=== PATIENT | male | born 1960 | race Caucasian/White ===

== ENCOUNTER → 2018-08-27 07:20 | Outpatient (CLI) | payer MEDICARE, SELFPAY ==
--- NOTE | 2018-08-27 07:24 | CT_ITS ---
STUDY: CT RIGHT SHOULDER REASON FOR EXAM: Male, 58 years old. Osteoarthritis of the right shoulder joint. RADIATION DOSAGE (If Supplied By Facility): CTDIvol = ( 27.67 ) mGy, DLP = ( 582.45 ) mGycm TECHNIQUE: The patient was scanned in a multi detector CT scanner. High resolution transaxial imaging was performed without the administration of intravenous contrast material. Sagittal and coronal images were reconstructed. Individualized dose optimization techniques were used for this CT. COMPARISON: None. FINDINGS: There is mild osteoarthritis of the glenohumeral articulation, with mild articular joint space narrowing and mild osteoarthritic spurring. Normal glenoid rim, neck and visualized scapula. Normal humeral head, neck and tuberosities. Normal coracoid process. Normal visualized lateral clavicle. There is moderate osteoarthritis with articular joint space narrowing and with osteoarthritic spurring. There is a Type II morphology (curved), with a neutral orientation. Normal visualized muscles and soft tissue structures. CT/Extremity Upper without Contra IMPRESSION: Osteoarthritis of the acromioclavicular joint. Mild osteoarthritis of the glenohumeral joint. Electronically Signed: Chaka Medina MD at 8:47 EST Tel [phone], Service support ,
--- OUTSIDE RECORDS SUMMARY | 2018-10-13 00:43 | XMS RPT_ITS | Summary of Care ---
:1960 Author Organization [facility] Address [address] [place] [address] Phone Care Team Providers Name Role Phone Moise Jack MD Primary Care Provider Transplant, Coordinator Assistant [employer] Alee Hodgson RN Unavailable Unavailable Trice Moon RN Unavailable Unavailable Reason for Visit Radiology (Routine) Status Reason Specialty Diagnoses / Procedures Referred By Referred To Contact Contact Authorized - Diagnoses 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 High risk medication use Susan Evans Procedures ECHOCARDIOGRAM PHARMACOLOGICAL STRESS TEST MD Emmanuel [address] [place] [address] Encounter Details Date Type Department Care Team Description 08/11/2018 Hospital Encounter [facility] Susan Evans MD [facility] [address] [place] [phone] Allergies Active Allergy Reactions Severity Noted Date Comments Statins Myalgia Medium 04/04/2010 *Tape 08/15/2008 as of this encounter Medications Prescription Sig. Disp. Refills Start Date End Date Status aspirin 81 MG PO take 1 Tab by 90 Tab 3 06/07/2011 Active TABSIndications: mouth daily. Encounter for long-term (current) use of other medications, Hyperlipidemia, Aftercare following organ transplant, Hypertension Multiple take 1 Tab by 90 Tab 3 06/11/2013 Active Vitamins-Minerals mouth daily. (CENTRUM) PO TABS magnesium oxide 400 MG take 1 Tab by 90 Tab 3 06/11/2013 Active PO TABS mouth daily. calcium-vitamin D take 1 Tab by 60 Tab 11 08/24/2013 Active 500-200 MG-UNIT PO TABS mouth 2 times daily. docusate 100 MG Cap take 1 Cap by 60 Cap 11 10/14/2014 Active mouth 2 times daily. SitaGLIPtin-MetFORMIN Take 1 tablet 60 tablet 1 09/19/2015 Active HCl (JANUMET XR) by mouth daily 100-1000 MG Tab SR 24 every morning. HRIndications: Encounter for aftercare following heart transplant, Encounter for long-term (current) use of medications, Other hyperlipidemia, Essential hypertension rosuvastatin (CRESTOR) take 1 tablet 90 tablet 3 09/20/2016 Active 5 MG Tab by mouth daily.. Cholecalciferol 2000 take 1 capsule 90 capsule 3 09/20/2016 Active UNITS Cap by mouth daily.. Coenzyme Q10 (COQ10) Take by mouth Active 200 MG CapIndications: daily. Encounter for aftercare following heart transplant, Encounter for long-term (current) use of medications, Other hyperlipidemia, Essential hypertension mycophenolate mofetil Take 1 capsule 180 capsule 3 09/30/2017 Active (generic) 250 MG Cap by mouth 2 capsule times daily. mycophenolate mofetil Take 1 tablet 180 tablet 3 09/30/2017 Active (generic) 500 MG Tab by mouth 2 tablet times daily. tacrolimus (generic) 1 Take 2 capsules 360 capsule 3 09/30/2017 Active MG Cap capsule by mouth 2 times daily. lisinopril 10 MG Tab Take 1.5 270 tablet 3 09/30/2017 Active tabletIndications: tablets by Encounter for aftercare mouth 2 times following heart daily. transplant, Encounter for long-term (current) use of medications, Other hyperlipidemia, Essential hypertension omeprazole [address] Take 1 capsule 90 capsule 3 09/30/2017 Active capsuleIndications: by mouth daily. Encounter for aftercare following heart transplant, Encounter for long-term (current) use of medications, Other hyperlipidemia, Essential hypertension amLODIPine 10 MG Tab Take 1 tablet 90 tablet 3 10/13/2017 Active tablet by mouth daily. metformin 1000 MG Tab Take 1,000 mg Active tablet by mouth every evening at 6 PM. as of this encounter Active Problems Problem Noted Date Diabetes mellitus 04/19/2015 Overview: Diagnosed by PCP. A1C 12.5 Immunosuppression 08/30/2014 Peripheral neuropathy 09/29/2013 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 06/23/2013 Overview: 08/24/2009 for nonischemic cardiomyopathy Aftercare following organ transplant 11/27/2010 Hypertension 10/03/2009 Syncope Overview: 1. Jun 2008 2. Etiology unclear - likely hemodynamic related Hypertriglyceridemia Atrial fibrillation Overview: 1. Switched from Sotolol to Amiodarone last hospitalization due to possible hypotension with sotolol. Pulmonary embolism Ventricular tachycardia (paroxysmal) Overview: VT with syncope / admission to HF service 01/21 with adjustment in therapy. Resolved Problems Problem Noted Date Resolved Date Nonischemic cardiomyopathy 03/03/2012 Overview: 1. Idiopathic dilated cardiomyopathy/congestive heart failure. A. Echocardiogram performed 01/21, showed severely dilated left ventricle with segmental LV dysfunction, ejection fraction calculated at 15% to 20%, moderate MR, mild TR, left atrial enlargement. LVEDD is 6.9cm. No significant pul HTN B. Exercise VO2 study performed 07/23, showed a peak VO2 of 17 mL/kg per minute (50% predicted), VE/VCO2 47. C. ICD implanted in 2002 with an upgrade to a biventricular device (based on a dyssynchrony study). D. Currently status II on cardiac transplant waiting list (listed 10/24) Chronic systolic heart failure 03/03/2012 Diabetes mellitus, type 2 04/19/2015 Immunizations Name Dates Previously Given Next Due Influenza Vaccine, Trivalent 07/06/2014 as of this encounter Social History Tobacco Use Types Packs/Day Years Used Date Never Smoker Smokeless Tobacco: Former User Snuff Quit: 02/28/2000 Alcohol Use Drinks/Week oz/Week Comments No Sex Assigned at Date Recorded Not on file as of this encounter Last Filed Vital Signs Vital Sign Reading Time Taken Blood Pressure - - Pulse - - Temperature - - Respiratory Rate - - Oxygen Saturation - - Inhaled Oxygen Concentration - - Weight 90.7 kg (200 lb) 08/11/2018 1:57 PM EST Height 177.8 cm (5' 10) 08/11/2018 1:57 PM EST Body Mass Index 28.7 08/11/2018 1:57 PM EST in this encounter Plan of Treatment Upcoming Encounters Date Type Specialty Care Team Description 08/03/2019 Appointment Peripheral Vascular Giana Bradshaw MD [address] [place] [address] 08/03/2019 Office Visit Transplant Surgery Health Maintenance Due Date Last Done Comments TETANUS 1980 TDAP (ADULT) 1981 PROSTATE CANCER SCREENING 11/04/2013 11/04/2012, 09/01/2012, DISCUSSION 09/01/2012, Additional history exists COLON CANCER SCREENING DISCUSSION 03/23/2015 03/23/2014, 08/28/2009, 10/06/2008 INFLUENZA VACCINE (#1) 2018 07/06/2014 LIPID SCREENING 08/13/2022 08/13/2017, 09/17/2016, 09/19/2015, Additional history exists HEPATITIS C VIRUS SCREENING Completed 02/07/2010, 08/24/2009, 09/02/2008 HIV SCREENING DISCUSSION Completed 02/07/2010, 08/24/2009, 09/02/2008 as of this encounter Procedures Procedure Name Priority Date/Time Associated Comments Diagnosis ECHOCARDIOGRAM PHARM Routine 08/11/2018 2:01 Heart replaced by Results for this STRESS TEST W/ CONTRAST PM EST transplant procedure are in High risk the results medication use section. in this encounter Administered Medications Active Administered Medications - up to 3 most recent administrations Medication Order MAR Action Action Date Dose Rate Site DOBUTamine (DOBUTREX) 1 $$New Bag$$ 08/11/2018 14:17 10 mcg/kg/min 54.4 mL/hr MG/ML premix infusion EST 40 mcg/kg/min ? 90.7 kg Order-specific weight (217.68 mL/hr, rounded to 217.7 mL/hr), at 217.7 mL/hr, Intravenous, CONTINUOUS, Starting 08/11/18 at 1415, Until Discontinued, Initiate at 10 mcg/kg/min and titrate to increase by 10 mcg/kg/min every 3 minutes to a maximum dose of 40 mcg/kg/min as directed by physician. Rate/Dose Change 08/11/2018 14:22 EST 20 mcg/kg/min 108.8 mL/hr Inactive Administered Medications - up to 3 most recent administrations Medication Order MAR Action Action Date Dose Rate Site Perflutren Lipid Microsphere Given 08/11/2018 14:23 EST 3 mL (DEFINITY) SUSP 10 mL 10 mL, Intravenous, ONCE, 1 dose, 08/11/18 at 1430, Dilute 1.5 mL of Definity with 8.5 mL of 0.9% sodium chloride and draw up in a 10 mL syringe. Administration during procedure as directed by physician. Recorded MAR dose is cumulative amount given during procedure. in this encounter
--- OUTSIDE RECORDS SUMMARY | 2018-10-13 00:43 | XMS RPT_ITS | Summary of Care ---
:1960 Author Organization [facility] Address [address] [place] [address] Phone Care Team Providers Name Role Phone Moise Jack MD Primary Care Provider Transplant, Coordinator Photographic Laboratory Technician Alee Hodgson RN Unavailable Unavailable Trice Moon RN Unavailable Unavailable Reason for Visit Radiology (Routine) Status Reason Specialty Diagnoses / Referred By Referred To Procedures Contact Contact [facility] - Diagnoses Encounter for aftercare following heart transplant Encounter for long-term (current) use of medications Other hyperlipidemia Essential hypertension Susan Evans, Procedures ECHOCARDIOGRAM MD [address] [place] [address] Encounter Details Date Type Department Care Team Description 08/11/2018 Hospital Encounter [facility] Susan Evans MD [facility] [address] [place] [phone] Allergies Active Allergy Reactions [...] 3 10/13/2017 Active tablet by mouth daily. as of this encounter Active Problems Problem [...] Vital Sign Reading Time Taken Blood Pressure 122/78 08/11/2018 11:07 AM EST Pulse - - Temperature - - Respiratory Rate - - Oxygen Saturation - - Inhaled Oxygen Concentration - - Weight 93.9 kg (207 lb) 08/11/2018 11:07 AM EST Height 175.3 cm (5' 9) 08/11/2018 11:07 AM EST Body Mass Index 30.57 08/11/2018 11:07 AM EST in this encounter Plan of Treatment Upcoming Encounters Date Type Specialty Care Team Description 08/03/2019 Appointment Peripheral Vascular Giana Bradshaw MD [address] [place] [address] 08/03/2019 Office Visit Transplant Surgery Health Maintenance [...] encounter Procedures Procedure Name Priority Date/Time Associated Diagnosis Comments ECHOCARDIOGRAM W/O 3D Routine 08/11/2018 11:07 Encounter for Results for this W/CONTRAST AM EST aftercare following procedure are in heart transplant the results Encounter for section. long-term (current) use of medications Other hyperlipidemia Essential hypertension in this encounter Administered Medications Inactive Administered Medications - up to 3 most recent administrations Medication Order MAR Action Action Date Dose Rate Site Perflutren Lipid Microsphere Given 08/11/2018 10:48 EST 2 mL (DEFINITY) SUSP 10 mL 10 mL, Intravenous, ONCE, 1 dose, 08/11/18 at 1045, Dilute 1.5 mL of Definity with 8.5 mL of 0.9% sodium chloride and draw up in a 10 mL syringe. Administration during procedure as directed by physician. Recorded MAR dose is cumulative amount given during procedure. in this encounter
--- OUTSIDE RECORDS SUMMARY | 2018-10-13 00:43 | XMS RPT_ITS | Summary of Care ---
:1960 Author Organization [facility] Address [address] [place] [address] Phone Care Team Providers Name Role Phone Moise Jack MD Primary Care Provider Transplant, Coordinator Bacteriologist Food Alee Hodgson RN Unavailable Unavailable Trice Moon RN Unavailable Unavailable Reason for Visit Reason Comments Medication Refill Encounter Details Date Type Department Care Team Description 08/21/2018 Refill Comprehensive Transplant Trice Moon, RN Encounter for aftercare following heart transplant; Center Heart Transplant Encounter for long-term (current) use of medications; Office Other hyperlipidemia; [address] [place] [address] Allergies Active Allergy Reactions Severity Noted Date [...] Active Vitamins-Minerals mouth daily. (CENTRUM) PO TABS calcium-vitamin D take 1 Tab by 60 Tab 11 08/24/2013 Active 500-200 MG-UNIT PO mouth 2 times TABS daily. docusate 100 MG Cap take 1 Cap by 60 Cap 11 10/14/2014 Active mouth 2 times daily. SitaGLIPtin-MetFORMI Take 1 tablet 60 tablet 1 09/19/2015 Active N HCl (JANUMET XR) by mouth 100-1000 MG Tab SR daily every 24 HRIndications: morning. Encounter for aftercare following heart transplant, Encounter for long-term (current) use of medications, Other hyperlipidemia, Essential hypertension Cholecalciferol 2000 take 1 90 capsule 3 09/20/2016 Active UNITS Cap capsule by mouth daily.. Coenzyme Q10 (COQ10) Take by mouth Active 200 MG daily. CapIndications: Encounter for aftercare following heart transplant, Encounter for long-term (current) use of medications, Other hyperlipidemia, Essential hypertension metformin 1000 MG Take 1,000 mg Active Tab tablet by mouth every evening at 6 PM. magnesium oxide 400 Take 1 tablet 90 tablet 3 08/21/2018 Active MG Tab by mouth at bedtime. amLODIPine 10 MG Tab Take 1 tablet 90 tablet 3 08/21/2018 Active tablet by mouth daily. mycophenolate Take 1 180 capsule 3 08/21/2018 Active mofetil (generic) capsule by 250 MG Cap capsule mouth 2 times daily. mycophenolate Take 1 tablet 180 tablet 3 08/21/2018 Active mofetil (generic) by mouth 2 500 MG Tab tablet times daily. rosuvastatin Take 2.5mg on 24 tablet 3 08/21/2018 Active (CRESTOR) 5 MG Tab Mon/Fri/Fri/S per tablet un tacrolimus (generic) Take 2 360 capsule 3 08/21/2018 Active 1 MG Cap capsule capsules by mouth 2 times daily. lisinopril 10 MG Tab Take 1.5 270 tablet 3 08/21/2018 Active tabletIndications: tablets by Encounter for mouth 2 times aftercare following daily. heart transplant, Encounter for long-term (current) use of medications, Other hyperlipidemia, Essential hypertension omeprazole 20 MG Cap Take 1 90 capsule 3 08/21/[address] capsule by capsuleIndications: mouth daily. Encounter for aftercare following heart transplant, Encounter for long-term (current) use of medications, Other hyperlipidemia, Essential hypertension magnesium oxide 400 take 1 Tab by 90 Tab 3 06/11/2013 Discontinued MG PO TABS mouth daily. 8 mycophenolate Take 1 180 capsule 3 09/30/2017 Discontinued mofetil (generic) capsule by 8 250 MG Cap capsule mouth 2 times daily. mycophenolate Take 1 tablet 180 tablet 3 09/30/2017 Discontinued mofetil (generic) by mouth 2 8 500 MG Tab tablet times daily. tacrolimus (generic) Take 2 360 capsule 3 09/30/2017 Discontinued 1 MG Cap capsule capsules by 8 mouth 2 times daily. lisinopril 10 MG Tab Take 1.5 270 tablet 3 09/30/2017 Discontinued tabletIndications: tablets by 8 Encounter for mouth 2 times aftercare following daily. heart transplant, Encounter for long-term (current) use of medications, Other hyperlipidemia, Essential hypertension omeprazole 20 MG Cap Take 1 90 capsule 3 09/30/[address] capsule by 8 capsuleIndications: mouth daily. Encounter for aftercare following heart transplant, Encounter for long-term (current) use of medications, Other hyperlipidemia, Essential hypertension amLODIPine 10 MG Tab Take 1 tablet 90 tablet 3 10/13/2017 Discontinued tablet by mouth 8 daily. rosuvastatin Take 2.5mg on 24 tablet 3 08/14/2018 Discontinued (CRESTOR) 5 MG Tab Fri/Fri/Fri/S 8 per tablet un as of this encounter Active Problems Problem Noted Date Diabetes mellitus 04/19/2015 Overview: Diagnosed by PCP. 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 Jun 2008 2. [...] Not on file as of this encounter Plan of Treatment Upcoming Encounters Date Type Specialty Care Team Description 08/03/2019 Appointment Peripheral Vascular Giana Bradshaw MD [address] [place] [phone] 08/03/2019 Office Visit Transplant Surgery Health Maintenance Due Date Last Done Comments TETANUS 1980 TDAP (ADULT) 1981 PROSTATE CANCER SCREENING 11/04/2013 11/04/2012, 09/01/2012, DISCUSSION 09/01/2012, Additional history exists COLON CANCER SCREENING DISCUSSION 03/23/2015 03/23/2014, 08/28/2009, 10/06/2008 INFLUENZA VACCINE (#1) 2018 07/06/2014 LIPID SCREENING 08/11/2023 08/11/2018, 08/13/2017, 09/17/2016, Additional history exists HEPATITIS C VIRUS SCREENING Completed 02/07/2010, 08/24/2009, 09/02/2008 HIV SCREENING DISCUSSION Completed 02/07/2010, 08/24/2009, 09/02/2008 as of this encounter Visit Diagnoses Diagnosis Encounter for aftercare following heart transplant Aftercare following organ transplant Encounter for long-term (current) use of medications Encounter for long-term (current) use of other medications Other hyperlipidemia Essential hypertension Unspecified essential hypertension
--- OUTSIDE RECORDS SUMMARY | 2018-10-13 00:43 | XMS RPT_ITS | Summary of Care ---
:1960 Author Organization [facility] Address [address] [place] [address] Phone Care Team Providers Name Role Phone Moise Jack MD Primary Care Provider Transplant, Coordinator Night Nurse Alee Hodgson RN Unavailable Unavailable Trice Moon RN Unavailable Unavailable Reason for Referral Radiology (Routine) Status Reason Specialty Diagnoses / Referred By Referred To Procedures Contact Contact New Request Diagnoses Encounter for aftercare following heart transplant Giana Bradshaw Procedures ECHOCARDIOGRAM [address] [place] [address] Radiology (Routine) Status Reason Specialty Diagnoses / Referred By Referred To Procedures Contact Contact Pending Review Diagnoses Encounter for aftercare following heart transplant Giana Bradshaw Procedures ECHOCARDIOGRAM [address] [place] [address] Reason for Visit Reason Comments Heart Recipient Follow-up Encounter Details Date Type Department Care Team Description 08/11/2018 Office Visit Comprehensive Susan Evans Encounter for aftercare following heart transplant (Primary Dx); Transplant Center MD Emmanuel Other hyperlipidemia; Heart Transplant [address] Encounter for long-term (current) use of medications; Office [place], [place] Essential hypertension; [address] [address] Hypertriglyceridemia; [place], [place] [phone] 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; [phone] Immunosuppression; Diabetes mellitus due to underlying condition with hyperosmolarity without coma, without long-term current use of insulin; Myalgia; Encounter for long-term (current) use of high-risk medication Allergies Active Allergy Reactions Severity Noted Date [...] daily. (CENTRUM) PO TABS magnesium oxide 400 take 1 Tab by 90 Tab 3 06/11/2013 Active MG PO TABS mouth daily. calcium-vitamin D take [...] of medications, Other hyperlipidemia, Essential hypertension mycophenolate Take 1 180 capsule 3 09/30/2017 Active mofetil (generic) capsule by 250 MG Cap capsule mouth 2 times daily. mycophenolate Take 1 tablet 180 tablet 3 09/30/2017 Active mofetil (generic) by mouth 2 500 MG Tab tablet times daily. tacrolimus (generic) Take 2 360 capsule 3 09/30/2017 Active 1 MG Cap capsule capsules by mouth 2 times daily. lisinopril 10 MG Tab Take 1.5 270 tablet 3 09/30/2017 Active tabletIndications: tablets by Encounter for mouth 2 times aftercare following daily. heart transplant, Encounter for long-term (current) use of medications, Other hyperlipidemia, Essential hypertension omeprazole 20 MG Cap Take 1 90 capsule 3 09/30/[address] capsule by capsuleIndications: mouth daily. Encounter for aftercare following heart transplant, Encounter for long-term (current) use of medications, Other hyperlipidemia, Essential hypertension amLODIPine 10 MG Tab Take 1 tablet 90 tablet 3 10/13/2017 Active tablet by mouth daily. metformin 1000 MG Take 1,000 mg Active Tab tablet by mouth every evening at 6 PM. rosuvastatin take 1 tablet 90 tablet 3 09/20/2016 Discontinued (CRESTOR) 5 MG Tab by mouth 8 daily.. as of this encounter Active Problems Problem [...] Vital Sign Reading Time Taken Blood Pressure 126/85 08/11/2018 11:18 AM EST Pulse 99 08/11/2018 11:18 AM EST Temperature 36.8 ??C (98.3 ??F) 08/11/2018 11:18 AM EST Respiratory Rate 18 08/11/2018 11:18 AM EST Oxygen Saturation 97% 08/11/2018 11:18 AM EST Inhaled Oxygen Concentration - - Weight 90.7 kg (200 lb) 08/11/2018 11:18 AM EST Height 177.8 cm (5' 10) 08/11/2018 11:18 AM EST Body Mass Index 28.7 08/11/2018 11:18 AM EST in this encounter Progress Notes Giana Bradshaw MD - 08/11/2018 11:30 AM ESTFormatting of this note may be different from the original. [facility] Progress Not Subjective: Apolinar Hunter is a 58 y.o. male with a history of OHT who presents with the following: ?? 9 year post tx evaluation ?? Denies current complaints. ?? Continues to have achiness, related to statins. ?? Possible rotator cuff tear. Waiting to see ortho. ?? Denies abdominal complaints. ?? Denies cardiovascular complaints. ?? Continues with some feet neuropathy. Home Vital Signs Home BP: Not checking Home HR: Not checking Last dose of CNI: 10:45pm last night Pertinent cardiac & admission history. Refer to updated history tab for comprehensive data. 1. OHT 08/23 2. Recent Admissions: None Immunosuppression: Prograf 2mg BID Cellcept 750mg BID Outpatient Encounter Prescriptions as of 08/11/2018 Medication Sig Dispense Refill ??? amLODIPine 10 MG Tab tablet Take 1 tablet by mouth daily. 90 tablet 3 ??? aspirin 81 MG PO TABS take 1 Tab by mouth daily. (Patient taking differently: take 81 mg by mouth at bedtime.. ) 90 Tab 3 ??? calcium-vitamin D 500-200 MG-UNIT PO TABS take 1 Tab by mouth 2 times daily. 60 Tab 11 ??? Cholecalciferol 2000 UNITS Cap take 1 capsule by mouth daily.. 90 capsule 3 ??? Coenzyme Q10 (COQ10) 200 MG Cap Take by mouth daily. ??? lisinopril 10 MG Tab tablet Take 1.5 tablets by mouth 2 times daily. 270 tablet 3 ??? magnesium oxide 400 MG PO TABS take 1 Tab by mouth daily. (Patient taking differently: take 400 mg by mouth at bedtime.. ) 90 Tab 3 ??? metformin 1000 MG Tab tablet Take 1,000 mg by mouth every evening at 6 PM. ??? Multiple Vitamins-Minerals (CENTRUM) PO TABS take 1 Tab by mouth daily. 90 Tab 3 ??? mycophenolate mofetil (generic) 250 MG Cap capsule Take 1 capsule by mouth 2 times daily. 180 capsule 3 ??? mycophenolate mofetil (generic) 500 MG Tab tablet Take 1 tablet by mouth 2 times daily. 180 tablet 3 ??? omeprazole [address] capsule Take 1 capsule by mouth daily. 90 capsule 3 ??? rosuvastatin (CRESTOR) 5 MG Tab take 1 tablet by mouth daily.. 90 tablet 3 ??? SitaGLIPtin-MetFORMIN HCl (JANUMET XR) 100-1000 MG Tab SR 24 HR Take 1 tablet by mouth daily every morning. 60 tablet 1 ??? tacrolimus (generic) 1 MG Cap capsule Take 2 capsules by mouth 2 times daily. 360 capsule 3 ??? docusate 100 MG Cap take 1 Cap by mouth 2 times daily. (Patient not taking: Reported on 08/11/2018 ) 60 Cap 11 ??? [] Perflutren Lipid Microsphere (DEFIN[employer]) SUSP 10 mL No facility-administered encounter medications on file as of 08/11/2018. REVIEW OF SYSTEMS A complete review of systems was performed and positive for symptoms mentioned in the history of present illness. The remainder of system review was negative. Objective: Blood pressure 126/85, pulse 99, temperature 98.3 ??F (36.8 ??C), temperature source Oral, resp. rate 18, height 1.778 m (5' 10), weight 90.7 kg (200 lb), SpO2 97 %. Wt Readings from Last 3 Encounters: 08/11/18 90.7 kg (200 lb) 08/11/18 93.9 kg (207 lb) 08/13/17 93.9 kg (207 lb) Body mass index is 28.7 kg/m??. Chief Complaint Patient presents with ??? Heart Recipient Follow-up Physical exam -- General: Appears stated age in no acute distress. Able to ambulate without assist. Obese. Neck: Supple. Cardiac: Regular rate and rhythm. No MM, rubs or gallops. No JVD. Lungs: CTA aj Abdomen: Normal bowel sounds throughout. No organomegaly or pulsations. Negative HJR. Extremities: No LE edema. Muscle Musculoskeletal: strength 5/5 UE and LE. Skin: No evidence of rashes, ulcers or skin breakdown. Normal color. Neurological: Grossly CN 2-12 intact. No focal deficits. Psych: No evidence of significant anxiety, depression or psychosis. Mental Status: Alert and oriented to person, place and time. Transplant Course / Past medical & Surgical History: Extensive review of previous records and imaging studies in electronic medical record Rejection History: none 10/25: 1A (to possible 2) 02/22: 1A, negative C3d/C4d. 08/24: 0, 02/23: 0, 03/04/12: 0 ALLOMAP: 02/22: 23 (w/biopsy 1A). 07/25: 30 11/23: 33 06/04/11: 33 08/25: 35 08/26: 34 03/27: 28 08/27: 29 02/26: 36 Echo A. 09/25: Normal LVEF 60-65%, normal RV function but mildly dilated, no valvular disease, LVEDD 4.6 cm. B. 08/25: LVEF 45-50%, normal RV function/size, no valvular disease, LVEDD 4.4 cm (images reviewed and LVEF appears similar to previous 55-60%). C. 08/26: Normal LVEF 50-55%, normal RV size/function, mild PI, no pericardial effusion, LVEDD 4.2 cm. D. 08/27: LVEF 55-60%, RV is enlarged and mild dysfunction, RVSP 24 mmHg, no valvular disease, LVEDD4.3 cm. E. 08/28 :LVEF 50%, mild-mod RV dysfunction, no valvular disease F. 09/30: LVEF 50%, nomral RV function by TAPSE, no valvular disease, RVSP 21 mmHg. G. 08/31: LVEF 60-65%, mild RV dilation with normal function, no valvular disease, RVSP 19 mmHg. Ischemic evaluation A. 08/24: No evidence of transplant vasculopathy. B. 08/25: Normal coronaries, normal LVEDP, Right dominant C. 08/26: normal coronaries, LVEDP 8mmHg D. 08/27 DSE: LVEF increased from 55% to 65% with stress, no wall motion abnormalities, no CP or arrhythmia, normal stress echo. E. 08/28 LHC: normal, no CAV F. 10/01 LHC: normal LAD, LCx. RCA with prox 10-20% stenosis, LVEDP 7 mmHg Database: Lab Results Component Value Date SODIUM 138 08/11/2018 POTASSIUM 4.7 08/11/2018 CHLORIDE 99 08/11/2018 CO2 29 08/11/2018 BUN 17 08/11/2018 CREATSERUM 0.92 08/11/2018 Lab Results Component Value Date WBC 7.58 08/11/2018 HGB 14.0 08/11/2018 HCT 40.9 08/11/2018 PLATELET 310 08/11/2018 MCV 88.7 08/11/2018 Lab Results Component Value Date ALT 21 08/11/2018 AST 16 08/11/2018 ALKPHOS 75 08/11/2018 BILITOTAL 0.5 08/11/2018 BILIDIRECT 0.1 08/11/2018 Lab Results Component Value Date CHOLESTEROL 166 08/11/2018 TRIG 181 (H) 08/11/2018 HDL 54 08/11/2018 LDLCALC 76 08/11/2018 Lab Results Component Value Date/Time TACROLIMUS 6.4 08/11/2018 09:30 AM TACROLIMUS 4.4 (L) 08/13/2017 10:16 AM TACROLIMUS 6.0 09/17/2016 11:57 AM TACROLIMUS 5.5 09/19/2015 08:48 AM TACROLIMUS 4.8 (L) 08/30/2014 10:21 AM Assessment and Plan: 58 y.o. y.o. male S/P OHT 08/24/09 for non-ischemic cardiomyopathy for follow-up clinic visit 1. Immunosuppresion therapy (transplant 08/23, CMV D+/R-) / Post-transplant care: - tacro level goal 6-10; level today 6.4. No change in dose. - Failed pred taper twice due to polyarthralgia (01/22, 02/22 and 08/24). Off prednisone since Apr 2011 (slower taper). - Cr normal and Tacro at goal -Supplements: on asa, calcium, vitamin D, Mg oxide 400 mg at bedtime (normal Mg 1.6). Off all anti-infective prophylaxis. Today: + continue current medications (tacro 2 mg bid and cellcept 750 mg bid) + Echo normal +DSE 07/2018 - normal 2. Hypertension: Controlled Continue current medications 3. Diabetes Mellitus, pre and post-transplant: Managed by PCP 4. Hyperlipidemia: - Lipids - borderline TG, LDL ~ 70. - Several problems with myalgias. - intolerance to multiple statins in the past. - Picacho 3 fish oil - not tolerated due to GI discomfort. - no longer on tricor - continue regular monitoring - Crestor holiday for 2 weeks and restart at 2.5 MWFSu due to myalgias - Lipids on return 5. Neuropathy / Foot pain: - skin biopsy unremarkable - gabapentin was not helpful - Following with neurology. - lotion helps 6. Preventive Care - up to date on routine colonscopy. - will get pneumovax and tetanus from PCP Return to clinic in one year. Annual with [facility] in 07/2019 Thank you for allowing me to participate in the care of this pleasant patient. Please do not hesitate to contact me if there are any further questions. Total face to face time 40 minutes. Sincerely, Giana Bradshaw MD [facility] Trice Moon RN - 08/11/2018 11:30 AM ESTFormatting of this note may be different from the original. [facility] Progress Not Subjective: Apolinar Hunter is a 58 y.o. male with a history of OHT who presents with the following: ?? 9 year post tx evaluation ?? Denies current complaints. ?? Continues to have achiness, related to statins. ?? Possible rotator cuff tear. Waiting to see ortho. ?? Denies abdominal complaints. ?? Denies cardiovascular complaints. ?? Continues with some feet neuropathy. Home Vital Signs Home BP: Not checking Home HR: Not checking Last dose of CNI: 10:45pm last night Pertinent cardiac & admission history. Refer to updated history tab for comprehensive data. 1. OHT 08/23 2. Recent Admissions: None Immunosuppression: Prograf 2mg BID Cellcept 750mg BID Outpatient Encounter Prescriptions as of 08/11/2018 Medication Sig Dispense Refill ??? amLODIPine 10 MG Tab tablet Take 1 tablet by mouth daily. 90 tablet 3 ??? aspirin 81 MG PO TABS take 1 Tab by mouth daily. (Patient taking differently: take 81 mg by mouth at bedtime.. ) 90 Tab 3 ??? calcium-vitamin D 500-200 MG-UNIT PO TABS take 1 Tab by mouth 2 times daily. 60 Tab 11 ??? Cholecalciferol 2000 UNITS Cap take 1 capsule by mouth daily.. 90 capsule 3 ??? Coenzyme Q10 (COQ10) 200 MG Cap Take by mouth daily. ??? lisinopril 10 MG Tab tablet Take 1.5 tablets by mouth 2 times daily. 270 tablet 3 ??? magnesium oxide 400 MG PO TABS take 1 Tab by mouth daily. (Patient taking differently: take 400 mg by mouth at bedtime.. ) 90 Tab 3 ??? metformin 1000 MG Tab tablet Take 1,000 mg by mouth every evening at 6 PM. ??? Multiple Vitamins-Minerals (CENTRUM) PO TABS take 1 Tab by mouth daily. 90 Tab 3 ??? mycophenolate mofetil (generic) 250 MG Cap capsule Take 1 capsule by mouth 2 times daily. 180 capsule 3 ??? mycophenolate mofetil (generic) 500 MG Tab tablet Take 1 tablet by mouth 2 times daily. 180 tablet 3 ??? omeprazole [address] capsule Take 1 capsule by mouth daily. 90 capsule 3 ??? rosuvastatin (CRESTOR) 5 MG Tab take 1 tablet by mouth daily.. 90 tablet 3 ??? SitaGLIPtin-MetFORMIN HCl (JANUMET XR) 100-1000 MG Tab SR 24 HR Take 1 tablet by mouth daily every morning. 60 tablet 1 ??? tacrolimus (generic) 1 MG Cap capsule Take 2 capsules by mouth 2 times daily. 360 capsule 3 ??? docusate 100 MG Cap take 1 Cap by mouth 2 times daily. (Patient not taking: Reported on 08/11/2018 ) 60 Cap 11 ??? [] Perflutren Lipid Microsphere (DEFINITY) SUSP 10 mL No facility-administered encounter medications on file as of 08/11/2018. REVIEW OF SYSTEMS A complete review of systems was performed and positive for symptoms mentioned in the history of present illness. The remainder of system review was negative. Objective: Blood pressure 126/85, pulse 99, temperature 98.3 ??F (36.8 ??C), temperature source Oral, resp. rate 18, height 1.778 m (5' 10), weight 90.7 kg (200 lb), SpO2 97 %. Wt Readings from Last 3 Encounters: 08/11/18 90.7 kg (200 lb) 08/11/18 93.9 kg (207 lb) 08/13/17 93.9 kg (207 lb) in this encounter Plan of Treatment Upcoming Encounters Date Type Specialty Care Team Description 08/03/2019 Appointment Peripheral Vascular Giana Bradshaw MD [address] [place] [id number] 08/03/2019 Office Visit Transplant Surgery Scheduled Tests Name Priority Associated Diagnoses Order Schedule ECHOCARDIOGRAM Routine Encounter for aftercare following heart Ordered: 08/03/2018 transplant ECHOCARDIOGRAM Routine Encounter for aftercare following heart Ordered: 08/11/2018 transplant Health Maintenance Due Date Last Done Comments [...] 02/07/2010, 08/24/2009, 09/02/2008 as of this encounter Results ALLOSCREEN RECIPIENT (POST TX PRA) (08/11/2018 9:30 AM) cPRA 10 (H) 0 % [facility], [facility] CLASS I SPECIFICITIES None Detected [facility] CLASS II SPECIFICITIES DQ:06:03/A*01:03 [facility] ANTIBODY SPECIFICITY No DSA detected [facility] INTERPRETATION AB SPECIFICITY CLASS COMMENT Antibody Specificity testing performed by [employer]. [facility], [facility] Comment: Some of the reagents used for testing in the Clinical Histocompatibility Laboratory have yet to be approved by the FDA.?Our certification by CLIA to perform high complexity tests allows us to use these reagents in the context of a stringent QC program, and obviates the need for FDA approval.Testing performed by the [facility] Clinical Histocompatibility Laboratory.?[facility] number: [id number].?CLIA number:?[id number],?Director: Phil Knutson, PhD, D([facility]). Performing Organization Address [facility] Phone [facility], [facility], [address] [place] [address] TACROLIMUS LEVEL, TROUGH (PRE DRUG LEVEL) (08/11/2018 9:30 AM) TACROLIMUS 6.4 5 - 15 ng/mL [facility], [facility] Comment: ? Method performed is a chemiluminescent microparticle immunoassay on the [employer] i2000. Performing Organization Address [facility] Phone Number [facility], [facility], [address] [place] [address] LIPID PANEL W CALCULATED LDL (08/11/2018 9:30 AM) CHOLESTEROL 166 <200 mg/dL [facility], [facility] Comment: ?[<200 mg/dL:?Desirable] ?[200-239 mg/dL:?Borderline High] ?[>239 mg/dL:?High] TRIGLYCERIDES-TRIGE 181 (H) <150 mg/dL [facility], [facility] Comment: ? [<150 mg/dL: Desirable] [150-199 mg/dL: Borderline] [200-499 mg/dL: High] [>500 mg/dL: Very High] HDL CHOLESTEROL 54 >40.0 mg/dL [facility], [facility] Comment: ?[<40 mg/dL:?Low (High Risk)] ?[>59 mg/dL:?High (Low Risk)] LDL CHOLESTEROL, CALCULATED 76 0 - 99 mg/dL [facility], [facility] Comment: ?[<100 mg/dL:?Optimal] ?[100-129 mg/dL:?Near Optimal] ?[130-159 mg/dL:?Borderline High] ?[160-189 mg/dL:?High] ?[>189 mg/dL:?Very High] CHOLESTEROL, TOTAL/HDL 3.1Comment: [<4.5: Low <4.5 [facility], [facility] risk] NON-HDL CHOLESTEROL (CHOL-HDL) 112 <130 mg/dL [facility] Performing Organization Address [facility] Number LAB, [facility], [address] [place] [id number] HEPATIC FUNCTION PANEL (08/11/2018 9:30 AM) ALBUMIN 4.8 3.5 - 5.0 g/dL [facility] BILIRUBIN, DIRECT 0.1 <0.3 mg/dL [facility] BILIRUBIN, TOTAL 0.5 <1.5 mg/dL [facility] ALKALINE PHOSPHATASE 75 32 - 126 U/L [facility] ALT 21 10 - 52 U/L [facility] AST 16 14 - 40 U/L [facility] PROTEIN, TOTAL 7.6 6.4 - 8.3 g/dL [facility] Performing Organization Address [facility] Phone Number LAB, [facility], [address] [place] [phone] MAGNESIUM (08/11/2018 9:30 AM) MAGNESIUM 1.6 1.6 - 2.6 mg/dL [facility] Performing Organization Address [facility] Number LAB, [facility], [address] [place] [phone] CBC,PLATELETS (08/11/2018 9:30 AM) WBC (WHITE BLOOD COUNT) 7.58 3.73 - 10.10 K/uL [facility] RBC 4.61 4.38 - 5.83 M/uL [facility] HEMOGLOBIN (HGB) 14.0 13.4 - 16.8 g/dL [facility] HEMATOCRIT (HCT) 40.9 39.6 - 48.8 % [facility] MEAN CELL VOLUME 88.7 79.0 - 94.5 fL [facility] Mean Cell HGB 30.4 26.1 - 33.3 pg [facility] MEAN CELL HGB CONCENTRATION 34.2 31.9 - 36.5 g/dL [facility] RBC DISTRIBUTION 12.4 10.9 - 14.3 % [facility] PLATELET COUNT 310 146 - 337 K/uL [facility] MEAN PLATELET VOLUME 10.0 8.7 - 12.3 fL [facility] RBC, NUCLEATED 0.0 0.0 - 0.2 /100 WBC [facility] Performing Organization Address [facility] Phone Number LAB, [facility], [address] [place] [address] CHEM 6 (LYTES, BUN CREA) (08/11/2018 9:30 AM) BUN 17 7 - 22 mg/dL [facility] SODIUM 138 133 - 143 mmol/L [facility] POTASSIUM 4.7 3.5 - 5.0 mmol/L [facility] CHLORIDE 99 98 - 108 mmol/L [facility] CARBON DIOXIDE (CO2) 29 22 - 30 mmol/L [facility] CREATININE SERUM 0.92 0.70 - 1.30 mg/dL [facility] ANION GAP 15 7 - 17 mmol/L [facility] BUN/CREA RATIO 18 [facility] ESTIMATED GFR, NON AMER >60 >60 mL/min/1.73sqM [facility] ESTIMATED GFR, >60 >60 mL/min/1.73sqM [facility] Performing Organization Address City/[facility] Phone Number LAB, [facility], [address] [place] [address] in this encounter Visit Diagnoses Diagnosis Encounter for aftercare following heart transplant - Primary Aftercare following organ transplant Other hyperlipidemia Encounter for long-term (current) use of medications Encounter for long-term (current) use of other medications Essential hypertension Unspecified essential hypertension Hypertriglyceridemia Pure hyperglyceridemia 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 Immunosuppression Unspecified disorder of immune mechanism Diabetes mellitus due to underlying condition with hyperosmolarity without coma, without long-term current use of insulin Myalgia Mylagia and myositis, unspecified Encounter for long-term (current) use of high-risk medication Encounter for long-term (current) use of other medications
--- OUTSIDE RECORDS SUMMARY | 2018-10-13 00:43 | XMS RPT_ITS | Summary of Care ---
:[address] [facility] Address [address] [place] [address] Phone Care Team Providers Name Role Phone Moise Jack MD Primary Care Provider Transplant, Coordinator Misdraw Hand Alee Hodgson RN Unavailable Unavailable Trice Moon RN Unavailable Unavailable Reason for Visit Reason Comments Post-Visit Follow Up Encounter Details Date Type Department Care Team Description 08/14/2018 Telephone Comprehensive Transplant Trice Moon, WILNER Post-Visit Follow Up Center Heart Transplant Office [address] [place] [address] Allergies Active Allergy Reactions Severity Noted [...] mouth every evening at 6 PM. rosuvastatin Take 2.5mg on 24 tablet 3 08/14/2018 Active (CRESTOR) 5 MG Tab Mon/Fri/Fri/S per tablet un rosuvastatin take 1 tablet 90 tablet 3 [...] Team Description 08/03/2019 Appointment Peripheral Vascular Giana Brasdhaw MD [address] [place] [id number] 08/03/2019 Office Visit Transplant Surgery Health Maintenance [...]
--- OUTSIDE RECORDS SUMMARY | 2018-10-13 00:44 | XMS RPT_ITS ---
:1960 Author Organization OHIP Care Team Providers Name Role Phone FLOR KAUFMAN Attending Unavailable FLOR KAUFMANA Referring Unavailable ROXIE, MOISE G Primary Care Unavailable FLOR KAUFMANA Attending Unavailable ROXIE, MOISE G Referring Unavailable ROXIE, MOISE G Primary Care Unavailable FLOR KAUFMAN Attending Unavailable FLOR KAUFMANA Referring Unavailable ROXIE, MOISE G Primary Care Unavailable FLOR KAUFMAN Attending Unavailable SHAE, AKJuan C BEBO Referring Unavailable ROXIE, MOISE G Primary Care Unavailable Ricardo Garcia Attending Unavailable Ricardo Garcia Referring Unavailable Roxie, Moise Primary Care Unavailable John Jackmond Attending Unavailable Roxie, Moise Referring Unavailable Roxie, Moise Primary Care Unavailable Ricardo Garcia Attending Unavailable Ricardo Garcia Referring Unavailable Moise Jack Primary Care Unavailable PROBLEMS PROBLEMS DATE TYPE CONDITION / CODE ATTENDING STATUS SOURCE 09/01/2018 Unknown M75.41 - Impingement Ricardo Garcia Active [place] syndrome of right [facility] M75.41(ICD-10) Repository 08/11/2018 Admitting Encounter for FLOR KAUFMAN Active [facility] diagnosis aftercare following [facility] heart transplant / [facility] Z48.21(ICD-10) Center Repository 08/11/2018 Admitting Other hyperlipidemia FLOR KAUFMAN Active [facility] diagnosis / E78.49(ICD-10) [facility] Repository 08/11/2018 Admitting Other fci FLOR KAUFMAN Active [facility] diagnosis (current) drug [facility] therapy / [facility] Z79.899(ICD-10) Center Repository PROCEDURES PROCEDURES No Procedure Records FoundRESULTS RESULTS URINALYSIS, ROUTINE Collected: 10/06/2018 Status: F Source: [place] (DIPSTICK) 10:08 AM [facility] REPOSITORY Order Comment: How was Urine Obtained? CLEAN CATCH TYPE CODE TESTS RESULT OUT OF RANGE REFERENCE UNITS LAB L400.3000 Yellow COLOR Normal Yellow LAB L400.3050 Clear Normal CLARITY Clear LAB L400.3200 Normal mg/dl Normal GLUCOSE, UR Normal LAB L400.3300 Negative mg/dL Normal BILIRUBIN URINE Negative LAB L400.3400 Negative mg/dl Normal KETONE UR Negative LAB L400.3465 1.002-1.030 Normal SP.GR. DIPSTX 1.015 LAB L400.3550 5.0 - 8.0 pH UR Normal 6.5 LAB L400.3600 Negative mg/dl PROT Normal DIPSTX Negative LAB L400.3700 Normal mg/dl Normal UROBILI Normal LAB L400.3750 Negative Normal NITRITE UR Negative LAB L400.3780 Negative /ul Normal OCCULT BLOOD-UR Negative LAB L400.3800 Negative /ul LEUK Normal ESTERASE Negative Performed By: #### L400.2010 #### [facility] [address] [place], [address] CBC W/DIFF, AUTOMATED Collected: 10/06/2018 Status: F Source: [place] 10:08 AM [facility] REPOSITORY TYPE CODE TESTS RESULT OUT OF RANGE REFERENCE UNITS LAB L100.1000 4.4-11.0 K/mm3 Normal WBC 6.2 LAB L100.1200 4.6-6.2 M/mm3 Normal RBC 4.62 LAB L100.1300 13.0-16.5 g/dl Normal HGB 13.5 LAB L100.1400 40-54 % Normal HCT 41.9 LAB L100.1500 80-94 fL Normal MCV 90.7 LAB L100.1600 27.0-32.0 pg Normal MCH 29.2 LAB L100.1700 32-36 g/gl Normal MCHC 32.2 LAB L100.1810 11.6-14.6 % Normal RDW CV 12.9 LAB L100.1820 35.1-43.9 fl Normal RDW SD 42.3 LAB L100.1900 150-450 K/mm3 Normal PLT 293 LAB L100.2000 6.2-12.0 fl Normal MPV 9.8 LAB L100.2100 47-70 % Normal NEUT% 55.9 LAB L100.2200 19-41 % Normal LY% 30.1 LAB L100.2300 0-10 % High MONO% 10.5 LAB L100.2400 0-5 % Normal EO% 2.4 LAB L100.2500 0-1 % Normal BASO% 0.5 LAB L100.2550 0.0-0.9 % Normal IM GRAN % 0.600 Result Comment: IG% - Immature Granulocytes (promyelocytes, myelocytes and metamyelocytes) > 1% indicates that a LEFT SHIFT is Present. LAB L100.2620 2.0-7.7 X10 3/uL Normal Absolute Neut 3.4 LAB L100.2720 0.83-4.51 X10 3/ul Normal Absolute Lymph 1.86 Performed By: #### L100.0100 #### [facility] [address] [facility] [place], [place], [id number] HEMOGLOBIN A1C Collected: 10/06/2018 Status: F Source: [place] 10:08 AM [facility] REPOSITORY TYPE CODE TESTS RESULT OUT OF RANGE REFERENCE UNITS LAB L501.9985 4.2-6.3 % High HGB A1C 8.2 Performed By: #### L501.9985 #### [facility] [address] [place], [address] COMPREHENSIVE METABOLIC Collected: 10/06/2018 Status: F Source: [place] CAREY 10:08 AM [facility] REPOSITORY TYPE CODE TESTS RESULT OUT OF RANGE REFERENCE UNITS LAB L501.0100 74-106 mg/dL High GLU 164 Result Comment: Fasting Glucose result greater than or equal to 126 mg/dL suggests DIABETES MELLITUS per A.D.A. criteria. Please note revised GLUCOSE reference range effective 2017. LAB L501.1000 7-18 mg/dL High BUN 21 LAB L501.1100 0.70-1.30 mg/dL Normal CREAT,SERUM 0.94 Result Comment: The validity of the calculated GFR AND GFRAA in patients over 70 years has not been determined. Clinical correlation is essential. LAB L501.1110 >60 mL/min Normal EST GFR 88 Result Comment: Non- GFR Calc LAB L501.1115 >60 mL/min Normal EST GFR - AA 107 Result Comment: GFR Calc LAB L501.1300 10-20 RATIO High BUN/CRE 22.4 LAB L501.1500 6.4-8.2 g/dL T Normal PROT 8.0 LAB L501.1800 3.2-5.0 g/dL Normal ALB 4.3 LAB L501.1950 2.2-4.2 g/dL Normal GLOB 3.7 LAB L501.2000 0.9-2.4 RATIO Normal A/G 1.2 LAB L501.2200 8.5-10.1 mg/dL CA Normal 9.3 LAB L501.4100 15-37 U/L Normal AST 15 LAB L501.4305 45-117 U/L Normal ALK P 78 LAB L501.4405 16-61 U/L Normal ALT 33 LAB L501.4600 0.20-1.00 mg/dL T Normal BILI 0.40 LAB L501.5300 136-145 mmol/L NA Normal 137 LAB L501.5600 3.5-5.1 mmol/L K Normal 4.5 LAB L501.5900 98-107 mmol/L CL Normal 103 LAB L501.6100 21.0-32.0 mmol/L Normal CO2 27.0 LAB L501.6200 5-15 Normal GAP 7 Performed By: #### L500.4050, L500.4100, L501.9910 #### [facility] [address] [place], [address] LIPID PROFILE Collected: 10/06/2018 Status: F Source: [place] 10:08 AM [facility] REPOSITORY TYPE CODE TESTS RESULT OUT OF RANGE REFERENCE UNITS LAB L501.4900 200 mg/dL Normal CHOL 196 Result Comment: <200 mg/dL Desirable 200-240 mg/dL Borderline >240 mg/dL High Risk LAB L501.5000 mg/dL Normal TRIG 173 Result Comment: The drugs N-Acetylcysteine and Metamizole may falsely depress this assay. Serum Triglycerides Reference Interval Normal <150 mg/dL Borderline high 150 - 199 mg/dL High 200 - 499 mg/dL Very High > or = 500 mg/dL LAB L501.6400 mg/dL Normal HDL 48 Result Comment: The drugs N-Acetylcysteine and Metamizole may falsely depress this assay. Reference Range HDL <40 mg/dL Low HDL Cholesterol HDL >or= 60 mg/dL High HDL Cholesterol LAB L501.6500 0-130 mg/dL Normal LDL 113 LAB L501.6600 5-40 mg/dL Normal VLDL 35 Performed By: #### L500.4050, L500.4100, L501.9910 #### [facility] [address] [place], [address] PSA,TOTAL - ANNUAL Collected: 10/06/2018 Status: F Source: [place] SCREEN 10:08 AM [facility] REPOSITORY TYPE CODE TESTS RESULT OUT OF RANGE REFERENCE UNITS LAB L501.9910 0.00-4.00 ng/mL Normal PSA,TOT 0.93 SCREEN Result Comment: This test was performed using the TPSA assay method for the [employer] chemistry system. Values obtained with different assay methods cannot be used interchangably. When changing PSA assays in the course of monitoring a patient, additional sequential testing should be carried out to confirm baseline values. Performed By: #### L500.4050, L500.4100, L501.9910 #### [facility] [address] [place], [address] 12 LEAD ELECTROCARDIOGRAM Observed: 10/05/2018 Status: F Source: [place] 9:32 AM [facility] REPOSITORY [facility] Cardiovascular Services [address] [place] [address] 12 Lead EKG 10/02/18 1055 MR#: [id number] Acct: [id number] Name: LY GAGE Rep #: [id number] : 1960 58 From: Romulo Milner MD Attending Dr: Ricardo Snyder Status: REG CLI Ordering Dr: Ricardo Garcia PA-C Date: 10/02/18 Location: LAB Sex: M C Admitted: Test Reason : PRE OP Blood Pressure : / mmHG Vent. Rate : 092 BPM Atrial Rate : 092 BPM P-R Int : 138 ms QRS Dur : 086 ms QT Int : 342 ms P-R-T Axes : 051 092 075 degrees QTc Int : 422 ms Normal sinus rhythm Rightward axis RSR' or QR pattern in V1 suggests right ventricular conduction delay Nonspecific T wave abnormality Abnormal ECG Confirmed by ANNIA LEWIS, ROMULO ([id number]), greeting card editor KAYKAY AUGUSTIN ([id number]) on 10/05/2018 9:32:20 AM Referred By: Ricardo Garcia Confirmed By:ROMULO MILNER MD 10/05/18 0932 Date Romulo Milner MD CC: Moise Jack MD; Ricardo MCGUIRE Signed CBC-COMPLETE BLOOD CNT Collected: 10/02/2018 Status: F Source: [place] NO DIFF 10:40 AM [facility] REPOSITORY TYPE CODE TESTS RESULT OUT OF RANGE REFERENCE UNITS LAB L100.1000 4.4-11.0 K/mm3 Normal WBC 6.2 LAB L100.1200 4.6-6.2 M/mm3 Normal RBC 4.70 LAB L100.1300 13.0-16.5 g/dl Normal HGB 13.9 LAB L100.1400 40-54 % Normal HCT 42.4 LAB L100.1500 80-94 fL Normal MCV 90.2 LAB L100.1600 27.0-32.0 pg Normal MCH 29.6 LAB L100.1700 32-36 g/gl Normal MCHC 32.8 LAB L100.1810 11.6-14.6 % Normal RDW CV 12.9 LAB L100.1820 35.1-43.9 fl Normal RDW SD 41.8 LAB L100.1900 150-450 K/mm3 Normal PLT 291 LAB L100.2000 6.2-12.0 fl Normal MPV 10.0 Performed By: #### L100.0500 #### [facility] [address] [place], [place], [address] BASIC METABOLIC Collected: 10/02/2018 Status: F Source: [place] PROFILE (BMP) 10:40 AM [facility] REPOSITORY TYPE CODE TESTS RESULT OUT OF RANGE REFERENCE UNITS LAB L501.0100 74-106 mg/dL High GLU 172 Result Comment: Fasting Glucose result greater than or equal to 126 mg/dL suggests DIABETES MELLITUS per A.D.A. criteria. Please note revised GLUCOSE reference range effective 2017. LAB L501.1000 7-18 mg/dL High BUN 23 LAB L501.1100 0.70-1.30 mg/dL Normal CREAT,SERUM 0.97 Result Comment: The validity of the calculated GFR AND GFRAA in patients over 70 years has not been determined. Clinical correlation is essential. LAB L501.1110 >60 mL/min Normal EST GFR 85 Result Comment: Non- GFR Calc LAB L501.1115 >60 mL/min Normal EST GFR - AA 103 Result Comment: GFR Calc LAB L501.1300 10-20 RATIO High BUN/CRE 23.7 LAB L501.2200 8.5-10.1 mg/dL CA Normal 9.5 LAB L501.5300 136-145 mmol/L NA Normal 136 LAB L501.5600 3.5-5.1 mmol/L K Normal 4.3 LAB L501.5900 98-107 mmol/L CL Normal 102 LAB L501.6100 21.0-32.0 mmol/L Normal CO2 25.0 LAB L501.6200 5-15 Normal GAP 9 Performed By: #### L500.2500 #### [facility] [address] [place], [address] EXTREMITY UPPER Observed: 08/27/2018 Status: F Source: [place] WITHOUT CONTRA 7:24 AM [facility] REPOSITORY [facility] Imaging Services [address] [place] [address] Extremity Upper without Contra MR#: [id number] Acct: [id number] Name: LY GAGE Rep #: [id number] : 1960 M 58 From: Chaka Medina MD PCP: Moise Jack MD Status: REG CLI Study: Extremity Upper without Contra Date of Exam: 08/27/18 Exam# [id number] Ordering Dr: Ricardo Garcia PA-C STUDY: CT RIGHT SHOULDER REASON FOR EXAM: Male, 58 years old. Osteoarthritis of the right shoulder joint. RADIATION DOSAGE (If Supplied By Facility): CTDIvol = ( 27.67 ) mGy, DLP = ( 582.45 ) mGycm TECHNIQUE: The patient was scanned in a multi detector CT scanner. High resolution transaxial imaging was performed without the administration of intravenous contrast material. Sagittal and coronal images were reconstructed. Individualized dose optimization techniques were used for this CT. COMPARISON: None. FINDINGS: There is mild osteoarthritis of the glenohumeral articulation, with mild articular joint space narrowing and mild osteoarthritic spurring. Normal glenoid rim, neck and visualized scapula. Normal humeral head, neck and tuberosities. Normal coracoid process. Normal visualized lateral clavicle. There is moderate osteoarthritis with articular joint space narrowing and with osteoarthritic spurring. There is a Type II morphology (curved), with a neutral orientation. Normal visualized muscles and soft tissue structures. CT/Extremity Upper without Contra IMPRESSION: Osteoarthritis of the acromioclavicular joint. Mild osteoarthritis of the glenohumeral joint. Electronically Signed: Chaka Medina MD at 8:47 EST Tel [phone], Service support , CC: Moise Jack MD; Ricardo MCGUIRE Home Visits Nurse: Signed ECHOCARDIOGRAM Observed: 08/11/2018 Status: F Source: [facility] 4:35 PM [facility] REPOSITORY ? S/p OHT ? Normal LV size and systolic function. EF 55-60%. ? Mildly dilated RV with mild systolic dysfunction. ? No hemodynamically significant valvular disease. ECHOCARDIOGRAM Observed: 08/11/2018 Status: F Source: [facility] PHARMACOLOGICAL STRESS 3:[address] [facility] REPOSITORY DOBUTAMINE STRESS ECHO REPORT Overall: Normal dobutamine stress echo. No evidence of inducible ischemia. Stress ECG portion of the exam: 1. Resting ECG: sinus tachycardia 2. With peak infusion, He denied chest pain. There were no diagnostic ST changes to indicate ischemia. Imaging portion of the exam: 1. Resting echo images show normal segmental wall motion and global systolic function with an ejection fraction of 65-70%. 2. With peak infusion, there was appropriate augmentation in ejection fraction to >70%. 3. No regional wall motion abnormalities seen. HEMOGRAM (CBC AND Collected: 08/11/2018 Status: F Source: [facility] PLATELET) 9:30 AM [facility] REPOSITORY TYPE CODE TESTS RESULT OUT OF REFERENCE UNITS RANGE LAB WBC 3.73-10.10 K/uL WBC Count 7.58 LAB RBC 4.38-5.83 M/uL RBC Count 4.61 LAB HGB 13.4-16.8 g/dL Hemoglobin 14.0 LAB HCT 39.6-48.8 % Hematocrit 40.9 LAB MCV 79.0-94.5 fL Mean Cell Volume 88.7 LAB MCH 26.1-33.3 pg Mean Cell Hgb 30.4 LAB MCHC 31.9-36.5 g/dL Mean Cell Hgb Conc 34.2 LAB RDW 10.9-14.3 % RBC Distribution 12.4 LAB PLT 146-337 K/uL Platelet Count 310 LAB MPV 8.7-12.3 fL Mean Platelet Volume 10.0 LAB NRBC 0.0-0.2 /100 WBC NUCLEATED RBC 0.0 Performed By: #### HEMOGC, CHM6, HDLT, HFP, MGO, TACRO #### [facility] [address] [place] [address] [place] [address] CHEM 6 Collected: 08/11/2018 Status: F Source: [facility] 9:30 AM [facility] REPOSITORY TYPE CODE TESTS RESULT OUT OF REFERENCE UNITS RANGE LAB BUN 7-22 mg/dL BUN 17 LAB NA 133-143 mmol/L Sodium 138 LAB K 3.5-5.0 mmol/L Potassium 4.7 LAB CL 98-108 mmol/L Chloride 99 LAB CO2 22-30 mmol/L Carbon Dioxide 29 LAB CREA 0.70-1.30 mg/dL Creatinine 0.92 LAB GAP 7-17 mmol/L Anion Gap 15 LAB BC BUN/CREA Ratio 18 LAB GFR >60 mL/min/1.73 sqM Est GFR,non >60 [place] LAB GFRA >60 mL/min/1.73 sqM Est GFR, >60 Performed By: #### HEMOGC, CHM6, HDLT, HFP, MGO, TACRO #### [facility] [address] [place] [id number] [place] [address] [address] [place] [address] LIPID PROFILE Collected: 08/11/2018 Status: F Source: [facility] 9:30 AM [facility] REPOSITORY TYPE CODE TESTS RESULT OUT OF REFERENCE UNITS RANGE LAB JARROD <200 mg/dL Cholesterol 166 Result Comment: [<200 mg/dL: Desirable] [200-239 mg/dL: Borderline High] [>239 mg/dL: High] LAB TRIGE <150 mg/dL Triglycerides High 181 Result Comment: [<150 mg/dL: Desirable] [150-199 mg/dL: Borderline] [200-499 mg/dL: High] [>500 mg/dL: Very High] LAB HDLC >40.0 mg/dL HDL Cholesterol 54 Result Comment: [<40 mg/dL: Low (High Risk)] [>59 mg/dL: High (Low Risk)] LAB LDL 0-99 mg/dL Calculated LDL Cholesterol 76 Result Comment: [<100 mg/dL: Optimal] [100-129 mg/dL: Near Optimal] [130-159 mg/dL: Borderline High] [160-189 mg/dL: High] [>189 mg/dL: Very High] LAB CHR <4.5 Tot CHOL/HDL 3.1 Result Comment: [<4.5: Low risk] LAB NHCHOL <130 mg/dL Non HDL Cholesterol 112 Performed By: #### HEMOGC, CHM6, HDLT, HFP, MGO, TACRO #### [facility] [address] [place] [id number] [place] [address] [address] [place] [address] HEPATIC FUNCTION Collected: 08/11/2018 Status: F Source: [facility] 9:30 AM [facility] REPOSITORY TYPE CODE TESTS RESULT OUT OF REFERENCE UNITS RANGE LAB ALB 3.5-5.0 g/dL Albumin 4.8 LAB BILD <0.3 mg/dL Bilirubin Direct 0.1 LAB BILT <1.5 mg/dL Bilirubin Total 0.5 LAB ALP 32-126 U/L Alkaline Phosphatase 75 LAB ALT 10-52 U/L ALT 21 LAB AST 14-40 U/L AST 16 LAB TP 6.4-8.3 g/dL Total Protein 7.6 Performed By: #### HEMOGC, CHM6, HDLT, HFP, MGO, TACRO #### [facility] [address] [place] [address] [address] [place] [address] MAGNESIUM Collected: 08/11/2018 Status: F Source: [facility] 9:30 AM [facility] REPOSITORY TYPE CODE TESTS RESULT OUT OF REFERENCE UNITS RANGE LAB MG 1.6-2.6 mg/dL Magnesium 1.6 Performed By: #### HEMOGC, CHM6, HDLT, HFP, MGO, TACRO #### [facility] [address] [place] [address] [address] [place] [address] TACROLIMUS, TROUGH Collected: 08/11/2018 Status: F Source: [facility] 9:30 AM [facility] REPOSITORY TYPE CODE TESTS RESULT OUT OF REFERENCE UNITS RANGE LAB TACRO 5-15 ng/mL Tacrolimus, 6.4 Trough Result Comment: Method performed is a chemiluminescent microparticle immunoassay on the [employer] i2000. Performed By: #### HEMOGC, CHM6, HDLT, HFP, MGO, TACRO #### [place] [address] ALLERGIES ALLERGIES DATE TYPE / CODE NAME / CODE REACTION SEVERITY SOURCE 03/29/2016 Drug No Known Unknown [facility] Allergy/4160 Allergies/F00 [facility] [address](SNOMED 1077234(RXNOR Repository CT) M) ENCOUNTERS ENCOUNTERS ADMIT/DISCHARGE ACCOUNT NUMBER ADMITTING ENCOUNTER LOCATION SOURCE CLASS 10/06/2018 [id number] Ambulatory [facility] ding:LAB Repository 10/02/2018 [id number] Ambulatory [facility] ding:LAB Repository 08/27/2018 [id number] Ambulatory [facility] ding:CT Repository 08/11/2018 [id number] Ambulatory Building:[facility] Repository 08/11/2018 [id number] Ambulatory Building:[facility] Repository 08/11/2018 [id number] Ambulatory Building:[facility] Repository 08/11/2018 [id number] Ambulatory Building:[facility] Repository PAYERS PAYERS ENCOUNTER GUARANTOR PAYER SUBSCRIBER SOURCE 10/06/2018 LY Cee Primary GABBY [id number] Insurance:ANTHEMPolic WIGALDOB: Community [place] y [place]: [id number] [id number] Repository [address]Iva: 330) Date:3972-82-74[phone] [facility] [id number] [place] [address]WL: 10/06/2018 Secondary LY De Jesus Insurance:MEDICARE WIGALDOB: Community PART A [facility] [id number] Hospital Number: Repository [id number] Date:2018-10-06 10/06/2018 Tertiary NOT BRINA [place] Insurance:SELF PAY [facility] Number: Effective Repository Date:2018-10-06 10/02/2018 LY Cee Primary LY De Jesus [id number] Insurance:MEDICARE WIGALDOB: Community [place] PART A [facility] [id number] Number[place] Repository [id number]: [phone] [id number] [phone] (HP) Date:2018-10-02 10/02/2018 Secondary KATHLINE A [place] Insurance:ANTHEMPolic WIGALDOB: Community y Number: [id number] Hospital [id number] Repository Date:[id number] [address]DD: 10/02/2018 Tertiary NOT GIVENUNK [place] Insurance:SELF PAY [facility] Number: Effective Repository Date:2018-10-02 08/27/2018 TONIO Primary TONIO [place] [id number] Insurance:MEDICARE WIGALDOB: Community [place] PART A BPolicy [id number] Number: Repository [id number]: [phone] [id number] [phone] () Date:2018-08-20 08/27/2018 Secondary NOT GIVENUNK [place] Insurance:SELF PAY [facility] Number: Effective Repository Date:2018-08-20 08/11/2018 TONIO Primary LAMMICHELLE [facility] WIGALDOB: Insurance:ANTHEM O WIGALDOB: [place] [id number] [facility] Number: [id number] [facility] [id number] [address] [place] [address] Date:6210[place]87[place] Repository [address]Hld: ([phone]) Name:MANAGED CARE [id number]: () [phone] () 08/11/2018 Secondary TONIO [facility] Insurance:MEDICARE A WIGALDOB: University AND BPolicy Number: [id number] [facility] [id number] 1 [facility] Date:8172-29-23Qgzm [place], [place] Repository Name:CARE [id number]: () 08/11/2018 [facility]ONIO [facility]IG[facility]: [facility] W[facility]: [place] PPO POSPolicy Number: [id number] [facility] [place] [id number] 1 [place], [place] Date:9360-22-83Oqap [place], [place] Repository [address]Qix: ([phone]) Name:MANAGED CARE [id number]: (HP) [phone] (HP) 08/11/2018 Secondary LY Cee [facility] Insurance:MEDICARE A WIGALDOB: [place] AND BPolicy Number: [id number] [facility] [id number] 1 [place] Center Date:7741-24-65Kehi [place] Repository Name:CARE [id number]: () 08/11/2018 LY [facility]ee [facility] [place] PPO POSPolicy Number: [id number] [facility] [place] [id number] 1 [place], [place] Date:3325-69-18Pirv [place] Repository [address]Fhj: ([phone]) Name:MANAGED CARE [id number]: (HP) [phone] (HP) 08/11/2018 Secondary LY Cee [facility] Insurance:MEDICARE A WIGALDOB: [place] AND BPolicy Number: [id number] [facility] [id number] 1 [place] Center Date:5728-54-41Avfa [place] Repository Name:CARE [id number]: () 08/11/2018 LY Cee [facility] AKGALDOB: [place] PPO POSPolicy Number: [id number] [facility] [place] [id number] 1 [place], [place] Date:0515-81-21Zpjz [place] Repository [address]Qly: ([phone]) Name:MANAGED CARE [id number]: () [phone] () 08/11/2018 Secondary LY Cee [facility] Insurance:MEDICARE A WIGALDOB: [place] AND BPolicy Number: [id number] [facility] [id number] 1 [facility] Date:8952-43-89Olzu [place] Repository Name:CARE [id number]: ()
== END ==
PROVIDERS: Family Provider Family Medicine; PCP Family Medicine; Referring Provider Physician Assistant; Visit Provider Physician Assistant
DX: M75.41 Impingement syndrome of right shoulder (principal); M19.011 Primary osteoarthritis, right shoulder
CPT/HCPCS: 73200

== ENCOUNTER → 2018-10-02 10:32 | Outpatient (CLI) | payer MEDICARE, BC, SELFPAY ==
[2016-03-29 09:38] VITALS: BMI 27.7
--- NOTE | 2018-10-02 10:47 | EKG12_ITS ---
Test Reason : PRE OP Blood Pressure : / mmHG Vent. Rate : 092 BPM Atrial Rate : 092 BPM P-R Int : 138 ms QRS Dur : 086 ms QT Int : 342 ms P-R-T Axes : 051 092 075 degrees QTc Int : 422 ms Normal sinus rhythm Rightward axis RSR' or QR pattern in V1 suggests right ventricular conduction delay Nonspecific T wave abnormality Abnormal ECG Confirmed by ANNIA LEWIS, JANAK ([id number]), offline editor KAYKAY AUGUSTIN ([id number]) on 10/05/2018 9:32:20 AM Referred By: Ricardo Garcia Confirmed By:JANAK MILNER MD
[2018-10-02 11:15] LABS: Hematocrit 42.4 % (40-54); Hemoglobin 13.9 g/dl (13.0-16.5); Mean Corp Hgb Conc 32.8 g/gl (32-36); Mean Corpuscular Hgb 29.6 pg (27.0-32.0); Mean Corpuscular Volume 90.2 fL (80-94); Platelet Count 291 K/mm3 (150-450); RBC Distribution Width CV 12.9 % (11.6-14.6); RBC Distribution Width SD 41.8 fl (35.1-43.9); White Blood Count 6.2 K/mm3 (4.4-11.0)
[2018-10-02 11:16] LABS: Scan Indicated on CBC? Y/N NO
[2018-10-02 11:44] LABS: BUN 23 mg/dL (7-18); Creatinine, Serum 0.97 mg/dL (0.70-1.30); Glucose 172 mg/dL (74-106)
[2018-10-02 11:45] LABS: Anion Gap 9 (5-15); BUN/Creat Ratio 23.7 RATIO (10-20); Calcium,Total 9.5 mg/dL (8.5-10.1); Chloride 102 mmol/L (98-107); EST Glomerular Filtration Rate 85 mL/min (>60); Est Glom Filt Rate - Afr Amer 103 mL/min (>60); Potassium 4.3 mmol/L (3.5-5.1); Sodium Level 136 mmol/L (136-145)
--- OUTSIDE RECORDS SUMMARY | 2018-12-06 19:19 | XMS RPT_ITS ---
[...] 08/11/2018 Admitting Encounter for FLOR KAUFMAN Active [facility] diagnosis aftercare following [facility] heart transplant / [facility] Z48.21(ICD-10) Center Repository 08/11/2018 Admitting Other hyperlipidemia FLOR KAUFMAN Active [place] diagnosis / E78.49(ICD-10) [facility] Repository 08/11/2018 Admitting Other care home FLOR KAUFMAN Active [facility] diagnosis (current) drug [facility] therapy / [facility] Z79.899(ICD-10) Center Repository PROCEDURES PROCEDURES No Procedure Records FoundRESULTS RESULTS URINALYSIS, ROUTINE Collected: 10/06/2018 Status: F Source: [place] (DIPSTICK) 10:08 AM [facility] REPOSITORY Order Comment: How was Urine Obtained? [...] ESTERASE Negative Performed By: #### L400.2010 #### [facility] [address] [place], [address] CBC W/DIFF, AUTOMATED Collected: 10/06/2018 Status: F Source: [place] 10:08 AM [facility] REPOSITORY TYPE CODE TESTS RESULT OUT [...] Lymph 1.86 Performed By: #### L100.0100 #### [facility] [address] [facility] [place], [place], [id number] HEMOGLOBIN A1C Collected: 10/06/2018 Status: F Source: [place] 10:08 AM [facility] REPOSITORY TYPE CODE TESTS RESULT OUT OF RANGE REFERENCE UNITS LAB L501.9985 4.2-6.3 % High HGB A1C 8.2 Performed By: #### L501.9985 #### [facility] [address] [place], [address] COMPREHENSIVE METABOLIC Collected: 10/06/2018 Status: F Source: [place] CAREY 10:08 AM [facility] REPOSITORY TYPE CODE TESTS RESULT OUT [...] Performed By: #### L500.4050, L500.4100, L501.9910 #### [facility] [address] [place], [address] LIPID PROFILE Collected: 10/06/2018 Status: F Source: [place] 10:08 AM [facility] REPOSITORY TYPE CODE TESTS RESULT OUT [...] Performed By: #### L500.4050, L500.4100, L501.9910 #### [facility] [address] [place], [address] PSA,TOTAL - ANNUAL Collected: 10/06/2018 Status: F Source: [place] SCREEN 10:08 AM [facility] REPOSITORY TYPE CODE TESTS RESULT OUT OF RANGE REFERENCE UNITS LAB L501.9910 0.00-4.00 ng/mL Normal PSA,TOT 0.93 SCREEN Result Comment: This test was performed using the TPSA assay method for the [employer] chemistry system. Values obtained with different assay methods cannot be used interchangably. When changing PSA assays in the course of monitoring a patient, additional sequential testing should be carried out to confirm baseline values. Performed By: #### L500.4050, L500.4100, L501.9910 #### [facility] [address] [place], [address] 12 LEAD ELECTROCARDIOGRAM Observed: 10/05/2018 Status: F Source: [place] 9:32 AM [facility] REPOSITORY [facility] Cardiovascular Services [address] [place] [address] 12 Lead EKG 10/02/18 1055 MR#: [id number] Acct: [id number] Name: LY GAGE Rep #: [id number] : 1960 58 From: Romulo Milner MD [...] ECG Confirmed by ANNIA LEWIS, ROMULO ([id number]), subeditor KAYKAY AUGUSTIN ([id number]) on 10/05/2018 9:32:20 AM Referred By: Ricardo Garcia Confirmed By:ROMULO MILNER MD 10/05/18 0932 Date Romulo Milner MD CC: Moise Jack MD; Ricardo MCGUIRE Signed CBC-COMPLETE BLOOD CNT Collected: 10/02/2018 Status: F Source: [place] NO DIFF 10:40 AM [facility] REPOSITORY TYPE CODE TESTS RESULT OUT [...] MPV 10.0 Performed By: #### L100.0500 #### [facility] [address] [place], [place], [address] BASIC METABOLIC Collected: 10/02/2018 Status: F Source: [place] PROFILE (BMP) 10:40 AM [facility] REPOSITORY TYPE CODE TESTS RESULT OUT [...] GAP 9 Performed By: #### L500.2500 #### [facility] [address] [place], [address] EXTREMITY UPPER Observed: 08/27/2018 Status: F Source: [place] WITHOUT CONTRA 7:24 AM [facility] REPOSITORY [facility] Imaging Services [address] [place] [address] Extremity Upper without Contra MR#: [id number] Acct: [id number] Name: LY GAGE Rep #: [id number] : 1960 M 58 From: Chaka Medina MD PCP: Moise Jack MD Status: REG CLI Study: Extremity Upper without Contra Date of Exam: 08/27/18 Exam# [id number] Ordering Dr: Ricardo Garcia PA-C STUDY: CT [...] Chaka Medina MD at 8:47 EST Tel [phone], Service support , CC: Moise Jack MD; Ricardo MCGUIRE Client Relations Representative: Signed ECHOCARDIOGRAM Observed: 08/11/2018 Status: F Source: [facility] 4:35 PM [facility] REPOSITORY ? S/p OHT ? Normal LV size and systolic function. EF 55-60%. ? Mildly dilated RV with mild systolic dysfunction. ? No hemodynamically significant valvular disease. ECHOCARDIOGRAM Observed: 08/11/2018 Status: F Source: [facility] PHARMACOLOGICAL STRESS 3:39 PM [facility] REPOSITORY DOBUTAMINE STRESS ECHO REPORT Overall: [...] (CBC AND Collected: 08/11/2018 Status: F Source: [facility] PLATELET) 9:30 AM [facility] REPOSITORY TYPE CODE TESTS RESULT OUT OF [...] CHM6, HDLT, HFP, MGO, TACRO #### [facility] [address] [place] [address] [place] [address] CHEM 6 Collected: 08/11/2018 Status: F Source: [facility] 9:30 AM [facility] REPOSITORY TYPE CODE TESTS RESULT OUT OF [...] GFR >60 mL/min/1.73 sqM Est GFR,non >60 [place] LAB GFRA >60 mL/min/1.73 sqM Est GFR, >60 Performed By: #### HEMOGC, CHM6, HDLT, HFP, MGO, TACRO #### [facility] [address] [place] [id number] [place] [address] [place] [address] LIPID PROFILE Collected: 08/11/2018 Status: F Source: [facility] 9:30 AM [facility] REPOSITORY TYPE CODE TESTS RESULT OUT OF [...] CHM6, HDLT, HFP, MGO, TACRO #### [facility] [address] [place] [id number] [place] [address] [place] [address] HEPATIC FUNCTION Collected: 08/11/2018 Status: F Source: [facility] 9:30 AM [facility] REPOSITORY TYPE CODE TESTS RESULT OUT OF [...] CHM6, HDLT, HFP, MGO, TACRO #### [facility] [address] [place] [address] [place] [address] MAGNESIUM Collected: 08/11/2018 Status: F Source: [facility] 9:30 AM [facility] REPOSITORY TYPE CODE TESTS RESULT OUT OF REFERENCE UNITS RANGE LAB MG 1.6-2.6 mg/dL Magnesium 1.6 Performed By: #### HEMOGC, CHM6, HDLT, HFP, MGO, TACRO #### [facility] [address] [place] [address] [place] [address] TACROLIMUS, TROUGH Collected: 08/11/2018 Status: F Source: [facility] 9:30 AM [facility] REPOSITORY TYPE CODE TESTS RESULT OUT OF REFERENCE UNITS RANGE LAB TACRO 5-15 ng/mL Tacrolimus, 6.4 Trough Result Comment: Method performed is a chemiluminescent microparticle immunoassay on the [employer] i2000. Performed By: #### HEMOGC, CHM6, HDLT, HFP, MGO, TACRO #### [place] [address] ALLERGIES ALLERGIES DATE TYPE / CODE NAME / CODE REACTION SEVERITY SOURCE 03/29/2016 Drug No Known Unknown [facility] Allergy/4160 Allergies/F00 [facility] 44540(SNOMED 4509592(RXNOR Repository CT) M) ENCOUNTERS ENCOUNTERS ADMIT/DISCHARGE ACCOUNT NUMBER ADMITTING ENCOUNTER LOCATION SOURCE CLASS 10/06/2018 [id number] Ambulatory [facility] ding:LAB Repository 10/02/2018 [id number] Ambulatory [facility] ding:LAB Repository 08/27/2018 [id number] Ambulatory [facility] ding:CT Repository 08/11/2018 [id number] Ambulatory Building:[facility] Repository 08/11/2018 [id number] Ambulatory Building:[facility] Repository 08/11/2018 [id number] Ambulatory Building:[facility] Repository 08/11/2018 [id number] Ambulatory Building:[facility] Repository PAYERS PAYERS ENCOUNTER GUARANTOR PAYER SUBSCRIBER SOURCE 10/06/2018 LY Cee Primary GABBY [id number] Insurance:ANTHEMPolic WIGALDOB: Community [place] y [place]: [id number] [id number] Repository [address]Cut: 330) Date:1171-00-62[phone] [facility] [id number] [place] [address]YL: 10/06/2018 Secondary LY De Jesus Insurance:MEDICARE WIGALDOB: Community PART A [facility] [id number] Hospital Number: Repository [id number] Date:2018-10-06 10/06/2018 Tertiary NOT BRINA [place] Insurance:SELF PAY [facility] Number: Effective Repository Date:2018-10-06 10/02/2018 LY Cee Primary LY De Jesus [id number] Insurance:MEDICARE WIGALDOB: Community [place] PART A [facility] [id number] Number: Repository [id number]: [phone] [id number] [phone] (HP) Date:2018-10-02 10/02/2018 Secondary KATHLINE A [place] Insurance:ANTHEMPolic WIGALDOB: Community y Number: [id number] Hospital [id number] Repository Date:9404-22-78PG[address] [address]YC: 10/02/2018 Tertiary NOT GIVENUNK [place] Insurance:SELF PAY [facility] Number: Effective Repository Date:2018-10-02 08/27/2018 TONIO Primary TONIO [place] [id number] Insurance:MEDICARE WIGALDOB: Community [place] PART A BPolicy [id number] Number: Repository [id number]: [phone] [id number] [phone] () Date:2018-08-20 08/27/2018 Secondary NOT GIVENUNK [place] Insurance:SELF PAY [facility] Number: Effective Repository Date:2018-08-20 08/11/2018 TONIO Primary LAMMICHELLE [facility] WIGALDOB: Insurance:ANTHEM O WIGALDOB: [place] [id number] [facility] Number: [id number] [facility] [id number] [address] [place] [address] Date:5767[place]13[place] Repository [address]Jpj: ([phone]) Name:MANAGED CARE [id number]: () [phone] () 08/11/2018 Secondary TONIO [facility] Insurance:MEDICARE A WIGALDOB: University AND BPolicy Number: [id number] [facility] [id number] 1 [facility] Date:4276-61-17Hnsd [place] Repository Name:CARE [id number]: () 08/11/2018 [facility]: [facility] W[facility]: [place] PPO POSPolicy Number: [id number] [facility] [place] [id number] 1 [place], [place] Date:9501-87-14Zgnm [place], [place] Repository [address]Fhy: ([phone]) Name:MANAGED CARE [id number]: (HP) [phone] (HP) 08/11/2018 Secondary LY Cee [facility] Insurance:MEDICARE A WIGALDOB: [place] AND BPolicy Number: [id number] [facility] [id number] 1 [place] Center Date:2103-35-91Tkxd [place] Repository Name:CARE [id number]: () 08/11/2018 [facility]Y [facility]ee [facility] [place] PPO POSPolicy Number: [id number] [facility] [place] [id number] 1 [place], [place] Date:9216-39-56Wiuc [place] Repository [address]Hof: ([phone]) Name:MANAGED CARE [id number]: (HP) [phone] (HP) 08/11/2018 Secondary LY Cee [facility] Insurance:MEDICARE A WIGALDOB: [place] AND BPolicy Number: [id number] [facility] [id number] 1 [place] Center Date:3435-56-72Iyci [place] Repository Name:CARE [id number]: () 08/11/2018 LY Cee [facility] AZGALDOB: [place] PPO POSPolicy Number: [id number] [facility] [place] [id number] 1 [place], [place] Date:6950-93-21Oaci [place] Repository [address]Dql: (591) Name:MANAGED CARE [id number]: () [phone] () 08/11/2018 Secondary LY Cee [facility] Insurance:MEDICARE A WIGALDOB: [place] AND BPolicy Number: [id number] [facility] [id number] 1 [facility] Date:7208-18-21Mevj [place] Repository Name:CARE [id number]: ()
== END ==
PROVIDERS: Family Provider Family Medicine; PCP Family Medicine; Referring Provider Physician Assistant; Visit Provider Physician Assistant
DX: Z01.818 Encounter for other preprocedural examination (principal); Z01.810 Encounter for preprocedural cardiovascular examination
CPT/HCPCS: 36415; 80048; 85027; 93005

== ENCOUNTER → 2018-10-06 09:37 | Outpatient (CLI) | payer MEDICARE, BC, SELFPAY ==
[2016-03-29 09:38] VITALS: BMI 27.7
[2018-10-06 10:28] LABS: Color, Urine Yellow (Yellow); Glucose, Dipstick Normal (Normal); Ketone-Dipstick Negative (Negative); Leukocyte Esterase-Dipstick Negative /ul (Negative); Nitrite-Dipstick Negative (Negative); Occult Blood-Urine Negative /ul (Negative); Protein-Dipstick Negative (Negative); Specific Gravity, Urine 1.015 (1.002-1.030); Urine Bilirubin Dipstick Negative (Negative); Urine Clarity Clear (Clear); Urine Urobilinogen Normal (Normal); Urine pH 6.5 (5.0 - 8.0)
[2018-10-06 10:30] LABS: Absolute Lymphocyte Count 1.86 X10^3/ul (0.83-4.51); Absolute Neutrophil Count 3.4 X10^3/uL (2.0-7.7); Basophil# 0.03 X10^3/uL; Basophil% 0.5 % (0-1); Eosinophil# 0.15 X10^3/uL; Eosinophils% 2.4 % (0-5); Hematocrit 41.9 % (40-54); Hemoglobin 13.5 g/dl (13.0-16.5); Lymphocyte # 1.86 X10^3/ul (4.0); Lymphocyte % 30.1 % (19-41); Mean Corp Hgb Conc 32.2 g/gl (32-36); Mean Corpuscular Hgb 29.2 pg (27.0-32.0); Mean Corpuscular Volume 90.7 fL (80-94); Mean Platelet Vol. 9.8 fl (6.2-12.0); Monocyte# 0.65 X10^3/uL; Monocyte% 10.5 % (0-10); Neutrophil # 3.44 X10^3/uL (2.7-7.7); Neutrophil % 55.9 % (47-70); Platelet Count 293 K/mm3 (150-450); RBC Distribution Width CV 12.9 % (11.6-14.6); RBC Distribution Width SD 42.3 fl (35.1-43.9); Red Blood Count 4.62 M/mm3 (4.6-6.2); White Blood Count 6.2 K/mm3 (4.4-11.0)
[2018-10-06 10:31] LABS: POSITIVE COUNT NO; POSITIVE DIFFERENTIAL NO; POSITIVE MORPHOLOGY NO
[2018-10-06 10:40] LABS: Hemoglobin A1c 8.2 % (4.2-6.3)
[2018-10-06 10:56] LABS: ALB/GLOB Ratio 1.2 RATIO (0.9-2.4); AST(SGOT) 15 U/L (15-37); Alanine Aminotransfer ALT/SGPT 33 U/L (16-61); Albumin, Serum 4.3 g/dL (3.2-5.0); Alkaline Phosphatase 78 U/L (45-117); Anion Gap 7 (5-15); BUN 21 mg/dL (7-18); BUN/Creat Ratio 22.4 RATIO (10-20); Calcium,Total 9.3 mg/dL (8.5-10.1); Chloride 103 mmol/L (98-107); Cholesterol 196 mg/dL (200); Creatinine, Serum 0.94 mg/dL (0.70-1.30); EST Glomerular Filtration Rate 88 mL/min (>60); Est Glom Filt Rate - Afr Amer 107 mL/min (>60); Globulin 3.7 g/dL (2.2-4.2); Glucose 164 mg/dL (74-106); High Density Lipoprotein 48 mg/dL; PSA,Total - Annual Screen 0.93 ng/mL (0.00-4.00); Potassium 4.5 mmol/L (3.5-5.1); Sodium Level 137 mmol/L (136-145); Triglycerides 173 mg/dL; Very Low Density Lipoprotein 35 mg/dL (5-40)
--- OUTSIDE RECORDS SUMMARY | 2018-12-08 11:16 | XMS RPT_ITS ---
:1960 Author Organization OHIP Care Team Providers Name Role Phone FLOR KAUFMAN Attending Unavailable FLOR KAUFMAN BEBO Referring Unavailable ROXIE, MOISE G Primary Care Unavailable FLOR KAUFMANA Attending Unavailable SHAE AKJuan C BEBO Referring Unavailable ROXIE, MOISE G Primary Care Unavailable FLOR KAUFMAN Attending Unavailable SHAE AKJuan C FALLONBEBO Referring Unavailable ROXIE, MOISE G Primary Care Unavailable FLOR KAUFMAN Attending Unavailable ROXIE, MOISE G Referring Unavailable ROXIE, MOISE G Primary Care Unavailable Ricardo Garcia Attending Unavailable Ricardo Garcia Referring Unavailable Roxie, Moise Primary Care Unavailable Moise Jack Attending Unavailable Roxie, Moise Referring Unavailable Roxie, Moise Primary Care Unavailable Ricardo Garcia Attending Unavailable Ricardo Garcia Referring Unavailable Moise Jack Primary Care Unavailable PROBLEMS PROBLEMS DATE TYPE CONDITION / CODE ATTENDING STATUS SOURCE 09/01/2018 Unknown M75.41 - Impingement Ricardo Garcia Active [place] [facility] right [facility] M75.41(ICD-10) Repository 08/11/2018 Admitting Encounter for FLOR KAUFMAN Active [facility] diagnosis aftercare following [facility] heart transplant / [facility] Z48.21(ICD-10) Center Repository 08/11/2018 Admitting Other hyperlipidemia FLOR KAUFMAN Active [facility] E78.49([facility]-10[facility] Rep[facility] 08/11/2018 Admitting Other retirement FLOR KAUFMAN Active [facility] diagnosis (current) drug [facility] therapy / [facility] Z79.899(ICD-10) Center Repository PROCEDURES PROCEDURES No Procedure Records FoundRESULTS RESULTS URINALYSIS, ROUTINE Collected: 10/06/2018 Status: F Source: [place] (DIPSTICK) 10:08 AM [facility] REPOSITORY Order Comment: How was Urine [...] ESTERASE Negative Performed By: #### L400.2010 #### [facility] [address] [place], [address] CBC W/DIFF, AUTOMATED Collected: 10/06/2018 Status: F Source: [place] 10:08 AM [facility] REPOSITORY TYPE CODE TESTS RESULT OUT [...] Lymph 1.86 Performed By: #### L100.0100 #### [facility] [address] [facility] [place], [place], [id number] HEMOGLOBIN A1C Collected: 10/06/2018 Status: F Source: [place] 10:08 AM [facility] REPOSITORY TYPE CODE TESTS RESULT OUT OF RANGE REFERENCE UNITS LAB L501.9985 4.2-6.3 % High HGB A1C 8.2 Performed By: #### L501.9985 #### [facility] [address] [place], [address] COMPREHENSIVE METABOLIC Collected: 10/06/2018 Status: F Source: [place] CAREY 10:08 AM [facility] REPOSITORY TYPE CODE TESTS RESULT OUT [...] Performed By: #### L500.4050, L500.4100, L501.9910 #### [facility] [address] [place], [address] LIPID PROFILE Collected: 10/06/2018 Status: F Source: [place] 10:08 AM [facility] REPOSITORY TYPE CODE TESTS RESULT OUT [...] Performed By: #### L500.4050, L500.4100, L501.9910 #### [facility] [address] [place], [address] PSA,TOTAL - ANNUAL Collected: 10/06/2018 Status: F Source: [place] SCREEN 10:08 AM [facility] REPOSITORY TYPE CODE TESTS RESULT OUT OF RANGE REFERENCE UNITS LAB L501.9910 0.00-4.00 ng/mL Normal PSA,TOT 0.93 SCREEN Result Comment: This test was performed using the TPSA assay method for the Xoft chemistry system. Values obtained with different assay methods cannot be used interchangably. When changing PSA assays in the course of monitoring a patient, additional sequential testing should be carried out to confirm baseline values. Performed By: #### L500.4050, L500.4100, L501.9910 #### [facility] [address] [place], [address] 12 LEAD ELECTROCARDIOGRAM Observed: 10/05/2018 Status: F Source: [place] 9:32 AM [facility] REPOSITORY [facility] Cardiovascular Services [address] [place] [address] 12 Lead EKG 10/02/18 1055 MR#: [id number] Acct: [id number] Name: LY GAGE Rep #: [id number] : 1960 58 From: Romulo Taylor MD Attending Dr: Ricardo Snyder Status: REG [...] ECG Confirmed by ANNIA LEWIS, ROMULO ([id number]), newspaper editor KAYKAY AUGUSTIN ([id number]) on 10/05/2018 9:32:20 AM Referred By: Ricardo Garcia Confirmed By:ROMLUO TAYLOR MD 10/05/18 0932 Date Romulo Taylor MD CC: Moise Jack MD; Ricardo MCGUIRE Signed CBC-COMPLETE BLOOD CNT Collected: 10/02/2018 Status: F Source: [place] NO DIFF 10:40 AM [facility] REPOSITORY TYPE CODE TESTS RESULT OUT [...] MPV 10.0 Performed By: #### L100.0500 #### [facility] [address] [place], [place], [address] BASIC METABOLIC Collected: 10/02/2018 Status: F Source: [place] PROFILE (BMP) 10:40 AM [facility] REPOSITORY TYPE CODE TESTS RESULT OUT [...] GAP 9 Performed By: #### L500.2500 #### [facility] [address] [place], [address] EXTREMITY UPPER Observed: 08/27/2018 Status: F Source: [place] WITHOUT CONTRA 7:24 AM [facility] REPOSITORY [facility] Imaging Services [address] [place] [address] Extremity Upper without Contra MR#: [id number] Acct: [id number] Name: LY GAGE Rep #: [id number] : 1960 M 58 From: Chaka Medina MD PCP: Moise Jack MD Status: REG CLI Study: Extremity Upper without Contra Date of Exam: 08/27/18 Exam# [id number] Ordering Dr: Ricardo Garcia PA-C STUDY: CT [...] Chaka Medina MD at 8:47 EST Tel [phone], Service support , CC: Moise Jakc MD; Ricardo MCGUIRE Oil Well Engineer: Signed ECHOCARDIOGRAM Observed: 08/11/2018 Status: F Source: [facility] 4:35 PM [facility] REPOSITORY ? S/p OHT ? Normal LV size and systolic function. EF 55-60%. ? Mildly dilated RV with mild systolic dysfunction. ? No hemodynamically significant valvular disease. ECHOCARDIOGRAM Observed: 08/11/2018 Status: F Source: [facility] PHARMACOLOGICAL STRESS 3:39 PM [facility] REPOSITORY DOBUTAMINE STRESS ECHO REPORT [...] (CBC AND Collected: 08/11/2018 Status: F Source: [facility] PLATELET) 9:30 AM [facility] REPOSITORY TYPE CODE TESTS RESULT [...] CHM6, HDLT, HFP, MGO, TACRO #### [facility] [address] [place] [address] [address] [place] [address] CHEM 6 Collected: 08/11/2018 Status: F Source: [facility] 9:30 AM [facility] REPOSITORY TYPE CODE TESTS RESULT [...] GFR >60 mL/min/1.73 sqM Est GFR,non >60 [facility] GFRA >60 mL/min/1.73 sqM Est GFR, >60 Performed By: #### HEMOGC, CHM6, HDLT, HFP, MGO, TACRO #### [facility] [address] [place] [id number] [place] [address] [place] [address] LIPID PROFILE Collected: 08/11/2018 Status: F Source: [facility] 9:30 AM [facility] REPOSITORY TYPE CODE TESTS RESULT [...] CHM6, HDLT, HFP, MGO, TACRO #### [facility] [address] [place] [id number] [place] [address] [place] [address] HEPATIC FUNCTION Collected: 08/11/2018 Status: F Source: [facility] 9:30 AM [facility] REPOSITORY TYPE CODE TESTS RESULT [...] CHM6, HDLT, HFP, MGO, TACRO #### [facility] [address] [place] [address] [address] [place] [address] MAGNESIUM Collected: 08/11/2018 Status: F Source: [facility] 9:30 AM [facility] REPOSITORY TYPE CODE TESTS RESULT OUT OF REFERENCE UNITS RANGE LAB MG 1.6-2.6 mg/dL Magnesium 1.6 Performed By: #### HEMOGC, CHM6, HDLT, HFP, MGO, TACRO #### [facility] [address] [place] [address] [address] [place] [address] TACROLIMUS, TROUGH Collected: 08/11/2018 Status: F Source: [facility] 9:30 AM [facility] REPOSITORY TYPE CODE TESTS RESULT OUT OF REFERENCE UNITS RANGE LAB TACRO 5-15 ng/mL Tacrolimus, 6.4 Trough Result Comment: Method performed is a chemiluminescent microparticle immunoassay on the [employer] Drawer Fitter i2000. Performed By: #### HEMOGC, CHM6, HDLT, HFP, MGO, TACRO #### [place] [address] ALLERGIES ALLERGIES DATE TYPE / CODE NAME / CODE REACTION SEVERITY SOURCE 03/29/2016 Drug No Known Unknown [facility] Allergy/4160 Allergies/F00 [facility] 61632(SNOMED 7443956(RXNOR Repository CT) M) ENCOUNTERS ENCOUNTERS ADMIT/DISCHARGE ACCOUNT NUMBER ADMITTING ENCOUNTER LOCATION SOURCE CLASS 10/06/2018 [id number] Ambulatory [facility] ding:LAB Repository 10/02/2018 [id number] Ambulatory [facility] ding:LAB Repository 08/27/2018 [id number] Ambulatory [facility] ding:CT Repository 08/11/2018 [id number] Ambulatory Building:[facility] Repository 08/11/2018 [id number] Ambulatory Building:[facility] Repository 08/11/2018 [id number] Ambulatory Building:[facility] Repository 08/11/2018 [id number] Ambulatory Building:[facility] Repository PAYERS PAYERS ENCOUNTER GUARANTOR PAYER SUBSCRIBER SOURCE 10/06/2018 LY Cee Primary GABBY [id number] Insurance:ANTHEMPolic WIGALDOB: Community [place]: [id number] [id number] Repository [address]Jtb: [phone]) Date:3760-33-41[phone] [facility] [address] [place] [address]UE: 10/06/2018 Secondary LY Shaikh Insurance:MEDICARE WIGALDOB: Community PART A [facility] [id number] Hospital Number: Repository [id number] Date:2018-10-06 10/06/2018 Tertiary NOT [place] Insurance:SELF PAY [facility] Number: Effective Repository Date:2018-10-06 10/02/2018 LY Cee Primary LY Shaikh [id number] Insurance:MEDICARE WIGALDOB: Community [place] PART A [facility] [id number] Number: Repository [id number]: [phone] [id number] [phone] (HP) Date:2018-10-02 10/02/2018 Secondary KATHLINE A [place] Insurance:ANTHEMPolic WIGALDOB: Community y Number: [id number] Hospital [id number] Repository Date:0379-63-27[address] [address]PI: 10/02/2018 Tertiary NOT GIVENUNK [place] Insurance:SELF PAY [facility] Number: Effective Repository Date:2018-10-02 08/27/2018 TONIO Primary TONIO [place] [id number] Insurance:MEDICARE WIGALDOB: Community [place] PART A BPolicy [id number] Number: Repository [address]Vkr: [phone] [id number] [phone] () Date:2018-08-20 08/27/2018 Secondary NOT GIVENUNK [place] Insurance:SELF PAY [facility] Number: Effective Repository Date:2018-08-20 08/11/2018 TONIO Primary LAMMICHELLE [facility] WIGALDOB: Insurance:ANTHEM O WIGALDOB: [place] [id number] [facility] Number: [id number] [facility] [id number] [address] [place] [address] Date:0880-95-98[place]rg[place], [place] Repository [address]Enu: ([phone]) Name:MANAGED CARE [id number]: () [phone] () 08/11/[address]ON[address] [facility] Insurance:MEDICARE A WIGALDOB: University AND BPolicy Number: [id number] [facility] [id number] 1 [facility] Date:5389-68-83Plfv [place], [place] Repository Name:CARE [id number]: () 08/11/2018 [facility]ONIO [facility]: [facility] WIGAL[facility]: [place] PPO POSPolicy Number: [id number] [facility] [place] [id number] 1 [place], [place] Date:5439-62-44Cech [place], [place] Repository [address]Fpj: ([phone]) Name:MANAGED CARE [id number]: (HP) [phone] (HP) 08/11/2018 Secondary LY Cee [facility] Insurance:MEDICARE A WIGALDOB: [place] AND BPolicy Number: [id number] [facility] [id number] 1 [place] Center Date:8176-69-37Ibnz [place], [place] Repository Name:CARE [id number]: () 08/11/[address] [facility] [place] PPO POSPolicy Number: [id number] [facility] [place] [id number] 1 [place], [place] Date:4234-18-16Nhjv [place], [place] Repository [address]Avh: ([phone]) Name:MANAGED CARE [id number]: (HP) [phone] (HP) 08/11/2018 Secondary LY Cee [facility] Insurance:MEDICARE A WIGALDOB: [place] AND BPolicy Number: [id number] [facility] [id number] 1 [place] Center Date:5521-77-95Qvbe [place], [place] Repository Name:CARE [id number]: () 08/11/[address] [facility] MDGALDOB: [place] PPO POSPolicy Number: [id number] [facility] [place] [id number] 1 [place], [place] Date:0082-99-17Weni [place], [place] Repository [address]Rhc: ([phone]) Name:MANAGED CARE [id number]: () [phone] () 08/11/2018 Secondary LY Cee [facility] Insurance:MEDICARE A WIGALDOB: [place] AND BPolicy Number: [id number] [facility] [id number] 1 [facility] Date:1646-22-72Zsnp [place], [place] Repository Name:CARE [id number]: ()
== END ==
PROVIDERS: Family Provider Family Medicine; PCP Family Medicine; Referring Provider Family Medicine; Visit Provider Family Medicine
DX: Z00.00 Encounter for general adult medical examination without abnormal findings (principal); E78.00 Pure hypercholesterolemia, unspecified; I10 Essential (primary) hypertension; E11.65 Type 2 diabetes mellitus with hyperglycemia; Z12.5 Encounter for screening for malignant neoplasm of prostate
CPT/HCPCS: 36415; 80053; 80061; 81002; 83036; 84153; 85025; G0103

== ENCOUNTER 2018-10-14 09:53 | Day surgery (SDC) | payer MEDICARE, BC, SELFPAY ==
[2018-10-14] VITALS (10 sets, daily range): BP systolic 111–131; BP diastolic 68–80; PULSE 78–95; RESP 12–16; TEMP 36.4–36.9; O2SAT 93–99; BMI 29.2
[2018-10-14 11:45] LABS: Bedside Glucose 172 mg/dL (70-110)
[2018-10-14] MEDS: Cefazolin 2 GM in 0.9% Normal Saline 100 ML IV (12:24)
[2018-10-14] MEDS: Bupiv/Epi 0.5% Mpf 30 ML Vial (12:49)
--- NOTE | 2018-10-14 13:33 | PCM.IMDPSTOP ---
Immediate Post-Op Note Date of Procedure: 10/14/18 Primary Surgeon/Physician: Apolinar Gregorio DO mechanic welder: Ricardo Garcia Pre-Operative Diagnosis: SAIS, AC arthrosis and rotator cuff tear right shoulder Post-Operative Diagnosis: Same Surgery/Procedure Performed:: ASD, Tee procedure and rotator cuff repair right Description of Surgical Findings:: see op note Estimated Blood Loss: minimal Specimen's removed: none Type of Anesthesia:: General/Regional ASA Class: ASA3 Severe Disease - Admit VTE Documentation VTE Present on Admission: No VTE Mechan Device Prophylaxis: SCD's VTE Pharm Prophylaxis ordered?: No Reason prophylaxis not ordered:: Treatment Not Indicated
--- NOTE | 2018-10-14 13:36 | OP.PN_ITS ---
Immediate Post-Op Note Date of Procedure: 10/14/18 Primary Surgeon/Physician: Apolinar Gregorio DO project analyst: Ricardo Garcia Pre-Operative Diagnosis: SAIS, AC arthrosis and rotator cuff tear right shoulder Post-Operative Diagnosis: Same Surgery/Procedure Performed:: ASD, Tee procedure and rotator cuff repair right Description of Surgical Findings:: see op note Estimated Blood Loss: minimal Specimen's removed: none Type of Anesthesia:: General/Regional ASA Class: ASA3 Severe Disease - Admit VTE Documentation VTE Present on Admission: No VTE Mechan Device Prophylaxis: SCD's VTE Pharm Prophylaxis ordered?: No Reason prophylaxis not ordered:: Treatment Not Indicated
--- NOTE | 2018-10-14 13:36 | PCM.OP.BLANK ---
Operative Report Date of Procedure: 10/14/18 Primary Surgeon/Physician: Apolinar Gregorio jukebox route driver: Rashad Garcia PA-C jukebox route driver: Pre-Operative Diagnosis: Subacromial impingement syndrome, AC joint arthrosis and rotator cuff tear right Post-Operative Diagnosis: same Surgery/Procedure Performed: Arthroscopic subacromial decompression, Tee procedure and rotator cuff repair right shoulder Estimated Blood Loss: minimal Specimen's Removed: none Type of Anesthesia: general/regional ASA Class: 3 Implants: [Arthrex swivel lock anchor with fiber tape and fiber link] Surgical Indications: [ ] Procedure Description: Patient was greeted in the preoperative area. Their [right ] shoulder was marked with surgical marker. Preoperative antibiotics were administered. The patient was then taken to the operating suite in a stable condition. After adequate anesthesia was obtained and it was secured there placed in standard beachchair position. All bony prominences were well-padded her head was secured in a beachchair positioner. The arm was then prepped and draped in the usual sterile fashion. Surgical timeout was performed surgery was commenced. Standard posterior viewing portal was made and 30? arthroscope was introduced into the glenohumeral joint. Anterior portal was made under direct visualization. Extensive debridement of the anterior capsule was performed evaluation of the shoulder itself was performed with the following findings: [There was noted to be a greater than 60% thickness tear of the supraspinatus tendon. This was debrided and marked with an 0 Prolene stitch for identification from the subacromial space ]. The subacromial space was then entered and extensive debridement of the subacromial bursa was performed. The undersurface of the acromion was then debrided with a thermal wand. This did reveal a type II acromion. Subacromial decompression was then performed with a arthroscopic bur from anterolateral posteromedial create a type I acromion. When this was complete the wand was then utilized to debride the acromioclavicular joint. No significant osteoarthritic changes. A distal clavicle resection was then performed removing approximately 5 mm of distal clavicle not violating the superior acromioclavicular ligament. This was complete attention was then turned to the rotator cuff [ ]. The greater tuberosity was debrided and decorticated to create some bleeding for rotator cuff healing. [The cuff tear was identified from the bursal surface and debrided using a combination of a shaver, a thermal wand and a soft tissue elevator. The rotator cuff tear was then fixed using a horizontal mattress Arthrex fiber tape suture and a looped fiber tape. The ends of these sutures were then brought out laterally and fixed to the bone with an Arthrex swivel lock anchor ]. Excellent approximation of the rotator cuff to the decorticated bone was achieved. At this point all instruments were removed and the arthroscopic portals were closed with 3-0 nylon. Well-padded nonadherent dressing was applied and patient was taken to recovery room in stable condition. My licensed sales assistant, Mr. Garcia, provided a vital role in this procedure. He assisted in patient positioning. Aided in visualization by moving the arm during the diagnostic and operative arthroscopy. Subsequently, he closed the arthroscopy wounds and applied the sterile post-op dressing.
--- NOTE | 2018-10-14 13:47 | OP.PCM_ITS ---
Operative Report Date of Procedure: 10/14/18 Primary Surgeon/Physician: Apolinar Gregorio digital media coordinator: Rashad Garcia PA-C digital media coordinator: Pre-Operative Diagnosis: Subacromial impingement syndrome, AC joint arthrosis and rotator cuff tear right Post-Operative Diagnosis: same Surgery/Procedure Performed: Arthroscopic subacromial decompression, Tee procedure and rotator cuff repair right shoulder Estimated Blood Loss: minimal Specimen's Removed: none Type of Anesthesia: general/regional ASA Class: 3 Implants: [Arthrex swivel lock anchor with fiber tape and fiber link] Surgical Indications: [ ] Procedure Description: Patient was greeted in the preoperative area. Their [right ] shoulder was marked with surgical marker. Preoperative antibiotics were administered. The patient was then taken to the operating suite in a stable condition. After adequate anesthesia was obtained and it was secured there placed in standard beachchair position. All bony prominences were well- padded her head was secured in a beachchair positioner. The arm was then prepped and draped in the usual sterile fashion. Surgical timeout was performed surgery was commenced. Standard posterior viewing portal was made and 30? arthroscope was introduced into the glenohumeral joint. Anterior portal was made under direct visualization. Extensive debridement of the anterior capsule was performed evaluation of the shoulder itself was performed with the following findings: [There was noted to be a greater than 60% thickness tear of the supraspinatus tendon. This was debrided and marked with an 0 Prolene stitch for id entification from the subacromial space ]. The subacromial space was then entered and extensive debridement of the subacromial bursa was performed. The undersurface of the acromion was then debrided with a thermal wand. This did reveal a type II acromion. Subacromial decompression was then performed with a arthroscopic bur from anterolateral posteromedial create a type I acromion. When this was complete the wand was then utilized to debride the acromioclavicular joint. No significant osteoarthritic changes. A distal clavicle resection was then performed removing approximately 5 mm of distal clavicle not violating the superior acromioclavicular ligament. This was complete attention was then turned to the rotator cuff [ ]. The greater tuberosity was debrided and decorticated to create some bleeding for rotator cuff healing. [The cuff tear was identified from the bursal surface and debrided using a combination of a shaver, a thermal wand and a soft tissue elevator. The rotator cuff tear was then fixed using a horizontal mattress Arthrex fiber tape suture and a looped fiber tape. The ends of these sutures were then brought out laterally and fixed to the bone with an Arthrex swivel lock anchor ]. Excellent approximation of the rotator cuff to the decorticated bone was achieved. At this point all instruments were removed and the arthroscopic portals were closed with 3-0 nylon. Well-padded nonadherent dressing was applied and patient was taken to recovery room in stable condition. My melter assistant, Mr. Garcia, provided a vital role in this procedure. He assisted in patient positioning. Aided in visualization by moving the arm during the diagnostic and operative arthroscopy. Subsequently, he closed the arthroscopy wounds and applied the sterile post-op dressing.
[2018-10-14 14:21] LABS: Bedside Glucose 219 mg/dL (70-110)
[2018-10-14] MEDS: HYDROcodone Bitartrate/Apap 5/325 Tablet PO (14:47)
== END 2018-10-14 16:32 | disposition home or self-care (01) ==
LOC: SDC 09:55 → AC 09:56
PROVIDERS: Family Provider Family Medicine; PCP Family Medicine; Referring Provider Orthopaedic Surgery; Visit Provider Orthopaedic Surgery
PROC: (CPT 29827; principal; 2018-10-14 11:40)
DX: M75.41 Impingement syndrome of right shoulder (principal); M75.101 Unspecified rotator cuff tear or rupture of right shoulder, not specified as traumatic; M19.011 Primary osteoarthritis, right shoulder; Z94.1 Heart transplant status; Z79.899 Other long term (current) drug therapy; Z79.82 Long term (current) use of aspirin; I50.9 Heart failure, unspecified; Z87.891 Personal history of nicotine dependence
CPT/HCPCS: 29824; 29826; 29827; 64415; 82962; J7120; J2405

== ENCOUNTER → 2019-01-15 | Outpatient (CLI) | payer MEDICARE, BC, SELFPAY ==
[2018-10-14 10:24] VITALS: BMI 29.2
[2019-01-15 09:20] LABS: Hemoglobin A1c 8.2 % (4.2-6.3)
[2019-01-15 09:28] LABS: AST(SGOT) 21 U/L (15-37); Alanine Aminotransfer ALT/SGPT 39 U/L (16-61); Albumin, Serum 4.3 g/dL (3.2-5.0); Alkaline Phosphatase 86 U/L (45-117); Bilirubin, Direct 0.08 mg/dL (0.00-0.30); Cholesterol 196 mg/dL (200); Globulin 3.5 g/dL (2.2-4.2); High Density Lipoprotein 48 mg/dL; Protein, Total 7.8 g/dL (6.4-8.2); Triglycerides 282 mg/dL; Very Low Density Lipoprotein 56 mg/dL (5-40)
== END | disposition home or self-care (01) ==
LOC: LAB 07:20
PROVIDERS: Family Provider Family Medicine; PCP Family Medicine; Referring Provider Family Medicine; Visit Provider Family Medicine
DX: E78.00 Pure hypercholesterolemia, unspecified (principal); I10 Essential (primary) hypertension; E11.65 Type 2 diabetes mellitus with hyperglycemia
CPT/HCPCS: 36415; 80061; 80076; 83036

== ENCOUNTER → 2019-02-18 | Outpatient (CLI) | payer MEDICARE, BC, SELFPAY ==
[2018-10-14 10:24] VITALS: BMI 29.2
--- NOTE | 2019-02-18 09:56 | EKG12_ITS ---
Test Reason : PREOP Blood Pressure : / mmHG Vent. Rate : 081 BPM Atrial Rate : 081 BPM P-R Int : 132 ms QRS Dur : 090 ms QT Int : 358 ms P-R-T Axes : 039 078 061 degrees QTc Int : 415 ms Normal sinus rhythm Normal ECG Confirmed by SHEBA LEWIS, LUIS ANTONIO ([id number]), magazine editor VY JI ([id number]) on 02/19/2019 6:45:00 AM Referred By: DB Confirmed By:LUIS ANTONIO SCRUGGS MD
[2019-02-18 10:37] LABS: Hematocrit 41.5 % (40-54); Hemoglobin 13.8 g/dl (13.0-16.5); Mean Corp Hgb Conc 33.3 g/gl (32-36); Mean Corpuscular Hgb 29.2 pg (27.0-32.0); Mean Corpuscular Volume 87.7 fL (80-94); Mean Platelet Vol. 9.9 fl (6.2-12.0); Platelet Count 312 K/mm3 (150-450); RBC Distribution Width CV 13.1 % (11.6-14.6); RBC Distribution Width SD 41.2 fl (35.1-43.9); Red Blood Count 4.73 M/mm3 (4.6-6.2); Scan Indicated on CBC? Y/N NO; White Blood Count 6.6 K/mm3 (4.4-11.0)
[2019-02-18 10:55] LABS: Anion Gap 5 (5-15); BUN 21 mg/dL (7-18); BUN/Creat Ratio 21.8 RATIO (10-20); Calcium,Total 9.8 mg/dL (8.5-10.1); Chloride 103 mmol/L (98-107); Creatinine, Serum 0.96 mg/dL (0.70-1.30); EST Glomerular Filtration Rate 86 mL/min (>60); Est Glom Filt Rate - Afr Amer 104 mL/min (>60); Glucose 164 mg/dL (74-106); Potassium 4.6 mmol/L (3.5-5.1); Sodium Level 136 mmol/L (136-145)
== END | disposition home or self-care (01) ==
PROVIDERS: Family Provider Family Medicine; PCP Family Medicine; Visit Provider Orthopaedic Surgery
DX: Z01.818 Encounter for other preprocedural examination (principal); Z01.810 Encounter for preprocedural cardiovascular examination
CPT/HCPCS: 36415; 80048; 85027; 93005

== ENCOUNTER 2019-02-25 11:54 | Day surgery (SDC) | payer MEDICARE, BC, SELFPAY ==
[2018-10-14 10:24] VITALS: BMI 29.2
[2019-02-25] VITALS (7 sets, daily range): BP systolic 108–115; BP diastolic 72–84; PULSE 82–90; RESP 16; TEMP 36.8–36.9; O2SAT 91–99; BMI 28.8
[2019-02-25 12:25] LABS: Bedside Glucose 155 mg/dL (70-110)
[2019-02-25] MEDS: Betamethasone/Betamethasone 30 MG/5 ML Vial (13:50)
--- NOTE | 2019-02-25 13:51 | PCM.OPRPT ---
Report of Operation Date of Procedure: 02/25/19 Pre-Operative Diagnosis: Post-op adhesive capsulitis right shoulder Post-Operative Diagnosis: same Surgery/Procedure Performed:: Manipulation under anesthesia with intraarticular injection right shoulder Description of Surgical Findings:: Procedure: CARLINE with injection right shoulder Pre-op Dx: Post-operative adhesive capsulitis right shoulder Post-op Dx: same Surgeon: Dr. Gregorio Anesthesia: MAC Complications: none EBL:0 Drains: 0 Specimen: 0 PROCEDURE: With appropriate informed consent, the patient was taken to OR 4. Time out was taken. After appropriate anesthesia was achieved, the right shoulder was taken through a full range of motion. Palpable and audible release of adhesions was appreciated. I was able to take the arm through a full range of motion with no limitation. After manipulating the shoulder, the anterior aspect of the joint was cleansed with alcohol and 4 cc of 1% Lidocaine and 2 cc of Celestone Soluspan. A band-aid was placed over the puncture site. The patient was awoken from anesthesia and transferred to PACU in stable and satisfactory condition. Type of Anesthesia:: MAC Anesthesiologist: Austin Kaplan - Admit VTE Documentation VTE Present on Admission: No VTE Mechan Device Prophylaxis: None VTE Pharm Prophylaxis ordered?: No Reason prophylaxis not ordered:: Treatment Not Indicated
--- NOTE | 2019-02-25 14:00 | OP.PCM_ITS ---
Report of Operation Date of Procedure: 02/25/19 Pre-Operative Diagnosis: Post-op adhesive capsulitis right shoulder Post-Operative Diagnosis: same Surgery/Procedure Performed:: Manipulation under anesthesia with intraarticular injection right shoulder Description of Surgical Findings:: Procedure: CARLINE with injection right shoulder Pre-op Dx: Post-operative adhesive capsulitis right shoulder Post-op Dx: same Surgeon: Dr. Gregorio Anesthesia: MAC Complications: none EBL:0 Drains: 0 Specimen: 0 PROCEDURE: With appropriate informed consent, the patient was taken to OR 4. Time out was taken. After appropriate anesthesia was achieved, the right shoulder was taken through a full range of motion. Palpable and audible release of adhesions was appreciated. I was able to take the arm through a full range of motion with no limitation. After manipulating the shoulder, the anterior aspect of the joint was cleansed with alcohol and 4 cc of 1% Lidocaine and 2 cc of Celestone Soluspan. A band- aid was placed over the puncture site. The patient was awoken from anesthesia and transferred to PACU in stable and satisfactory condition. Type of Anesthesia:: MAC Anesthesiologist: Austin Kaplan - Admit VTE Documentation VTE Present on Admission: No VTE Mechan Device Prophylaxis: None VTE Pharm Prophylaxis ordered?: No Reason prophylaxis not ordered:: Treatment Not Indicated
[2019-02-25 14:11] LABS: Bedside Glucose 147 mg/dL (70-110)
== END 2019-02-25 15:14 | disposition home or self-care (01) ==
LOC: SDC 11:56 → AC 11:56
PROVIDERS: Family Provider Family Medicine; PCP Family Medicine; Referring Provider Orthopaedic Surgery; Visit Provider Orthopaedic Surgery
PROC: (CPT 23700; principal; 2019-02-25 13:25)
DX: M75.01 Adhesive capsulitis of right shoulder (principal); E11.9 Type 2 diabetes mellitus without complications; M19.011 Primary osteoarthritis, right shoulder; M75.41 Impingement syndrome of right shoulder; I11.0 Hypertensive heart disease with heart failure; I50.9 Heart failure, unspecified; K21.9 Gastro-esophageal reflux disease without esophagitis; Z86.711 Personal history of pulmonary embolism; E78.00 Pure hypercholesterolemia, unspecified; Z79.82 Long term (current) use of aspirin; Z79.899 Other long term (current) drug therapy; Z79.84 Long term (current) use of oral hypoglycemic drugs; Z94.1 Heart transplant status; Z87.891 Personal history of nicotine dependence
CPT/HCPCS: 01620; 23700; 82962; J7120; J0702

== ENCOUNTER → 2019-06-01 09:36 | Outpatient (CLI) | payer MEDICARE, BC, SELFPAY ==
[2019-02-25 12:18] VITALS: BMI 28.8
[2019-06-01 11:06] LABS: Anion Gap 4 (5-15); BUN 27 mg/dL (7-18); Calcium,Total 9.3 mg/dL (8.5-10.1); Chloride 105 mmol/L (98-107); Creatinine, Serum 0.96 mg/dL (0.70-1.30); EST Glomerular Filtration Rate 85 mL/min (>60); Est Glom Filt Rate - Afr Amer 103 mL/min (>60); Glucose 194 mg/dL (74-106); Potassium 4.7 mmol/L (3.5-5.1); Sodium Level 136 mmol/L (136-145)
== END ==
PROVIDERS: Family Provider Family Medicine; PCP Family Medicine; Referring Provider Family Medicine; Visit Provider Family Medicine
DX: E87.5 Hyperkalemia (principal)
CPT/HCPCS: 36415; 80048

== ENCOUNTER → 2019-08-20 07:27 | Outpatient (CLI) | payer MEDICARE, BC, SELFPAY ==
[2019-02-25 12:18] VITALS: BMI 28.8
[2019-08-20 08:54] LABS: Absolute Lymphocyte Count 2.02 X10^3/uL (0.83-4.51); Absolute Neutrophil Count 4.2 X10^3/uL (2.0-7.7); Basophil# 0.04 X10^3/uL; Basophil% 0.5 % (0-1); Eosinophil# 0.16 X10^3/uL; Eosinophils% 2.1 % (0-5); Hematocrit 43.4 % (40-54); Hemoglobin 13.8 g/dL (13.0-16.5); Lymphocyte # 2.02 X10^3/ul (4.0); Lymphocyte % 27.1 % (19-41); Mean Corp Hgb Conc 31.8 g/dL (32-36); Mean Corpuscular Hgb 28.8 pg (27.0-32.0); Mean Corpuscular Volume 90.4 fL (80-94); Mean Platelet Vol. 9.8 fl (6.2-12.0); Monocyte# 0.91 X10^3/uL; Monocyte% 12.2 % (0-10); NRBC Flagged by Analyzer 0 % (0-5); Neutrophil # 4.22 X10^3/uL (2.7-7.7); Neutrophil % 56.8 % (47-70); Platelet Count 342 K/mm3 (150-450); RBC Distribution Width CV 12.7 % (11.6-14.6); RBC Distribution Width SD 41.6 fl (35.1-43.9); White Blood Count 7.5 K/mm3 (4.4-11.0)
[2019-08-20 09:27] LABS: Anion Gap 7 (5-15); BUN 24 mg/dL (7-18); Chloride 107 mmol/L (98-107); Creatinine, Serum 1.01 mg/dL (0.70-1.30); EST Glomerular Filtration Rate 81 mL/min (>60); Est Glom Filt Rate - Afr Amer 98 mL/min (>60); Potassium 4.9 mmol/L (3.5-5.1); Sodium Level 142 mmol/L (136-145)
== END ==
PROVIDERS: Family Provider Family Medicine; PCP Family Medicine
DX: Z94.1 Heart transplant status (principal); Z79.899 Other long term (current) drug therapy
CPT/HCPCS: 36415; 80051; 82565; 84520; 85025

== ENCOUNTER → 2020-03-24 09:02 | Outpatient (CLI) | payer MEDICARE, BC, SELFPAY ==
[2019-02-25 12:18] VITALS: BMI 28.8
[2020-03-24 12:32] LABS: Hemoglobin A1c 9.4 % (3.8-5.6)
== END ==
PROVIDERS: PCP Family Medicine; Referring Provider Family Medicine; Visit Provider Family Medicine
DX: E11.65 Type 2 diabetes mellitus with hyperglycemia (principal)
CPT/HCPCS: 36415; 83036

== ENCOUNTER 2020-07-21 10:34 | Day surgery (SDC) | payer MEDICARE, BC, SELFPAY ==
[2019-02-25 12:18] VITALS: BMI 28.8
--- NOTE | 2020-07-14 09:59 | EKG12_ITS ---
Test Reason : PRE OP Blood Pressure : / mmHG Vent. Rate : 100 BPM Atrial Rate : 100 BPM P-R Int : 134 ms QRS Dur : 086 ms QT Int : 316 ms P-R-T Axes : 037 086 037 degrees QTc Int : 407 ms Normal sinus rhythm Nonspecific T wave abnormality Abnormal ECG Confirmed by SHEBA LEWIS, LUIS ANTONIO ([id number]), image editor CHARMAINE SOSA ([id number]) on 07/19/2020 10:53:00 AM Referred By: Apolinar Gregorio Confirmed By:LUIS ANTONIO SCRUGGS MD
[2020-07-14 10:31] LABS: Hematocrit 42.3 % (40-54); Hemoglobin 13.6 g/dL (13.0-16.5); Mean Corp Hgb Conc 32.2 g/dL (32-36); Mean Corpuscular Hgb 29.6 pg (27.0-32.0); Mean Corpuscular Volume 92.2 fL (80-94); Mean Platelet Vol. 9.6 fl (6.2-12.0); Platelet Count 351 K/mm3 (150-450); RBC Distribution Width CV 12.7 % (11.6-14.6); Red Blood Count 4.59 M/mm3 (4.6-6.2); White Blood Count 8.7 K/mm3 (4.4-11.0)
[2020-07-14 10:49] LABS: Anion Gap 7 (5-15); BUN 27 mg/dL (7-18); BUN/Creat Ratio 25.5 RATIO (10-20); Calcium,Total 9.6 mg/dL (8.5-10.1); Chloride 103 mmol/L (98-107); Creatinine, Serum 1.06 mg/dL (0.70-1.30); EST Glomerular Filtration Rate 76 mL/min (>60); Est Glom Filt Rate - Afr Amer 92 mL/min (>60); Glucose 133 mg/dL (74-106); Potassium 4.8 mmol/L (3.5-5.1); Sodium Level 137 mmol/L (136-145)
[2020-07-21 10:56] VITALS: BP 109/70; PULSE 102; RESP 16; TEMP 37; O2SAT 96; BMI 27.6
[2020-07-21] MEDS: Lactated Ringers 1,000 ML 100 ML IV ×2 (11:10→13:00)
[2020-07-21] MEDS: Cefazolin 2 GM in 0.9% Normal Saline 100 ML IV (12:29)
[2020-07-21] MEDS: Bupiv/Epi 0.5% Mpf 30 ML Vial (12:35)
[2020-07-21] MEDS: Epinephrine (1 mg/ml) 1 MG/ML VIAL (12:35)
[2020-07-21 12:46] LABS: Bedside Glucose 143 mg/dL (70-110)
--- NOTE | 2020-07-21 13:16 | OP.PCM_ITS ---
Report of Operation Date of Procedure: 07/21/20 Pre-Operative Diagnosis: SAIS, AC arthrosis, RCT, adhesive capsulitis left shoulder Post-Operative Diagnosis: same Surgery/Procedure Performed:: CARLINE, ASD, Tee procedure, RCR left shoulder application consultant: Ricardo Garcia Type of Anesthesia:: General/Regional Anesthesiologist: Moshe Tenorio - Admit VTE Documentation VTE Present on Admission: No VTE Mechan Device Prophylaxis: SCD's VTE Pharm Prophylaxis ordered?: No Reason prophylaxis not ordered:: Treatment Not Indicated
[2020-07-21 13:31] VITALS: BP 104/69; BP 109/70; PULSE 88; RESP 22; TEMP 35.8; O2SAT 92
[2020-07-21 14:00] VITALS: BP 109/70; BP 89/55; BP 97/65; PULSE 80; PULSE 89; RESP 16; RESP 18; O2SAT 94; O2SAT 96
[2020-07-21 14:15] VITALS: BP 109/70; BP 97/61; PULSE 77; RESP 16; O2SAT 93
[2020-07-21 14:24] VITALS: BP 109/70; BP 92/58; PULSE 84; RESP 16; TEMP 36.3; O2SAT 93
[2020-07-21 16:00] VITALS: BP 109/70; BP 112/65; PULSE 16; RESP 16; TEMP 36.7; O2SAT 97
[2020-07-21 16:20] LABS: Bedside Glucose 238 mg/dL (70-110)
== END 2020-07-21 16:20 | disposition home or self-care (01) ==
LOC: SDC 10:35 → AC 10:35
PROVIDERS: Anesthesiology; PCP Family Medicine; Referring Provider Orthopaedic Surgery; Visit Provider Orthopaedic Surgery
PROC: (CPT 29827; principal; 2020-07-21 12:30)
DX: M75.102 Unspecified rotator cuff tear or rupture of left shoulder, not specified as traumatic (principal); M75.02 Adhesive capsulitis of left shoulder; M75.42 Impingement syndrome of left shoulder; M19.012 Primary osteoarthritis, left shoulder; Z11.59 Encounter for screening for other viral diseases; I11.0 Hypertensive heart disease with heart failure; I50.9 Heart failure, unspecified; E11.9 Type 2 diabetes mellitus without complications; K21.9 Gastro-esophageal reflux disease without esophagitis; E78.00 Pure hypercholesterolemia, unspecified; Z94.1 Heart transplant status; Z86.711 Personal history of pulmonary embolism; Z79.82 Long term (current) use of aspirin; Z79.84 Long term (current) use of oral hypoglycemic drugs; Z79.899 Other long term (current) drug therapy
CPT/HCPCS: 01630; 29824; 29826; 29827; 36415; 80048; 82962; 83036; 85027; 87635; 93005; C9803; J7120; J2405; U0003

== ENCOUNTER 2022-06-04 14:13 | Emergency (ER) | payer MEDICARE, SELFPAY ==
[2022-06-04 14:14] VITALS: BP 126/77; PULSE 131; RESP 16; TEMP 35.7; O2SAT 96; BMI 26.4
[2022-06-04 14:25] VITALS: O2SAT 96
--- NOTE | 2022-06-04 14:36 | EDS_ITS ---
HPI History of Present Illness Chief Complaint: Shortness of Breath Informant: patient Onset/Context/Timing Onset: Days (3) Context: gradual Timing: Intermittent and Lasts (Few seconds) Worsened by: Nothing Relieved by: Nothing Associated Symptoms cough; Negative for rhinorrhea, post nasal drip, ear pain, fever, sore throat, chills, sweats, clear sputum, white sputum, yellow sputum or green sputum Chest Pain: Positive for None Narrative Narrative: Patient presents with shortness of breath that has been getting worse over the last 3 days. Patient states it came on gradually. Patient states it comes and goes and lasts only a few seconds. Patient states he coughs and it improves. Patient states nothing else makes it worse and nothing else makes it better. Patient denies any sputum production. Patient denies any fevers or chills. Patient denies any sore throat or rhinorrhea. Patient denies any chest pain or palpitations. Patient states his normal heart rate is approximately 110. Patient states he did a home COVID test last night which was negative. Patient states he went to urgent care today and he had another COVID-19 test which he does not know the results. Patient states he also had influenza A and influenza B swabs which were negative at the urgent care. [facility] Medical History (Updated 06/04/22 @ 17:[address] Moshe Nelson, ) Diabetes Hypertension Home Medications amlodipine 10 mg tablet 10 mg PO DAILY 03/29/16 [History Last Taken 07/21/20 08:30] aspirin 81 mg chewable tablet 81 mg PO DAILY 03/29/16 [History Last Taken 10/10/18] calcium carbonate 600 mg calcium (1,500 mg) tablet 500 mg PO BID 03/29/16 [History Last Taken Unknown] ergocalciferol (vitamin D2) 1,250 mcg (50,000 unit) capsule (Vitamin D2) 5,000 unit PO QHS 03/29/16 [History Last Taken Unknown] lisinopril 10 mg tablet 15 mg PO BID 03/29/16 [History Last Taken 07/21/20 08:30] magnesium 200 mg tablet 400 mg PO QHS 03/29/16 [History Last Taken Unknown] multivitamin (Daily Multiple tablet) 1 ea PO QHS 03/29/16 [History Last Taken Unknown] mycophenolate mofetil 500 mg tablet 750 mg PO BID 03/29/16 [History Last Taken 07/21/20 08:30] omeprazole 20 mg capsule,delayed release 20 mg PO DAILY 03/29/16 [History Last Taken 07/21/20 08:30] rosuvastatin 5 mg tablet (Crestor) 2.5 mg PO QODAY 03/29/16 [History Last Taken Unknown] tacrolimus 1 mg capsule, immediate-release 2 mg PO BID 03/29/16 [History Last Taken 07/21/20 08:30] coenzyme Q10 100 mg capsule (CoQ-10) 200 mg PO QHS 10/12/18 [History Last Taken Unknown] metformin 1,000 mg tablet 2,000 mg PO QHS 10/12/18 [History Last Taken Unknown] Cyanocobalamin (Vitamin B-12) [Vitamin B-12] 500 mcg PO DAILY 07/11/20 [History Last Taken Unknown] ascorbic acid (vitamin C) 500 mg tablet 500 mg PO DAILY@0800 07/11/20 [History Last Taken Unknown] glimepiride 4 mg tablet 4 mg PO DAILY 07/11/20 [History Last Taken Unknown] glucosamine HCl 500 mg tablet 1,000 mg PO DAILY 07/11/20 [History Last Taken Unknown] semaglutide 0.25 mg or 0.5 mg (2 mg/1.5 mL) subcutaneous pen injector 0.5 mg SQ FR 07/11/20 [History Last Taken Unknown] Allergy/AdvReac Type Severity Reaction Status Date / Time No Known Allergies Allergy Verified 06/04/22 14:14 Surgical History (Updated 06/04/22 @ 14:[address] Moshe Nelson DO) History of heart transplant Hx of rotator cuff surgery Social History Smoking Status: Never smoker ROS ROS ED Constitutional Constitutional ED: Denies chills or fever(s) Eyes Eyes: Denies blurry vision or change in vision ENT ENT ED: Denies rhinorrhea or sore throat Cardiovascular Cardiovascular: Denies chest pain or palpitations Respiratory/Chest Respiratory/Chest: Reports cough and dyspnea Gastrointestinal Gastrointestinal: Denies nausea or vomiting Genitourinary Genitourinary ED: Denies dysuria or hematuria Musculoskeletal Musculoskeletal: Reports neck pain; Denies back pain Integumentary Denies abscess or rash Neurologic Neurologic: Denies headache(s) or weakness Allergic/Immunologic Allergic/Immunologic ED: Denies mouth swelling or urticaria EXAM Physical Exam Const Vital Signs: 06/04/22 14:14 06/04/22 14:25 Temperature 96.3 F L Temperature Source Temporal Pulse Rate 131 H Respiratory Rate 16 Respiratory Effort Short of Breath Blood Pressure 126/77 H Blood Pressure Mean 93 Pulse Ox 96 Oxygen Delivery Method Nasal Cannula Room Air Positive well nourished and well developed General Appearance ED: well developed and NAD HEENT Reports moist mucous membranes Neck supple and no JVD Resp normal respiratory effort and clear to auscultation bilaterally Cardio regular rhythm and no murmurs Rate: tachycardic GI normal to inspection, nondistended, normoactive bowel sounds and non-tender Palpation: soft Extremity normal to inspection General Extremety ED: Negative for edema or tenderness General Extremity: Negative for edema Neuro oriented x3, CN's II-XII intact bilaterally and no sensory deficits noted Sensorium / Orientation: alert Motor Exam: strength 5/5 throughout Psych mental status grossly normal Skin no rashes or lesions noted MDM MDM MDM Narrative Medical decision making narrative: Patient was given IV fluids here. EKG was obtained. On my interpretation, it shows a sinus tachycardia with a rate of 120. There are no acute ST or T wave changes. There is borderline right axis deviation at 99. PA and lateral chest x-ray was obtained. There are 2 views. On my interpretation, lung proctor are clear. There is normal cardiac silhouette. Bony thorax is normal. There is no acute process noted. Radiologist also interpreted the x-ray and agrees. CBC shows a mild anemia with a hemoglobin of 12.9 and hematocrit 38.6. Basic metabolic profile shows a slightly elevated BUN of 27. Creatinine was normal. Glucose was elevated at 300. High-sensitivity troponin was normal. D-dimer was elevated at 1.74. Because of this, CTA of the chest was obtained. There is no evidence of pulmonary embolism or aortic dissection. There is no acute cardiopulmonary process. This was interpreted by the radiologist and reviewed by myself. Patient was ordered Humalog 10 units subcu. However, before this was given a repeat BGT was obtained and was 153. Therefore, this was held. Patient is feeling better on reevaluation. Patient was advised of his findings. Patient was instructed to follow-up with his primary care physician in 5 to 7 days. Patient requested a local primary care physician. Patient was referred to the primary care physician on-call. Patient understood and was agreeable with the plan. All questions were answered. Lab Data Attestation: I reviewed the patient's lab results. Labs: Laboratory Results - last 24 hr 06/04/22 06/04/22 06/04/22 14:51 14:51 14:51 WBC 4.4 RBC 4.43 L Hgb 12.9 L Hct 38.6 L MCV 87.1 MCH 29.1 MCHC 33.4 RDW Std Deviation 39.8 RDW Coeff of Roberto 12.5 Plt Count 227 MPV 9.3 Immature Gran % (Auto) 1.400 H Neut % (Auto) 58.6 Lymph % (Auto) 23.3 [place] % (Auto) 15.3 H Eos % (Auto) 0.7 Baso % (Auto) 0.7 Absolute Neuts (auto) 2.6 Absolute Lymphs (auto) 1.02 Nucleated RBC % 0 Differential Comment SCANNED D-Dimer Quant (PE/DVT) 1.74 H* Sodium 134 L Potassium 4.2 Chloride 103 Carbon Dioxide 22.0 Anion Gap 9 BUN 27 H Creatinine 1.29 Estim Creat Clear Calc 62.88 Est GFR (MDRD) Af Amer 73 Est GFR (MDRD) Non-Af 60 BUN/Creatinine Ratio 20.9 H Glucose 300 H Calcium 9.4 Troponin I High Sens 5 Radiography Chest X-Ray - ED: 2 View, Read by ED Physician, Read by Radiologist, Normal and No Acute Disease Diagnostic Testing: Clinical Impression(s) from Imaging Studies Chest X-Ray 06/04/22 14:40 IMPRESSION: No radiographic evidence of acute cardiopulmonary disease. Electronically Signed: Scott Patton MD at 15:27 EDT , Chest CTA 06/04/22 15:18 IMPRESSION: No evidence of pulmonary embolism or aortic dissection. No evidence of acute cardiopulmonary process or focal consolidation. Electronically Signed: Sanford Lemon DO at 16:09 EDT , EKG Initial EKG: Attestation: I personally reviewed and interpreted this EKG as follows: Interpretation: Sinus Tachycardia (120) and Non-Specific ST Changes Prior EKG tracings: available for review Prior: Unchanged (07/14/2020) Discharge Plan Triage Chief Complaint: Shortness of Breath ED Provider: Moshe Nelson Dx/Rx/DC Orders Clinical Impression: Dyspnea, Hyperglycemia Instructions: ED Dyspnea Prescriptions: No Action multivitamin [Daily Multiple] 1 EACH tablet 1 ea PO QHS mycophenolate mofetil 500 MG tablet 750 mg PO BID calcium carbonate 600 MG tablet 500 mg PO BID amlodipine 10 MG tablet 10 mg PO DAILY lisinopril 10 MG tablet 15 mg PO BID omeprazole 20 MG capsule 20 mg PO DAILY aspirin 81 MG Tab.Chew 81 mg PO DAILY ergocalciferol (vitamin D2) [Vitamin D2] 50,000 UNIT capsule 5,000 unit PO QHS tacrolimus 1 MG capsule 2 mg PO BID magnesium 200 MG tablet 400 mg PO QHS rosuvastatin [Crestor] 5 MG tablet 2.5 mg PO QODAY metformin 1,000 MG tablet 2,000 mg PO QHS coenzyme Q10 [CoQ-10] 100 MG capsule 200 mg PO QHS ascorbic acid (vitamin C) 500 MG tablet 500 mg PO DAILY@0800 glimepiride 4 MG tablet 4 mg PO DAILY glucosamine HCl 500 MG tablet 1,000 mg PO DAILY semaglutide 0.25 MG/0.2 ML pen injector 0.5 mg SQ FR Cyanocobalamin (Vitamin B-12) [Vitamin B-12] 500 MCG tablet 500 mcg PO DAILY Primary Care Provider: Moise Jack Referrals: Moise Jack MD [Primary Care Provider] - Andrey Ornelas MD [Med Staff - Cafeteria Or Lunchroom Checker] - 5-7 Days Disposition Disposition: Home, Self Care
--- NOTE | 2022-06-04 14:40 | RAD_ITS ---
INDICATION: Dyspnea EXAMINATION/TECHNIQUE: X-RAY - XR Chest 2 Views COMPARISON: 06/20/2014. FINDINGS: LINES/DEVICES: Remnant transvenous pacemaker leads visualized superimposed over the left subclavian vein demonstrates no significant change in comparison to the prior study. Sternal wires are seen in position. LUNGS: Peribronchial cuffing bilateral hilar prominence is seen that demonstrates no change. The peripheral bronchovascular markings unremarkable, no evidence of focal infiltrate or consolidation. No evidence of pneumothorax or pleural effusion. MEDIASTINUM AND CARDIOVASCULAR STRUCTURES: Cardiac silhouette not enlarged. BONES AND SOFT TISSUES: Degenerative bone changes seen. RAD/Chest PA and Lateral IMPRESSION: No radiographic evidence of acute cardiopulmonary disease. Electronically Signed: Scott Patton MD at 15:27 EDT ,
[2022-06-04 14:58] LABS: Absolute Lymphocyte Count 1.02 X10^3/uL (0.83-4.51); Absolute Neutrophil Count 2.6 X10^3/uL (2.0-7.7); Basophil# 0.03 X10^3/uL; Basophil% 0.7 % (0-1); Eosinophil# 0.03 X10^3/uL; Eosinophils% 0.7 % (0-5); Hematocrit 38.6 % (40-54); Hemoglobin 12.9 g/dL (13.0-16.5); Lymphocyte # 1.02 X10^3/ul (0.83-4.51); Lymphocyte % 23.3 % (19-41); Mean Corp Hgb Conc 33.4 g/dL (32-36); Mean Corpuscular Hgb 29.1 pg (27.0-32.0); Mean Corpuscular Volume 87.1 fL (80-94); Mean Platelet Vol. 9.3 fl (6.2-12.0); Monocyte# 0.67 X10^3/uL; Monocyte% 15.3 % (0-10); NRBC Flagged by Analyzer 0 % (0-5); Neutrophil # 2.56 X10^3/uL (2.7-7.7); Neutrophil % 58.6 % (47-70); POSITIVE MORPHOLOGY YES; Platelet Count 227 K/mm3 (150-450); RBC Distribution Width CV 12.5 % (11.6-14.6); RBC Distribution Width SD 39.8 fl (35.1-43.9); Red Blood Count 4.43 M/mm3 (4.6-6.2); White Blood Count 4.4 K/mm3 (4.4-11.0)
[2022-06-04 15:02] LABS: Differential Indicated SCAN CRITERIA MET
[2022-06-04 15:14] LABS: D-Dimer Quantitative (DVT/PE) 1.74 FEU/ug/m (0.27-0.49)
[2022-06-04 15:15] LABS: Anion Gap 9 (5-15); BUN 27 mg/dL (7-18); BUN/Creat Ratio 20.9 RATIO (10-20); Calcium,Total 9.4 mg/dL (8.5-10.1); Chloride 103 mmol/L (98-107); Creatinine, Serum 1.29 mg/dL (0.70-1.30); EST Glomerular Filtration Rate 60 mL/min (>60); Est Glom Filt Rate - Afr Amer 73 mL/min (>60); Estimated Creatinine Clearance 62.88 ml/min; Glucose 300 mg/dL (74-106); Potassium 4.2 mmol/L (3.5-5.1); Sodium Level 134 mmol/L (136-145); Troponin-I HS 5 pg/mL (3.0-78.0)
--- NOTE | 2022-06-04 15:18 | CT_ITS ---
STUDY: CTA CHEST REASON FOR EXAM: Male, 62 years old. Elevated D-dimer RADIATION DOSAGE (If Supplied By Facility): CTDIvol = ( 12.55 ) mGy, DLP = ( 463.42 ) mGycm TECHNIQUE: The examination was performed with the intravenous administration of IV 100mL Isovue-370. Post-processing of the angiographic images was performed, with multiplanar reformation and 3D reconstruction. Individualized dose optimization techniques were used for this CT. COMPARISON: None. FINDINGS: Normal enhancement of the main pulmonary artery and right and left pulmonary arteries. Normal enhancement of the bilateral peripheral pulmonary arteries. There is no demonstrated pulmonary embolism. Normal thoracic aorta and visualized great vessels. There is no demonstrated aortic dissection. Normal heart and pericardium. Normal mediastinum. Normal hilar regions. Normal visualized trachea and bronchi. The lungs are well expanded. Normal pulmonary parenchyma. Normal pleura. Normal chest wall structures. Normal osseous structures. Normal visualized upper abdomen. CT/CTA Chest W/WO Contrast IMPRESSION: No evidence of pulmonary embolism or aortic dissection. No evidence of acute cardiopulmonary process or focal consolidation. Electronically Signed: Sanford eLmon DO at 16:09 EDT ,
--- NOTE | 2022-06-04 15:18 | ED.RN ---
D-DIMER 1.74. DR ESCOBEDO
[2022-06-04 15:47] LABS: Differential Comment SCANNED
[2022-06-04 17:06] LABS: Bedside Glucose 153 mg/dL (74-106)
[2022-06-04 17:19] VITALS: BP 122/92; PULSE 103; RESP 16; O2SAT 99
== END 2022-06-04 17:24 | disposition home or self-care (01) ==
PROVIDERS: Emergency Provider Emergency Medicine; PCP Family Medicine; Visit Provider Emergency Medicine
DX: E11.65 Type 2 diabetes mellitus with hyperglycemia (principal); I10 Essential (primary) hypertension; Z79.82 Long term (current) use of aspirin; Z79.84 Long term (current) use of oral hypoglycemic drugs; Z79.899 Other long term (current) drug therapy; D64.9 Anemia, unspecified
CPT/HCPCS: 71046; 71275; 80048; 82962; 84484; 85025; 85379; 87811; 93005; 96372; 99284; Q9967; A4216

== ENCOUNTER → 2022-09-02 | Outpatient (CLI) | payer MEDICARE, SELFPAY ==
[2022-09-04 20:56] LABS: Tacrolimus (FK506) 5.2 ng/mL (2.0-20.0)
== END | disposition home or self-care (01) ==
LOC: BIMLAB 09:23
PROVIDERS: PCP Internal Medicine
DX: Z94.1 Heart transplant status (principal)
CPT/HCPCS: 36415; 80197

== ENCOUNTER → 2022-10-21 | Outpatient (CLI) | payer MEDICARE, SELFPAY ==
[2022-10-21 12:39] LABS: Anion Gap 9 (5-15); BUN 20 mg/dL (7-18); BUN/Creat Ratio 19.6 RATIO (10-20); Calcium,Total 9.6 mg/dL (8.5-10.1); Chloride 102 mmol/L (98-107); Creatinine, Serum 1.02 mg/dL (0.70-1.30); EST Glomerular Filtration Rate 79 mL/min (>60); Est Glom Filt Rate - Afr Amer 96 mL/min (>60); Glucose 140 mg/dL (74-106); Potassium 4.3 mmol/L (3.5-5.1); Sodium Level 137 mmol/L (136-145)
[2022-10-21 13:10] LABS: Microalbumin,Random Urine 16.4 mg/L (NO RANGE EST.); Microalbumin:Creatinine Ratio 15.8 mg/g CRE (<30 mg/g CRE)
== END | disposition home or self-care (01) ==
LOC: BIMLAB 08:16
PROVIDERS: PCP Internal Medicine; Referring Provider Internal Medicine; Visit Provider Internal Medicine
DX: E11.9 Type 2 diabetes mellitus without complications (principal)
CPT/HCPCS: 36415; 80048; 82043; 82570; 83036

== ENCOUNTER 2023-04-29 07:06 | Day surgery (SDC) | payer MEDICARE, SELFPAY ==
[2023-04-29] VITALS (7 sets, daily range): BP systolic 109–120; BP diastolic 80–89; PULSE 78–90; RESP 16–18; TEMP 36.3–37.1; O2SAT 95–98; BMI 25.9
[2023-04-29] MEDS: Lactated Ringers 1,000 ML 15 ML IV (07:32)
--- NOTE | 2023-04-29 07:58 | PCM.HP.BLA ---
History and Physical Date of Admission: 04/29/23 Intake Vital Signs 01/28/2308:07 03/24/2308:54 Height 5 ft 10 in 5 ft 10 in Weight: 181 lb 183 lb 8 oz BMI 25.9 26.3 BP 108/70 129/78 H Blood Pressure Location Lt brachial Rt brachial Position Sitting Sitting Respiration 14 18 Pulse 93 95 Pulse Source Monitor Monitor Temp 98.2 F 97.3 F L Temp Source Temporal Pulse Oximetry (%) 98 Oxygen Delivery Method room air Intake Visit Reasons: POSITIVE COLOGUARD Chief Complaint: positive cologuard Allergies Latex, Natural Rubber Adverse Reaction (Intermediate, Verified 01/27/23 08:04) RASH Medications aspirin 81 mg chewable tablet 81 mg PO DAILY 03/29/16 [History Confirmed 03/24/23] calcium carbonate 600 mg calcium (1,500 mg) tablet 500 mg PO BID 03/29/16 [History Confirmed 03/24/23] ergocalciferol (vitamin D2) 1,250 mcg (50,000 unit) capsule (Vitamin D2) 5,000 unit PO QHS 03/29/16 [History Confirmed 03/24/23] multivitamin (Daily Multiple tablet) 1 ea PO QHS 03/29/16 [History Confirmed 03/24/23] mycophenolate mofetil 500 mg tablet 750 mg PO BID 03/29/16 [History Confirmed 03/24/23] omeprazole 20 mg capsule,delayed release 20 mg PO DAILY 03/29/16 [History Confirmed 03/24/23] rosuvastatin 5 mg tablet (Crestor) 2.5 mg PO QODAY 03/29/16 [History Confirmed 03/24/23] tacrolimus 1 mg capsule, immediate-release 2 mg PO BID 03/29/16 [History Confirmed 03/24/23] coenzyme Q10 100 mg capsule (CoQ-10) 200 mg PO QHS 10/12/18 [History Confirmed 03/24/23] Cyanocobalamin (Vitamin B-12) [Vitamin B-12] 500 mcg PO DAILY 07/11/20 [History Confirmed 03/24/23] ascorbic acid (vitamin C) 500 mg tablet 500 mg PO DAILY@0800 07/11/20 [History Confirmed 03/24/23] glucosamine HCl 500 mg tablet 1,000 mg PO DAILY 07/11/20 [History Confirmed 03/24/23] amlodipine 5 mg tablet 5 mg PO DAILY 07/30/22 [History Confirmed 03/24/23] lisinopril 10 mg tablet 10 mg PO DAILY 07/30/22 [History Confirmed 03/24/23] magnesium 200 mg tablet 400 mg PO QHS 07/30/22 [History Confirmed 03/24/23] vitamin B complex (B Complex-Vitamin B12 tablet) 1 tab PO DAILY 07/30/22 [History Confirmed 01/27/23] metformin 1,000 mg tablet 2,000 mg (2 x 1,000 mg) PO QHS #180 tabs 01/27/23 [Rx Confirmed 03/24/23] sildenafil 25 mg tablet 25 mg PO DAILY PRN sexual activity #30 tabs 01/27/23 [Rx Confirmed 01/27/23] glimepiride 4 mg tablet 4 mg PO DAILY #90 tabs 02/20/23 [Rx Confirmed 03/24/23] PFSH Medical History (Updated 03/24/23 @ 09:12 by Alee Smith) Diabetes Heart transplant recipient History of atrial fibrillation History of heart disease History of pneumonia Hx of blood clots Hx of chronic arthritis Hx of essential hypertension Hx of heart failure Hx of heart valve insufficiency Hx of melanoma of skin Hypertension Positive colorectal cancer screening using Cologuard test Wears glasses Surgical History H/O arthroscopic knee surgery H/O repair of left rotator cuff Heart transplant status Hx of cardiac catheterization Hx of repair of right rotator cuff S/P skin and subcutaneous tissue surgery S/P tonsillectomy Family History Brother AsthmaMother Blood clot in vein Social History household members: spouse current occupational status: employed and retired current occupation: worked at a [employer], 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 His last colonoscopy was in 2012. Patient does not report any abdominal pain or gross blood in the stool. He has had a heart transplant in the past. ROS General General: Yes fatigue; No weight change, appetite, colon cancer, breast cancer or weakness HEENT HEENT: No difficulty swallowing, eye injury, eye surgery, swollen glands or hoarseness Endo Endocrine: Yes diabetes mellitus; No thyroid disease, thyroid cancer, Hair loss, heat intolerance or cold intolerance Skin Skin: No rash or changing moles Breast Breast: No left breast lump, right breast lump, nipple discharge, breast pain, abnormal mammogram, abnormal US or breast enlargement Musc Musculoskeletal: Yes arthritis; No back problems, rheumatoid arthritis, gout or joint pain Cardio Cardiovascular: No murmur, pacemaker, heart disease, atrial fibrillation, high blood pressure, heart attack, heart stent, palpitations, shortness of breat with exertion or chest pain Psych Psychiatric: No depression, anxiety or hearing voices Resp Respiratory: No shortness of breath, No sleep apnea, No cough, No COPD, No asthma, No emphysema and No wheezing Gastro Gastrointestinal: No abdominal pain, No nausea or vomiting, Yes diarrhea, No constipation, No blood in stool, No acid reflux, No hemorrhoids, No ulcers, No gallbladder problem and No black,tarry stools [place] Hematologic: No blood thinners, No blood disorders, No bleeding, No anemia and No blood clots Neuro Neurologic: No system reviewed and no additional complaints, except as documented, No as per HPI, No abnormal gait, No abnormal hearing, No abnormal movements, No abnormal speech, No behavioral changes, No burning sensations, No confusion, No convulsions, No disequilibrium, No dizziness, No localized weakness, No frequent falls, No headache(s), No lack of coordination, No loss of vision, No memory loss, No numbness, No other visual disturbances, No radicular pain, No restless legs, No sensory deficit, No syncope, No tingling, No tremor(s), No weakness and No other Exam Const General: cooperative Orientation: alert and oriented x3 HENMT Head: normal to inspection Neck Neck: normal visual inspection and full ROM Chest Chest palpation & inspection: normal inspection of the chest Resp Effort & Inspection: normal respiratory effort Auscultation: clear to auscultation bilaterally Cardio Rate: regular rate Rhythm: regular rhythm GI Inspection: non-distended Palpation: soft and nontender Skin General: no rashes or lesions noted Neuro General: patient alert and patient oriented x3 Extrem General: full ROM Psych Appearance: grossly normal Mental Status: mental status grossly normal Assessment and Plan Assessment and Plan (1) Positive colorectal cancer screening using Cologuard test: Status: Acute Plan: I explained endoscopy in detail to the patient. I explained the risks including but not limited to stroke or heart attack with anesthesia, perforation of the GI tract, bleeding, infection. I explained that any of these could necessitate further emergency surgery. The patient understands and all questions were answered sufficiently. The patient wishes to proceed with procedure. Zev Fortune MD Pager: [facility] [address] [place] [address], [address] [place] [address] Office: I have examined the patient and the H&P has been reviewed. There are no clinical changes since date of exam.
--- NOTE | 2023-04-29 08:29 | OP.COLON_ITS ---
Patient Name: Apolinar Hunter Procedure Date: 04/29/2023 8:06 AM Date of : 1960 Age: 62 Procedure: Colonoscopy Indications: Positive Cologuard test Providers: Zev Fortune MD Referring MD: Zev Fortune MD Medicines: Monitored Anesthesia Care Patient Profile: This is a 62 year old male. Refer to note in patient chart for documentation of history and physical. Last Colonoscopy: 10 years ago. Complications: No immediate complications. Procedure: Pre-Anesthesia Assessment: - Prior to the procedure, a History and Physical was performed, and patient medications and allergies were reviewed. The patient's tolerance of previous anesthesia was also reviewed. The risks and benefits of the procedure and the sedation options and risks were discussed with the patient. All questions were answered, and informed consent was obtained. Prior Anticoagulants: The patient has taken no anticoagulant or antiplatelet agents. After reviewing the risks and benefits, the patient was deemed in satisfactory condition to undergo the procedure. After I obtained informed consent, the scope was passed under direct vision. Throughout the procedure, the patient's blood pressure, pulse, and oxygen saturations were monitored continuously. The Colonoscope was introduced through the anus and advanced to the cecum, identified by appendiceal orifice and ileocecal valve. The colonoscopy was performed without difficulty. The patient tolerated the procedure well. The quality of the bowel preparation was good. The ileocecal valve, appendiceal orifice, and rectum were photographed. Scope In: 8:15:53 AM Scope Withdrawal Time 0 hours 6 minutes 6 seconds Scope Out: 8:24:23 AM Total Procedure Duration Time 0 hours 8 minutes 30 seconds Findings: The entire examined colon appeared normal on direct and retroflexion views. Impression: - The entire examined colon is normal on direct and retroflexion views. - No specimens collected. Recommendation: - Discharge patient to home. - Resume previous diet. - Continue present medications. - Repeat colonoscopy in 10 years for screening purposes. Procedure Code(s): --- Professional --- 65886, Colonoscopy, flexible; diagnostic, including collection of specimen(s) by brushing or washing, when performed (separate procedure) Diagnosis Code(s): --- Professional --- R19.5, Other fecal abnormalities CPT copyright 2021 [employer]. All rights reserved. The codes documented in this report are preliminary and upon solid fiber paster operator review may be revised to meet current compliance requirements. Zev Fortune MD 04/29/2023 8:28:54 AM This report has been signed electronically. Number of Addenda: 0 Note Initiated On: 04/29/2023 8:06 AM
--- NOTE | 2023-04-29 08:29 | OP.CCLET_ITS ---
04/29/2023 Nazia Dallas Md Re : Colonoscopy procedure for Apolinar Hunter Dear Burt This procedure was performed on Saturday, April 29, 2023. My impressions and recommendations are as follows: Impressions : - The entire examined colon is normal on direct and retroflexion views. - No specimens collected. Recommendations : - Discharge patient to home. - Resume previous diet. - Continue present medications. - Repeat colonoscopy in 10 years for screening purposes. My findings are described in the full procedure note, which is enclosed. If I can be of further assistance, please feel free to contact me at Doctor phone number(s): , Work: . Sincerely, Zev Fortune MD 04/29/2023 8:28:54 AM This report has been signed electronically.
[2023-04-29 08:32] LABS: Bedside Glucose 171 mg/dL (74-106)
== END 2023-04-29 09:12 | disposition home or self-care (01) ==
LOC: EN 07:08 → AC 07:09
PROVIDERS: PCP Internal Medicine; Referring Provider Internal Medicine; Visit Provider Surgery
PROC: 0DJD8ZZ Inspection of Lower Intestinal Tract, Via Natural or Artificial Opening Endoscopic (ICD-10-PCS; CPT 45378; principal; 2023-04-29 08:10)
DX: R19.5 Other fecal abnormalities (principal); E11.9 Type 2 diabetes mellitus without complications; Z79.84 Long term (current) use of oral hypoglycemic drugs
CPT/HCPCS: 45378; 82962; J7120; J2405

== ENCOUNTER → 2023-08-04 | Outpatient (CLI) | payer MEDICARE, SELFPAY ==
[2023-08-04 12:57] LABS: Hematocrit 40.9 % (40-54); Hemoglobin 13.2 g/dL (13.0-16.5); Mean Corp Hgb Conc 32.3 g/dL (32-36); Mean Corpuscular Hgb 28.9 pg (27.0-32.0); Mean Corpuscular Volume 89.7 fL (80-94); Mean Platelet Vol. 9.5 fl (6.2-12.0); POSITIVE COUNT YES; POSITIVE MORPHOLOGY YES; Platelet Count 378 K/mm3 (150-450); RBC Distribution Width CV 12.2 % (11.6-14.6); RBC Distribution Width SD 39.8 fl (35.1-43.9); Red Blood Count 4.56 M/mm3 (4.6-6.2); White Blood Count 9.4 K/mm3 (4.4-11.0)
[2023-08-04 12:58] LABS: Differential Indicated MANUAL DIFF
[2023-08-04 13:09] LABS: Vitamin D,25 Hydroxy 74.8 ng/mL
[2023-08-04 13:11] LABS: Microalbumin:Creatinine Ratio 60.6 mg/g CRE (<30 mg/g CRE)
[2023-08-04 13:14] LABS: ALB/GLOB Ratio 0.9 RATIO (0.9-2.4); AST(SGOT) 16 U/L (15-37); Alanine Aminotransfer ALT/SGPT 26 U/L (16-61); Albumin, Serum 3.7 g/dL (3.2-5.0); Alkaline Phosphatase 80 U/L (45-117); Anion Gap 6 (5-15); BUN 17 mg/dL (7-18); BUN/Creat Ratio 16.7 RATIO (10-20); Calcium,Total 9.8 mg/dL (8.5-10.1); Chloride 101 mmol/L (98-107); Cholesterol 152 mg/dL (200); Creatinine, Serum 1.02 mg/dL (0.70-1.30); EST Glomerular Filtration Rate 79 mL/min (>60); Est Glom Filt Rate - Afr Amer 95 mL/min (>60); Globulin 4.2 g/dL (2.2-4.2); Glucose 198 mg/dL (74-106); High Density Lipoprotein 44 mg/dL; Potassium 4.3 mmol/L (3.5-5.1); Protein, Total 7.9 g/dL (6.4-8.2); Sodium Level 137 mmol/L (136-145); Triglycerides 204 mg/dL; Very Low Density Lipoprotein 41 mg/dL (5-40)
[2023-08-04 13:24] LABS: Eosinophil 2 % (0-5); Lymphocyte 32 % (19-41); Metamyelocyte 2 % (0-1); Monocyte 10 % (0-10); Neutrophil-Band 5 % (0-5); Neutrophil-Segmented 49 % (47-70); Platelet Estimate ADEQUATE (ADEQ); Reactive Lymphocyte 1+; Total Cells Counted 100 (MANUAL DIFF)
[2023-08-04 13:25] LABS: Absolute Neutrophil Count 5.1 X10^3/uL (2.0-7.7); Red Cell Morphology NORM C+C NORMAL (NORM C&C)
[2023-08-06 14:58] LABS: Pathologist Review Reviewed
== END | disposition home or self-care (01) ==
LOC: BIMLAB 08:51
PROVIDERS: PCP Internal Medicine; Referring Provider Internal Medicine; Visit Provider Internal Medicine
DX: K21.9 Gastro-esophageal reflux disease without esophagitis (principal); E11.9 Type 2 diabetes mellitus without complications; E55.9 Vitamin D deficiency, unspecified
CPT/HCPCS: 36415; 80053; 80061; 82043; 82306; 82570; 85025

== ENCOUNTER → 2024-07-02 | Outpatient (CLI) | payer MEDICARE, SELFPAY ==
[2024-07-02 12:33] LABS: PSA,Total - Annual Screen 1.08 ng/mL (0.00-4.00)
[2024-07-02 13:09] LABS: Hemoglobin A1c 8.5 % (3.8-5.6)
== END | disposition home or self-care (01) ==
LOC: BIMLAB 08:06
PROVIDERS: PCP Internal Medicine; Referring Provider Physician Assistant; Visit Provider Physician Assistant
DX: Z12.5 Encounter for screening for malignant neoplasm of prostate (principal); E11.9 Type 2 diabetes mellitus without complications
CPT/HCPCS: 36415; 82043; 82570; 83036; 84153; G0103

== ENCOUNTER → 2024-08-19 | Outpatient (CLI) | payer MEDICARE, SELFPAY ==
--- NOTE | 2024-08-19 08:49 | RAD_ITS ---
STUDY: X-RAY - PELVIS AND LEFT HIP REASON FOR EXAM: Male, 64 years old. chronic hip pain TECHNIQUE: 3 views of the pelvis and hip. COMPARISON: None. FINDINGS: There is a non-specific bowel gas pattern. Normal visualized soft tissue structures. Mild SI joint arthrosis. Normal bilateral superior and inferior pubic rami. Normal pubic symphysis. Normal bilateral ischial tuberosities. Normal visualized femoral head. Normal acetabulum. There is mild articular joint space narrowing of the hip. Similar arthritic changes noted in the right hip. RAD/HIP, UNI W/ Pelvis 2-3 Views IMPRESSION: Age consistent hip and SI joint arthrosis without fracture or suspicious osseous lesion. Electronically Signed: Lexa Zambrano MD at 15:33 EST ,
== END | disposition home or self-care (01) ==
PROVIDERS: PCP Internal Medicine; Referring Provider Internal Medicine; Visit Provider Internal Medicine
DX: M25.552 Pain in left hip (principal); G89.29 Other chronic pain
CPT/HCPCS: 73502

== ENCOUNTER → 2025-03-24 | Outpatient (CLI) | payer MEDICARE, SELFPAY ==
[2025-03-24 12:05] LABS: Hematocrit 43.8 % (40-54); Hemoglobin 14.8 g/dL (13.0-16.5); Immature Granulocytes Count 0.060 X10^3/uL (0.0-0.0); Mean Corp Hgb Conc 33.8 g/dL (32-36); Mean Corpuscular Volume 89.0 fL (80-94); Mean Platelet Vol. 9.3 fl (6.2-12.0); NRBC Flagged by Analyzer 0 % (0-5); Platelet Count 319 K/mm3 (150-450); RBC Distribution Width CV 13.0 % (11.6-14.6); RBC Distribution Width SD 42.1 fl (35.1-43.9); Red Blood Count 4.92 M/mm3 (4.6-6.2); White Blood Count 7.4 K/mm3 (4.4-11.0)
[2025-03-24 12:14] LABS: Prothrombin Time (Protime)PT. 12.3 SECONDS (11.7-14.9)
[2025-03-24 12:15] LABS: Partial Thromboplast Time 25.4 Seconds (24.1-36.2)
[2025-03-24 13:05] LABS: AST(SGOT) 18 U/L (<=37); Alanine Aminotransfer ALT/SGPT 14 U/L (<=46); Albumin, Serum 4.7 g/dL (3.4-4.8); Alkaline Phosphatase 72 U/L (40-129); Anion Gap 14 (5-15); BUN 19 mg/dL (4-19); BUN/Creat Ratio 19.2 RATIO (10-20); Calcium,Total 10.1 mg/dL (7.6-11.0); Carbon Dioxide 24.5 mmol/L (21.0-32.0); Chloride 97 mmol/L (98-108); Cholesterol 202 mg/dL (<=200); Globulin 3.1 g/dL (2.2-4.2); Glucose 121 mg/dL (70-99); Low Density Lipoprotein Calc. 105 mg/dL; Potassium 4.6 mmol/L (3.3-5.1); Triglycerides 218 mg/dL; Very Low Density Lipoprotein 44 mg/dL (5-40); cholesterol:hdl ratio screen 3.81
[2025-03-24 13:10] LABS: Creatinine, Urine (random) 203.00 mg/dL (39.00-259.00)
[2025-03-24 13:13] LABS: Microalbumin,Random Urine 277.0 mg/L (NO RANGE EST.)
[2025-03-24 13:34] LABS: Vitamin B12 > 4000 pg/mL (180-914); Vitamin D,25 Hydroxy 72.1 ng/mL (30-100)
[2025-03-25 14:08] LABS: ANTINUCLEAR ANTIBODIES DIRECT Positive (Negative); Anti-Chromatin <0.2 AI (0.0-0.9); Anti-Jo <0.2 AI (0.0-0.9); Anti-dsDNA Ab <1 IU/mL (0-9); SJOGREN'S Anti-SS-A test < 0.2 AI (0.0-0.9); SJOGREN'S Anti-SS-B test < 0.2 AI (0.0-0.9)
[2025-03-25 18:08] LABS: Cytoplasmic Ab (C-ANCA) <1:20 titer (Neg:<1:20); Perinuclear Ab (P-ANCA) <1:20 titer (Neg:<1:20)
== END | disposition home or self-care (01) ==
LOC: BIMLAB 08:39
PROVIDERS: PCP Internal Medicine; Visit Provider Internal Medicine
DX: E11.65 Type 2 diabetes mellitus with hyperglycemia (principal); R23.3 Spontaneous ecchymoses; E55.9 Vitamin D deficiency, unspecified
CPT/HCPCS: 36415; 80053; 80061; 82043; 82306; 82570; 82607; 85025; 85610; 85730; 86037; 86038; 86160; 86225; 86235

== ENCOUNTER 2025-05-21 13:55 | Emergency (ER) | payer MEDICARE, SELFPAY ==
[2025-05-21 13:56] VITALS: BP 152/94; PULSE 81; RESP 16; TEMP 36.8; O2SAT 98
[2025-05-21 14:02] VITALS: BP 129/82; PULSE 106
--- NOTE | 2025-05-21 14:10 | RAD_ITS ---
PROCEDURE: HAND MIN 3 VIEWS 05/21/2025 REASON FOR EXAM: LAC TECHNIQUE: Procedure Code: KINGS Modality: DX Procedure: HAND MIN 3 VIEWS Laterality: Left COMPARISON: None FINDINGS: Osseous: There are acute comminuted slightly displaced fracture deformities involving the terminal bradley of the 2nd and 3rd finger. No other acute osseous injury or articular malalignment is seen. There is interphalangeal joint space loss. No bone lesion or periosteal reaction seen. No marginal erosive changes are seen. Mild radiocarpal osteoarthritic change. There is slight widening of the scapholunate interspace at 4 mm to be correlated clinically for instability. Soft tissues: There is soft tissue deformity involving the 3rd greater than 2nd tips of the distal fingers consistent with soft tissue injury. Soft tissue foreign bodies can not be ruled out on this study. Clinical correlation is advised. RAD/Hand Min 3 Views IMPRESSION: Deformity of the tips of the 2nd and 3rd fingers consistent with soft tissue an d bony injuries as discussed above in detail. Soft tissue foreign bodies can not be ruled out on this study. - Other findings discussed above. Reading Location: [id number]
--- NOTE | 2025-05-21 14:21 | EX.ED.GENINJ ---
HPI History of Present Illness Chief Complaint: Laceration Narrative Narrative: Patient is a 65-year-old male presenting emergency department for a left hand laceration. Patient is unsure when his last tetanus vaccine was. He does have a past medical history of heart failure with heart transplant 10 years ago. Patient states that he was using a table saw today and injured his left hand. Denies any other injuries. [facility] Medical History Trochanteric bursitis, left hip COVID-19 Shingles rash Blood disorder High cholesterol Non-smoker Positive colorectal cancer screening using Cologuard test Heart transplant recipient Hx of heart valve insufficiency Wears glasses History of pneumonia Hx of heart failure Hx of essential hypertension History of heart disease Hx of blood clots History of atrial fibrillation Hx of chronic arthritis Hypertension Home Medications ?Medication ?Instructions ?Recorded ?Last Taken ?Type aspirin 81 mg chewable tablet 81 mg PO DAILY 03/29/16 10/10/18 History calcium carbonate 500 mg PO BID 03/29/16 Unknown History ergocalciferol (vitamin D2) 1,250 5,000 unit PO QHS 03/29/16 Unknown History mcg (50,000 unit) capsule (Vitamin D2) multivitamin (Daily Multiple 1 ea PO QHS 03/29/16 Unknown History tablet) mycophenolate mofetil 500 mg tablet 750 mg PO BID 03/29/16 07/21/20 08:30 History omeprazole 20 mg capsule,delayed 20 mg PO DAILY 03/29/16 07/21/20 08:30 History release rosuvastatin 5 mg tablet (Crestor) 2.5 mg PO QODAY 03/29/16 Unknown History coenzyme Q10 100 mg capsule 200 mg PO QHS 10/12/18 Unknown History (CoQ-10) Cyanocobalamin (Vitamin B-12) 500 mcg PO DAILY 07/11/20 Unknown History [Vitamin B-12] ascorbic acid (vitamin C) 500 mg 500 mg PO DAILY@0800 07/11/20 Unknown History tablet glucosamine HCl 500 mg tablet 1,000 mg PO DAILY 07/11/20 Unknown History amlodipine 5 mg tablet 10 mg PO DAILY 07/30/22 Unknown History lisinopril 10 mg tablet 10 mg PO DAILY 07/30/22 Unknown History magnesium 200 mg tablet 400 mg PO QHS 07/30/22 Unknown History vitamin B complex (B 1 tab PO DAILY 07/30/22 Unknown History Complex-Vitamin B12 tablet) hydrocortisone 1 % lotion 1 applic topical BID PRN itching 08/04/23 Unknown Rx (Cortisone (hydrocortisone)) #120 mL tacrolimus 1 mg capsule, 2 mg PO BID 08/04/23 Unknown History immediate-release pregabalin 200 mg capsule 200 mg PO QHS 05/14/24 Unknown History ezetimibe 10 mg tablet 10 mg PO QDAY 08/19/24 Unknown History azithromycin 250 mg tablet See Rx Instructions PO .COMPLEX #6 11/12/24 Unknown Rx tabs tadalafil 5 mg tablet (Cialis) 5 mg PO QDAY PRN sexual activity 03/24/25 Unknown Rx #30 tabs glimepiride 4 mg tablet 4 mg PO BID #180 tabs 03/29/25 Unknown Rx metformin 1,000 mg tablet 2,000 mg (2 x 1,000 mg) PO QHS 03/29/25 Unknown Rx #180 tabs semaglutide 2 mg/dose (8 mg/3 mL) 2 mg (0.75 mL) subcut QWEEK 4 05/01/25 Unknown Rx subcutaneous pen injector weeks #3 mL Allergy/AdvReac Type Severity Reaction Status Date / Time No Known Allergies Allergy Verified 05/21/25 13:57 Family History Brother Asthma Mother Blood clot in vein Surgical History H/O right heart catheterization S/P tonsillectomy S/P skin and subcutaneous tissue surgery Heart transplant status Hx of repair of right rotator cuff H/O repair of left rotator cuff Hx of cardiac catheterization H/O arthroscopic knee surgery Social History household members: spouse current occupational status: employed and retired current occupation: worked at [employer], 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 No acute distress HEENT: Head is normocephalic and atraumatic, sinuses nontender, pupils equal round and reactive. Nares are patent. Oropharynx and throat exams normal. Neck: Supple without lymphadenopathy nontender Cardiovascular: Regular rate and rhythm, no murmurs. No rubs or gallops. Normal S1 and S2 Respiratory: Clear to auscultation bilaterally. No wheezes, rales, rhonchi Abdominal: Soft and nontender. Normal bowel sounds. No guarding or rebound. Nonsurgical abdomen Extremities: Avulsion laceration of the 2nd and 3rd digits on the left hand involving the nailbed. There is active nonpulsatile bleeding. Radial pulses intact. Sensation and motor intact in radial, median and ulnar distributions. Neurological: Cranial nerves II through XII are grossly intact. Normal strength and sensation. Normal cerebellar function The rest of the physical exam is unremarkable Const Vital Signs: 05/21/25 13:56 05/21/25 14:02 05/21/25 15:02 Temperature 98.3 F Temperature Source Oral Pulse Rate 81 106 H 105 H Respiratory Rate 16 Blood Pressure 152/94 H 129/82 H 126/85 H Blood Pressure Mean 113 97 98 Pulse Ox 98 Oxygen Delivery Method Room Air 05/21/25 16:00 Temperature Temperature Source Pulse Rate 106 H Respiratory Rate Blood Pressure 123/80 H Blood Pressure Mean 94 Pulse Ox Oxygen Delivery Method MDM MDM MDM Narrative Medical decision making narrative: Patient is a 65-year-old male presenting to the emergency department for a left hand injury. Patient was seen and examined. Vitals are stable. Patient resting bed comfortably no acute distress. Tetanus was updated. Ancef given due to concern for underlying fracture based off exam. Neurovascularly intact. Hand x-ray reviewed by myself and there is evidence of tuft fractures to the 2nd and 3rd digits. x-ray radiology read shows deformity of the tips of the 2nd and 3rd fingers consistent with soft tissue and bony injuries as discussed in detail on the report. Wounds were irrigated copiously after digital blocks of the 2nd and 3rd fingers. On exploration of the third digit wound there appears to be exposed distal phalanx. Given these new findings on physical exam during attempted wound repair, we will need hand surgery consultation which we do not have at this time. I spoke to transfer center at [facility] who spoke to their hand surgeon, Dr. Maggie Mancini, accepted the patient for transfer. Discussed findings and plan with the patient and offered transport to [facility] however they would like to go by private vehicle. Instructed to stay n.p.o. during transfer. Clinical impression Avulsion injury to 2nd and 3rd finger Open fracture History & Record Review Discussion w/independent historian: Patient and Significant other Radiography X-Ray: Read by ED Physician and Fracture Diagnostic Testing: Clinical Impression(s) from Imaging Studies Hand X-Ray 05/21/25 14:10 IMPRESSION: Deformity of the tips of the 2nd and 3rd fingers consistent with soft tissue and bony injuries as discussed above in detail. Soft tissue foreign bodies can not be ruled out on this study. - Other findings discussed above. Reading Location: [facility] Discharge Plan Triage Chief Complaint: Laceration ED Provider: Leni Sheehan Dx/Rx/DC Orders Clinical Impression: Avulsion of fingers, Open fracture Prescriptions: No Action amlodipine 5 mg tablet 10 mg PO DAILY lisinopril 10 mg tablet 10 mg PO DAILY vitamin B complex [B Complex-Vitamin B12] Tablet 1 tab PO DAILY hydrocortisone [Cortisone (hydrocortisone)] 1 % lotion 1 applic topical BID PRN (Reason: itching) Qty: 120 0RF ezetimibe 10 mg tablet 10 mg PO QDAY pregabalin 200 mg capsule 200 mg PO QHS azithromycin 250 mg tablet See Rx Instructions PO .COMPLEX Qty: 6 0RF Rx Instructions: For 250 mg dose pack: take 500 mg today (day 1), then 250 mg for 4 days (days 2-5) PO tadalafil [Cialis] 5 mg tablet 5 mg PO QDAY PRN (Reason: sexual activity) Qty: 30 1RF Rx Instructions: administer approximately 30min before sexual activity; do not use more than 1 dose per 24hrs multivitamin [Daily Multiple] 1 EACH tablet 1 ea PO QHS mycophenolate mofetil 500 MG tablet 750 mg PO BID calcium carbonate 600 MG tablet 500 mg PO BID omeprazole 20 MG capsule 20 mg PO DAILY aspirin 81 MG tablet,chewable 81 mg PO DAILY ergocalciferol (vitamin D2) [Vitamin D2] 50,000 UNIT capsule 5,000 unit PO QHS rosuvastatin [Crestor] 5 MG tablet 2.5 mg PO QODAY magnesium 200 mg tablet 400 mg PO QHS tacrolimus 1 mg capsule 2 mg PO BID Patient Comments: 2 in the am, 1 in pm coenzyme Q10 [CoQ-10] 100 MG capsule 200 mg PO QHS ascorbic acid (vitamin C) 500 MG tablet 500 mg PO DAILY@0800 glucosamine HCl 500 MG tablet 1,000 mg PO DAILY Cyanocobalamin (Vitamin B-12) [Vitamin B-12] 500 MCG tablet 500 mcg PO DAILY metformin 1,000 mg tablet 2,000 mg PO QHS Qty: 180 1RF glimepiride 4 mg tablet 4 mg PO BID Qty: 180 1RF semaglutide 2 mg/dose (8 mg/3 mL) pen injector 2 mg subcut QWEEK 28 Days Qty: 3 1RF Primary Care Provider: Nazia Dallas Referrals: Nazia Dallas MD [Primary Care Provider] - Print Language: Swedish
--- OUTSIDE RECORDS SUMMARY | 2025-05-21 14:23 | XMS RPT_ITS | CCD ---
Author Organization [facility] Care Team Providers Care [facility] Sprinkler Name Role Phone Leilani Faustin Unavailable Transplant, Coordinator Unavailable [phone] Alee Hodgson Unavailable Unavailable Red, Trice Unavailable Unavailable ROXIE LEWIS, DR DUKE Primary Care Physician Pcp, No Primary Care Provider Nena SILVA MD, LESLIE Attending Rekha FAUSTIN MD., DR. DUKE Primary Care Unavailab Wilfrido LEWIS, LESLIE Attending Rekha FAUSTIN MD., DR. DUKE Primary Care Unavailab Wilfrido LEWIS, LESLIE Attending Rekha FAUSTIN MD., DR. DUKE Primary Care Unavailab Wilfrido LEWIS, LESLIE Attending Rekha FAUSTIN MD., DR. DUKE Primary Care Unavailab le Transplant, Coordinator Unavailable [phone] Gokul RN, Alee Unavailable Unavailable Red RN, Trice Unavailable Unavailable Violet Dallas MD Primary Care Provider Dr. Leilani Faustin Primary Care Provider Dr. Leilani Faustin Referring Provider Dr. Violet Dallas Attending Provider [phone] Dr. Violet Dallas Primary Care Provider Dr. Violet Dallas Referring Provider [phone] Unavailable Primary Care Provider Dr. Leilani Jenkins Referring Provider [phone] Dr. Violet Dallas Primary Care Provider Dr. Violet Dallas Attending Provider [phone] Dr. Violet Dallas Referring Provider [phone] Dr. Zev Fortune Attending Provider Dr. Zev Fortune Other Provider Dr. Violet Dallas Primary Care Provider Dr. Violet Dallas Referring Provider [phone] Dr. Zev Fortune Attending Provider Dr. Zev Fortune Other Provider Dr. Violet Dallas Attending Provider [phone] Transplant, Coordinator Unavailable Gokul RN, Alee Unavailable Unavailable Red DARBY, Trice Unavailable Unavailable Burt LEWIS, Violet Primary Care Provider Shira LEWIS, Leslie Unavailable Burt LEWIS, Violet Stewart Primary Care Provider [phone] Transplant, Coordinator Unavailable MAZZAFERRI JR., CHRISTOPH Admitting Unavailab le MAZZAFERRI JR., CHRISTOPH Attending Unavailab le BURT, VIOLET Primary Care Unavailable BURT, VIOLET Referring Unavailable LEO HURLEY Attending Unavailable BURT, VIOLET Primary Care Unavailable BURT, VIOLET Referring Unavailable KAHWASH, RAMI Attending Unavailable KAHWASH, RAMI Referring Unavailable BURT, VIOLET Primary Care Unavailable BURT, VIOLET Referring Unavailable MAZZAFERRI JR., CHRISTOPH Admitting Unavailab le MAZZAFERRI JR., CHRISTOPH Attending Unavailab le BURT, VIOLET Primary Care Unavailable Dr. Violet Dallas MD Primary Care Provider [phone] Dr. Violet Dallas MD Referring Provider Jesus Murray Attending Provider [phone] Violet Dallas MD Primary Care Provider [phone] Dr. Violet Dallas MD Referring Provider Jessu Murray Attending Provider Dr. Violet Dallas MD Attending Provider Burt, Violet Referring Unavailable Staples, Violet Attending Unavailable Staples, Violet Primary Care Unavailable Staples, Violet Referring Unavailable Staples, Violet Attending Unavailable Staples, Violet Primary Care Unavailable Staples, Violet Referring Unavailable Aydin Alfaro Attending Unavailable Staples, Violet Primary Care Unavailable Staples, Violet Referring Unavailable Burt, Violet Primary Care Unavailable Jesus Barakat Attending Unavailable Burt, Violet Referring Unavailable Burt, Violet Attending Unavailable Staples, Violet Primary Care Unavailable Burt, Violet Referring Unavailable Burt, Violet Primary Care Unavailable Jesus Barakat Attending Unavailable Burt, Violet Referring Unavailable Staples, Violet Primary Care Unavailable Jesus Barakat Attending Unavailable Staples, Violet Primary Care Unavailable Jesus Barakat Referring Unavailable Jesus Barakat Attending Unavailable Burt, Violet Attending Unavailable Burt, Violet Primary Care Unavailable Allergies Allergy Classification Reported Allergen(s) Allergy Type Date of Onset Reaction(s) Facility (5 sources) Hmg-Coa Reductase Inhibitors (Statins) Propensity to adverse reactions to drug 04-04-2010 Myalgia [facility] Work Phone: (10 sources) *TAPE Propensity to adverse reactions 08-15-2008 [facility] Work Phone: (5 sources) TAPE - SARAN [Other] Propensity to adverse reactions 09-26-2009 [facility] (4 sources) natural latex rubber Propensity to adverse reactions 07-30-2022 RASH [facility] (5 sources) HMG-CoA reductase inhibitor Propensity to adverse reactions to drug 04-04-2010 Myalgia [facility] Medications Current Medications Medication Drug Class(es) Dates Sig (Normalized) Sig (Original) amLODIPine 5 mg oral tablet (20 sources) Dihydropyridine Calcium Channel Joseline Start: 04-27-2024 take 1 tablet by mouth once daily amLODIPine 5 MG tablet Take 1 tablet by mouth daily. 90 tablet 3 04/27/2024 Active Start: 04-25-2023 take 1 tablet by pretty th once daily amLODIPine 5 MG tablet Take 1 tablet by mouth daily. 90 tablet 3 04/25/2023 Active Start: 07-30-2022 take 2 tablets by mo uth once daily Amlodipine 5 mg tablet Active 10 mg PO DAILY July 30, 2022 1:00am Start: 07-30-2022 take 10 mg by mouth once daily Amlodipine Active 10 MG PO DAILY July 30, 2022 12:00am Start: 09-28-2020 take 5 mg by mouth once daily Amlodipine Active 5 MG PO DAILY July 30, 2022 12:00am Start: 09-26-2009 End: 07-30-2022 take 1 tablet by mouth once daily Amlodipine 10 MG tablet Discontinued 10 mg PO DAILY March 29, 2016 12:00am July 30, 2022 8:59am Comment on above: Take one(1) tablet d aily. ascorbic acid 500 mg chewable tablet (15 sources) Vitamin C Start: 08-14-2020 take 1 tablet by mouth once daily ascorbic acid 500 MG tablet Take 1 tablet by mouth daily. 30 tablet 08/14/2020 Active Start: 07-11-2020 take 1 tablet by pretty th once daily Ascorbic Acid (Vitamin C) 500 MG tablet Active 500 mg PO DAILY@0800 July 11, 2020 12:00am aspirin 81 mg delayed release oral tablet (20 sources) Platelet Aggregation Inhibitor, Nonsteroidal Anti-inflammatory Drug Start: 08-03-2024 End: 08-03-2024 324 mg, Oral, ONCE, 1 dose, On Tu08/03/24 at 1215, Patient to receive at least 30 minutes prior to procedure. Instruct patient to chew and not swallow., Pre-op/Pre-Proc Start: 06-13-2020 aspirin 81 mg oral delayed release tablet Dose : 81 mg = 1 tab(s), Oral, Daily, 0 Refill(s) Start Date: 06/13/20 Status: Ordered Start: 06-07-2011 take 1 tablet by pretty th once daily aspirin 81 MG PO TABS Indications: Encounter for long-term (current) use of other medications , Hyperlipidemia , Aftercare following organ transplant , Hypertension take 1 Tab by mouth daily. 90 Tab 3 06/07/2011 Active Start: 09-26-2009 take 1 tablet by pretty th once daily Aspirin 81 MG tablet,chewable Active 81 mg PO DAILY March 29, 2016 12:00am Comment on above: Take one(1) tablet d aily. azithromycin 250 mg oral tablet (6 sources) Macrolide Antimicrobial Start: 11-12-2024 Azithromycin 250 mg tablet Active 0 PO .COMPLEX 6 0 November 12, 2024 1:00am For 250 mg dose pack: take 500 mg today (day 1), then 250 mg for 4 days (days 2-5) PO Start: 11-21-2023 End: 02-12-2024 Azithromycin (Zithromax Z-Pa k) 250 mg tablet Discontinued 0 PO .COMPLEX 6 0 November 21, 2023 1:00am February 12, 2024 7:59am For 250 mg dose pack: take 500 mg today (day 1), then 250 mg for 4 days (days 2-5) PO Calcium (5 sources) Phosphate Binder, Calcium Start: 09-26-2009 CALCIUM 500 MG TAB Take one(1) tablet two(2) times daily. 0 09/26/2009 Active Comment on above: Take one(1) tablet t wo(2) times daily. Calcium Carbonate (10 sources) Start: 06-13-2020 take 1 tablet by mouth once daily calcium carbonate 500 mg (200 mg elemental calcium) oral tablet, chewable mg = tab(s), Chewed, qDay, 0 Refill(s) Start Date: 06/13/20 Status: Ordered Start: 03-29-2016 Calcium Carbon ate 600 MG tablet Active 500 mg PO TWICE A DAY March 29, 2016 12:00am Start: 03-29-2016 take 500 mg by mouth twice thom ly Calcium Carbonate Active 500 MG PO TWICE A DAY March 28, 2016 11:00pm calcium carbonate 1250 mg / cholecalciferol 200 unt oral tablet (7 sources) Vitamin D Start: 08-24-2013 take 1 tablet by mouth twice daily calcium-vitamin D 500-200 MG-UNIT PO TABS take 1 Tab by mouth 2 times daily. 60 Tab 11 08/24/2013 Active calcium-vitamin D 500-200 MG-UNIT PO TABS (3 sources) Start: 08-24-2013 take 1 tablet by mouth twice daily calcium-vitamin D 500-200 MG-UNIT PO TABS take 1 Tab by mouth 2 times daily. 60 Tab 11 08/24/2013 Active Centrum Po Tabs (2 sources) Start: 06-11-2013 take 1 tablet by mouth once daily Multiple Vitamins-Minerals (CENTRUM) PO TABS take 1 Tab by mouth daily. 90 Tab 3 06/11/2013 Active clotrimazole 10 mg oral lozenge (5 sources) Azole Antifungal clotrimazole 10 mg MUCOUS MEM mohamud Use 10 mg as instructed five times daily. Active Comment on above: Use 10 mg as instruc blue five times daily. docusate sodium 100 mg oral capsule (8 sources) Start: 10-14-2014 take 1 capsule by mouth twice daily docusate 100 MG Cap take 1 Cap by mouth 2 times daily. 60 Cap 11 10/14/2014 Active Start: 09-26-2009 docusate sodiu m(COLACE 100 MG CAP) Take one(1) tablet daily. 0 09/26/2009 Active Comment on above: Take one(1) tablet d aily. elppa CoQ10 (2 sources) Start: 06-13-20 20 take 1 dose by mouth once daily elppa CoQ10 Dose : 200 mg =, Oral, qDay, 0 Refill(s) Start Date: 06/13/20 Status: Ordered ergocalciferol 1.25 mg oral capsule (8 sources) Provitamin D2 Compound Start: 03-29-20 16 take 1 capsule by mouth once at bedtime Ergocalciferol (Vitamin D2) (Vitamin D) 50,000 UNIT capsule Active 5000 U PO AT BEDTIME March 29, 2016 12:00am ezetimibe 10 mg oral tablet (3 sources) Dietary Cholesterol Absorption Inhibitor Start: 08-19-20 24 take 1 tablet by mouth once daily Ezetimibe 10 mg tablet Active 10 mg PO daily August 19, 2024 1:00am ferrous sulfate 300 mg oral tablet (5 sources) Start: 09-26-19 10 ferrous sulfate(FERATAB 300 MG (60 MG IRON) TAB) Take one(1) tablet three times daily. 0 09/26/2009 Active Comment on above: Take one(1) tablet t hree times daily. glimepiride 4 mg oral tablet (20 sources) Sulfonylurea Start: 08-04-20 End: 03-29-20 25 take 1 tablet by mouth twice daily Glimepiride 4 mg tablet Active 4 mg PO TWICE A DAY 180 March 29, 2025 9:43am Start: 07-11-2020 End: 08-04-2023 take 1 tablet by mouth once daily Glimepiride 4 mg tablet Discontinued 4 mg PO DAILY 90 1 February 20, 2023 3:51pm August 04, 2023 9:36am take 2 mg by mouth o nce daily in the morning gliMEPIride 4 MG Tab tablet Take 2 mg by mouth daily every morning. 0 Active glucosamine 500 mg oral tablet (10 sources) Start: 07-11-2020 take 2 tablets by mouth once daily Glucosamine Hcl 500 MG tablet Active 1000 mg PO DAILY July 11, 2020 12:00am Start: 07-11-2020 take 1000 mg by mout h once daily Glucosamine Hcl Active 1000 MG PO DAILY July 10, 2020 11:00pm Start: 06-13-2020 glucosamine 50 0 mg oral capsule Dose : 500 mg = 1 cap(s), Oral, BID, # 30 cap(s), 0 Refill(s) Start Date: 06/13/20 Status: Ordered GLUCOSAMINE HCL/GLUC SAMUEL (GLU COSAMINE COMPLEX ORAL) (5 sources) GLUCOSAMINE HCL/ GLUC SAMUEL (GLUCOSAMINE COMPLEX ORAL) Take by mouth. Active GLUCOSAMINE HCL/ GLUC SAMUEL (GLUCOSAMINE COMPLEX ORAL) Take by mouth. 0 Active Comment on above: Take by mouth. Cnfpwysgecc-Efucpvegb-U it C-Mn (Glucosamine-Chondroiti n) capsule (7 sources) Start: 0 take 1 capsule by mouth once daily Glucosamine-Chondroit- Vit C-Mn (Glucosamine-Chondroit in) capsule Take 1 capsule by mouth daily. 0 08/14/2020 Active hydrocortisone 10 mg/ml topical lotion (4 sources) Corticosteroid Start: 3 Hydrocortisone (Cortisone (Hydrocortisone)) 1 % lotion Active 1 NMA TOPICAL TWICE A DAY as needed for itching 120 0 August 04, 2023 1:00am Magnesium (15 sources) Start: 2 take 2 tablets by mouth at bedtime Magnesium 200 mg tablet Active 400 mg PO AT BEDTIME July 30, 2022 9:01am Start: 07-30-2022 take 400 mg by mouth at bedtim e Magnesium Active 400 MG PO AT BEDTIME July 30, 2022 9:01am Start: 07-30-2022 take 400 mg by mouth at bedtim e Magnesium Active 400 MG PO AT BEDTIME July 30, 2022 8:01am Start: 03-29-2016 End: 07-30-2022 take 2 tablets by mouth at bedtime Magnesium 200 MG tablet Discontinued 400 mg PO AT BEDTIME March 29, 2016 12:00am July 30, 2022 9:04am Start: 03-29-2016 End: 07-30-2022 take 400 mg by mouth at bedtime Magnesium Discontinued 400 MG PO AT BEDTIME March 29, 2016 12:00am July 30, 2022 9:04am Start: 03-29-2016 End: 07-30-2022 take 400 mg by mouth at bedtime Magnesium Discontinued 400 MG PO AT BEDTIME March 28, 2016 11:00pm July 30, 2022 8:04am Start: 03-29-2016 take 400 mg by mouth at bedtim e Magnesium Active 400 MG PO AT BEDTIME March 29, 2016 12:00am Magnesium complex 400 mg (2 sources) Start: 06-13-2020 Magnesium complex 400 mg 0 Refill(s) Start Date: 06/13/20 Status: Ordered magnesium hydroxide 400 mg chewable tablet (5 sources) Magnesium Hydroxide 400 mg (170 mg) chew Indications: Anal or rectal pain Take by mouth. Active Comment on above: Take by mouth. magnesium oxide 400 mg oral tablet (11 sources) Start: 06-11-2013 End: 08-21-2018 take 1 tablet by mouth at bedtime magnesium oxide 400 MG Tab Take 1 tablet by mouth at bedtime. 90 tablet 3 08/21/2018 Active metFORMIN hydrochloride 1000 mg oral tablet (20 sources) Biguanide Start: 12-31-2021 MetFORMIN (Eqv-Glucophage XR) 500 mg oral tablet, EXTENDED RELEASE Dose : 2,000 mg = 4 tab(s), Oral, qDay, TAKE 4 TABLETS BY MOUTH ONCE DAILY IN THE EVENING, # 360 tab(s), 3 Refill(s), Pharmacy: [id number], 177.8, cm, 10/11/21 9:49:00 EST, Height, kg, 10/11/21 9:49:00 EST, Dosing Weight Start Date: 12/31/21 Status: Ordered Start: 10-12-2018 End: 03-29-2025 take 2 tablets by mouth at bedtime Metformin 1,000 mg tablet Active 2000 mg PO AT BEDTIME 180 1 March 29, 2025 9:42am Start: 10-12-2018 End: 08-04-2023 take 2000 mg by mouth at bedtime Metformin Discontinued 2000 MG PO AT BEDTIME 90 January 06, 2023 11:29am January 27, 2023 7:32am take 1 tablet by pretty th once daily in the evening metformin 1000 MG Tab tablet Take 1,000 mg by mouth every evening at 6 PM. 0 Active 24 hr metFORMIN hydrochloride 1000 mg / SITagliptin 100 mg extended release oral tablet (8 sources) Biguanide, Dipeptidyl Peptidase 4 Inhibitor Start: 09-19-2015 take 1 tablet by mouth once daily in the morning SitaGLIPtin-MetFORMIN HCl (JANUMET XR) 100-1000 MG Tab SR 24 HR Indications: Encounter for aftercare following heart transplant , Encounter for long-term (current) use of medications , Other hyperlipidemia , Essential hypertension Take 1 tablet by mouth daily every morning. 60 tablet 1 09/19/2015 Active take 1 tablet by mouth once michel y sitaGLIPtin-metFORMIN (JANUMET) 50-1,000 mg per tablet Indications: Anal or rectal pain Take 1 tablet by mouth once daily. Active Comment on above: Take 1 tablet by pretty th once daily. Multiple Vitamins-Minerals (CENTRUM) PO TABS (8 sources) Start: 06-11-2013 take 1 tablet by mouth once daily Multiple Vitamins-Minerals (CENTRUM) PO TABS take 1 Tab by mouth daily. 90 Tab 3 06/11/2013 Active Multivitamin (Daily Multiple Vitamin) 1 EACH tablet (8 sources) Start: 03-29-2016 take 1 tablet by mouth once daily at bedtime Multivitamin (Daily Multiple Vitamin) 1 EACH tablet Active 1 NMA PO AT BEDTIME March 29, 2016 12:00am Start: 03-29-2016 take 1 tablet by pretty th once daily at bedtime Multivitamin (Daily Multiple Vitamin) 1 EACH tablet Active 1 EACH PO AT BEDTIME March 28, 2016 11:00pm Start: 03-29-2016 take 1 tablet by pretty th once daily at bedtime Multivitamin (Daily Multiple Vitamin) 1 EACH tablet Active 1 EACH PO AT BEDTIME March 29, 2016 12:00am Multivitamin preparation (2 sources) Start: 06-13-2020 take 1 tablet by mouth once daily Multivitamin Dose = 1 tab(s), Oral, Daily, 0 Refill(s) Start Date: 06/13/20 Status: Ordered multivitamins(DAILY VITAMIN TAB) (5 sources) Start: 09-26-2009 multivitamins( DAILY VITAMIN TAB) Take one(1) tablet daily. 0 09/26/2009 Active Comment on above: Take one(1) tablet d aily. mycophenolate mofetil 250 mg oral capsule (20 sources) Start: 04-27-2024 take 1 capsule by mouth twice daily Mycophenolate mofetil (CELLCEPT) 250 MG capsule Take 1 capsule by mouth 2 times daily. 180 capsule 3 04/27/2024 Active Start: 04-27-2024 [facility] Mycophenolate mofetil (CELLCEPT) 500 MG tablet Take 1 tablet by mouth 2 times daily. 180 tablet 3 04/27/2024 Active Start: 04-25-2023 take 1 capsule by mo [facility] twice daily Mycophenolate mofetil (CELLCEPT) 250 MG capsule Take 1 capsule by mouth 2 times daily. 180 capsule 3 04/25/2023 Active Start: 06-29-2020 take 1 capsule by mo uth twice daily mycophenolate mofetil (CELLCEPT) 250 MG capsule Take 1 capsule by mouth 2 times daily. 180 capsule 3 03/26/2022 Active Start: 09-30-2017 End: 08-21-2018 take 1 capsule by mouth twice daily mycophenolate mofetil (generic) 250 MG Cap capsule Take 1 capsule by mouth 2 times daily. 180 capsule 3 08/21/2018 Active Start: 03-29-2016 End: 08-21-2018 take 1 tablet by mouth twice daily Mycophenolate mofetil (CELLCEPT) 500 MG tablet Take 1 tablet by mouth 2 times daily. 180 tablet 3 04/25/2023 Active Start: 03-29-2016 take 750 mg by mouth twice daily Mycophenolate Mofetil Active 750 MG PO TWICE A DAY March 28, 2016 11:00pm MYCOPHENOLATE MO FETIL (CELLCEPT ORAL) Indications: Anal or rectal pain Take 750 mg by mouth. Active MYCOPHENOLATE MO FETIL (CELLCEPT ORAL) Indications: Anal or rectal pain Take 750 mg by mouth. 0 Active Comment on above: Take 750 mg by mouth . omeprazole 20 mg delayed release oral capsule (20 sources) Proton Pump Inhibitor Start: 06-13-2020 PriLOSEC OTC 20 mg oral delayed release tablet Dose : 20 mg = 1 tab(s), Oral, qDayAC, 0 Refill(s) Start Date: 06/13/20 Status: Ordered Start: 03-29-2016 End: 08-21-2018 take 1 capsule by mouth once daily Omeprazole 20 MG capsule Active 20 mg PO DAILY March 29, 2016 12:00am Comment on above: Take 20 mg by mouth once daily. predniSONE (5 sources) PREDNISONE ORAL Take by mouth. Active PREDNISONE ORAL Take by mouth. 0 Active Comment on above: Take by mouth. pregabalin 200 mg oral capsule (3 sources) Start: 05-14-2024 take 1 capsule by mouth at bedtime Pregabalin 200 mg capsule Active 200 mg PO AT BEDTIME May 14, 2024 12:00am Semaglutide 2 mg/dose (8 mg/3 mL) pen injector (14 sources) Start: 03-14-2025 Semaglutide 2 mg/dose (8 mg/3 mL) pen injector Active 2 mg SC EVERY WEEK 3 12 10March 14, 2025 11:05am Start: 02-02-2025 End: 03-02-2025 Semaglutide 2 mg/dose (8 mg/ 3 mL) pen injector Discontinued 2 mg SC EVERY WEEK 3 February 02, 2025 10:29am March 01, 2025 12:00am March 02, 2025 12:06am Start: 02-02-2025 Semaglutide 2 mg/dose (8 mg/3 mL) pen injector Active 2 mg SC EVERY WEEK 3 February 02, 2025 10:29am March 01, 2025 12:00am Start: 12-06-2024 End: 02-02-2025 Semaglutide 2 mg/dose (8 mg/ 3 mL) pen injector Discontinued 2 mg SC EVERY WEEK 3 12 10December 06, 2024 3:28pm February 02, 2025 10:29am Start: 12-06-2024 End: 02-02-2025 Semaglutide 2 mg/dose (8 mg/ 3 mL) pen injector Discontinued 2 mg SC EVERY WEEK 3 December 06, 2024 3:28pm February 02, 2025 10:29am Start: 10-26-2024 End: 12-06-2024 Semaglutide 2 mg/dose (8 mg/ 3 mL) pen injector Discontinued 2 mg SC EVERY WEEK 3 12 10October 26, 2024 5:13pm December 06, 2024 3:28pm Start: 10-26-2024 End: 12-06-2024 Semaglutide 2 mg/dose (8 mg/ 3 mL) pen injector Discontinued 2 mg SC EVERY WEEK 3 October 26, 2024 5:13pm December 06, 2024 3:28pm Start: 08-19-2024 End: 10-26-2024 Semaglutide 2 mg/dose (8 mg/ 3 mL) pen injector Discontinued 2 mg SC EVERY WEEK 3 12 10August 19, 2024 9:27am October 26, 2024 5:13pm Start: 08-19-2024 End: 10-26-2024 Semaglutide 2 mg/dose (8 mg/ 3 mL) pen injector Discontinued 2 mg SC EVERY WEEK 3 August 19, 2024 9:27am October 26, 2024 5:13pm SITagliptin 100 mg oral tablet (5 sources) Dipeptidyl Peptidase 4 Inhibitor Start: 09-26-2009 sitagliptin phosphate(JANUVIA 100 MG TAB) Take one(1) tablet daily. 0 09/26/2009 Active Comment on above: Take one(1) tablet daily. tacrolimus 1 mg oral capsule (20 sources) Calcineurin Inhibitor Immunosuppressant Start: 03-26-2022 End: 08-15-2022 take 1 capsule by mouth twice daily tacrolimus (PROGRAF) 1 MG capsule Take 2 capsules by mouth 2 times daily. 360 capsule 3 03/26/2022 08/15/2022 Discontinued Start: 08-21-2018 End: 11-26-2018 take 1 capsule by mouth twice daily tacrolimus (generic) 1 MG Cap capsule Take 2 capsules by mouth 2 times daily. 360 capsule 3 11/26/2018 Active Start: 03-29-2016 End: 08-04-2023 take 2 capsules by mouth twice daily Tacrolimus 1 mg capsule Active 2 mg PO TWICE A DAY August 04, 2023 9:08am Start: 03-29-2016 End: 08-04-2023 take 2 mg by mouth twice daily Tacrolimus Active 2 MG PO TWICE A DAY August 04, 2023 8:08am Start: 09-26-2009 tacrolimus savanna ydrous(PROGRAF 5 MG CAP) Take one(1) tablet daily. 0 09/26/2009 Active Comment on above: Take one(1) tablet d aily. tadalafil 5 mg oral tablet (1 source) Phosphodiesterase 5 Inhibitor Start: 025 take 1 tablet by mouth every twenty-four hours Tadalafil (Cialis) 5 mg tablet Active 5 mg PO daily as needed for sexual activity 14 10March 24, 2025 12:00am administer approximately 30min before sexual activity; do not use more than 1 dose per 24hrs ubidecarenone 100 mg oral capsule (15 sources) Start: 019 Coenzyme Q10 (Coq-10) 100 MG capsule Active 200 mg PO AT BEDTIME October 12, 2018 1:00am take 1 capsule by mouth once thom ly Coenzyme Q10 (COQ10) 200 MG Cap Indications: Encounter for aftercare following heart transplant , Encounter for long-term (current) use of medications , Other hyperlipidemia , Essential hypertension Take by mouth daily. Active ubiquinone 200 mg oral capsu le (3 sources) Coenzyme Q10 (CO Q10) 200 MG Cap Indications: Encounter for aftercare following heart transplant , Encounter for long-term (current) use of medications , Other hyperlipidemia , Essential hypertension Take by mouth daily. 0 Active Vitamin B Complex (B Complex-Vitamin B12) tablet (7 sources) Start: 07-30-2022 Vitamin B Comp aan (B Complex-Vitamin B12) tablet Active 1 {tbl} PO DAILY July 30, 2022 1:00am Start: 07-30-2022 take 1 tablet by pretty th once daily Vitamin B Complex (B Complex-Vitamin B12) tablet Active 1 TABLET PO DAILY July 30, 2022 1:00am Start: 07-30-2022 take 1 tablet by pretty th once daily Vitamin B Complex (B Complex-Vitamin B12) tablet Active 1 TABLET PO DAILY July 30, 2022 12:00am vitamin b12 0.5 mg oral tablet (15 sources) Vitamin B12 Start: 08-14-2020 take 1 tablet by mouth twice daily cyanocobalamin 500 MCG tablet Take 1 tablet by mouth 2 times daily. 08/14/2020 Active Start: 08-14-2020 take 1 tablet by pretty th once daily cyanocobalamin 500 MCG tablet Take 1 tablet by mouth daily. 0 08/14/2020 Active Start: 07-11-2020 take 1 tablet by pretty th once daily Cyanocobalamin (Vitamin B-12) (Vitamin B-12) 500 MCG tablet Active 500 ug PO DAILY July 11, 2020 12:00am Start: 07-11-2020 take 1 tablet by pretty th once daily Cyanocobalamin (Vitamin B-12) (Vitamin B-12) 500 MCG tablet Active 500 MCG PO DAILY July 10, 2020 11:00pm Start: 07-11-2020 take 1 tablet by pretty th once daily Cyanocobalamin (Vitamin B-12) (Vitamin B-12) 500 MCG tablet Active 500 MCG PO DAILY July 11, 2020 12:00am Vitamin C 500 mg oral tablet (2 sources) Start: 06-13-2020 Vitamin C 500 mg oral tablet Dose : 500 mg = 1 tab(s), Oral, qDay, # 90 tab(s), 0 Refill(s) Start Date: 06/13/20 Status: Ordered Vitamin D3 5000 intl units ( 125 mcg) oral capsule (2 sources) Start: 06-13-2020 Vitamin D3 500 0 intl units (125 mcg) oral capsule Dose : 5,000 International_Unit = 1 cap(s), Oral, qDay, # 100 cap(s), 0 Refill(s) Start Date: 06/13/20 Status: Ordered Completed/Discontinued Medications Medication Drug Class(es) Dates Sig (Normalized) Sig (Original) amoxicillin 500 mg / clavulanate 125 mg oral tablet (5 sources) Penicillin-class Antibacterial Start: 04-21-2023 End: 08-04-2023 Amoxicillin-Pot Clavulanate (Augmentin) 500-125 mg tablet Discontinued 1 {tbl} PO ONCE 1 0 April 21, 2023 12:00am August 04, 2023 9:05am Take morning of procedure. cholecalciferol 0.05 mg oral capsule (10 sources) Vitamin D Start: 09-20-2016 End: 08-15-2022 Cholecalciferol 2000 UNITS Cap take 1 capsule by mouth daily.. 90 capsule 3 09/20/2016 08/15/2022 Discontinued (Therapy completed) take 1 tablet by mouth once michel y Cholecalciferol, Vitamin D3, (VITAMIN D-3) 5,000 unit tab Indications: Anal or rectal pain Take 5,000 Units by mouth once daily. Active Comment on above: Take 5,000 Units by mouth once daily. ciprofloxacin 3 mg/ml / dexamethasone 1 mg/ml otic suspension (3 sources) Corticosteroid, Quinolone Antimicrobial Start: 10-14-2023 End: 10-21-2023 Ciprofloxacin-Dexametha sone 0.3-0.1 % drops,suspension Discontinued 4 NMA OTIC TWICE A DAY 7.5 7 0 October 14, 2023 1:00am October 20, 2023 1:00am October 21, 2023 1:05am Ciprofloxacin-Hydrocortis one (Cipro Hc) 0.2-1 % drops,suspension (3 sources) Start: 10-14-2023 End: 10-14-2023 Ciprofloxacin-Hydrocort isone (Cipro Hc) 0.2-1 % drops,suspension Discontinued 3 NMA OTIC TWICE A DAY 10 7 0 October 14, 2023 1:00am October 20, 2023 1:00am October 14, 2023 3:05pm Start: 10-14-2023 End: 10-14-2023 Ciprofloxacin-Hydrocortisone (Cipro Hc) 0.2-1 % drops,suspension Discontinued 3 NMA OTIC TWICE A DAY 10 7 October 14, 2023 1:00am October 20, 2023 1:00am October 14, 2023 3:05pm dexamethasone 6 mg oral tablet (3 sources) Corticosteroid Start: 05-28-2024 End: 08-19-2024 take 1 tablet by mouth once daily Dexamethasone 6 mg tablet Discontinued 6 mg PO DAILY 5 May 28, 2024 12:00am August 19, 2024 8:57am doxycycline hyclate 100 mg oral tablet (7 sources) Tetracycline-class Drug Start: 07-30-2022 End: 01-27-2023 take 1 tablet by mouth twice daily Doxycycline Hyclate 100 mg tablet Discontinued 100 mg PO TWICE A DAY 10 0 July 30, 2022 1:00am January 27, 2023 8:04am 0.5 ML dulaglutide 6 MG/ML Auto-Injector [Messagemind] (2 sources) GLP-1 Receptor Agonist Start: 04-11-2022 inject 0.5 mL by subcutaneous injection every week Trulicity Pen 3 mg/0.5 mL subcutaneous solution Dose : 3 mg = 0.5 mL, Subcutaneous, qWeek, rotate injection sites, # 2 mL, 4 Refill(s), 0.5 mL/Pen, Pharmacy: [id number], 177.8, cm, 04/11/22 10:17:00 EDT, Height Start Date: 04/11/22 Status: Ordered fexofenadine hydrochloride 180 mg oral tablet (3 sources) Histamine-1 Receptor Antagonist Start: 10-14-2023 End: 11-06-2023 take 1 tablet by mouth once daily Fexofenadine 180 mg tablet Discontinued 180 mg PO DAILY 10 October 14, 2023 1:00am November 06, 2023 11:06am gabapentin 100 mg oral capsule (6 sources) Anti-epileptic Agent Start: 10-28-2023 End: 05-14-2024 take 1 capsule by mouth twice daily Gabapentin 100 mg capsule Discontinued 100 mg PO TWICE A DAY November 25, 2023 5:02pm May 14, 2024 7:59am lisinopril 10 mg oral tablet (20 sources) Angiotensin Converting Enzyme Inhibitor Start: 07-30-2022 End: 07-30-2022 Lisinopril 10 mg tablet Discontinued 15 mg PO DAILY July 30, 2022 9:00am July 30, 2022 9:28am Start: 07-30-2022 End: 07-30-2022 take 15 mg by mouth once daily Lisinopril Discontinued 15 MG PO DAILY July 30, 2022 8:00am July 30, 2022 8:28am Start: 09-30-2017 End: 08-21-2018 take 1.5 tablets by mouth twice daily lisinopril 10 MG Tab tablet Indications: Encounter for aftercare following heart transplant , Encounter for long-term (current) use of medications , Other hyperlipidemia , Essential hypertension Take 1.5 tablets by mouth 2 times daily. 270 tablet 3 08/21/2018 Active Start: 03-29-2016 End: 07-30-2022 Lisinopril 10 MG tablet Disc ontinued 15 mg PO TWICE A DAY March 29, 2016 12:00am July 30, 2022 9:04am Start: 03-29-2016 End: 11-15-2022 take 15 mg by mouth twice daily Lisinopril Discontinued 15 MG PO TWICE A DAY March 28, 2016 11:00pm July 30, 2022 8:04am Start: 11-11-2009 take 1 tablet by pretty th once daily Lisinopril 10 mg tablet Active 10 mg PO DAILY July 30, 2022 1:00am Comment on above: one and half tab thom ly nateglinide 120 mg oral tablet (3 sources) Glinide End: 3 take 1 tablet by mouth once daily nateglinide 120 MG tablet Take 120 mg by mouth daily. 0 08/12/2023 Discontinued (Medication Reconciliation (suppress cancel msg)) rosuvastatin calcium 5 mg oral tablet (20 sources) HMG-CoA Reductase Inhibitor Start: 4 End: 4 Rosuvastatin 5 MG tablet Take half tablet (2.5 mg) daily at bedtime 45 tablet 3 04/27/2024 08/04/2024 Discontinued (Reorder) Start: 04-25-2023 Rosuvastatin 5 MG tablet Take half tablet (2.5 mg) daily at bedtime 45 tablet 3 04/25/2023 Active Start: 03-29-2022 rosuvastatin 5 MG tablet Take half tablet (2.5 mg) daily at bedtime 45 tablet 3 03/29/2022 Active Start: 06-13-2020 rosuvastatin 5 mg oral capsule Dose : 2.5 mg = 0.5 cap(s), Oral, Every other day, # 30 cap(s), 0 Refill(s) Start Date: 06/13/20 Status: Ordered Start: 08-14-2018 End: 08-21-2018 rosuvastatin (CRESTOR) 5 MG Tab per tablet Take 2.5mg on Mon/Fri/Fri/Sun 24 tablet 3 08/21/2018 Active Start: 09-20-2016 End: 08-14-2018 rosuvastatin (CRESTOR) 5 MG Tab take 1 tablet by mouth daily.. 90 tablet 3 09/20/2016 08/14/2018 Discontinued Start: 03-29-2016 take 2.5 mg by mouth every other day Rosuvastatin (Crestor) 5 MG tablet Active 2.5 mg PO EVERY OTHER DAY March 29, 2016 12:00am Comment on above: Take 2.5 mg by mouth once daily. 0.25 mg, 0.5 mg dose 1.5 ml semaglutide 1.34 mg/ml pen injector (12 sources) Start: 07-11-2020 End: 07-30-2022 Semaglutide 0.25 MG/0.2 ML pen injector Discontinued 0.5 mg SQ FR July 11, 2020 12:00am July 30, 2022 9:03am Start: 07-11-2020 End: 08-13-2022 Semaglutide Discontinued 0.5 MG SQ FR July 10, 2020 11:00pm July 30, 2022 8:03am inject 1 mg by subcu taneous injection every week Semaglutide, 1 MG/DOSE, (Ozempic, 1 MG/DOSE,) 2 MG/1.5ML Solution Pen-injector Inject 1 mg under the skin once a week. Active Semaglutide (9 sources) Start: 01-19-2024 End: 02-12-2024 Semaglutide (Ozempic) 0.25 m g or 0.5 mg (2 mg/3 mL) pen injector Discontinued 0.5 mg SC EVERY WEEK 3 January 19, 2024 11:14am February 15, 2024 12:00am February 12, 2024 8:22am for 4 weeks Start: 01-19-2024 End: 02-12-2024 Semaglutide (Ozempic) 0.25 m g or 0.5 mg (2 mg/3 mL) pen injector Discontinued 0.5 mg SC EVERY WEEK 3 January 19, 2024 11:14am February 15, 2024 12:00am February 12, 2024 8:22am for 4 weeks Start: 12-29-2023 End: 01-19-2024 Semaglutide (Ozempic) 0.25 m g or 0.5 mg (2 mg/3 mL) pen injector Discontinued 0.5 mg SC EVERY WEEK 3 December 29, 2023 12:04pm January 25, 2024 12:00am January 19, 2024 11:15am for 4 weeks Start: 12-29-2023 End: 01-19-2024 Semaglutide (Ozempic) 0.25 m g or 0.5 mg (2 mg/3 mL) pen injector Discontinued 0.5 mg SC EVERY WEEK 3 December 29, 2023 12:04pm January 25, 2024 12:00am January 19, 2024 11:15am for 4 weeks Start: 11-06-2023 End: 12-29-2023 Semaglutide (Ozempic) 0.25 m g or 0.5 mg (2 mg/3 mL) pen injector Discontinued 0.25 mg SC EVERY WEEK 3 November 06, 2023 1:00am December 29, 2023 12:04pm for 4 weeks Start: 11-06-2023 End: 12-29-2023 Semaglutide (Ozempic) 0.25 m g or 0.5 mg (2 mg/3 mL) pen injector Discontinued 0.25 mg SC EVERY WEEK November 06, 2023 1:00am December 29, 2023 12:04pm for 4 weeks Semaglutide (9 sources) Start: 05-18-2024 End: 08-19-2024 Semaglutide 1 mg/dose (4 mg/ 3 mL) pen injector Discontinued 1 mg SC EVERY WEEK May 18, 2024 3:45pm August 19, 2024 9:28am Start: 05-18-2024 End: 08-19-2024 Semaglutide 1 mg/dose (4 mg/ 3 mL) pen injector Discontinued 1 mg SC EVERY WEEK 3 May 18, 2024 3:45pm August 19, 2024 9:28am Start: 04-07-2024 End: 05-18-2024 Semaglutide 1 mg/dose (4 mg/ 3 mL) pen injector Discontinued 1 mg SC EVERY WEEK April 07, 2024 4:40pm May 18, 2024 3:47pm for 4 weeks Start: 04-07-2024 End: 05-18-2024 Semaglutide 1 mg/dose (4 mg/ 3 mL) pen injector Discontinued 1 mg SC EVERY WEEK 12 10April 07, 2024 4:40pm May 18, 2024 3:47pm for 4 weeks Start: 02-12-2024 End: 04-07-2024 Semaglutide 1 mg/dose (4 mg/ 3 mL) pen injector Discontinued 1 mg SC EVERY WEEK February 12, 2024 8:20April 07, 2024 4:40pm for 4 weeks Start: 02-12-2024 End: 04-07-2024 Semaglutide 1 mg/dose (4 mg/ 3 mL) pen injector Discontinued 1 mg SC EVERY WEEK 3 February 12, 2024 8:20am April 07, 2024 4:40pm for 4 weeks sildenafil 50 mg oral tablet (20 sources) Phosphodiesterase 5 Inhibitor Start: 05-21-2024 End: 03-24-2025 Sildenafil 50 mg tablet Discontinued 50 mg PO daily as needed for sexual activity 04 11May 21, 2024 12:00am March 24, 2025 10:01am administer 30 minutes to 4 hours before activity Start: 10-21-2022 End: 03-24-2025 Sildenafil 25 mg tablet Disc ontinued 25 mg PO DAILY as needed for sexual activity February 12, 2024 8:21am March 24, 2025 10:01am administer 30 minutes to 4 hours before activity 250 ml sodium chloride 9 mg/ml injection (1 source) Start: 08-03-2024 End: 08-03-2024 take 3 mL intravenously every hour 3 mL/kg/hr 73 kg [place] weight (219 mL/hr), Intravenous, CONTINUOUS, Starting on Fri08/03/24 at 1415, Until Fri08/03/24 at 1714, Administer for Post Intermediate Card Tender Hydration to Prevent Acute Kidney Injury. , Post-op/Post-Proc Tirzepatide (Mounjaro) 2.5 MG/0.5ML Solution Pen-injector (3 sources) End: 08-12-2023 Tirzepatide (Mounjaro) 2.5 MG/0.5ML Solution Pen-injector Inject under the skin once a week. 0 08/12/2023 Discontinued (Medication Reconciliation (suppress cancel msg)) Tirzepatide (Pretty njaro) 2.5 MG/0.5ML Solution Pen-injector Inject under the skin once a week. 0 Active valACYclovir 1000 mg oral tablet (3 sources) Herpesvirus Nucleoside Analog DNA Polymerase Inhibitor, Herpes Simplex Virus Nucleoside Analog DNA Polymerase Inhibitor, Herpes Zoster Virus Nucleoside Analog DNA Polymerase Inhibitor Start: 10-26-2023 End: 11-02-2023 Valacyclovir 1 gram tablet Discontinued 1000 mg PO THREE TIMES A DAY 21 7 October 26, 2023 1:00am November 01, 2023 1:00am November 02, 2023 1:02am Problems Active Problems Problem Classification Problem Date Documented Da te Episodic/Chronic Administrative/social admission (2 sources) Persons encountering health services in other specified circumstances; Translations: [Other reasons for seeking consultation] Episodic Blindness and vision defects (7 sources) Wears glasses; Translations: [Presence of spectacles and contact lenses] 07-30-2022 Episodic Cardiac dysrhythmias (20 sources) Atrial fibrillation; Translations: [Paroxysmal ventricular tachycardia] 06-22-2013 Chronic Cardiac dysrhythmias (3 sources) Tachycardia; Translations: [Tachycardia, unspecified] 11-21-2023 Episodic Coagulation and hemorrhagic disorders (2 sources) Petechiae of skin; Translations: [Spontaneous ecchymoses] Onset: 5 03-24-2025 Episodic Congestive heart failure; nonhypertensive (10 sources) Chronic systolic heart failure; Translations: [Chronic systolic (congestive) heart failure] Resolved: 2 03-03-2012 Chronic Diabetes mellitus with complications (1 source) Type 2 diabetes mellitus with hyperglycemia; Translations: [Type 2 diabetes mellitus with hyperglycemia] Onset: 5 Chronic Diabetes mellitus without complication (20 sources) Diabetes mellitus; Translations: [Type 2 diabetes mellitus] Onset: 5 Resolved: 5 04-19-2015 Chronic Diabetes mellitus without complication (10 sources) Hyperglycemia; Translations: [Hyperglycemia, unspecified] 06-13-2020 Episodic Disorders of lipid metabolism (20 sources) Hypertriglyceridemia; Translations: [Hyperlipidemia] Onset: 4 06-22-2013 Chronic Esophageal disorders (15 sources) Gastroesophageal reflux disease; Translations: [Gastro-esophageal reflux disease without esophagitis] Chronic Essential hypertension (20 sources) Essential hypertension; Translations: [Hypertensive disorder] Onset: 0 08-16-2018 Chronic Fluid and electrolyte disorders (2 sources) Hyperkalemia 06-13-2020 Episodic Immunizations and screening for infectious disease (2 sources) Encounter for immunization; Translations: [Need for prophylactic vaccination and inoculation against unspecified single disease] Episodic Melanomas of skin (7 sources) History of malignant melanoma of the skin; Translations: [Personal history of malignant melanoma of skin] 07-30-2022 Episodic Nutritional deficiencies (3 sources) Vitamin D deficiency; Translations: [Vitamin D deficiency, unspecified] Onset: 5 06-13-2020 Chronic Nutritional deficiencies (3 sources) Vitamin deficiency; Translations: [Vitamin deficiency, unspecified] Onset: 5 03-24-2025 Episodic Other acquired deformities (1 source) Unspecified deformity of unspecified finger(s); Translations: [Unspecified deformity of finger] 08-04-2023 Episodic Other aftercare (8 sources) Transplant follow-up; Translations: [Encounter for aftercare following other organ transplant] Onset: 1 06-22-2013 Chronic Other aftercare (6 sources) Patient encounter status; Translations: [Other correction (current) drug therapy] Episodic Other aftercare (2 sources) Taking high risk medication; Translations: [Other director long term care (current) drug therapy] Episodic Other aftercare (1 source) Long-term current use of drug therapy; Translations: [Other director long term care (current) drug therapy] 07-02-2024 Episodic Other aftercare (2 sources) Other correction (current) drug therapy; Translations: [Other correction (current) drug therapy] Onset: 4 Episodic Other circulatory disease (4 sources) H/O: heart recipient; Translations: [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] Onset: 3 06-23-2013 Chronic Other circulatory disease (7 sources) Heart transplant status; Translations: [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] Onset: 2 Chronic Other circulatory disease (7 sources) H/O: hypertension; Translations: [Personal history of other diseases of the circulatory system] 07-30-2022 Episodic Other circulatory disease (14 sources) H/O: heart disorder; Translations: [Personal history of other diseases of the circulatory system] 07-30-2022 Episodic Other circulatory disease (7 sources) H/O: heart failure; Translations: [Personal history of other diseases of the circulatory system] 07-30-2022 Episodic Other circulatory disease (7 sources) H/O: atrial fibrillation; Translations: [Personal history of other diseases of the circulatory system] 07-30-2022 Episodic Other connective tissue disease (1 source) Muscle pain Episodic Other connective tissue disease (7 sources) H/O: arthritis; Translations: [Personal history of other diseases of the musculoskeletal system and connective tissue] 07-30-2022 Episodic Other connective tissue disease (7 sources) Trochanteric bursitis; Translations: [Trochanteric bursitis, left hip] 11-12-2024 Episodic Other connective tissue disease (1 source) Trochanteric bursitis, left hip; Translations: [Trochanteric bursitis, left hip] Onset: 5 Episodic Other ear and sense organ disorders (1 source) Other specified disorders of right ear; Translations: [Other disorders of ear] 08-04-2023 Episodic Other gastrointestinal disorders (5 sources) Stool DNA-based colorectal cancer screening positive; Translations: [Other fecal abnormalities] 03-24-2023 Episodic Other gastrointestinal disorders (1 source) Other fecal abnormalities; Translations: [Abnormal feces] 03-24-2023 Episodic Other lower respiratory disease (8 sources) Dyspnea; Translations: [Dyspnea, unspecified] 06-12-2022 Episodic Other lower respiratory disease (7 sources) H/O: pneumonia; Translations: [Personal history of pneumonia (recurrent)] 07-30-2022 Episodic Other male genital disorders (5 sources) Male erectile dysfunction, unspecified; Translations: [Impotence of organic origin] 10-21-2022 Chronic Other nervous system disorders (10 sources) Peripheral nerve disease ; Translations: [Polyneuropathy, unspecified] Onset: 4 09-29-2013 Chronic Other nervous system disorders (1 source) Other chronic pain; Translations: [Other chronic pain] Onset: 4 Chronic Other non-traumatic joint disorders (2 sources) Hip pain; Translations: [Pain in left hip] 03-24-2025 Episodic Other screening for suspected conditions (not mental disorders or infectious disease) (4 sources) Encounter for screening for malignant neoplasm of colon; Translations: [Special screening for malignant neoplasms of colon] Onset: 5 Episodic Other upper respiratory infections (6 sources) Acute upper respiratory infection, unspecified; Translations: [Acute upper respiratory infections of unspecified site] Episodic Phlebitis; thrombophlebitis and thromboembolism (7 sources) H/O: thrombosis; Translations: [Personal history of other venous thrombosis and embolism] 07-30-2022 Episodic Pulmonary heart disease (10 sources) Pulmonary embolism; Translations: [Other pulmonary embolism without acute cor pulmonale] 07-17-2008 Episodic Residual codes; unclassified (7 sources) History of cardiac catheterization; Translations: [Other specified postprocedural states] 07-30-2022 Episodic Syncope (10 sources) Syncope; Translations: [Syncope and collapse] 08-15-2008 Episodic Viral infection (6 sources) Disease caused by 2019-nCoV; Translations: [COVID-19] 05-28-2024 Episodic Past or Other Problems Problem Classification Problem Date Documented Da te Episodic/Chronic Anal and rectal conditions (5 sources) Anorectal abscess; Translations: [Anorectal abscess] Onset: 11-11-2009 11-11-2009 Episodic Immunity disorders (13 sources) Immunosuppression; Translations: [Immunodeficiency, unspecified] Onset: 08-30-2014 Resolved: 08-05-2024 08-30-2014 Chronic Other aftercare (5 sources) Transplant follow-up; Translations: [Aftercare following organ transplant] Onset: 11-27-2010 06-22-2013 Episodic Other non-traumatic joint disorders (1 source) Pain in left hip; Translations: [Pain in left hip] Onset: 09-22-2024 Episodic Becca-; endo-; and myocarditis; cardiomyopathy (except that caused by tuberculosis or sexually transmitted disease) (10 sources) Cardiomyopathy; Translations: [Other cardiomyopathies] Resolved: 03-03-2012 03-03-2012 Chronic Unclassified (3 sources) Patient encounter status Results Test Name Value Interpretation Reference Range Facility RUDDY w/ Reflex Mult Confirmon 03-25-2025 RUDDY,DIRECT Positive Abnormal Negative [facility] Comment on above: Performed By: #### L 3100.5800, L3100.5700, L3300.1200, L3100.5450 #### [facility] [address] [place], [address] ANTI-DNA (DS)AB <1 Normal 0-9 [facility] Comment on above: Result Comment: Nega tive <5 Equivocal 5 - 9 Positive >9 Performed By: #### L 3100.5800, L3100.5700, L3300.1200, L3100.5450 #### [facility] [address] [place], [address] ANTI-SS-A < 0.2 Normal 0.0-0.9 [facility] Comment on above: Performed By: #### L 3100.5800, L3100.5700, L3300.1200, L3100.5450 #### [facility] [address] [place], [address] ANTI-SS-B < 0.2 Normal 0.0-0.9 [facility] Comment on above: Performed By: #### L 3100.5800, L3100.5700, L3300.1200, L3100.5450 #### [facility] [address] [place], [address] ANCAon 03-25-2025 Atypical pANCA <1:20 Normal Neg:<1:20 [facility] Comment on above: Result Comment: The atypical pANCA pattern has been observed in a significant percentage of patients with ulcerative colitis, primary sclerosing cholangitis and autoimmune hepatitis. Performed By: #### L 3100.5800, L3100.5700, L3300.1200, L3100.5450 #### [facility] [address] [place], [address] Cytoplasmic Ab <1:20 Normal Neg:<1:20 [facility] Comment on above: Performed By: #### L 3100.5800, L3100.5700, L3300.1200, L3100.5450 #### [facility] [address] [place], [address] Perinuclear Ab. <1:20 Normal Neg:<1:20 [facility] Comment on above: Result Comment: The presence of positive fluorescence exhibiting P-ANCA or C-ANCA patterns alone is not specific for the diagnosis of Casey's Granulomatosis (WG) or microscopic polyangiitis. Decisions about treatment should not be based solely on ANCA IFA results. The International ANCA Group Consensus recommends follow up testing of positive sera with both NM- 3 and MPO-ANCA enzyme immunoassays. As many as 5% serum samples are positive only by EIA. Ref. AM J Clin Pathol 1999;111:507-513. Performed By: #### L 3100.5800, L3100.5700, L3300.1200, L3100.5450 #### [facility] [address] [place], [place], [address] Complement C3on 03-25-2025 COMP C3 167 mg/dL Normal 82-167 [facility] Comment on above: Result Comment: Perf ormed at: [facility] [address] [id number] [employer] Assistant Restaurant Manager: Pal Aden PhD, Phone: [phone] Performed By: #### L 3100.5800, L3100.5700, L3300.1200, L3100.5450 #### [facility] [address] [place], [place], [id number] Complement C4on 03-25-2025 COMPLEMENT, C4 29 mg/dL Normal 12-38 [facility] Comment on above: Performed By: #### L 3100.5800, L3100.5700, L3300.1200, L3100.5450 #### [facility] [address] [place], [place], [id number] Absolute lymphocyte countOrd ered By: Violet Dallas on 03-24-2025 Lymphocytes Auto (Unsp spec) [#/Vol] 2.73 10*3/uL 0.83-4.51 [facility] Absolute neutrophil countOrd ered By: Violet Dallsa on 03-24-2025 Neutrophils (Bld) [#/Vol] 3.6 10*3/uL 2.0-7.7 [facility] Activated partial thrombopla stin time (aPTT) in platelet poor plasma by coagulation aOrdered By: Violet Dallas on 03-24-2025 aPTT Coag (PPP) [Time] 25.4 s 24.1-36.2 [facility] Anion gap in Serum or Plasma Ordered By: Voilet Dallas on 03-24-2025 Anion gap [Moles/Vol] 14 mmol/L 5-15 [facility] Automated lymphocyte count a s percentage of total leukocytesOrdered By: Violet Dallas on 03-24-2025 Lymphocytes/100 WBC Auto (Unsp spec) 37.0 % - [facility] BUN/creatinine ratioOrdered By: Violet Dallas on 03-24-2025 Urea nitrogen/Creatinine [Mass ratio] 19.2 mg/mg 10- [facility] Basophil percentageOrdered B y: Violet Dallas on 03-24-2025 Basophils/100 WBC (Bld) 0.7 % 0-1 [facility] Bilirubin, totalOrdered By: Violet Dallas on 03-24-2025 Bilirubin [Mass/Vol] 0.43 mg/dL 0.00-1.30 [facility] CBC W/Diff, Automatedon 03-15 Absolute Lymph 2.73 X10 3/uL Normal 0.83-4.51 [facility] Comment on above: Performed By: #### L 100.0100, L503.0106, L500.4100, L300.3900, L500.4050, L506.1001, L502.0250, L300.4310 ####[facility] [address] [place], [place], [id number] Absolute Neut 3.6 X10 3/uL Normal 2.0-7.7 [facility] Comment on above: Performed By: #### L 100.0100, L503.0106, L500.4100, L300.3900, L500.4050, L506.1001, L502.0250, L300.4310 ####[facility] [address] [place], [place], [id number]) Basophils/100 WBC (Bld) 0.7 % Normal 0-1 [facility] Comment on above: Performed By: #### L 100.0100, L503.0106, L500.4100, L300.3900, L500.4050, L506.1001, L502.0250, L300.4310 ####[facility] [address] [place], [address] Eosinophils/100 WBC (Bld) 1.6 % Normal 0-5 [facility] Comment on above: Performed By: #### L 100.0100, L503.0106, L500.4100, L300.3900, L500.4050, L506.1001, L502.0250, L300.4310 ####[facility] [address] [place], [address] Erythrocyte distribution width (RBC) [Ratio] 13.0 % Normal 11.6-14.6 [facility] Comment on above: Performed By: #### L 100.0100, L503.0106, L500.4100, L300.3900, L500.4050, L506.1001, L502.0250, L300.4310 ####[facility] [address] [place], [address] Hematocrit (Bld) [Volume fraction] 43.8 % Normal 40-54 [facility] Comment on above: Performed By: #### L 100.0100, L503.0106, L500.4100, L300.3900, L500.4050, L506.1001, L502.0250, L300.4310 ####[facility] [address] [place], [address] Hemoglobin (Bld) [Mass/Vol] 14.8 g/dL Normal 13.0-16. 5 [facility] Comment on above: Performed By: #### L 100.0100, L503.0106, L500.4100, L300.3900, L500.4050, L506.1001, L502.0250, L300.4310 ####[facility] [address] [place], [address] IG% 0.800 Normal 0.0-0.9 [facility] Comment on above: Result Comment: IG% - Immature Granulocytes (promyelocytes, myelocytes and metamyelocytes) > 1% indicates that a LEFT SHIFT is Present. Performed By: #### L 100.0100, L503.0106, L500.4100, L300.3900, L500.4050, L506.1001, L502.0250, L300.4310 ####[facility] [address] [place], [address] Lymphocytes/100 WBC (Bld) 37.0 % Normal 19-41 [facility] Comment on above: Performed By: #### L 100.0100, L503.0106, L500.4100, L300.3900, L500.4050, L506.1001, L502.0250, L300.4310 ####[facility] [address] [place], [address] MCH (RBC) [Entitic mass] 30.1 pg Normal 27.0-32.0 [facility] Comment on above: Performed By: #### L 100.0100, L503.0106, L500.4100, L300.3900, L500.4050, L506.1001, L502.0250, L300.4310 ####[facility] [address] [place], [address] MCHC (RBC) [Mass/Vol] 33.8 g/dL Normal 32-36 [facility] Comment on above: Performed By: #### L 100.0100, L503.0106, L500.4100, L300.3900, L500.4050, L506.1001, L502.0250, L300.4310 ####[facility] [address] [place], [address] MCV (RBC) [Entitic vol] 89.0 fL Normal 80-94 [facility] Comment on above: Performed By: #### L 100.0100, L503.0106, L500.4100, L300.3900, L500.4050, L506.1001, L502.0250, L300.4310 ####[facility] [address] [place], [address] Monocytes/100 WBC (Bld) 11.5 % High 0-10 [facility] Comment on above: Performed By: #### L 100.0100, L503.0106, L500.4100, L300.3900, L500.4050, L506.1001, L502.0250, L300.4310 ####[facility] [address] [place], [address] Neutrophils/100 WBC (Bld) 48.4 % Normal 47-70 [facility] Comment on above: Performed By: #### L 100.0100, L503.0106, L500.4100, L300.3900, L500.4050, L506.1001, L502.0250, L300.4310 ####[facility] [address] [place], [address] Nucleated RBC (Bld) [#/Vol] 0 10*3/uL Normal 0-5 [facility] Comment on above: Performed By: #### L 100.0100, L503.0106, L500.4100, L300.3900, L500.4050, L506.1001, L502.0250, L300.4310 ####[facility] [address] [place], [address] Platelet mean volume (Bld) [Entitic vol] 9.3 fL Normal 6.2-12.0 [facility] Comment on above: Performed By: #### L 100.0100, L503.0106, L500.4100, L300.3900, L500.4050, L506.1001, L502.0250, L300.4310 ####[facility] [address] [place], [place], [phone] Platelets (Bld) [#/Vol] 319 10*3/uL Normal 150-450 [facility] Comment on above: Performed By: #### L 100.0100, L503.0106, L500.4100, L300.3900, L500.4050, L506.1001, L502.0250, L300.4310 ####[facility] [address] [place], [address] RBC (Bld) [#/Vol] 4.92 10*6/uL Normal 4.6-6.2 [facility] Comment on above: Performed By: #### L 100.0100, L503.0106, L500.4100, L300.3900, L500.4050, L506.1001, L502.0250, L300.4310 ####[facility] [address] [place], [place], [phone] RDW SD 42.1 fl Normal 35.1-43.9 [facility] Comment on above: Performed By: #### L 100.0100, L503.0106, L500.4100, L300.3900, L500.4050, L506.1001, L502.0250, L300.4310 ####[facility] [address] [place], [place], [phone] WBC (Bld) [#/Vol] 7.4 10*3/uL Normal 4.4-11.0 [facility] Comment on above: Performed By: #### L 100.0100, L503.0106, L500.4100, L300.3900, L500.4050, L506.1001, L502.0250, L300.4310 ####[facility] [address] [place], [place], [phone] Calculated very low density lipoprotein (VLDL) cholesterol measurementOrdered By: Violet Dallas on 03-24-2025 Calculated very low density lipoprotein (VLDL) cholesterol measurement 44 mg/dL High 5-40 [facility] Carbon dioxide, total [Moles /volume] in Central venous bloodOrdered By: Violet Dallas on 03-24-2025 CO2 [Moles/Vol] 24.5 mmol/L 21.0-32.0 [facility] Chloride assayOrdered By: Nolan Dallas on 03-24-2025 Chloride [Moles/Vol] 97 mmol/L Low 98-108 [facility] Comprehensive Metabolic Prof ilon 03-24-2025 Albumin [Mass/Vol] 4.7 g/dL Normal 3.4-4.8 [facility] Comment on above: Performed By: #### L 100.0100, L503.0106, L500.4100, L300.3900, L500.4050, L506.1001, L502.0250, L300.4310 ####[facility] [address] [place], [place], [phone] Albumin/Globulin [Mass ratio] 1.5 {ratio} Normal 0.9-2.4 [facility] Comment on above: Performed By: #### L 100.0100, L503.0106, L500.4100, L300.3900, L500.4050, L506.1001, L502.0250, L300.4310 ####[facility] [address] [place], [place], [phone] ALK PHOS 72 U/L Normal 40-129 [facility] Comment on above: Performed By: #### L 100.0100, L503.0106, L500.4100, L300.3900, L500.4050, L506.1001, L502.0250, L300.4310 ####[facility] [address] [place], [place], [phone] ALT [Catalytic activity/Vol] 14 U/L Normal <=46 [facility] Comment on above: Performed By: #### L 100.0100, L503.0106, L500.4100, L300.3900, L500.4050, L506.1001, L502.0250, L300.4310 ####[facility] [address] [place], [place], [phone] AST [Catalytic activity/Vol] 18 U/L Normal <=37 [facility] Comment on above: Performed By: #### L 100.0100, L503.0106, L500.4100, L300.3900, L500.4050, L506.1001, L502.0250, L300.4310 ####[facility] [address] [place], [place], [phone] Bilirubin [Mass/Vol] 0.43 mg/dL Normal 0.00-1.30 [facility] Comment on above: Performed By: #### L 100.0100, L503.0106, L500.4100, L300.3900, L500.4050, L506.1001, L502.0250, L300.4310 ####[facility] [address] [place], [address] BUN/CRE 19.2 RATIO Normal 10-20 [facility] Comment on above: Performed By: #### L 100.0100, L503.0106, L500.4100, L300.3900, L500.4050, L506.1001, L502.0250, L300.4310 ####[facility] [address] [place], [place], [phone] Calcium [Mass/Vol] 10.1 mg/dL Normal 7.6-11.0 [facility] Comment on above: Performed By: #### L 100.0100, L503.0106, L500.4100, L300.3900, L500.4050, L506.1001, L502.0250, L300.4310 ####[facility] [address] [place], [place], [phone] Chloride [Moles/Vol] 97 mmol/L Low 98-108 [facility] Comment on above: Performed By: #### L 100.0100, L503.0106, L500.4100, L300.3900, L500.4050, L506.1001, L502.0250, L300.4310 ####[facility] [address] [place], [place], [phone] CO2 [Moles/Vol] 24.5 mmol/L Normal 21.0-32.0 [facility] Comment on above: Performed By: #### L 100.0100, L503.0106, L500.4100, L300.3900, L500.4050, L506.1001, L502.0250, L300.4310 ####[facility] [address] [place], [address] Creatinine [Mass/Vol] 1.00 mg/dL Normal 0.70-1.20 [facility] Comment on above: Performed By: #### L 100.0100, L503.0106, L500.4100, L300.3900, L500.4050, L506.1001, L502.0250, L300.4310 ####[facility] [address] [place], [address] GAP 14 Normal 5-15 [facility] Comment on above: Performed By: #### L 100.0100, L503.0106, L500.4100, L300.3900, L500.4050, L506.1001, L502.0250, L300.4310 ####[facility] [address] [place], [address] GFR/1.73 sq M.predicted among non-blacks MDRD (S/P/Bld) [Vol rate/Area] 85 mL/min/{1.73_m2} Normal >60 [facility] Comment on above: Result Comment: mL/m in/1.73m2 CKD-EPI Creatinine Equation (2020) Performed By: #### L 100.0100, L503.0106, L500.4100, L300.3900, L500.4050, L506.1001, L502.0250, L300.4310 ####[facility] [address] [place], [address] Globulin (S) [Mass/Vol] 3.1 g/dL Normal 2.2-4.2 [facility] Comment on above: Performed By: #### L 100.0100, L503.0106, L500.4100, L300.3900, L500.4050, L506.1001, L502.0250, L300.4310 ####[facility] [address] [place], [address] Glucose [Mass/Vol] 121 mg/dL High 70-99 [facility] Comment on above: Performed By: #### L 100.0100, L503.0106, L500.4100, L300.3900, L500.4050, L506.1001, L502.0250, L300.4310 ####[facility] [address] [place], [address] Potassium [Moles/Vol] 4.6 mmol/L Normal 3.3-5.1 [facility] Comment on above: Performed By: #### L 100.0100, L503.0106, L500.4100, L300.3900, L500.4050, L506.1001, L502.0250, L300.4310 ####[facility] [address] [place], [address] Sodium [Moles/Vol] 135 mmol/L Normal 133-145 [facility] Comment on above: Performed By: #### L 100.0100, L503.0106, L500.4100, L300.3900, L500.4050, L506.1001, L502.0250, L300.4310 ####[facility] [address] [place], [place], [phone] T PROT 7.8 g/dL Normal 5.9-8.4 [facility] Comment on above: Performed By: #### L 100.0100, L503.0106, L500.4100, L300.3900, L500.4050, L506.1001, L502.0250, L300.4310 ####[facility] [address] [place], [place], [phone] Urea nitrogen [Mass/Vol] 19 mg/dL Normal 4-19 [facility] Comment on above: Performed By: #### L 100.0100, L503.0106, L500.4100, L300.3900, L500.4050, L506.1001, L502.0250, L300.4310 ####[facility] [address] [place], [place], [phone] Eosinophil percentageOrdered By: Violet Dallas on 03-24-2025 Eosinophils/100 WBC (Bld) 1.6 % 0-5 [facility] Erythrocyte distribution wid th ratioOrdered By: Violet Dallas on 03-24-2025 Erythrocyte distribution width (RBC) [Ratio] 13.0 % 11.6-14.6 [facility] Erythrocyte distribution wid th standard deviationOrdered By: Violet Dallas on 03-24-2025 Erythrocyte distribution width (RBC) [Ratio] 42.1 fl 35.1-43.9 [facility] Glomerular filtration rate ( GFR) estimation/1.73 sq m using serum, plasma, or whole bOrdered By: Violet Dallas on 03-24-2025 GFR/1.73 sq M.predicted among non-blacks MDRD (S/P/Bld) [Vol rate/Area] 85 mL/min/{1.73_m2} >60 [facility] Comment on above: mL/min/1.73m2 CKD-EP I Creatinine Equation (2020) Hematocrit Auto (Bld) [Volum e fraction]Ordered By: Violet Dallas on 03-24-2025 Hematocrit (Bld) [Volume fraction] 43.8 % 40-54 [facility] Hemoglobin measurementOrdere d By: Violet Dallas on 03-24-2025 Hemoglobin (Bld) [Mass/Vol] 14.8 g/dL 13.0-16. 5 [facility] Immature granulocytes/100 WB C Auto (Bld)Ordered By: Violet Dallas on 03-24-2025 Immature granulocytes/100 WBC (Bld) 0.800 % 0.0-0.9 [facility] Comment on above: IG% - Immature Granu locytes (promyelocytes, myelocytes and metamyelocytes) > 1% indicates that a LEFT SHIFT is Present. International normalized rat io (INR) calculationOrdered By: Violet Dallas on 03-24-2025 INR Coag (Bld) [Relative time] 0.9 {INR} [facility] LDL calc ser/plasOrdered By: Violet Dallas on 03-24-2025 Cholesterol in LDL [Mass/Vol] 105 mg/dL [facility] Comment on above: Xmvvohuzxv=159-796 m g/dL & Higher Xbhp=521 mg/dL or greater Laboratory - Chemistry and C hemistry - challengeOrdered By: Violet Dallas on 03-24-2025 AST [Catalytic activity/Vol] 18 U/L <38 [facility] Lipid Profileon 03-24-2025 CHOL:HDL 3.81 Normal [facility] Comment on above: Performed By: #### L 100.0100, L503.0106, L500.4100, L300.3900, L500.4050, L506.1001, L502.0250, L300.4310 ####[facility] [address] [place], [place], [address] Cholesterol [Mass/Vol] 202 mg/dL High <=200 [facility] Comment on above: Result Comment: Chol esterol level, Desirable <200 mg/dL Borderline high cholesterol 200-239 mg/dL High cholesterol >=240 mg/dL Recommendations of the NCEP Adult Treatment Panel for the following risk-cutoff thresholds for the [place] population. Performed By: #### L 100.0100, L503.0106, L500.4100, L300.3900, L500.4050, L506.1001, L502.0250, L300.4310 ####[facility] [address] [place], [place], [phone]) Cholesterol in HDL [Mass/Vol] 53 mg/dL Normal [facility] Comment on above: Result Comment: Ewa onal Cholesterol Education Program (NCEP) guidelines: <40 mg/dL: Low HDL-cholesterol (major risk factor for CHD) >= 60 mg/dL: High HDL-cholesterol (negative risk factor for CHD) HDL-cholesterol is affected by a number of factors, e.g. smoking, exercise, hormones, sex and age. Performed By: #### L 100.0100, L503.0106, L500.4100, L300.3900, L500.4050, L506.1001, L502.0250, L300.4310 ####[facility] [address] [place], [address](184) Cholesterol in LDL [Mass/Vol] 105 mg/dL Normal [facility] Comment on above: Result Comment: Bord xactpv=080-447 mg/dL Higher Eiss=824 mg/dL or greater Performed By: #### L 100.0100, L503.0106, L500.4100, L300.3900, L500.4050, L506.1001, L502.0250, L300.4310 ####[facility] [address] [place], [place], [phone](770) Cholesterol in VLDL [Mass/Vol] 44 mg/dL High 5-40 [facility] Comment on above: Performed By: #### L 100.0100, L503.0106, L500.4100, L300.3900, L500.4050, L506.1001, L502.0250, L300.4310 ####[facility] [address] [place], [address] Triglyceride [Mass/Vol] 218 mg/dL High [facility] Comment on above: Result Comment: The drugs N-Acetylcysteine and Metamizole may falsely depress this assay. Normal range: <150 mg/dL Borderline High: 150-199 mg/dL High: 200-499 mg/dL Very High: >500 mg/dL Performed By: #### L 100.0100, L503.0106, L500.4100, L300.3900, L500.4050, L506.1001, L502.0250, L300.4310 ####[facility] [address] [place], [place], [phone] MCV (mean corpuscular volume ) determinationOrdered By: Violet Burt on 03-24-2025 MCV (RBC) [Entitic vol] 89.0 fL 80-94 [facility] Mean corpuscular hemoglobin (MCH) determinationOrdered By: Violet Staples on 03-24-2025 MCH (RBC) [Entitic mass] 30.1 pg 27.0-32.0 [facility] Mean corpuscular hemoglobin concentration (MCHC) determinationOrdered By: Violet Staples on 03-24-2025 MCHC (RBC) [Mass/Vol] 33.8 g/dL 32-36 [facility] Mean platelet volume determi nationOrdered By: Violet Staples on 03-24-2025 Platelet mean volume (Bld) [Entitic vol] 9.3 fL 6.2-12.0 [facility] Microalb:Creat Ratio,Random URon 03-24-2025 MALB:CREAT 136.5 mg/g CRE Normal [facility] Comment on above: Performed By: #### L 100.0100, L503.0106, L500.4100, L300.3900, L500.4050, L506.1001, L502.0250, L300.4310 ####[facility] [address] [place], [place], [phone] MICROALBUMIN,UR 277.0 mg/L Normal NO RANGE EST. [facility] Comment on above: Performed By: #### L 100.0100, L503.0106, L500.4100, L300.3900, L500.4050, L506.1001, L502.0250, L300.4310 ####[facility] [address] [place], [place], [phone] Monocyte percentageOrdered B y: Violet Dallas on 03-24-2025 Monocytes/100 WBC (Bld) 11.5 % High 0-10 [facility] Neutrophil percentageOrdered By: Violet Dallas on 03-24-2025 Neutrophils/100 WBC (Bld) 48.4 % 47-70 [facility] Nucleated red blood cell per centageOrdered By: Violet Dallas on 03-24-2025 Nucleated RBC/100 WBC (Bld) [Ratio] 0 % 0-5 [facility] Partial Thromboplast Timeon 03-24-2025 aPTT Coag (Bld) [Time] 25.4 s Normal 24.1-36.2 [facility] Comment on above: Performed By: #### L 100.0100, L503.0106, L500.4100, L300.3900, L500.4050, L506.1001, L502.0250, L300.4310 ####[facility] [address] [place], [place], [phone] Platelet countOrdered By: Nolan Dallas on 03-24-2025 Platelets (Bld) [#/Vol] 319 10*3/uL 150-450 [facility] Potassium measurement (mass/ volume)Ordered By: Violet Dallas on 03-24-2025 Potassium (Unsp spec) [Mass/Vol] 4.6 mmol/L 3.3-5.1 [facility] Prothrombin Time w/INRon INR Coag (PPP) [Relative time] 0.9 {INR} Normal [facility] Comment on above: Performed By: #### L 100.0100, L503.0106, L500.4100, L300.3900, L500.4050, L506.1001, L502.0250, L300.4310 ####[facility] [address] [place], [address] PT Coag (PPP) [Time] 12.3 s Normal 11.7-14.9 [facility] Comment on above: Performed By: #### L 100.0100, L503.0106, L500.4100, L300.3900, L500.4050, L506.1001, L502.0250, L300.4310 ####[facility] [address] [place], [address] Prothrombin timeOrdered By: Violet Dallas on 03-24-2025 PT Coag (PPP) [Time] 12.3 s 11.7-14.9 [facility] RBC Auto (Bld) [#/Vol]Ordere d By: Violet Dallas on 03-24-2025 RBC (Bld) [#/Vol] 4.92 10*6/uL 4.6-6.2 [facility] Random urine creatinine jennifer urement (mass/volume)Ordered By: Violet Dallas on 03-24-2025 Creatinine Unsp time (U) [Mass/Vol] 203.00 mg/dL 39.00-259. 00 [facility] Screening total cholesterol/ high density lipoprotein (HDL) cholesterol ratioOrdered By: Violet Dallas on 03-24-2025 Cholesterol.total/Cholester ol in HDL [Mass ratio] 3.81 {ratio} [facility] Serum DNA double strand anti body assay (units/volume)Ordered By: Violet Dallas on 03-24-2025 DNA double strand Ab Qn (S) [IU]/mL 0-9 [facility] Comment on above: Negative <5 Equivoca l 5 - 9 Positive >9 Serum Scl-70 antibody assay (units/volume)Ordered By: Violet Dallas on 03-24-2025 SCL-70 extractable nuclear Ab Qn (S) TNP [facility] Comment on above: Test not performed SCL-70 extractable nuclear Ab Qn (S) <0.2 AI 0.0-0.9 [facility] Comment on above: Previous reported re sult: TNP AIEdited by: ENEDELIA on 03/25/25:1408 AMENDED REPORT 03/25/251407 ANTISCLER previously reported as: Test not performed Serum classic neutrophil cyt oplasmic antibody assay (units/volume)Ordered By: Violet Dallas on 03-24-2025 Neutrophil cytoplasmic Ab.classic Qn (S) <1:20 titer Neg:<1:20 [facility] Serum creatinine measurement (mass/volume)Ordered By: Violet Dallas on 03-24-2025 Creatinine [Mass/Vol] 1.00 mg/dL 0.70-1.20 [facility] Serum globulin measurementOr dered By: Violet Dallas on 03-24-2025 Globulin (S) [Mass/Vol] 3.1 g/dL 2.2-4.2 [facility] Serum glucose measurement (m ass/volume)Ordered By: Violet Dallas on 03-24-2025 Glucose [Mass/Vol] 121 mg/dL High 70-99 [facility] Serum or plasma alanine crespo otransferase (ALT) measurementOrdered By: Violet Dallas on 03-24-2025 ALT [Catalytic activity/Vol] 14 U/L <47 [facility] Serum or plasma albumin jennifer urement (mass/volume)Ordered By: Violet Dallas on 03-24-2025 Albumin [Mass/Vol] 4.7 g/dL 3.4-4.8 [facility] Serum or plasma albumin/glob ulin mass ratioOrdered By: Violet Dallas on 03-24-2025 Albumin/Globulin [Mass ratio] 1.5 {ratio} 0.9-2.4 [facility] Serum or plasma alkaline bradley sphatase measurementOrdered By: Violet Dallas on 03-24-2025 ALP [Catalytic activity/Vol] 72 U/L 40-129 [facility] Serum or plasma calcium jennifer urement (mass/volume)Ordered By: Violet Dallas on 03-24-2025 Calcium [Mass/Vol] 10.1 mg/dL 7.6-11.0 [facility] Serum or plasma cholesterol in HDL measurement (mass/volume)Ordered By: Violet Dallas on 03-24-2025 Cholesterol in HDL [Mass/Vol] 53 mg/dL >40 [facility] Comment on above: National Cholesterol Education Program (NCEP) guidelines:<40 mg/dL: Low HDL-cholesterol (major risk factor for CHD)>= 60 mg/dL: High HDL-cholesterol (negative risk factor for CHD)HDL-cholesterol is affected by a number of factors, e.g. smoking, exercise, hormones, sex and age. Serum or plasma cholesterol measurement (mass/volume)Ordered By: Violet Dallas on 03-24-2025 Cholesterol [Mass/Vol] 202 mg/dL High <201 [facility] Comment on above: Cholesterol level, D esirable <200 mg/dLBorderline high cholesterol 200-239 mg/dLHigh cholesterol >=240 mg/dLRecommendations of the NCEP Adult Treatment Panel for the following risk-cutoff thresholds for the [place] population. Serum or plasma complement C 4 measurement (mass/volume)Ordered By: Violet Dallas on 03-24-2025 Complement C4 [Mass/Vol] 29 mg/dL 12-38 [facility] Serum or plasma urea nitroge n measurement (mass/volume)Ordered By: Violet Dallas on 03-24-2025 Urea nitrogen [Mass/Vol] 19 mg/dL 4-19 [facility] Serum perinuclear neutrophil cytoplasmic antibody titer by immunofluorescenceOrdered By: Violet Dallas on 03-24-2025 Neutrophil cytoplasmic Ab.perinuclear IF (S) [Titer] <1:20 titer Neg:<1:20 [facility] Comment on above: The presence of posi tive fluorescence exhibiting P-ANCA orC-ANCA patterns alone is not specific for the diagnosis ofWegener's Granulomatosis (WG) or microscopic polyangiitis.Decisions about treatment should not be based solely onANCA IFA results. The International ANCA Group Consensusrecommends follow up testing of positive sera with both NM-3 and MPO-ANCA enzyme immunoassays. As many as 5% serumsamples are positive only by EIA. Ref. AM J Clin Szotns3141;111:507-513. Sodium levelOrdered By: Katrin Dallas on 03-24-2025 Sodium [Moles/Vol] 135 mmol/L 133-145 [facility] Total proteinOrdered By: Ruben Dallas on 03-24-2025 Protein [Mass/Vol] 7.8 g/dL 5.9-8.4 [facility] Triglycerides measurementOrd ered By: Violet Dallas on 03-24-2025 Triglyceride [Mass/Vol] 218 mg/dL High <199 [facility] Comment on above: The drugs N-Acetylcy steine and Metamizole may falsely depress this assay. Normal range: <150 mg/dLBorderline High: 150-199 mg/dLHigh: 200-499 mg/dLVery High: >500 mg/dL Urine albumin measurement [facility] detection limit of 20 mg/L or less (mass/volume)Ordered By: Violet Dallas on 03-24-2025 Albumin DL <= 20 mg/L (U) [Mass/Vol] 277.0 mg/L NO RANGE EST. [facility] Vitamin B12on 03-24-2025 Cobalamin (Vitamin B12) [Mass/Vol] pg/mL High 180-914 [facility] Comment on above: Performed By: #### L 100.0100, L503.0106, L500.4100, L300.3900, L500.4050, L506.1001, L502.0250, L300.4310 ####[facility] [address] [place], [place], [phone] Vitamin D,25 Hydroxyon 03-24 Vitamin D 25-OH 72.1 ng/mL Normal 30-100 [facility] Comment on above: Result Comment: Kira min D Status Deficiency: <20 ng/mL (50nmol/L) Insufficiency: 20-30 ng/mL (50-75 nmol/L) Sufficiency: 30-100 ng/mL (75-250 nmol/L) Toxicity: >100 ng/mL (>250 nmol/L) Performed By: #### L 100.0100, L503.0106, L500.4100, L300.3900, L500.4050, L506.1001, L502.0250, L300.4310 ####[facility] [id number] [place], [address] White blood cell (WBC) count Ordered By: Violet Dallas on 03-24-2025 WBC (Bld) [#/Vol] 7.4 10*3/uL 4.4-11.0 [facility] Internal Medicine Office Vis iton 03-23-2025 Internal Medicine Office Visit [facility] [address] [place] [address] [place] [address] OFFICE VISIT Date of Service: 03/24/25 MR#: [id number] Acct: [id number] Name: LY GAGE Rep #: [id number] : 1960 Provider: Dr. Violet curry MD Age/Sex: 64/M [place] [facility] Status: Signed Intake Vital Signs 08/19/24 08:01 11/12/24 08:07 02/11/25 08:05 03/24/25 08:15 Height 5 ft 10 in 5 ft 10 in 5 ft 10 in 5 ft 10 in Weight: 174 lb 4 oz BMI 25.0 BP 118/80 Blood Pressure Location Rt brachial Position Sitting Respiration 16 Pulse 101 H Pulse Source Monitor Temp 98.6 F Temp Source Temporal Pulse Oximetry (%) 96 Intake Visit Reasons: 6 M FU Chief Complaint: FU + rash 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 Accompanied by: Self Is patient in pain?: No Allergies No Known Allergies Allergy (Verified 03/24/25 08:08) Medications ???Medication ???Instructions ???Recorded ???Confirmed ???Type aspirin 81 mg chewable tablet 81 mg PO DAILY 03/29/16 03/24/25 H istory calcium carbonate 500 mg PO BID 03/29/16 03/24/25 Hi story ergocalciferol (vitamin D2) 1,250 5,000 unit PO QHS 03/29/16 History mcg (50,000 unit) capsule (Vitamin D2) multivitamin (Daily Multiple 1 ea PO QHS 03/29/16 03/24/25 Hist ory tablet) mycophenolate mofetil 500 mg tablet 750 mg PO BID 03/29/16 03/24/25 History omeprazole 20 mg capsule,delayed 20 mg PO DAILY 03/29/16 03/24/25 H istory release rosuvastatin 5 mg tablet (Crestor) 2.5 mg PO QODAY 03/29/16 5 History coenzyme Q10 100 mg capsule 200 mg PO QHS 10/12/18 03/24/25 Hi story (CoQ-10) Cyanocobalamin (Vitamin B-12) 500 mcg PO DAILY 07/11/20 03/24/25 History [Vitamin B-12] ascorbic acid (vitamin C) 500 mg 500 mg PO DAILY@0800 07/11/2003/15 History tablet glucosamine HCl 500 mg tablet 1,000 mg PO DAILY 07/11/20 5 History amlodipine 5 mg tablet 10 mg PO DAILY 07/30/22 03/24/25 H istory lisinopril 10 mg tablet 10 mg PO DAILY 07/30/22 03/24/25 H istory magnesium 200 mg tablet 400 mg PO QHS 07/30/22 03/24/25 Hi story vitamin B complex (B 1 tab PO DAILY 07/30/22 03/24/25 H istory Complex-Vitamin B12 tablet) hydrocortisone 1 % lotion 1 applic topical BID PRN itching 1 10/04/22 03/24/25 Rx (Cortisone (hydrocortisone)) #120 mL tacrolimus 1 mg capsule, 2 mg PO BID 08/04/23 03/24/25 Hist ory immediate-release pregabalin 200 mg capsule 200 mg PO QHS 05/14/24 03/24/25 Hi story ezetimibe 10 mg tablet 10 mg PO QDAY 08/19/24 03/24/25 Hi story glimepiride 4 mg tablet 4 mg PO BID #180 tabs 11/02/2407/09 Rx azithromycin 250 mg tablet See Rx Instructions PO .COMPLEX #6 11/12/24 03/24/25 Rx tabs metformin 1,000 mg tablet 2,000 mg (2 x 1,000 mg) PO QHS 03/24/25 Rx #180 tabs semaglutide 2 mg/dose (8 mg/3 mL) 2 mg (0.75 mL) subcut QWEEK 4 03/24/25 Rx subcutaneous pen injector weeks #3 mL tadalafil 5 mg tablet (Cialis) 5 mg PO QDAY PRN sexual activity 0 03/24/25 03/24/25 Rx #30 tabs Nurse's Note: Here for a follow up and rash behind lower left leg. Does not hurt or itch. Rash for 2 weeks [facility] Medical History (Updated 03/24/25 @ 10:[address] Violet Dallas MD) Trochanteric bursitis, left hip COVID-19 Shingles rash Blood disorder High cholesterol Non-smoker Positive colorectal cancer screening using Cologuard test Heart transplant recipient Hx of heart valve insufficiency Wears glasses History of pneumonia Hx of heart failure Hx of essential hypertension History of heart disease Hx of blood clots History of atrial fibrillation Hx of chronic arthritis Hypertension Surgical History H/O right heart catheterization S/P tonsillectomy S/P skin and subcutaneous tissue surgery Heart transplant status Hx of repair of right rotator cuff H/O repair of left rotator cuff Hx of cardiac catheterization H/O arthroscopic knee surgery Family History Brother Asthma Mother Blood clot in vein Social History household members: spouse current occupational status: employed and retired 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 1. Little interest or pleasure in doing things: not at all 2. Feeling down, depressed, or hopeles (more content not included)... Normal [facility] Internal Medicine Office Vis iton 02-11-2025 Internal Medicine Office Visit [facility] [address] [place], [place] [address] OFFICE VISIT Date of Service: 02/11/25 MR#: [id number] Acct: [id number] Name: LY GAGE Rep #: [id number] : 1960 Provider: SHAYLA Gastelum Age/Sex: 64/M [place] [facility] [place]: Signed Intake Vital Signs 11/12/24 08:07 02/11/25 08:05 Height 5 ft 10 in 5 ft 10 in Weight: 189 lb 179 lb BMI 27.1 25.7 BP 118/78 116/68 Blood Pressure Location Lt brachial Lt brachial Position Sitting Sitting Respiration 16 16 Pulse 121 H 79 Pulse Source Monitor Monitor Temp 96.7 F L 98.4 F Temp Source Temporal Temporal Pulse Oximetry (%) 96 97 Oxygen Delivery Method room air room air Intake Visit Reasons: 3 M FU 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 Accompanied by: Self Is patient in pain?: No Allergies No Known Allergies Allergy (Verified 02/11/25 07:59) Medications ???Medication ???Instructions ???Recorded ???Confirmed ???Type aspirin 81 mg chewable tablet 81 mg PO DAILY 03/29/16 02/11/25 H istory calcium carbonate 500 mg PO BID 03/29/16 02/11/25 Hi story ergocalciferol (vitamin D2) 1,250 5,000 unit PO QHS 03/29/16 History mcg (50,000 unit) capsule (Vitamin D2) multivitamin (Daily Multiple 1 ea PO QHS 03/29/16 02/11/25 Hist ory tablet) mycophenolate mofetil 500 mg tablet 750 mg PO BID 03/29/16 02/11/25 History omeprazole 20 mg capsule,delayed 20 mg PO DAILY 03/29/16 02/11/25 H istory release rosuvastatin 5 mg tablet (Crestor) 2.5 mg PO QODAY 03/29/16 5 History coenzyme Q10 100 mg capsule 200 mg PO QHS 10/12/18 02/11/25 Hi story (CoQ-10) Cyanocobalamin (Vitamin B-12) 500 mcg PO DAILY 07/11/20 02/11/25 History [Vitamin B-12] ascorbic acid (vitamin C) 500 mg 500 mg PO DAILY@0800 07/11/20 05/ History tablet glucosamine HCl 500 mg tablet 1,000 mg PO DAILY 07/11/20 5 History amlodipine 5 mg tablet 10 mg PO DAILY 07/30/22 02/11/25 H istory lisinopril 10 mg tablet 10 mg PO DAILY 07/30/22 02/11/25 H istory magnesium 200 mg tablet 400 mg PO QHS 07/30/22 02/11/25 Hi story vitamin B complex (B 1 tab PO DAILY 07/30/22 02/11/25 H istory Complex-Vitamin B12 tablet) hydrocortisone 1 % lotion 1 applic topical BID PRN itching 1 10/04/22 02/11/25 Rx (Cortisone (hydrocortisone)) #120 mL tacrolimus 1 mg capsule, 2 mg PO BID 08/04/23 02/11/25 Hist ory immediate-release sildenafil 25 mg tablet 25 mg PO DAILY PRN sexual activity 02/12/24 02/11/25 Rx #30 tabs pregabalin 200 mg capsule 200 mg PO QHS 05/14/24 02/11/25 Hi story sildenafil 50 mg tablet 50 mg PO QDAY PRN sexual activity 05/21/24 02/11/25 Rx #20 tabs ezetimibe 10 mg tablet 10 mg PO QDAY 08/19/24 02/11/25 Hi story glimepiride 4 mg tablet 4 mg PO BID #180 tabs 11/02/24 Rx azithromycin 250 mg tablet See Rx Instructions PO .COMPLEX #6 11/12/24 02/11/25 Rx tabs metformin 1,000 mg tablet 2,000 mg (2 x 1,000 mg) PO QHS 02/11/25 Rx #180 tabs semaglutide 2 mg/dose (8 mg/3 mL) 2 mg (0.75 mL) subcut QWEEK 4 02/11/25 Rx subcutaneous pen injector weeks #3 mL Have you fallen in the past year?: No [facility] Medical History Shingles rash Blood disorder High cholesterol Non-smoker Positive colorectal cancer screening using Cologuard test Heart transplant recipient Hx of heart valve insufficiency Wears glasses History of pneumonia Hx of heart failure Hx of essential hypertension History of heart disease Hx of blood clots History of atrial fibrillation Hx of chronic arthritis Hypertension Diabetes Surgical History H/O right heart catheterization S/P tonsillectomy S/P skin and subcutaneous tissue surgery Heart transplant status Hx of repair of right rotator cuff H/O repair of left rotator cuff Hx of cardiac catheterization H/O arthroscopic knee surgery Family History Brother Asthma Mother Blood clot in vein Social History household members: spouse current occupational status: employed and retired 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 Patient has had chronic hip pain for quite so (more content not included)... Normal [facility] Laboratory - Hematology and Cell countsOrdered By: Jesus Barakat on 02-11-2025 HbA1c (Bld) [Mass fraction] 7.7 % High 4.2-6.3 [facility] Internal Medicine Office Vis iton 11-12-2024 Internal Medicine Office Visit [facility] [address] [place] [address] [place] [address] OFFICE VISIT Date of Service: 11/12/24 MR#: [id number] Acct: [id number] Name: LY GAGE Rep #: [id number] : 1960 Provider: SHAYLA Gastelum Age/Sex: 64/M [place] [facility] Status: Signed Intake Vital Signs 05/14/24 07:59 08/19/24 08:01 11/12/24 08:07 Height 5 ft 10 in 5 ft 10 in 5 ft 10 in Weight: 192 lb 189 lb BMI 27.5 27.1 BP 118/78 118/78 Blood Pressure Location Lt brachial Lt brachial Position Sitting Sitting Respiration 16 16 Pulse 50 L 121 H Pulse Source Monitor Monitor Temp 99.1 F 96.7 F L Temp Source Temporal Temporal Pulse Oximetry (%) 95 96 Oxygen Delivery Method room air room air Intake Visit Reasons: 6 M FU 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 Accompanied by: Self Is patient in pain?: No Allergies No Known Allergies Allergy (Verified 11/12/24 08:04) Medications ???Medication ???Instructions ???Recorded ???Confirmed ???Type aspirin 81 mg chewable tablet 81 mg PO DAILY 03/29/16 11/12/24 H istory calcium carbonate 500 mg PO BID 03/29/16 11/12/24 Hi story ergocalciferol (vitamin D2) 1,250 5,000 unit PO QHS 03/29/16 History mcg (50,000 unit) capsule (Vitamin D2) multivitamin (Daily Multiple 1 ea PO QHS 03/29/16 11/12/24 Hist ory tablet) mycophenolate mofetil 500 mg tablet 750 mg PO BID 03/29/16 11/12/24 History omeprazole 20 mg capsule,delayed 20 mg PO DAILY 03/29/16 11/12/24 H istory release rosuvastatin 5 mg tablet (Crestor) 2.5 mg PO QODAY 03/29/16 5 History coenzyme Q10 100 mg capsule 200 mg PO QHS 10/12/18 11/12/24 Hi story (CoQ-10) Cyanocobalamin (Vitamin B-12) 500 mcg PO DAILY 07/11/20 11/12/24 History [Vitamin B-12] ascorbic acid (vitamin C) 500 mg 500 mg PO DAILY@0800 07/11/2010/17 History tablet glucosamine HCl 500 mg tablet 1,000 mg PO DAILY 07/11/20 5 History amlodipine 5 mg tablet 10 mg PO DAILY 07/30/22 11/12/24 H istory lisinopril 10 mg tablet 10 mg PO DAILY 07/30/22 11/12/24 H istory magnesium 200 mg tablet 400 mg PO QHS 07/30/22 11/12/24 Hi story vitamin B complex (B 1 tab PO DAILY 07/30/22 11/12/24 H istory Complex-Vitamin B12 tablet) hydrocortisone 1 % lotion 1 applic topical BID PRN itching 1 10/04/22 11/12/24 Rx (Cortisone (hydrocortisone)) #120 mL tacrolimus 1 mg capsule, 2 mg PO BID 08/04/23 11/12/24 Hist ory immediate-release sildenafil 25 mg tablet 25 mg PO DAILY PRN sexual activity 02/12/24 11/12/24 Rx #30 tabs pregabalin 200 mg capsule 200 mg PO QHS 05/14/24 11/12/24 Hi story metformin 1,000 mg tablet 2,000 mg (2 x 1,000 mg) PO QHS 12/0611/12/24 Rx #180 tabs sildenafil 50 mg tablet 50 mg PO QDAY PRN sexual activity 05/21/24 11/12/24 Rx #20 tabs ezetimibe 10 mg tablet 10 mg PO QDAY 08/19/24 11/12/24 Hi story semaglutide 2 mg/dose (8 mg/3 mL) 2 mg (0.75 mL) subcut QWEEK 4 08/0911/12/24 Rx subcutaneous pen injector weeks #3 mL glimepiride 4 mg tablet 4 mg PO BID #180 tabs 11/02/24 Rx azithromycin 250 mg tablet See Rx Instructions PO .COMPLEX #6 11/12/24 11/12/24 Rx tabs PFSH Medical History Shingles rash Blood disorder High cholesterol Non-smoker Positive colorectal cancer screening using Cologuard test Heart transplant recipient Hx of heart valve insufficiency Wears glasses History of pneumonia Hx of heart failure Hx of essential hypertension History of heart disease Hx of blood clots History of atrial fibrillation Hx of chronic arthritis Hypertension Diabetes Surgical History H/O right heart catheterization S/P tonsillectomy S/P skin and subcutaneous tissue surgery Heart transplant status Hx of repair of right rotator cuff H/O repair of left rotator cuff Hx of cardiac catheterization H/O arthroscopic knee surgery Family History Brother Asthma Mother Blood clot in vein Social History household members: spouse current occupational status: employed and retired 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 PAtient states that his finger sticks the past few months have been around 150. Patient javier (more content not included)... Normal [facility] Laboratory - Hematology and Cell countsOrdered By: Jesus Barakat on 11-12-2024 HbA1c (Bld) [Mass fraction] 8.0 % High 4.2-6.3 [facility] CNPNon 09-10-2024 CNPN Telephone (PMBCL) LY GAGE ([id number]) 1960 M Date Time Provider Department 09/10/24 MARGI RAY PMBCL During your visit today, we recorded the following information about you: Margi Ray RPh 09/10/2024 11:47 AM Signed Patient chart reviewed as part of population health initiative focused on statin use in patients with diabetes (DM) or cardiovascular disease (CVD). It appears patient is not currently connected to care at [facility] for Primary Care, Cardiology, or Endocrinology (primary prescribers for statins). Please assist the patient with contacting their insurance so they may be attributed to the correct health care team. Thank you for your time. Marianne Zavaleta Jennifer L, MA 09/10/2024 2:24 PM Signed POPULATION HEALTH NAVIGATION OUTREACH Action/FYI Medication Adherence Discuss/Due for: Attribution Please assist the patient with contacting their insurance so they may be attributed to the correct health care team. Outcome: 1st attempt - Left Message 2nd attempt - No MyChart Reason for Outreach Med Adherence Patient Contacted: Unable or unnecessary to reach patient: Left message Navigation Signature: Maria G Dumas MA September 10, 2024 2:21 PM Maria G Dumas MA 09/13/2024 2:17 PM Addendum POPULATION HEALTH NAVIGATION OUTREACH Action/FYI Returning patients call as patient left a detail message on my voicemail in regards to initial outreach Medication Adherence Discuss/Due for: Attribution Please assist the patient with contacting their insurance so they may be attributed to the correct health care team. Outcome: 1st attempt - Spoke to patient Patient reports Violet Dallas MD is primary care provider, patient will call [place] to inform health care insurance that he switched from CC to Violet Dallas MD - patient reports switching to new health care insurance in September Reason for Outreach Med Adherence Patient Contacted: Spoke to patient/parent/or legal guardian Patient identified by name and date of : Yes Med Adherence actions taken: Patient Med Adherence responses: Medication prescribed by outside provider/specialty Navigation Signature: Maria G Dumas MA September 13, 2024 1:55 PM Allergies As of Date: 09/10/2024 Noted Allergy Reaction TAPE - XANDER [Other] 09/26/2009 Date Reviewed: 03/26/2016 Reviewed by: Elisa Kern - Fully Assessed Reason for Visit: Patient Update [1234] Prescriptions as of 09/13/2024 - sitaGLIPtin-metFORMIN (JANUMET) 50-1,000 mg per tablet Take 1 tablet by mouth once daily. - MYCOPHENOLATE MOFETIL (CELLCEPT ORAL) Take 750 mg by mouth. - omeprazole (PRILOSEC) 20 mg capsule Take 20 mg by mouth once daily. - Magnesium Hydroxide 400 mg (170 mg) chew Take by mouth. - Cholecalciferol, Vitamin D3, (VITAMIN D-3) 5,000 unit tab Take 5,000 Units by mouth once daily. - PREDNISONE ORAL Take by mouth. - rosuvastatin (CRESTOR) 5 mg ORAL tablet Take 2.5 mg by mouth once daily. - clotrimazole 10 mg MUCOUS MEM mohamud Use 10 mg as instructed five times daily. - GLUCOSAMINE HCL/GLUC SAMUEL (GLUCOSAMINE COMPLEX ORAL) Take by mouth. - lisinopril(ZESTRIL 10 MG TAB) one and half tab daily - tacrolimus anhydrous(PROGRAF 5 MG CAP) Take one(1) tablet daily. - amlodipine besylate(NORVASC 10 MG TAB) Take one(1) tablet daily. - ASPIRIN 81 MG CHEWABLE TAB Take one(1) tablet daily. - CALCIUM 500 MG TAB Take one(1) tablet two(2) times daily. - docusate sodium(COLACE 100 MG CAP) Take one(1) tablet daily. - ferrous sulfate(FERATAB 300 MG (60 MG IRON) TAB) Take one(1) tablet three times daily. - multivitamins(DAILY VITAMIN TAB) Take one(1) tablet daily. - sitagliptin phosphate(JANUVIA 100 MG TAB) Take one(1) tablet daily. Problem List As Of Date 09/10/2024 Noted Resolved Abscess of Anal and Rectal Regions [K61.2] 11/11/2009 Encounter Status:Closed by MARIA G DUMAS on 09/10/24 Normal [facility] HIP, UNI W/ Pelvis 2-3 Views on 08-19-2024 HIP, UNI W/ Pelvis 2-3 Views [facility] Imaging Services [address] [place] [address] [id number] HIP, UNI W/ Pelvis 2-3 Views MR#: [id number] Acct: [id number] Name: LY GAGE Rep #: [id number] : 1960 M 64 From: Albino Zambrano MD PCP: Dr. Violet Dallas MD Status: REG CLI Study: HIP, UNI W/ Pelvis 2-3 Views Date of Exam: 02/05 Exam# [id number] Ordering Dr: Violet Dallas MD [id number] STUDY: X-RAY - PELVIS AND LEFT HIP REASON FOR EXAM: Male, 64 years old. chronic hip pain TECHNIQUE: 3 views of the pelvis and hip. COMPARISON: None. FINDINGS: There is a non-specific bowel gas pattern. Normal visualized soft tissue structures. Mild SI joint arthrosis. Normal bilateral superior and inferior pubic rami. Normal pubic symphysis. Normal bilateral ischial tuberosities. Normal visualized femoral head. Normal acetabulum. There is mild articular joint space narrowing of the hip. Similar arthritic changes noted in the right hip. RAD/HIP, UNI W/ Pelvis 2-3 Views IMPRESSION: Age consistent hip and SI joint arthrosis without fracture or suspicious osseous lesion. Electronically Signed: Lexa Zambrano MD at 15:33 EST Reading Location ID and State: [facility] / [place] , Service support , CC: Dr. Violet Dallas MD Mother Baby Rn: Signed Normal [facility] Internal Medicine Office Vis ito 08-17-2024 Internal Medicine Office Visit [facility] [address] [place] [address] [place] [address] OFFICE VISIT Date of Service: 08/19/24 MR#: [id number] Acct: [id number] Name: LY GAGE Rep #: [id number] : 1960 Provider: Dr. 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 Is patient in pain?: No Allergies No Known Allergies Allergy (Verified 08/19/24 07:57) Medications ???Medication ???Instructions ???Recorded ???Confirmed ???Type aspirin 81 mg chewable tablet 81 mg PO DAILY 07/15/16 12/05/24 History calcium carbonate 500 mg PO BID 03/29/16 08/19/24 History ergocalciferol (vitamin D2) 1,250 5,000 unit PO QHS 03/29/16 08/19/24 History mcg (50,000 unit) capsule (Vitamin D2) multivitamin (Daily Multiple 1 ea PO QHS 03/29/16 08/19/24 History tablet) mycophenolate mofetil 500 mg tablet 750 mg PO BID 03/29/16 08/19/24 History omeprazole 20 mg capsule,delayed 20 mg PO DAILY 03/29/16 08/19/24 History release rosuvastatin 5 mg tablet (Crestor) 2.5 mg PO QODAY 03/29/16 08/19/24 History coenzyme Q10 100 mg capsule 200 mg PO QHS 10/12/18 08/19/24 History (CoQ-10) Cyanocobalamin (Vitamin B-12) 500 mcg PO DAILY 07/11/20 08/19/24 History [Vitamin B-12] ascorbic acid (vitamin C) 500 mg 500 mg PO DAILY@0800 07/11/20 08/19/24 History tablet glucosamine HCl 500 mg tablet 1,000 mg PO DAILY 07/11/20 08/19/24 History amlodipine 5 mg tablet 10 mg PO DAILY 07/30/22 08/19/24 History lisinopril 10 mg tablet 10 mg PO DAILY 07/30/22 08/19/24 History magnesium 200 mg tablet 400 mg PO QHS 07/30/22 08/19/24 History vitamin B complex (B 1 tab PO DAILY 07/30/22 08/19/24 History Complex-Vitamin B12 tablet) hydrocortisone 1 % lotion 1 applic topical BID PRN itching 08/04/23 08/19/24 Rx (Cortisone (hydrocortisone)) #120 mL tacrolimus 1 mg capsule, 2 mg PO BID 08/04/23 08/19/24 History immediate-release sildenafil 25 mg tablet 25 mg PO DAILY PRN sexual activity 02/12/24 08/19/24 Rx #30 tabs pregabalin 200 mg capsule 200 mg PO QHS 05/14/24 08/19/24 History glimepiride 4 mg tablet 4 mg PO BID #180 tabs 05/18/24 08/19/24 Rx metformin 1,000 mg tablet 2,000 mg (2 x 1,000 mg) PO QHS 05/18/24 08/19/24 Rx #180 tabs sildenafil 50 mg tablet 50 mg PO QDAY PRN sexual activity 05/21/24 08/19/24 Rx #20 tabs ezetimibe 10 mg tablet 10 mg PO QDAY 08/19/24 08/19/24 History semaglutide 2 mg/dose (8 mg/3 mL) 2 mg (0.75 mL) subcut QWEEK 4 08/19/24 08/19/24 Rx subcutaneous pen injector weeks #3 mL Nurse's Note: Will need more refills on glimepiride. Has been having L hip pain saw Hardik for this. Ordered Xrays but did not do. [facility] Medical History Shingles rash Blood disorder High cholesterol Non-smoker Positive colorectal cancer screening using Cologuard test Heart transplant recipient Hx of heart valve insufficiency Wears glasses History of pneumonia Hx of heart failure Hx of essential hypertension History of heart disease Hx of blood clots History of atrial fibrillation Hx of chronic arthritis Hypertension Diabetes Surgical History (Updated 08/19/24 @ 07:59 by Taylor Luna MA) H/O right heart catheterization S/P tonsillectomy S/P skin and subcutaneous tissue surgery Heart transplant status Hx of repair of right rotator cuff H/O repair of left rotator cuff Hx of cardiac catheterization H/O arthroscopic knee surgery Family History Brother Asthma Mother Blood clot in vein Social History household members: spouse current occupational status: employed and retired 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 He is up to date on his routine blood work.??? He is up to date on his screening.??? He isn't due for any immunizations.??? He doesn't smoke and does need refills.??? He reports he is eating somewhat healthy and reports (more content not included)... Normal [facility] ALLOSCREEN RECIPIENT (POST T X PRA)on 08-05-2024 AB SPECIFICITY CLASS COMMENT Antibody Specificity testing performed by [facility]. cPRA calculation based on identification of HLA antibody specificities at MFI >2000 and/or presence of CREG antibodies. [facility] Comment on above: Some of the reagents used for testing in the Clinical Histocompatibility Laboratory have yet to be approved by the FDA. Our certification by CLIA to perform high complexity tests allows us to use these reagents in the context of a stringent QC program, and obviates the need for FDA approval.Testing performed by the [facility] Clinical Histocompatibility Laboratory. [facility] number: [id number]. CLIA number: [id number], Director: Phil Knutson, PhD, F([facility]). ANTIBODY SPECIFICITY INTERPRETATION Detected [facility] CLASS I SPECIFICITIES Not detected [facility] CLASS II SPECIFICITIES Not detected [facility] HLA Ab (S) 0 % 0 [facility] INVASIVE CARDIOVASCULAR PROC EDUREon 08-04-2024 INVASIVE CARDIOVASCULAR PROCEDURE Procedural Indication: Ly Gage is a 64 y.o. male with a history of heart transplant who presents for left heart catheterization with invasive coronary angiography. Procedural Notes: Access obtained via right radial artery. Hemostasis with TR compression. Coronary Angiography: Right dominant system. LM: There is no angiographic evidence of coronary artery disease. LAD: There is no angiographic evidence of coronary artery disease. LCx: There is no angiographic evidence coronary artery disease. RCA: There is no angiographic evidence coronary artery disease. [facility] Hemodynamic Summary: LVEDP is 4 mm Hg There is no aortic valve gradient. Summary: No coronary artery disease. Recommendations: 1. Risk factor surveillance and modification. 2. Remainder of post-heart transplant care by heart failure team. Table formatting from the original result was not included. Images from the original result were not included. Ly Gage Invasive Cardiology Cath Procedure Ordering Physician: ABHIJIT GRACE Order #: [id number] Study Date: 08/03/2024 Patient Information Name MRN Description Dario Gage [id number] 64 y.o. male Location Name Address [facility] [address] [facility] [address] Physicians Panel Physicians Referring Physician Case Authorizing Physician Leilani Velásquez MD (Primary) MD Abhijit Hawley MD Frank R Weigel, DO (Fellow) CC Referring Recipient Method Contact Information Violet Dallas MD ? ? Procedures CORONARY ANGIOGRAM WITH LEFT HEART CATH Indications 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 [Z94.1 (ICD-10-CM)] Conclusion Procedural Indication: Ly Gage is a 64 y.o. male with a history of heart transplant who presents for left heart catheterization with invasive coronary angiography. Procedural Notes: Access obtained via right radial artery. Hemostasis with TR compression. Coronary Angiography: Right dominant system. LM: There is no angiographic evidence of coronary artery disease. LAD: There is no angiographic evidence of coronary artery disease. LCx: There is no angiographic evidence coronary artery disease. RCA: There is no angiographic evidence coronary artery disease. [facility] Hemodynamic Summary: LVEDP is 4 mm Hg There is no aortic valve gradient. Summary: No coronary artery disease. Recommendations: 1. Risk factor surveillance and modification. 2. Remainder of post-heart transplant care by heart failure team. Medical History Diagnosis Date Comment Source Arrhythmia A-fib Arthritis Atrial fibrillation CHF (congestive heart failure) Resolved Diabetes mellitus type II Essential hypertension, benign Heart transplant 08/24/2009 CMV D+/R- Hyperlipemia Nonischemic cardiomyopathy Resolved Peripheral neuropathy 09/29/2013 Polyarthralgia Pulmonary embolism 1997 Syncope Ventricular tachycardia (paroxysmal) Resolved. Medical History - Pertinent Negatives Pertinent Negative Date Comment Source Anemia 10/03/2016 CAD (coronary artery disease) 10/03/2016 COPD (chronic obstructive pulmonary disease) 10/03/2016 GERD (gastroesophageal reflux disease) 10/03/2016 Liver disease 10/03/2016 UT (myocardial infarction) 10/03/2016 Pacemaker 10/03/2016 Renal disease 10/03/2016 Stroke 10/03/2016 Vascular disease 10/03/2016 Procedure The risks and alternatives of the procedure and sedation were explained. Informed consent was obtained. The patient was brought to the analytical laboratory technician and placed on the table. The planned puncture sites were prepped and draped in the usual sterile fashion. Coronary Findings Diagnostic Dominance: Right Left Anterior Descending First Septal Branch The vessel is small. Second Septal Branch The vessel is small. Left Circumflex The vessel is small. Right Coronary Artery Acute Marginal Branch The vessel is small. Right Ventricular Branch The vessel is small. Intervention No interventions have been documented. Fluoro Dose Fluoro Dose: 12.8 Gy-cm^2 Complications Complications documented before study signed (08/04/2024 9:25 AM) No complications were associated with this study. Documented by Golden Rodriguez, - 08/03/2024 2:16 PM Cardiac Intermediate Card Tender Attending Physician Statement and Signature I have personally performed and/or personally supervised and was present for this entire procedure, including the review and interpretation of all images and physiologic tracings acquired during the course of this study. Signed at 1453 EST Phase: Baseline Data Systolic (mmHg) Diastolic (mmHg) Mean (mmHg) dP/dt (mmHg/sec) A Wave (mmHg) V Wave (mmHg) AO Pressures 114 75 88 LV Pressures 137 4 Coronary Findings Diagnostic Dominance: Right Left Anterior Descending First Septal Branch The vessel is small. Second Septal Bra (more content not included)... Normal [facility] ALLOSCREEN RECIPIENT (POST T X PRA)on 08-03-2024 AB SPECIFICITY CLASS COMMENT Antibody Specificity testing performed by [facility]. cPRA calculation based on identification of HLA antibody specificities at MFI >2000 and/or presence of CREG antibodies. Normal [facility] Comment on above: Result Comment: Some of the reagents used for testing in the Clinical Histocompatibility Laboratory have yet to be approved by the FDA. Our certification by CLIA to perform high complexity tests allows us to use these reagents in the context of a stringent QC program, and obviates the need for FDA approval.Testing performed by the [facility] Clinical Histocompatibility Laboratory. [facility] number: [id number]. CLIA number: [id number], Director: Phil Knutson, PhD, F([facility]). Performed By: #### A LLOR #### [facility] (DEFAULT) [address] [place] [address] ANTIBODY SPECIFICITY INTERPRETATION Detected Normal [facility] Comment on above: Performed By: #### A LLOR #### [facility] (DEFAULT) [address] [place] [id number] CLASS I SPECIFICITIES Not detected Normal [facility] Comment on above: Performed By: #### A LLOR #### [facility] (DEFAULT) [address] [place] [address] CLASS II SPECIFICITIES Not detected Normal [facility] Comment on above: Performed By: #### A LLOR #### [facility] (DEFAULT) [address] [place] [address] cPRA 0 % Normal 0 [facility] Comment on above: Performed By: #### A LLOR #### [facility] (DEFAULT) [address] [place] [address] CBC,PLATELETSon 08-03-2024 Erythrocyte distribution width (RBC) [Ratio] 12.7 % 10.9 - 14.3 % [facility] Hematocrit (Bld) [Volume fraction] 43.9 % 39.6 - 48.8 % [facility] Hemoglobin (Bld) [Mass/Vol] 14.4 g/dL 13.4 - 16.8 g/dL [facility] Interpretation and review of laboratory results Normal [facility] MCH (RBC) [Entitic mass] 29.0 pg 26. 1 - 33.3 pg [facility] MCHC (RBC) [Mass/Vol] 32.8 g/dL 31.9 - 36.5 g/dL [facility] MCV (RBC) [Entitic vol] 88.3 fL 79.0 - 94.5 fL [facility] Platelet mean volume (Bld) [Entitic vol] 9.2 fL 8.7 - 12.3 fL [facility] Platelets (Bld) [#/Vol] 307 10*3/uL 146 - 337 K/uL [facility] RBC (Bld) [#/Vol] 4.97 10*6/uL [facility] WBC (Bld) [#/Vol] 7.19 10*3/uL 3.73 - 10.10 K/uL [facility] Hematocrit (Bld) [Volume fraction] 43.9 % Normal 39.6-48.8 [facility] Comment on above: Performed By: #### H EMOGC #### [facility] (DEFAULT) [address] [place] [address] Hemoglobin (Bld) [Mass/Vol] 14.4 g/dL Normal 13.4-16. 8 [facility] Comment on above: Performed By: #### H EMOGC #### [facility] (DEFAULT) [address] [address] MCV (RBC) [Entitic vol] 88.3 fL Normal 79.0-94.5 [facility] Comment on above: Performed By: #### H EMOGC #### [facility] (DEFAULT) [address] [place] [address] Mean Cell Hgb 29.0 pg Normal 26.1-33.3 [facility] Comment on above: Performed By: #### H EMOGC #### [facility] (DEFAULT) [address] [address] Mean Cell Hgb Conc 32.8 g/dL Normal 31.9-36.5 [facility] Comment on above: Performed By: #### H EMOGC #### [facility] (DEFAULT) [address] [place] [address] Platelet mean volume (Bld) [Entitic vol] 9.2 fL Normal 8.7-12.3 [facility] Comment on above: Performed By: #### H EMOGC #### [facility] (DEFAULT) [address] [address] Platelets (Bld) [#/Vol] 307 10*3/uL Normal 146-337 [facility] Comment on above: Performed By: #### H EMOGC #### [facility] (DEFAULT) [address] [place] [address] RBC (Bld) [#/Vol] 4.97 10*6/uL Normal 4.38-5.83 [facility] Comment on above: Performed By: #### H [facility] #### [facility] (DEFAULT) [address] [place] [address] RBC Distribution 12.7 % Normal 10.9-14.3 [facility] Comment on above: Performed By: #### H [facility] #### [facility] (DEFAULT) [address] [place] [address] WBC (Bld) [#/Vol] 7.19 10*3/uL Normal 3.73-10.10 [facility] Comment on above: Performed By: #### H [facility] #### [facility] (DEFAULT) [address] [place] [address] CHEM 6 (LYTES, BUN CREA)on 10-03-2023 Anion gap [Moles/Vol] 15 mmol/L 7 - 17 mmol/L [facility] Chloride [Moles/Vol] 100 mmol/L 98 - 10 8 mmol/L [facility] CO2 [Moles/Vol] 28 mmol/L 21 - 31 mmol/L [facility] Creatinine [Mass/Vol] 0.90 mg/dL 0.70 - 1.30 mg/dL [facility] eGFR, CKD-EPI, Male - PINF [facility] Comment on above: Reported eGFR is bas ed on the CKD-EPI 2020 equation using creatinine, age, and sex. Potassium [Moles/Vol] 5.0 mmol/L 3.5 - 5.0 mmol/L [facility] Sodium [Moles/Vol] 138 mmol/L 135 - 145 mmol/L [facility] Urea nitrogen [Mass/Vol] 26 mg/dL High 7 - 25 mg/dL [facility] Urea nitrogen/Creatinine [Mass ratio] 29 mg/mg [facility] Anion gap [Moles/Vol] 15 mmol/L Normal 7-17 [facility] Comment on above: Performed By: #### C HM6, HFP, HDLT, MGO #### [facility] (DEFAULT) [address] [place] [address] Chloride [Moles/Vol] 100 mmol/L Normal 98-108 [facility] Comment on above: Performed By: #### C HM6, HFP, HDLT, MGO #### [facility] (DEFAULT) [address] [place] [address] CO2 [Moles/Vol] 28 mmol/L Normal 21-31 [facility] Comment on above: Performed By: #### C HM6, HFP, HDLT, MGO #### [facility] (DEFAULT) [address] [place] [address] Creatinine [Mass/Vol] 0.90 mg/dL Normal 0.70-1.30 [facility] Comment on above: Performed By: #### C HM6, HFP, HDLT, MGO #### [facility] (DEFAULT) [address] [place] [address] eGFR, CKD-EPI, Male > Normal >=60 [facility] Comment on above: Result Comment: Repo rted eGFR is based on the CKD-EPI 2020 equation using creatinine, age, and sex. Performed By: #### C HM6, HFP, HDLT, MGO #### [facility] (DEFAULT) [address] [place] [address] Potassium [Moles/Vol] 5.0 mmol/L Normal 3.5-5.0 [facility] Comment on above: Performed By: #### C HM6, HFP, HDLT, MGO #### [facility] (DEFAULT) [address] [place] [address] Sodium [Moles/Vol] 138 mmol/L Normal 135-145 [facility] Comment on above: Performed By: #### C HM6, HFP, HDLT, MGO #### [facility] (DEFAULT) [address] [place] [address] Urea nitrogen [Mass/Vol] 26 mg/dL High 04-08 [facility] Comment on above: Performed By: #### C HM6, HFP, HDLT, MGO #### [facility] (DEFAULT) [address] [place] [address] Urea nitrogen/Creatinine [Mass ratio] 29 mg/mg Normal [facility] Comment on above: Performed By: #### C HM6, HFP, HDLT, MGO #### [facility] (DEFAULT) [address] [place] [address] Cardiac catheterization stud yon 08-03-2024 [facility] Radiology Study observation (narrative) [facility] Cardiac echo study Procedure Ordered By: Jose Alfredo Henderson on 08-03-2024 Ao ASC index 1.35 cm/m2 [facility] Work Phone: Ao peak poil 0.91 m/s [facility] Work Phone: Ao SOV index 1.54 cm/m2 [facility] Work Phone: Ao STJ index 1.48 cm/m2 [facility] Work Phone: Ao VTI 15.74 cm [facility] Work Phone: Ascending aorta 2.73 [facility] Work [facility]: AV LVOT peak gradient 3 mmHg [facility] Work Phone: AV mean gradient 2 mmHg [facility] Work Phone: AV peak gradient 3 mmHG [facility] Work Phone: AV valve area 4.57 cm2 [facility]: [facility]ocity [facility].91 [facility]: LYNN (continuity Vmax) 4.16 cm2 [facility] Work Phone: LYNN (continuity VTI) 4.57 cm2 [facility] Work Phone: LYNN index (continuity Vmax) 2.06 m/s [facility] Work Phone: LYNN index (continuity VTI) 2.26 cm2/m2 [facility] Work Phone: Avg e' pk poli 0.13 m/s [facility] Work Phone: Avg E/e' ratio 5.03 [facility] Work Phone: Body surface area Derived from formula 2.02 m2 [facility] Work Phone: BP EF 56 % [facility] Work Phone: DI (Vmax) 0.91 [facility] Work Phone: DI (VTI) 1.00 m/2 [facility] Work Phone: E wave decelartion time 93.00 msec O [facility] Work Phone: e' lateral pk poli 0.1650 m/s [facility] Work Phone: e' lateral pk poli 0.17 m/s [facility] Work Phone: e' septal pk poli 0.0935 m/s [facility] Work Phone: e' septal pk poli 0.09 m/s [facility] Work Phone: E/A ratio 1.36 [facility] Work Phone: E/e' lateral ratio 3.64 [facility] Work Phone: [phone] E/e' septal ratio 6.42 [facility] Work Phone: [phone] EF SP 2CH 55 [facility] Work Phone: [phone] EF SP 4CH 61 [facility] Work Phone: [phone] EST RAP 5.00 mmHg [facility] Work Phone: [phone] EST RVSP 20 mmHg [facility] Work Phone: [phone] FS 35 % [facility] Work Phone: [phone] IVC ostium 2.00 cm [facility] Work Phone: IVS 0.85 cm [facility] Work Phone: [phone] LV EDV BP 85 mL [facility] Work Phone: [phone] LV EDV SP 2CH 71 mL [facility] Work Phone: [phone] LV EDV SP 4CH 99 mL [facility] Work Phone: LV ESV BP 37 mL [facility] Work Phone: [phone] LV ESV SP 2CH 32 mL [facility] Work Phone: [phone] LV ESV SP 4CH 39 mL [facility] Work Phone: LV mass 104.75 g [facility] Work Phone: LV Mass Index 51.9 g/m2 [facility] Work Phone: LV RWT 0.42 [facility] Work Phone: LV stroke volume BP (ml) 48 mL [facility] Work Phone: LV stroke volume index BP 23.76 mL/m2 [facility] Work Phone: LVIDD 4.08 cm [facility] Work Phone: LVIDS 2.67 cm [facility] Work Phone: LVOT area 4.56 cm2 [facility] Work Phone: LVOT diameter 2.41 cm [facility] Work Phone: LVOT peak poli 0.83 m/s [facility] Work Phone: LVOT peak VTI 15.78 cm [facility] Work Phone: LVOT stroke volume 72 [facility]3 [facility] Work [facility]: LVOT stroke volume index 35.62 ml/m2 [facility] Work Phone: MV pk A poli 0.44 m/s [facility] Work Phone: MV pk E poli 0.60 m/s [facility] Work Phone: [facility] AV VTI RATIO PRE STRESS 1.00 [facility] Work Phone: [facility] ECHO LV BIPLANE SYSTOLIC VOLUME INDEX 18.32 mL/m2 [facility] Work Phone: [facility] ECHO LV BP DIASTOLIC VOLUME INDEX 42.08 mL/m2 [facility] Work Phone: [facility] RVOT VTI RATIO 0.49 [facility] Work Phone: PV mean gradient 1 mmHg [facility] Work Phone: PV peak gradient 3 mmHg [facility] Work Phone: PV PK POLI 0.80 m/s [facility] Work Phone: [phone] PV VTI 12.62 cm [facility] Work Phone: PW 0.85 cm [facility] Work Phone: RV basal diam 4.47 cm [facility] Work Phone: [phone] RV long diam 8.32 cm [facility] Work Phone: [phone] RV mid diam 3.00 cm [facility] Work Phone: RV S' 10.91 cm/s [facility] Work Phone: RVOT peak gradient 1 mmHg [facility] Work Phone: RVOT peak poli 0.46 m/s [facility] Work Phone: RVOT peak VTI 6.18 cm [facility] Work Phone: Sinus 3.11 cm [facility] Work Phone: STJ 2.99 cm [facility] Work Phone: Stroke Volume 72 cm/mL [facility] Work Phone: Stroke volume index 36 [facility] Work Phone: TAPSE 1.78 cm [facility] Work Phone: TR pk grad 15 mmHg [facility] Work Phone: TR pk poli 1.96 m/s [facility] Work Phone: [facility] Work Phone: Cardiac echo study Procedure on 08-03-2024 S/P OHT 08/24/2009. Fair quality. Left Ventricle: Chamber size is normal. Normal wall thickness. Normal global systolic function. Regional wall motion is normal. Abnormal septal motion consistent with post-operative state. The ejection fraction is 56%. Ejection fraction by modified Costello's rule is normal (55 - 60%). Diastolic function is normal. Right ventricle not well visualized. Chamber size is normal. Systolic function is grossly normal. Trivial to mild TR. Left Ventricle Chamber size is normal. Normal wall thickness. Normal global systolic function. Regional wall motion is normal. Abnormal septal motion consistent with post-operative state. The ejection fraction is 56%. Ejection fraction by modified Costello's rule is normal (55 - 60%). Diastolic function is normal. Right Ventricle Right ventricle not well visualized. Chamber size is normal. Systolic function is normal. Estimated right ventricular systolic pressure is 20 mmHg. Left Atrium Chamber size is normal. Right Atrium Chamber size is normal. IVC/SVC The inferior vena cava is normal in size. Mitral Valve Normal appearing leaflets. Leaflet mobility is normal. No regurgitation. No valve stenosis. Tricuspid Valve Normal leaflets. Leaflet mobility is normal. Mild regurgitation. No stenosis. Poor tricuspid regurgitation jet may not accurately reflect right ventricular systolic pressure. Estimated right ventricular systolic pressure is 20 mmHg. Estimated right atrial pressure is 5.00 mmHg. Aortic Valve Trileaflet valve. Leaflet mobility is normal. No regurgitation. No stenosis. Pulmonic Valve Normal structure. Trace regurgitation. No stenosis. Pericardium No pericardial effusion. Septum The atrial septum is normal. Pulmonary Artery The pulmonary artery is normal. Aorta No dilation to extent seen. SOV: 3.11 cm. STJ: 2.99 cm. Ascendin.73 cm. Study Details A complete echocardiography study (including color flow Doppler, spectral Doppler and M-mode) was performed. Overall study quality was fair. Imaging system used: Clothia. Indications Indications for study: post heart tx. [facility] Radiology Study observation (narrative) [facility] ECHOCARDIOGRAMon 08-03-2024 Echocardiography ? S/P OHT 08/24/2009 . ? Fair quality. ? Left Ventricle: Chamber size is normal. Normal wall thickness. Normal global systolic function. Regional wall motion is normal. Abnormal septal motion consistent with post-operative state. The ejection fraction is 56%. Ejection fraction by modified Costello's rule is normal (55 - 60%). Diastolic function is normal. ? Right ventricle not well visualized. Chamber size is normal. Systolic function is grossly normal. ? Trivial to mild TR. Table formatting from the original result was not included. Images from the original result were not included. Facility [facility] Patient Information Patient Name Ly Gage Legal Sex Male Indication for Exam Priority: Routine Dx: 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 [Z94.1 (ICD-10-CM)] Comments: S/p heart transplant Interpretation Summary Result History is available. ? S/P OHT 08/24/2009. ? Fair quality. ? Left Ventricle: Chamber size is normal. Normal wall thickness. Normal global systolic function. Regional wall motion is normal. Abnormal septal motion consistent with post-operative state. The ejection fraction is 56%. Ejection fraction by modified Costello's rule is normal (55 - 60%). Diastolic function is normal. ? Right ventricle not well visualized. Chamber size is normal. Systolic function is grossly normal. ? Trivial to mild TR. Findings Left Ventricle Chamber size is normal. Normal wall thickness. Normal global systolic function. Regional wall motion is normal. Abnormal septal motion consistent with post-operative state. The ejection fraction is 56%. Ejection fraction by modified Costello's rule is normal (55 - 60%). Diastolic function is normal. Right Ventricle Right ventricle not well visualized. Chamber size is normal. Systolic function is normal. Estimated right ventricular systolic pressure is 20 mmHg. Left Atrium Chamber size is normal. Right Atrium Chamber size is normal. Septum The atrial septum is normal. Mitral Valve Normal appearing leaflets. Leaflet mobility is normal. No regurgitation. No valve stenosis. Aortic Valve Trileaflet valve. Leaflet mobility is normal. No regurgitation. No stenosis. Tricuspid Valve Normal leaflets. Leaflet mobility is normal. Mild regurgitation. No stenosis. Poor tricuspid regurgitation jet may not accurately reflect right ventricular systolic pressure. Estimated right ventricular systolic pressure is 20 mmHg. Estimated right atrial pressure is 5.00 mmHg. Pulmonic Valve Normal structure. Trace regurgitation. No stenosis. Aorta No dilation to extent seen. SOV: 3.11 cm. STJ: 2.99 cm. Ascendin.73 cm. Pericardium No pericardial effusion. IVC/SVC The inferior vena cava is normal in size. Pulmonary Artery The pulmonary artery is normal. Reading Providers Reading Role Read Date Jose Alfredo Henderson MD Echo [place] 08/03/2024 Left Heart Measurements LV - Systole LVIDD 4.08 cm IVS 0.85 cm LVIDS 2.67 cm PW 0.85 cm LV RWT 0.42 LV Mass Index 51.9 g/m2 LV EDV BP 85 mL LV ESV BP 37 mL BP EF 56 % LV stroke volume BP (ml) 48 mL LV stroke volume index BP 23.76 mL/m2 LV - Diastole MV pk E poli 0.6 m/s MV pk A poli 0.44 m/s E/A ratio 1.36 e' septal pk poli 0.09 m/s e' lateral pk poli 0.17 m/s Avg e' pk poli 0.13 m/s E/e' septal ratio 6.42 E/e' lateral ratio 3.64 Avg E/e' ratio 5.03 LV - HCM AV LVOT peak gradient 3 mmHg Right Heart Measurements RV - 2D RV basal diam 4.47 cm RV mid diam 3 cm RV long diam 8.32 cm RV - Doppler TAPSE 1.78 cm RV S' 10.91 cm/s Right Atrium EST RAP 5 mmHg Great Vessels Aortic Root - End Diastolic Sinus 3.11 cm STJ 2.99 cm Ascending aorta 2.73 cm Inferior Vena Cava IVC ostium 2 cm Doppler Measurements - Aortic Valve Stenosis LVOT diameter 2.41 cm LVOT area 4.56 cm2 LVOT peak poli 0.83 m/s LVOT peak VTI 15.78 cm Stroke Volume 72 cm/mL Stroke volume index 36 Ao peak poli 0.91 m/s Ao VTI 15.74 cm AV peak gradient 3 mmHG AV mean gradient 2 mmHg DI (VTI) 1 m/2 DI (Vmax) 0.91 LYNN (continuity Vmax) 4.16 cm2 LYNN index (continuity Vmax) 2.06 m/s LYNN (continuity VTI) 4.57 cm2 LYNN index (continuity VTI) 2.26 cm2/m2 LVOT stroke volume 72 cm3 LVOT stroke volume index 35.62 ml/m2 Doppler Measurements - Mitral Valve Stenosis MV pk E poli 0.6 m/s MV pk A poli 0.44 m/s E/A ratio 1.36 PISA-MS MV pk E poli 0.6 m/s Doppler Measurements - Tricuspid Valve Stenosis IVC ostium 2 cm Regurgitation TR pk poli 1.96 m/s TR pk grad 15 mmHg EST RAP 5 mmHg EST RVSP 20 mmHg Doppler Measurements - Pulmonic Valve Stenosis PV PK POLI 0.8 m/s PV VTI 12.62 cm PV peak g (more content not included)... Normal [facility] HEPATIC FUNCTION PANELon Albumin [Mass/Vol] 4.9 g/dL 3.5 - 5.0 g/dL [facility] ALP [Catalytic activity/Vol] 70 U/L 32 - 126 U/L [facility] ALT [Catalytic activity/Vol] 18 U/L 10 - 52 U/L [facility] AST [Catalytic activity/Vol] 17 U/L 10 - 39 U/L [facility] Bilirubin [Mass/Vol] 0.4 mg/[facility] Bilirubin.direct [Mass/Vol] 0.1 mg/dL NINF - 0.3 mg/dL [facility] Protein [Mass/Vol] 8.3 g/dL 6.4 - 8.3 g/dL [facility] Albumin [Mass/Vol] 4.9 g/dL Normal 3.5-5.0 [facility] Comment on above: Performed By: #### C HM6, HFP, HDLT, MGO #### [facility] (DEFAULT) [address] [place] [address] ALP [Catalytic activity/Vol] 70 U/L Normal 32-126 [facility] Comment on above: Performed By: #### C HM6, HFP, HDLT, MGO #### [facility] (DEFAULT) [address] [place] [address] ALT [Catalytic activity/Vol] 18 U/L Normal 10-52 [facility] Comment on above: Performed By: #### C HM6, HFP, HDLT, MGO #### [facility] (DEFAULT) [address] [place] [address] AST [Catalytic activity/Vol] 17 U/L Normal 10-39 [facility] Comment on above: Performed By: #### C HM6, HFP, HDLT, MGO #### [facility] (DEFAULT) [address] [place] [address] Bilirubin [Mass/Vol] 0.4 mg/dL Normal <1.5 [facility] Comment on above: Performed By: #### C HM6, HFP, HDLT, MGO #### [facility] (DEFAULT) [address] [place] [address] Bilirubin.indirect [Mass/Vol] 0.1 mg/dL Normal <0.3 [facility] Comment on above: Performed By: #### C HM6, HFP, HDLT, MGO #### [facility] (DEFAULT) [address] [place] [address] Protein [Mass/Vol] 8.3 g/dL Normal 6.4-8.3 [facility] Comment on above: Performed By: #### C HM6, HFP, HDLT, MGO #### [facility] (DEFAULT) [address] [place] [address] LIPID PANEL W CALCULATED LDL on 08-03-2024 Cholesterol [Mass/Vol] 207 mg/dL High NINF - 200 mg/dL [facility] Comment on above: [<200 mg/dL: Desirab le] [200-239 mg/dL: Borderline High] [>239 mg/dL: High] Cholesterol in HDL [Mass/Vol] 51 mg/dL 40 - PINF mg/dL [facility] Comment on above: [<40 mg/dL: Low (Hig h Risk)] [>59 mg/dL: High (Low Risk)] Cholesterol in LDL [Mass/Vol] 124 mg/dL High 0 - 99 mg/dL [facility] Comment on above: [<100 mg/dL: Optimal ] [100-129 mg/dL: Near Optimal] [130-159 mg/dL: Borderline High] [160-189 mg/dL: High] [>189 mg/dL: Very High] Cholesterol non HDL [Mass/Vol] 156 mg/dL High NINF - 130 mg/dL [facility] Cholesterol.total/Cholester ol in HDL [Mass ratio] 4.1 {ratio} NINF - 4.5 [facility] Triglyceride [Mass/Vol] 162 mg/dL High NINF - 150 mg/dL [facility] Comment on above: [<150 mg/dL: Desirab le] [150-199 mg/dL: Borderline] [200-499 mg/dL: High] [>500 mg/dL: Very High] Calculated LDL Cholesterol 124 mg/dL High 0-99 [facility] Comment on above: Result Comment: [<10 0 mg/dL: Optimal] [100-129 mg/dL: Near Optimal] [130-159 mg/dL: Borderline High] [160-189 mg/dL: High] [>189 mg/dL: Very High] Performed By: #### C HM6, HFP, HDLT, MGO #### [facility] (DEFAULT) [address] [place] [address] Cholesterol [Mass/Vol] 207 mg/dL High <200 [facility] Comment on above: Result Comment: [<20 0 mg/dL: Desirable] [200-239 mg/dL: Borderline High] [>239 mg/dL: High] Performed By: #### C HM6, HFP, HDLT, MGO #### [facility] (DEFAULT) [address] [place] [address] Cholesterol in HDL [Mass/Vol] 51 mg/dL Normal >=40 [facility] Comment on above: Result Comment: [<40 mg/dL: Low (High Risk)] [>59 mg/dL: High (Low Risk)] Performed By: #### C HM6, HFP, HDLT, MGO #### [facility] (DEFAULT) [address] [place] [address] Non HDL Cholesterol 156 mg/dL High <130 [facility] Comment on above: Performed By: #### C HM6, HFP, HDLT, MGO #### [facility] (DEFAULT) [address] [place] [address] Total Cholesterol/HDL Ratio 4.1 Normal <4.5 [facility] Comment on above: Performed By: #### C HM6, HFP, HDLT, MGO #### [facility] (DEFAULT) [address] [place] [address] Triglyceride [Mass/Vol] 162 mg/dL High <[address] [facility] Comment on above: Result Comment: [<15 0 mg/dL: Desirable] [150-199 mg/dL: Borderline] [200-499 mg/dL: High] [>500 mg/dL: Very High] Performed By: #### C HM6, HFP, HDLT, MGO #### [facility] (DEFAULT) [address] [place] [address] MAGNESIUMon 08-03-2024 Magnesium [Mass/Vol] 1.7 mg/dL 1.6 - 2 .6 mg/dL [facility] Magnesium [Mass/Vol] 1.7 mg/dL Normal 1.6-2.6 [facility] Comment on above: Performed By: #### C HM6, HFP, HDLT, MGO #### [facility] (DEFAULT) [address] [place] [address] No Panel Informationon 08-03 Interpretation and review of laboratory results Abnormal [facility] Interpretation and review of laboratory results Normal [facility] TACROLIMUS LEVEL, TROUGH (NM E DRUG LEVEL)on 08-03-2024 Tacrolimus (Bld) [Mass/Vol] 6.1 ng/mL Bone Marrow Transplant : 5.0-15.0 Kidney/Traylor creatic Transplant : 0 to 3 months: 8.0-10.0, 3 to 12 months: 6.0-8.0, >12 months: 4.0-6.0 [facility] Method performed is a chemiluminescent microparticle immunoasssay on the [employer] i2000. The range is based on experience at [facility] and users should be aware that target concentrations vary widely depending on concomitant therapy, time post-transplant, and desired degree of immunosuppression. [facility] Tacrolimus, Trough 6.1 ng/mL Normal Bone Marrow Transplant : 5.0-15.0 Kidney/Traylor creatic Transplant : 0 to 3 months: 8.0-10.0, 3 to 12 months: 6.0-8.0, >12 months: 4.0-6.0 [facility] Comment on above: Order Comment: Metho d performed is a chemiluminescent microparticle immunoasssay on the [employer] i2000. The range is based on experience at [facility] and users should be aware that target concentrations vary widely depending on concomitant therapy, time post-transplant, and desired degree of immunosuppression. Performed By: #### T ACRO #### [facility] (DEFAULT) [address] [place] [address] Hemoglobin A1con 07-02-2024 HbA1c (Bld) [Mass fraction] 8.5 % High 3.8-5.6 [facility] Comment on above: Result Comment: Norm al < 5.7 % Prediabetic 5.7 - 6.4 % Diabetic >or= 6.5 % Please note range changes. Performed By: #### L 502.0250, L501.9910, L501.9985 #### [facility] [address] [place], [address] Microalb:Creat Ratio,Random URon 07-02-2024 Creatinine [Mass/Vol] 135.00 mg/dL Normal NO RAN GE EST. [facility] Comment on above: Performed By: #### L 502.0250, L501.9910, L501.9985 ####[facility] [address] [place], [address] MALB:CRE 177.0 mg/g CRE High <30 mg/g CRE [facility] Comment on above: Performed By: #### L 502.0250, L501.9910, L501.9985 ####[facility] [address] [place], [address] MICROALBUMIN,UR 239.0 mg/L Normal NO RANGE EST. [facility] Comment on above: Performed By: #### L 502.0250, L501.9910, L501.9985 ####[facility] [address] [place], [address] PSA,Total - Annual Screenon 07-02-2024 PSA,TOT SCREEN 1.08 ng/mL Normal 0.00-4.00 [facility] Comment on above: Result Comment: This test was performed using the TPSA assay method for the [employer] chemistry system. Values obtained with different assay methods cannot be used interchangably. When changing PSA assays in the course of monitoring a patient, additional sequential testing should be carried out to confirm baseline values. Performed By: #### L 502.0250, L501.9910, L501.9985 #### [facility] [address] [place], [address] Urgent Care Visit Reporton 0 05-28-2024 Urgent Care Visit Report [facility] [address], [address] [place], [place] [address] OFFICE VISIT Date of Service: 05/28/24 MR#: [id number] Acct: [id number] Name: LY GAGE ULYSSES Rep #: [id number] : 1960 Provider: SHAYLA Wagner Age/Sex: 64/M [place] [facility] Status: Signed Intake Vital Signs 05/14/24 07:59 05/28/24 11:30 Height 5 ft 10 in Weight: 187 lb 2 oz BMI 26.8 BP 130/60 H 134/60 H Blood Pressure Location Lt brachial Lt brachial Position Sitting Sitting Respiration 16 16 Pulse 108 H 128 H Pulse Source Monitor NIBP Temp 97.1 F L 98.8 F Temp Source Temporal Temporal Pulse Oximetry (%) 99 97 Oxygen Delivery Method room air room air Intake Visit Reasons: SINUS CONGESTION Chief Complaint: congest, drainage, facial pressure 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 concern for sinus infection. [facility] Medical History Shingles rash Blood disorder High cholesterol Non-smoker Positive colorectal cancer screening using Cologuard test Heart transplant recipient Hx of heart valve insufficiency Wears glasses History of pneumonia Hx of heart failure Hx of essential hypertension History of heart disease Hx of blood clots History of atrial fibrillation Hx of chronic arthritis Hypertension Diabetes Surgical History S/P tonsillectomy S/P skin and subcutaneous tissue surgery Heart transplant status Hx of repair of right rotator cuff H/O repair of left rotator cuff Hx of cardiac catheterization H/O arthroscopic knee surgery Family History Brother Asthma Mother Blood clot in vein Social History household members: spouse current occupational status: employed and retired 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 Patient states he gets yearly sinus infections with similar symptoms. He denies fever, chills, sweats. No hemoptysis, shortness of breath or difficulty breathing. No loss of taste or smell. No other associated symptoms or alleviating/aggravati ng factors. ROS Const Constitutional: Positive for other (ROS negative x6 except what was placed in HPI) Exam Const General: cooperative and well developed HENNC Head: normal to inspection and atraumatic Ears: hearing grossly normal bilaterally Nose: nasal discharge clear Face and sinus: normal facial exam Mouth: oral mucosae normal Throat: abnormal tonsil bilaterally hypertrophy 1+ Resp Effort Inspection: normal respiratory effort and no audible wheezes Auscultation: Bilateral: Clear to Auscultation Cardio Palpation: normal PMI Rate: regular rate Rhythm: regular rhythm Neuro General: patient alert and CN's II-XI intact bilaterally Psych Appearance: grossly normal Mental Status: mental status grossly normal Results POC SARS AG POC SARS AG Positive Last Edit by Ave Olson on 05/28/24 11:33 Coding Level of Care Code Off vis,new,level 3 Diagnoses COVID-19 U07.1 Assessment and Plan Assessment and Plan (1) COVID-19: Status: Acute Plan: Patient tested positive for COVID in the office today. Decadron as prescribed today. Encouraged to get plenty of rest, drink lots of clear liquids, and use Tylenol or Ibuprofen (unless contraindicated) for fever and comfort. Patient also educated on other symptomatic management techniques. To be seen in 7-10 days if no improvement; sooner if worsening of symptoms. Patient advised of potential red flags and when appropriate to report to the ED. Patient verbalized understanding and agreement with all the above. Orders: Orders POC Rapid SARS Antigen Today Medications: New dexamethasone 6 mg PO DAILY 5 tabs 0RF Clinical Quality Measures Falls Risk Screening/Assistive Devices Have you fallen in the past year?: No 05/28/24 1147 Date Aydin Garcia Signature: Date (if applicable (more content not included)... Normal [facility] Internal Medicine Office Vis yong 05-14-2024 Internal Medicine Office Visit [facility] [address] [place] [address] [place] [address] OFFICE VISIT Date of Service: 05/14/24 MR#: [id number] Acct: [id number] Name: LY GAGE Rep #: [id number] : 1960 Provider: SHAYLA Gastelum Age/Sex: 64/M [place] [facility] Status: Signed Intake Vital Signs 02/12/24 08:01 05/14/24 07:59 Height 5 ft 10 in 5 ft 10 in Weight: 188 lb 187 lb 2 oz BMI 26.9 26.8 BP 112/74 130/60 H Blood Pressure Location Lt brachial Lt brachial Position Sitting Sitting Respiration 14 16 Pulse 104 H 108 H Pulse Source Monitor Monitor Temp 98 F 97.1 F L Temp Source Temporal Temporal Pulse Oximetry (%) 98 99 Oxygen Delivery Method room air room air Intake Visit Reasons: 3 M FU - A1C CHECK Chief Complaint: 3m 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 Accompanied by: Self Is patient in pain?: No Allergies No Known Allergies Allergy (Unverified 05/14/24 07:53) Medications ???Medication ???Instructions ???Recorded ???Confirmed ???Type aspirin 81 mg chewable tablet 81 mg PO DAILY 03/29/16 05/14/24 History calcium carbonate 500 mg PO BID 03/29/16 05/14/24 History ergocalciferol (vitamin D2) 1,250 5,000 unit PO QHS 03/29/16 05/14/24 History mcg (50,000 unit) capsule (Vitamin D2) multivitamin (Daily Multiple 1 ea PO QHS 03/29/16 05/14/24 History tablet) mycophenolate mofetil 500 mg tablet 750 mg PO BID 03/29/16 05/14/24 History omeprazole 20 mg capsule,delayed 20 mg PO DAILY 03/29/16 05/14/24 History release rosuvastatin 5 mg tablet (Crestor) 2.5 mg PO QODAY 03/29/16 05/14/24 History coenzyme Q10 100 mg capsule 200 mg PO QHS 10/12/18 05/14/24 History (CoQ-10) Cyanocobalamin (Vitamin B-12) 500 mcg PO DAILY 07/11/20 05/14/24 History [Vitamin B-12] ascorbic acid (vitamin C) 500 mg 500 mg PO DAILY@0800 07/11/20 05/14/24 History tablet glucosamine HCl 500 mg tablet 1,000 mg PO DAILY 07/11/20 05/14/24 History amlodipine 5 mg tablet 10 mg PO DAILY 07/30/22 05/14/24 History lisinopril 10 mg tablet 10 mg PO DAILY 07/30/22 05/14/24 History magnesium 200 mg tablet 400 mg PO QHS 07/30/22 05/14/24 History vitamin B complex (B 1 tab PO DAILY 07/30/22 05/14/24 History Complex-Vitamin B12 tablet) hydrocortisone 1 % lotion 1 applic topical BID PRN itching 08/04/23 05/14/24 Rx (Cortisone (hydrocortisone)) #120 mL tacrolimus 1 mg capsule, 2 mg PO BID 08/04/23 05/14/24 History immediate-release glimepiride 4 mg tablet 4 mg PO BID #180 tabs 02/10/24 05/14/24 Rx metformin 1,000 mg tablet 2,000 mg (2 x 1,000 mg) PO QHS 02/12/24 05/14/24 Rx #180 tabs sildenafil 25 mg tablet 25 mg PO DAILY PRN sexual activity 02/12/24 05/14/24 Rx #30 tabs semaglutide 1 mg/dose (4 mg/3 mL) 1 mg (0.75 mL) subcut QWEEK 4 04/07/24 05/14/24 Rx subcutaneous pen injector weeks #3 mL pregabalin 200 mg capsule 200 mg PO QHS 05/14/24 05/14/24 History PFSH Medical History Shingles rash Blood disorder High cholesterol Non-smoker Positive colorectal cancer screening using Cologuard test Heart transplant recipient Hx of heart valve insufficiency Wears glasses History of pneumonia Hx of heart failure Hx of essential hypertension History of heart disease Hx of blood clots History of atrial fibrillation Hx of chronic arthritis Hypertension Diabetes Surgical History S/P tonsillectomy S/P skin and subcutaneous tissue surgery Heart transplant status Hx of repair of right rotator cuff H/O repair of left rotator cuff Hx of cardiac catheterization H/O arthroscopic knee surgery Family History Brother Asthma Mother Blood clot in vein Social History household members: spouse current occupational status: employed and retired 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 He states that he checks his sugars regularly. His last 10 check average is 133. He states that overall his sugars are doing well. He does need refills today. He needs refills of metformin, Ozempic, and glimiperide as well as his sildenafil. He does state though that the sildenafil does not seem to be working like it used to. HE does not follow his blood pressure He sees dermatology for his post-herpetic neuralgia HE does have a he (more content not included)... Normal [facility] ALLOSCREEN RECIPIENT (POST T X PRA)on 08-14-2023 AB SPECIFICITY CLASS COMMENT Antibody Specificity testing performed by [employer]. cPRA calculation based on identification of HLA antibody specificities at MFI >2000 and/or presence of CREG antibodies. [facility] Comment on above: Some of the reagents used for testing in the Clinical Histocompatibility Laboratory have yet to be approved by the FDA. Our certification by CLIA to perform high complexity tests allows us to use these reagents in the context of a stringent QC program, and obviates the need for FDA approval.Testing performed by the [facility] Clinical Histocompatibility Laboratory. [facility] number: [id number]. CLIA number: [id number], Director: Phil Knutson, PhD, F([facility]). ANTIBODY SPECIFICITY INTERPRETATION Detected [facility] CLASS I SPECIFICITIES Not detected [facility] CLASS II SPECIFICITIES DQ6/DQA1*01:03 [facility] HLA Ab (S) 10 % High 0 [facility] Interpretation and review of laboratory results Abnormal [facility] CBC,PLATELETSon 08-12-2023 Erythrocyte distribution width (RBC) [Ratio] 12.4 % 10.9 - 14.3 % [facility] Hematocrit (Bld) [Volume fraction] 41.9 % 39.6 - 48.8 % [facility] Hemoglobin (Bld) [Mass/Vol] 14.0 g/dL 13.4 - 16.8 g/dL [facility] Interpretation and review of laboratory results Abnormal [facility] MCH (RBC) [Entitic mass] 29.4 pg 26. 1 - 33.3 pg [facility] MCHC (RBC) [Mass/Vol] 33.4 g/dL 31.9 - 36.5 g/dL [facility] MCV (RBC) [Entitic vol] 87.8 fL 79.0 - 94.5 fL [facility] Platelet mean volume (Bld) [Entitic vol] 9.4 fL 8.7 - 12.3 fL [facility] Platelets (Bld) [#/Vol] 358 10*3/uL High 146 - 337 K/uL [facility] RBC (Bld) [#/Vol] 4.77 10*6/uL [facility] WBC (Bld) [#/Vol] 7.74 10*3/uL 3.73 - 10.10 K/uL [facility] COMPREHENSIVE METABOLIC PANE [facility] 08-12-2023 Albumin [Mass/Vol] 4.9 g/dL 3.5 - 5.0 g/dL [facility] ALP [Catalytic activity/Vol] 82 U/L 32 - 126 U/L [facility] ALT [Catalytic activity/Vol] 16 U/L 10 - 52 U/L [facility] Anion gap [Moles/Vol] 12 mmol/L 7 - 17 mmol/L [facility] AST [Catalytic activity/Vol] 15 U/L 10 - 39 U/L [facility] Bilirubin [Mass/Vol] 0.6 mg/dL NINF - 1.5 mg/dL [facility] Calcium [Mass/Vol] 10.1 mg/dL 8.6 - 10. 5 mg/dL [facility] Chloride [Moles/Vol] 100 mmol/L 98 - 10 8 mmol/L [facility] CO2 [Moles/Vol] 32 mmol/L High 21 - 31 mmol/L [facility] Creatinine [Mass/Vol] 0.97 mg/dL 0.70 - 1.30 mg/dL [facility] eGFR, CKD-EPI, Male 89 - PINF [facility] Comment on above: Reported eGFR is bas ed on the CKD-EPI 2020 equation using creatinine, age, and sex. Glucose [Mass/Vol] 187 mg/dL High 70 - 99 mg/dL [facility] Osmolality Calc [Osmolality] 303 [facility] Potassium [Moles/Vol] 4.9 mmol/L 3.5 - 5.0 mmol/L [facility] Protein [Mass/Vol] 8.5 g/dL High 6.4 - 8.3 g/dL [facility] Sodium [Moles/Vol] 139 mmol/L 135 - 145 mmol/L [facility] Urea nitrogen [Mass/Vol] 25 mg/dL 7 - 25 mg/dL [facility] Urea nitrogen/Creatinine [Mass ratio] 26 mg/mg [facility] Cardiac echo study Procedure Ordered By: Braulio Ball on 08-12-2023 Ao ASC index 1.11 cm/m2 [facility] Work Phone: Ao peak poli 1.00 m[facility]s [facility] Work Phone: Ao SOV index 1.33 cm/m2 [facility] Work Phone: Ao STJ index 1.06 cm/m2 [facility] Work Phone: Ao VTI 15.72 cm [facility] Work Phone: Ascending aorta 2.25 [facility] Work Phone: AV LVOT peak gradient 2 mmHg [facility]: AV mean gradient 2 mmHg [facility] Work Phone: AV peak gradient 4 mmHG [facility] Work Phone: AV Velocity Ratio 0.69 [facility] Work Phone: LYNN (continuity Vmax) 2.82 cm2 [facility] Phone: LYNN index (continuity Vmax) 1.39 m/s [facility] Work Phone: Avg e' pk poli 0.18 m/s [facility] Work Phone: Avg E/e' ratio 3.49 [facility] Work Phone: Body surface area Derived from formula 2.02 m2 [facility] Work Phone: BP EF 64 % [facility] Work Phone: DI (Vmax) 0.69 [facility] Work Phone: E wave decelartion time 171.47 msec O [facility] Work Phone: e' lateral pk poli 0.2262 [facility]s [facility]: e' lateral pk poli 0.23 m/s [facility] Work Phone: e' septal pk poli 0.1387 [facility]s [facility] Work Phone: e' septal pk poli 0.14 m[facility]s [facility]: E[facility]: E/e' septal ratio 4.33 [facility] Work Phone: EF SP 2CH 64 [facility]: EF SP 4CH 64 [facility] Work Phone: EST RAP 3.00 mmHg [facility] Work Phone: FS 37 % 28 - 44 % [facility] Work Phone: IVS 0.88 cm [facility] Work Phone: LA area 4CH 13.01 cm2 [facility] Work Phone: LA ESV SP 4CH (MOD) 27 mL [facility] Work Phone: LV EDV BP 109 mL [facility] Work Phone: LV EDV SP 2CH 100 mL [facility] Work Phone: LV EDV SP 4CH 117 mL [facility] Work Phone: LV ESV BP 39 mL [facility] Work Phone: LV ESV SP 2CH 36 mL [facility] Work Phone: LV ESV SP 4CH 42 mL [facility] Work Phone: LV mass 102.49 g [facility] Work Phone: LV Mass Index 50.7 g/m2 [facility] Work Phone: LV RWT 0.34 [facility] Work Phone: LV stroke volume BP (ml) 70 mL [facility] Work Phone: LV stroke volume index BP 34.65 mL/m2 [facility] Work Phone: LVIDD 4.23 cm [facility] Work Phone: LVIDS 2.67 cm [facility] Work Phone: LVOT area 4.08 cm2 [facility] Work Phone: LVOT diameter 2.28 cm [facility] Work Phone: LVOT peak poli 0.69 m/s [facility] Work Phone: MPA annulus 1.76 cm [facility] Work Phone: MV pk E poli 0.60 m/s [facility] Work Phone: [facility] ECHO LV BIPLANE SYSTOLIC VOLUME INDEX 19.31 mL/m2 [facility] Work Phone: OSU ECHO LV BP DIASTOLIC VOLUME INDEX 53.96 mL/m2 [facility] Work Phone: PV peak gradient 4 mmHg [facility] Work Phone: PV PK POLI 0.99 m/s [facility] Work Phone: PW 0.72 cm [facility] Work Phone: RA area 4CH (MOD) 10.21 cm2 [facility] Work Phone: RA vol index 4CH (MOD) 9.90 mL/m2 [facility] Work Phone: Right atrium volume 4 chamber method of disks 20 mL [facility] Work Phone: RV S' 12.83 cm/s [facility] Work Phone: RVOT peak gradient 1 mmHg [facility] Work Phone: RVOT peak poli 0.58 m/s [facility] Work Phone: Sinus 2.68 cm [facility] Work Phone: STJ 2.15 cm [facility] Work Phone: [facility] Work Phone: Cardiac echo study Procedure on 08-12-2023 S/p cardiac transplant Left ventricular size is normal. Abnormal septal motion with otherwise normal regional wall motion and global systolic function. Ejection fraction 64% Left atrium measures normal in size Right ventricle is normal in size and function. Right atrium measures normal in size Valve structures are consistent with age. No valve dysfunction Further study details described below Left Ventricle Chamber size is normal. Normal wall thickness. Normal global systolic function. Regional wall motion is normal. Abnormal septal motion consistent with post-operative state. The ejection fraction is 64%. Ejection fraction by modified Costello's rule is normal. Diastolic function is normal. Right Ventricle Chamber size is normal. Systolic function is low normal. Left Atrium Chamber size is normal. Right Atrium Chamber size is normal. IVC/SVC The inferior vena cava is normal in size. The inferior vena cava structure has a diameter <21 mm and decreases >50% during inspiration. Mitral Valve Normal appearing leaflets. Leaflet mobility is normal. No regurgitation. No valve stenosis. Tricuspid Valve Normal leaflets. Leaflet mobility is normal. Trace regurgitation. No stenosis. Pulmonary artery systolic pressure (PASP) is unable to be estimated. Poor tricuspid regurgitation jet may not accurately reflect right ventricular systolic pressure. Aortic Valve Trileaflet valve. Leaflet mobility is normal. No regurgitation. No stenosis. Pulmonic Valve Normal structure. Trace regurgitation. No stenosis. Pericardium No pericardial effusion. Septum The atrial septum is normal. Pulmonary Artery The pulmonary artery is normal. Aorta No dilation to extent seen. SOV: 2.68 cm. STJ: 2.15 cm. Ascendin.25 cm. Study Details A complete echocardiography study was performed. Overall study quality was good. Imaging system used: [employer]. Indications Indications for study: post heart tx. [facility] Radiology Study observation (narrative) [facility] LIPID PANEL W CALCULATED LDL on 08-12-2023 Cholesterol [Mass/Vol] 196 mg/dL NINF - 200 mg/dL [facility] Comment on above: [<200 mg/dL: Desirab le] [200-239 mg/dL: Borderline High] [>239 mg/dL: High] Cholesterol in HDL [Mass/Vol] 51 mg/dL 40 - PINF mg/dL [facility] Comment on above: [<40 mg/dL: Low (Hig h Risk)] [>59 mg/dL: High (Low Risk)] Cholesterol in HDL [Mass/Vol] 145 mg/dL High NINF - 130 mg/dL [facility] Cholesterol in LDL [Mass/Vol] 90 mg/dL 0 - 99 mg/dL [facility] Comment on above: [<100 mg/dL: Optimal ] [100-129 mg/dL: Near Optimal] [130-159 mg/dL: Borderline High] [160-189 mg/dL: High] [>189 mg/dL: Very High] Cholesterol.total/Cholester ol in HDL [Mass ratio] 3.8 {ratio} NINF - 4.5 [facility] Triglyceride [Mass/Vol] 274 mg/dL High NINF - 150 mg/dL [facility] Comment on above: [<150 mg/dL: Desirab le] [150-199 mg/dL: Borderline] [200-499 mg/dL: High] [>500 mg/dL: Very High] MAGNESIUMon 08-12-2023 Interpretation and review of laboratory results Normal [facility] Magnesium [Mass/Vol] 1.6 mg/dL 1.6 - 2 .6 mg/dL [facility] No Panel Informationon 08-12 Interpretation and review of laboratory results Abnormal [facility] TACROLIMUS LEVEL, TROUGH (NM E DRUG LEVEL)Ordered By: Edwina Posada on 08-12-2023 Interpretation and review of laboratory results Normal [facility] Tacrolimus (Bld) [Mass/Vol] 5.5 ng/mL [facility] Method performed is a chemiluminescent microparticle immunoasssay on the [employer] i2000. The range is based on experience at [facility] and users should be aware that target concentrations vary widely depending on concomitant therapy, time post-transplant, and desired degree of immunosuppression. [facility] Absolute lymphocyte countOrd ered By: Violet Dallas on 08-04-2023 Lymphocytes Auto (Unsp spec) [#/Vol] 3.00 10*3/uL 0.83-4.51 [facility] Basophil percentageOrdered B y: Violet Dallas on 08-04-2023 Basophil percentage Not Reportable W [facility] Bilirubin [Mass/Vol] 0.30 mg/dL 0.20-1.00 [facility] Comment on above: For patients on eltr ombopag therapy, use of [employer] [place] TBIL is not recommended. Chloride [Moles/Vol] 101 mmol/L 98-107 [facility] Cholesterol [Mass/Vol] 152 mg/dL <200 [facility] Comment on above: <200 mg/dL Desirable 200-240 mg/dL Borderline >240 mg/dL High Risk Glucose [Mass/Vol] 198 mg/dL 74-106 [facility] Comment on above: Fasting Glucose resu lt greater than or equal to 126 mg/dL suggests DIABETES MELLITUS per A.D.A. criteria. Neutrophils (Bld) [#/Vol] 5.1 10*3/uL 2.0-7.7 [facility] Potassium [Moles/Vol] 4.3 mmol/L 3.5-5.1 [facility] Protein [Mass/Vol] 7.9 g/dL 6.4-8.2 [facility] Sodium [Moles/Vol] 137 mmol/L 136-145 [facility] Triglyceride [Mass/Vol] 204 mg/dL <199 [facility] Comment on above: The drugs N-Acetylcy steine and Metamizole may falsely depress this assay.Serum Triglycerides Reference Interval Normal <150 mg/dL Borderline high 150 - 199 mg/dL High 200 - 499 mg/dL Very High > or = 500 mg/dL WBC (Bld) [#/Vol] 9.4 10*3/uL 4.4-11.0 [facility] Blood band neutrophil count as percentage of total leukocytesOrdered By: Violet Dallas on 08-04-2023 Band form neutrophils/100 WBC (Bld) 5 % 0-5 [facility] Blood eosinophils/100 leukoc ytesOrdered By: Violet Dallas on 08-04-2023 Eosinophils/100 WBC (Bld) 2 % 0-5 [facility] Blood erythrocytes count (nu mber/volume)Ordered By: Violet Dallas on 08-04-2023 RBC (Bld) [#/Vol] 4.56 10*6/uL 4.6-6.2 [facility] Blood hemoglobin measurement (mass/volume)Ordered By: Violet Dallas on 08-04-2023 Hemoglobin (Bld) [Mass/Vol] 13.2 g/dL 13.0-16. 5 [facility] Blood lymphocytes/100 leukoc ytesOrdered By: Violet Dallas on 08-04-2023 Lymphocytes/100 WBC (Bld) 32 % 19-41 [facility] Blood metamyelocytes/100 jaylene kocytesOrdered By: Violet Dallas on 08-04-2023 Metamyelocytes/100 WBC (Bld) 2 % 0-1 [facility] Blood monocytes/100 leukocyt esOrdered By: Violet Dallas on 08-04-2023 Monocytes/100 WBC (Bld) 10 % 0-10 W [facility] Blood platelet adequacy dete ction by light microscopyOrdered By: Violet Dallas on 08-04-2023 Platelets LM Ql (Bld) ADEQUATE ADEQ [facility] Blood platelet mean volumeOr dered By: Violet Dallas on 08-04-2023 Platelet mean volume (Bld) [Entitic vol] 9.5 fL 6.2-12.0 [facility] Blood segmented neutrophils/ 100 leukocytesOrdered By: Violet Dallas on 08-04-2023 Segmented neutrophils/100 WBC (Bld) 49 % 47-70 [facility] Determination of erythrocyte mean corpuscular volume (MCV)Ordered By: Violet Dallas on 08-04-2023 MCV (RBC) [Entitic vol] 89.7 fL 80-94 W [facility] Hematocrit Auto (Bld) [Volum e fraction]Ordered By: Violet Dallas on 08-04-2023 Hematocrit (Bld) [Volume fraction] 40.9 % 40-54 [facility] Laboratory - Chemistry and C hemistry - challengeOrdered By: Violet Dallas on 08-04-2023 ALP [Catalytic activity/Vol] 80 U/L 45-117 [facility] ALT [Catalytic activity/Vol] 26 U/L 16-61 [facility] CO2 [Moles/Vol] 30.0 mmol/L 21.0-32.0 [facility] Globulin (S) [Mass/Vol] 4.2 g/dL 2.2-4.2 W [facility] Urea nitrogen/Creatinine [Mass ratio] 16.7 mg/mg 10-20 [facility] Laboratory - Hematology and Cell countsOrdered By: Violet Dallas on 08-04-2023 Erythrocyte distribution width (RBC) [Entitic vol] 39.8 fL 35.1-43.9 [facility] Erythrocyte distribution width (RBC) [Ratio] 12.2 % 11.6-14.6 [facility] MCH (RBC) [Entitic mass] 28.9 pg 27.0-32.0 [facility] MCHC Auto (RBC) [Mass/Vol]Or dered By: Violet Dallas on 08-04-2023 MCHC (RBC) [Mass/Vol] 32.3 g/dL 32-36 [facility] No Panel InformationOrdered By: Violet Dallas on 08-04-2023 Urine Microalbumin/Creatinine Ratio 60.6 mg/g CRE <30 [facility] Estimated GFR (MDRD) Amer 95 mL/min >60 [facility] Comment on above: GFR Calc Estimated GFR (MDRD) Non-Af Amer 79 mL/min >60 [facility] Comment on above: Non- GFR Calc Reactive Lymphocytes 1+ [facility] Vitamin D 25-Hydroxy 74.8 ng/mL [facility] Comment on above: Vitamin D 25(OH) Sta tus Range Deficiency <20 ng/mL (50nmol/L) Insufficiency 20 - 30 ng/mL (50 - 75 nmol/L) Sufficiency 30 - 100 ng/mL (75 - 250 nmol/L) Toxicity >100 ng/mL (>250 nmol/L) Platelets bldOrdered By: Ruben Dallas on 08-04-2023 Platelets (Bld) [#/Vol] 378 10*3/uL 150-450 [facility] RBC morphologyOrdered By: Nolan Dallas on 08-04-2023 RBC morphology finding Nom (Bld) NORM C+C NORMAL NORM C&C [facility] Review by pathologistOrdered By: Violet Dallas on 08-04-2023 Pathologist review Bandar (Unsp spec) [Interp] May foll [facility] Serum or plasma albumin jennifer urement (mass/volume)Ordered By: Violet Dallas on 08-04-2023 Albumin [Mass/Vol] 3.7 g/dL 3.2-5.0 [facility] Serum or plasma albumin/glob ulin mass ratioOrdered By: Violet Dallas on 08-04-2023 Albumin/Globulin [Mass ratio] 0.9 {ratio} 0.9-2.4 [facility] Serum or plasma calcium jennifer urement (mass/volume)Ordered By: Violet Dallas on 08-04-2023 Calcium [Mass/Vol] 9.8 mg/dL 8.5-10.1 [facility] Serum or plasma cholesterol in HDL measurement (mass/volume)Ordered By: Violet Dallas on 08-04-2023 Cholesterol in HDL [Mass/Vol] 44 mg/dL >40 [facility] Comment on above: The drugs N-Acetylcy steine and Metamizole may falsely depress this assay. Reference Range HDL <40 mg/dL Low HDL Cholesterol HDL >or= 60 mg/dL High HDL Cholesterol Serum or plasma cholesterol in VLDL measurement (mass/volume)Ordered By: Violet Dallas on 08-04-2023 Cholesterol in VLDL [Mass/Vol] 41 mg/dL 5-40 [facility] Serum or plasma creatinine m easurement (mass/volume)Ordered By: Violet Dallas on 08-04-2023 Creatinine [Mass/Vol] 1.02 mg/dL 0.70-1.30 [facility] Comment on above: The validity of the calculated GFR & GFRAA in patients over 70 years has not been determined. Clinical correlation is essential. Serum or plasma low density lipoprotein (LDL) cholesterol measurement (mass/volume)Ordered By: Violet Dallas on 08-04-2023 Cholesterol in LDL [Mass/Vol] 67 mg/dL 0-130 [facility] Serum or plasma urea nitroge n measurement (mass/volume)Ordered By: Violet Dallas on 08-04-2023 Urea nitrogen [Mass/Vol] 17 mg/dL 7-18 [facility] Thin prep Papanicolaou smear with manual screeningOrdered By: Violet Dallas on 08-04-2023 Thin prep Papanicolaou smear with manual screening 140.0 mg/L NO RANGE EST. [facility] Thin prep Papanicolaou smear with manual screening 16 U/L 15-37 [facility] Thin prep Papanicolaou smear with manual screening 6 5-15 [facility] Total cell countOrdered By: Violet Dallas on 08-04-2023 Cells counted [employer] (Bld/Tiss) [#] 100 MANUAL DIFF [facility] Urine creatinine measurement (mass/volume)Ordered By: Violet Dallas on 08-04-2023 Creatinine (U) [Mass/Vol] 231.00 mg/dL NO RANGE EST. [facility] Glucose Glucometer (BldC) [M ass/Vol]Ordered By: Zev Fortune on 04-29-2023 Glucose [Mass/Vol] 171 mg/dL 74-106 [facility] Comment on above: MANAGEMENT OF PATIEN T CARE PER NURSING PROTOCOL Laboratory - Hematology and Cell countson 01-27-2023 HbA1c (Bld) [Mass fraction] 7.0 % 4.2-6.3 [facility] Basophil percentageOrdered B y: Dr. Dallas on 10-21-2022 Chloride [Moles/Vol] 102 mmol/L 98-107 [facility] Glucose [Mass/Vol] 140 mg/dL 74-106 [facility] Comment on above: Fasting Glucose resu lt greater than or equal to 126 mg/dL suggests DIABETES MELLITUS per A.D.A. criteria. Potassium [Moles/Vol] 4.3 mmol/L 3.5-5.1 [facility] Sodium [Moles/Vol] 137 mmol/L 136-145 [facility] Laboratory - Chemistry and C hemistry - challengeOrdered By: Dr. Dallas on 10-21-2022 CO2 [Moles/Vol] 26.0 mmol/L 21.0-32.0 [facility] Urea nitrogen/Creatinine [Mass ratio] 19.6 mg/mg 10-20 [facility] No Panel InformationOrdered By: Dr. Dallas on 10-21-2022 Estimated GFR (MDRD) Amer 96 mL/min >60 [facility] Comment on above: GFR Calc Estimated GFR (MDRD) Non-Af Amer 79 mL/min >60 [facility] Comment on above: Non- GFR Calc Urine Microalbumin/Creatinine Ratio 15.8 mg/g CRE <30 [facility] Serum or plasma calcium jennifer urement (mass/volume)Ordered By: Dr. Dallas on 10-21-2022 Calcium [Mass/Vol] 9.6 mg/dL 8.5-10.1 [facility] Serum or plasma creatinine m easurement (mass/volume)Ordered By: Dr. Dallas on 10-21-2022 Creatinine [Mass/Vol] 1.02 mg/dL 0.70-1.30 [facility] Comment on above: The validity of the calculated GFR & GFRAA in patients over 70 years has not been determined. Clinical correlation is essential. Serum or plasma urea nitroge n measurement (mass/volume)Ordered By: Dr. Dallas on 10-21-2022 Urea nitrogen [Mass/Vol] 20 mg/dL 7-18 [facility] Thin prep Papanicolaou smear with manual screeningOrdered By: Dr. Dallas on 10-21-2022 Thin prep Papanicolaou smear with manual screening 9 5-15 [facility] Thin prep Papanicolaou smear with manual screening 16.4 mg/L NO RANGE EST. [facility] Urine creatinine measurement (mass/volume)Ordered By: Dr. Dallas on 10-21-2022 Creatinine (U) [Mass/Vol] 104.00 mg/dL NO RANGE EST. [facility] Whole blood hemoglobin A1c/t otal hemoglobin ratio (mass fraction)Ordered By: Dr. Dallas on 10-21-2022 HbA1c (Bld) [Mass fraction] 7.0 % 3.8-5.6 [facility] Comment on above: Normal < 5.7 % Predi abetic 5.7 - 6.4 % Diabetic >or= 6.5 % Please note range changes. No Panel Informationon 09-02 Tacrolimus (Prograf) Level 5.2 ng/mL 2.0-20.0 [facility] Comment on above: Trough (immediately following transplant) 15.0 Trough (steady state, 2 weeks or more after transplant): 3.0 - 8.0 Performed by LC-MS/MS technology.Performed at: [address] [id number] Director: Jocelyne Phelps MD, Phone: [phone] ALLOSCREEN RECIPIENT (POST T X PRA)on 08-15-2022 AB SPECIFICITY CLASS COMMENT Antibody Specificity testing performed by [employer]. cPRA calculation based on identification of HLA antibody specificities at MFI >2000 and/or presence of CREG antibodies. [facility] Comment on above: Some of the reagents used for testing in the Clinical Histocompatibility Laboratory have yet to be approved by the FDA. Our certification by CLIA to perform high complexity tests allows us to use these reagents in the context of a stringent QC program, and obviates the need for FDA approval.Testing performed by the [facility] Clinical Histocompatibility Laboratory. [facility] number: [id number]. CLIA number: [id number], Director: Phil Knutson, PhD, D([facility]). ANTIBODY SPECIFICITY INTERPRETATION Detected [facility] CLASS I SPECIFICITIES Not detected [facility] CLASS II SPECIFICITIES Not detected [facility] HLA Ab (S) 0 % 0 [facility] CBC,PLATELETSon 08-13-2022 Erythrocyte distribution width (RBC) [Ratio] 13.6 % 10.9 - 14.3 % [facility] Hematocrit (Bld) [Volume fraction] 39.5 % Low 39.6 - 48.8 % [facility] Hemoglobin (Bld) [Mass/Vol] 13.0 g/dL Low 13.4 - 16.8 g/dL [facility] Interpretation and review of laboratory results Abnormal [facility] MCH (RBC) [Entitic mass] 29.5 pg 26. 1 - 33.3 pg [facility] MCHC (RBC) [Mass/Vol] 32.9 g/dL 31.9 - 36.5 g/dL [facility] MCV (RBC) [Entitic vol] 89.6 fL 79.0 - 94.5 fL [facility] Platelet mean volume (Bld) [Entitic vol] 8.9 fL 8.7 - 12.3 fL [facility] Platelets (Bld) [#/Vol] 286 10*3/uL 146 - 337 K/uL [facility] RBC (Bld) [#/Vol] 4.41 10*6/uL [facility] WBC (Bld) [#/Vol] 5.81 10*3/uL 3.73 - 10.10 K/uL [facility] COMPREHENSIVE METABOLIC PANE Ramos 08-13-2022 Albumin [Mass/Vol] 4.8 g/dL 3.5 - 5.0 g/dL [facility] ALP [Catalytic activity/Vol] 58 U/L 32 - 126 U/L [facility] ALT [Catalytic activity/Vol] 15 U/L 10 - 52 U/L [facility] Anion gap [Moles/Vol] 14 mmol/L 7 - 17 mmol/L [facility] AST [Catalytic activity/Vol] 15 U/L 10 - 39 U/L [facility] Bilirubin [Mass/Vol] 0.5 mg/dL NINF - 1.5 mg/dL [facility] Calcium [Mass/Vol] 10.0 mg/dL 8.6 - 10. 5 mg/dL [facility] Chloride [Moles/Vol] 103 mmol/L 98 - 10 8 mmol/L [facility] CO2 [Moles/Vol] 27 mmol/L 21 - 31 mmol/L [facility] Creatinine [Mass/Vol] 1.04 mg/dL 0.70 - 1.30 mg/dL [facility] GFR/1.73 sq M.predicted CKD-EPI (S/P/Bld) [Vol rate/Area] 82 - PINF [facility] Comment on above: Reported eGFR is bas ed on the CKD-EPI 2020 equation using creatinine, age, and sex. Glucose [Mass/Vol] 102 mg/dL High 70 - 99 mg/dL [facility] Osmolality Calc [Osmolality] 298 [facility] Potassium [Moles/Vol] 5.2 mmol/L High 3.5 - 5.0 mmol/L [facility] Protein [Mass/Vol] 7.4 g/dL 6.4 - 8.3 g/dL [facility] Sodium [Moles/Vol] 139 mmol/L 135 - 145 mmol/L [facility] Urea nitrogen [Mass/Vol] 27 mg/dL High 7 - 25 mg/dL [facility] Urea nitrogen/Creatinine [Mass ratio] 26 mg/mg [facility] Cardiac echo study Procedure Ordered By: Jose Alfredo Henderson on 08-13-2022 Ao peak poli 1.01 m/s [facility] Work Phone: [phone] Ao VTI 17.88 cm [facility] Work Phone: [phone] Aortic arch 3.00 [facility] Phone: [phone] [facility]ending [facility] 2.[facility] Work Phone: [phone] AV LVOT peak gradient 3 mmHg [facility] Work Phone: [phone] AV mean gradient 2 [facility] Work Phone: [phone] AV peak gradient 4 mmHG [facility] Work Phone: [phone] AV valve area 2.66 cm2 [facility] Work Phone: [phone] AV [facility]ocity [facility] Phone: [phone] LYNN (continuity Vmax) 2.85 cm2 [facility] Work Phone: LYNN (continuity VTI) 2.66 cm2 [facility] Work Phone: [phone] LYNN index (continuity Vmax) 1.44 m/s [facility] Work Phone: [phone] LYNN index (continuity VTI) 1.34 cm2/m2 [facility] Work Phone: Avg e' pk poli 0.14 m/s [facility] Work Phone: Avg E/e' ratio 4.98 [facility] Work Phone: Body surface area Derived from formula 1.98 m2 [facility] Work Phone: BP EF 56 % [facility] Work Phone: DI (Vmax) 0.79 [facility] Work Phone: DI (VTI) 0.74 m/2 [facility] Work Phone: E wave decelartion time 226.77 msec O [facility] Work Phone: e' lateral pk poli 0.1753 m/s [facility] Work Phone: e' lateral pk poli 0.18 m/s [facility] Work Phone: e' septal pk poli 0.1146 m/s [facility] Work Phone: e' septal pk poli 0.11 m/s [facility] [facility] Work Phone: E/A ratio 1.57 [facility] Work Phone: E/e' lateral ratio 3.94 [facility] Work Phone: E/e' septal ratio 6.02 [facility] Work Phone: EF SP 2CH 58 [facility]: [facility] 56 [facility] Work Phone: EST RAP 5.00 mmHg [facility] Work Phone: FS 29 % 28 - 44 % [facility] Work Phone: IVC ostium 2.00 [facility]: IVS 0.98 cm [facility] Work Phone: LA AREA 2CH 20.82 cm2 [facility] Work [facility]: LA area 4CH 15.00 cm2 [facility] Work Phone: LA ESV BP (MOD) 45 [facility] Work Phone: LA ESV BP (MOD) index 23 mL/m2 [facility] Work Phone: LA ESV SP 2CH (MOD) 61 mL [facility] Work Phone: LA ESV SP 4CH (MOD) 32 mL [facility] Work Phone: Long Strain -16.7 % [facility] Work Phone: LV EDV BP 71 mL [facility] Work Phone: LV EDV SP 2CH 74 [facility] Work Phone: LV EDV SP 4CH 68 mL [facility] Work Phone: LV ESV BP 31 mL [facility] Work Phone: LV ESV SP 2CH 31 [facility] Work [facility]: LV ESV SP 4CH 30 [facility] Work [facility]: LV mass 127.27 g [facility] Work [facility]: LV Mass Index 64.3 g/m2 [facility] Work Phone: LV RWT 0.45 [facility] Work Phone: LV stroke volume BP (ml) 40 mL [facility] Work Phone: LV stroke volume index BP 20.20 mL/m2 [facility] Work [facility]: LVIDD 4.17 cm [facility] Work Phone: LVIDS 2.94 [facility] Work Phone: LVOT area 3.59 cm2 [facility] Work Phone: LVOT diameter 2.14 cm [facility] Work Phone: LVOT peak poli 0.80 m/s [facility] Work Phone: LVOT peak VTI 13.23 [facility] Work Phone: LVOT stroke volume 48 cm3 [facility] Work Phone: LVOT stroke volume index 24.02 ml/m2 [facility] Work Phone: MV pk A poli 0.44 m/s [facility] Work Phone: MV pk E poli 0.69 m/s [facility] Work Phone: OSU AV VTI RATIO PRE STRESS 0.74 [facility] Work Phone: OSU ECHO LV BIPLANE SYSTOLIC VOLUME INDEX 15.66 mL/m2 [facility] Work Phone: OSU ECHO LV BP DIASTOLIC VOLUME INDEX 35.86 mL/m2 [facility] Work Phone: PW 0.93 cm [facility] Work Phone: RA area 4CH (MOD) 16.51 cm2 [facility] Work Phone: RA vol index 4CH (MOD) 20.71 mL/m2 O [facility] Work Phone: Right atrium volume 4 chamber method of disks 41 mL [facility] Work Phone: RV Area diastolic 20.90 cm2 [facility] Work Phone: RV Area systolic 14.90 cm2 [facility] Work Phone: RV basal diam 4.50 cm [facility] Work Phone: RV Fractional area change 28.7 % [facility] Work Phone: RV long diam 8.60 cm [facility] Work Phone: RV mid diam 2.90 cm [facility] Work Phone: RV S' 11.00 cm/s [facility] Work Phone: RVOT peak gradient 2 mmHg [facility] Work Phone: RVOT peak poli 0.71 m/s [facility] Work Phone: RVOT peak VTI 13.07 cm [facility] Work Phone: Sinus 2.73 cm [facility] Work Phone: STJ 2.51 cm [facility] Work Phone: Stroke Volume 48 cm/mL [facility] Work Phone: Stroke volume index 24 [facility] Work Phone: TAPSE 1.20 cm [facility] Work Phone: [facility] Work Phone: Cardiac echo study Procedure on 08-13-2022 S/P cardiac transplant. Left Ventricle: Chamber size is normal. Normal wall thickness. Concentric remodeling is present. Normal global wall motion. Regional wall motion is normal. Abnormal septal motion consistent with post-operative state. The ejection fraction is 56%. Ejection fraction by modified Costello's rule is normal (55 - 60%). The magnitude of the left ventricular longitudinal strain is reduced. Right Ventricle: Chamber size is enlarged. Systolic function is low normal. Pulmonary artery systolic pressure (PASP) is unable to be estimated. No significant valve disease. Left Ventricle Chamber size is normal. Normal wall thickness. Concentric remodeling is present. Normal global wall motion. Regional wall motion is normal. Abnormal septal motion consistent with post-operative state. The ejection fraction is 56%. Ejection fraction by modified Costello's rule is normal (55 - 60%). The magnitude of the left ventricular longitudinal strain is reduced. Diastolic function is normal. Global longitudinal strain is -16.7%. Right Ventricle Chamber size is enlarged. Systolic function is low normal. Left Atrium Chamber size is normal. Right Atrium Chamber size is normal. IVC/SVC The inferior vena cava structure has a diameter <21 mm and decreases >50% during inspiration. Mitral Valve Normal appearing leaflets. Leaflet mobility is normal. No regurgitation. No valve stenosis. Tricuspid Valve Normal leaflets. Leaflet mobility is normal. Trace regurgitation. No stenosis. Pulmonary artery systolic pressure (PASP) is unable to be estimated. Poor tricuspid regurgitation jet may not accurately reflect right ventricular systolic pressure. Aortic Valve Trileaflet valve. Leaflet mobility is normal. No regurgitation. No stenosis. Pulmonic Valve Normal structure. Trace regurgitation. No stenosis. Pericardium No pericardial effusion. Septum The atrial septum is normal. Pulmonary Artery The pulmonary artery is normal. Aorta No dilation to extent seen. Study Details A complete echocardiography study (including left ventricular strain) was performed. Strain measurements performed for the evaluation of heart transplant. Imaging system used: [employer]. Indications Indications for study: other - S/p heart transplant. [facility] Radiology Study observation (narrative) [facility] LIPID PANEL W CALCULATED LDL on 08-13-2022 Cholesterol [Mass/Vol] 147 mg/dL NINF - 200 mg/dL [facility] Comment on above: [<200 mg/dL: Desirab le] [200-239 mg/dL: Borderline High] [>239 mg/dL: High] Cholesterol in HDL [Mass/Vol] 49 mg/dL 40 - PINF mg/dL [facility] Comment on above: [<40 mg/dL: Low (Hig h Risk)] [>59 mg/dL: High (Low Risk)] Cholesterol in HDL [Mass/Vol] 98 mg/dL NINF - 130 mg/dL [facility] Cholesterol in LDL [Mass/Vol] 50 mg/dL 0 - 99 mg/dL [facility] Comment on above: [<100 mg/dL: Optimal ] [100-129 mg/dL: Near Optimal] [130-159 mg/dL: Borderline High] [160-189 mg/dL: High] [>189 mg/dL: Very High] Cholesterol.total/Cholester ol in HDL [Mass ratio] 3.0 {ratio} NINF - 4.5 [facility] Triglyceride [Mass/Vol] 240 mg/dL High NINF - 150 mg/dL [facility] Comment on above: [<150 mg/dL: Desirab le] [150-199 mg/dL: Borderline] [200-499 mg/dL: High] [>500 mg/dL: Very High] MAGNESIUMon 08-13-2022 Interpretation and review of laboratory results Normal [facility] Magnesium [Mass/Vol] 1.6 mg/dL 1.6 - 2 .6 mg/dL [facility] No Panel Informationon 08-13 Interpretation and review of laboratory results Abnormal [facility] TACROLIMUS LEVEL, TROUGH (NM E DRUG LEVEL)Ordered By: Marlene Sorto on 08-13-2022 Interpretation and review of laboratory results Normal [facility] Tacrolimus (Bld) [Mass/Vol] 9.4 ng/mL [facility] Method performed is a chemiluminescent microparticle immunoasssay on the [employer] i2000. The range is based on experience at [facility] and users should be aware that target concentrations vary widely depending on concomitant therapy, time post-transplant, and desired degree of immunosuppression. [facility] .GFRon 07-02-2022 GFR Non- 62 ml/min/1.73sqm Normal [facility] ([place]) Comment on above: Result Comment: GFR Population mean for , Non- Americans Ages 20-29 = 116 mL/min/1.73 sq.m. Ages 30-39 = 107 mL/min/1.73 sq.m. Ages 40-49 = 99 mL/min/1.73 sq.m. Ages 50-59 = 93 mL/min/1.73 sq.m. Ages 60-69 = 85 mL/min/1.73 sq.m. Ages 70+ = 75 mL/min/1.73 sq.m. Chronic Kidney Disease: Less than 60 mL/min/1.73 square meters End Stage Renal Disease: Less than 15 mL/min/1.73 square meters Performed By: #### C MP, TSH, A1C, GFR #### [address] [address] GFR 76 ml/min/1.73sqm Normal [facility] ([place]) Comment on above: Result Comment: GFR Population mean for , Non- Americans Ages 20-29 = 116 mL/min/1.73 sq.m. Ages 30-39 = 107 mL/min/1.73 sq.m. Ages 40-49 = 99 mL/min/1.73 sq.m. Ages 50-59 = 93 mL/min/1.73 sq.m. Ages 60-69 = 85 mL/min/1.73 sq.m. Ages 70+ = 75 mL/min/1.73 sq.m. Chronic Kidney Disease: Less than 60 mL/min/1.73 square meters End Stage Renal Disease: Less than 15 mL/min/1.73 square meters Performed By: #### C MP, TSH, A1C, GFR #### [address] [address] A1Con 07-02-2022 HbA1c (Bld) [Mass fraction] 7.4 % High 4.3-6.4 [facility] ([place]) Comment on above: Performed By: #### G FR, CMP, TSH, FT3, A1C, LIPID #### [address] [address] CMPon 07-02-2022 Albumin Level 4.2 G/dL Normal 3.4-4.8 [facility]) Comment on above: Performed By: #### C MP, TSH, A1C, GFR #### [address] [address] Albumin/Globulin [Mass ratio] 1.2 {ratio} Normal 1.1-2.5 [facility]) Comment on above: Performed By: #### C MP, TSH, A1C, GFR #### [address] [address] ALP [Catalytic activity/Vol] 84 U/L Normal 40-135 [facility]) Comment on above: Performed By: #### C MP, TSH, A1C, GFR #### [address] [address] ALT [Catalytic activity/Vol] 29 U/L Normal 16-63 [facility]) Comment on above: Performed By: #### C MP, TSH, A1C, GFR #### [address] [address] AST [Catalytic activity/Vol] 23 U/L Normal 10-40 [facility]) Comment on above: Performed By: #### C MP, TSH, A1C, GFR #### [address] [address] Bili Total 0.4 mg/dL Normal 0.2-1.0 [facility] ([place]) Comment on above: Result Comment: Use of this assay is not recommended for patients undergoing treatment with eltrombopag due to the potential for falsely elevated results. Performed By: #### C MP, TSH, A1C, GFR #### [address] [address] BUN/Creatinine Ratio 20 ratio Normal 7-27 [facility]) Comment on above: Performed By: #### C MP, TSH, A1C, GFR #### [address] [address] Calcium [Mass/Vol] 9.2 mg/dL Normal 8.4-10.2 [facility] ([place]) Comment on above: Performed By: #### C MP, TSH, A1C, GFR #### [address] [address] Chloride [Moles/Vol] 101 mmol/L Normal 98-107 [facility] ([place]) Comment on above: Performed By: #### C MP, TSH, A1C, GFR #### [address] [address] CO2 [Moles/Vol] 26 mmol/L Normal 23-31 [facility] ([place] Comment on above: Performed By: #### C MP, TSH, A1C, GFR #### [address] [address] Creatinine [Mass/Vol] 1.19 mg/dL Normal 0.70-1.30 [facility] ([place]) Comment on above: Performed By: #### C MP, TSH, A1C, GFR #### [address] [address] Electrolyte Balance 10.0 mEq/L Normal 4.0-15.0 [facility] ([place]) Comment on above: Performed By: #### C MP, TSH, A1C, GFR #### [address] [address] Globulin 3.4 G/dL Normal [facility] ([place] Comment on above: Performed By: #### C MP, TSH, A1C, GFR #### [address] [address] Glucose [Mass/Vol] 148 mg/dL High 80-115 [facility] ([place]) Comment on above: Performed By: #### C MP, TSH, A1C, GFR #### [address] [address] Potassium [Moles/Vol] 4.9 mmol/L Normal 3.5-5.1 [facility] ([place]) Comment on above: Performed By: #### C MP, TSH, A1C, GFR #### [address] [address] Sodium [Moles/Vol] 137 mmol/L Normal 136-145 [facility] ([place]) Comment on above: Performed By: #### C MP, TSH, A1C, GFR #### [address] [address] Total Protein 7.6 G/dL Normal 6.4-8.2 [facility] ([place]) Comment on above: Performed By: #### C MP, TSH, A1C, GFR #### [address] [address] Urea nitrogen [Mass/Vol] 24 mg/dL High 04-01 [facility] ([place] Comment on above: Performed By: #### C MP, TSH, A1C, GFR #### [address] [address] FT3on 07-02-2022 Free T3 [Mass/Vol] 2.48 pg/mL Normal 2.30-4.00 [facility] ([place] Comment on above: Performed By: #### C MP, TSH, A1C, GFR #### [address] [address] LABORATORYOrdered By: Taylor Griffin on 07-02-2022 Osmolality (U) [Osmolality] 608 mosm/kg Inva lid Interpretation Code 390 - 1090 mOsm/kg Manual Chem SS LABORATORYOrdered By: Juana Parisi on 07-02-2022 Albumin BCP dye [Mass/Vol] 4.2 G/dL Inval id Interpretation Code 3.4 - 4.8 G/dL AO ADM SS Albumin/Globulin [Mass ratio] 1.2 {ratio} Invalid Interpretation Code 1.1 - 2.5 ratio AO ADM SS ALP [Catalytic activity/Vol] 84 U/L Invalid Interpretation Code 40 - 135 U/L AO ADM SS ALT With P-5'-P [Catalytic activity/Vol] 29 U/L Invalid Interpretation Code 16 - 63 U/L AO ADM SS AST With P-5'-P [Catalytic activity/Vol] 23 U/L Invalid Interpretation Code 10 - 40 U/L AO ADM SS Bilirubin [Mass/Vol] 0.4 mg/dL Invalid Interpretation Code 0.2 - 1.0 mg/dL AO ADM SS Calcium [Mass/Vol] 9.2 mg/dL Invalid Interpretation Code 8.4 - 10.2 mg/dL AO ADM SS Chloride [Moles/Vol] 101 mmol/L Invalid Interpretation Code 98 - 107 mmol/L AO ADM SS Cholesterol [Mass/Vol] 159 mg/dL Invalid Interpretation Code 0 - 200 mg/dL AO ADM SS Cholesterol in HDL [Mass/Vol] 48 mg/dL Invalid Interpretation Code 40 - 60 mg/dL AO ADM SS Cholesterol in LDL [Mass/Vol] 71 mg/dL Invalid Interpretation Code 0 - 130 mg/dL AO ADM SS CO2 [Moles/Vol] 26 mmol/L Invalid Interpretation Code 23 - 31 mmol/L AO ADM SS Creatinine [Mass/Vol] 1.19 mg/dL Invalid Interpretation Code 0.70 - 1.30 mg/dL AO ADM SS Electrolyte Balance 10.0 mEq/L Invalid Interpretation Code 4.0 - 15.0 mEq/L AO ADM SS Free T3 [Mass/Vol] 2.48 pg/mL Invalid Interpretation Code 2.30 - 4.00 pg/mL AO ADM SS Globulin 3.4 G/dL Invalid Interpretation Code AO ADM SS Glucose [Mass/Vol] 148 mg/dL Invalid Interpretation Code 80 - 115 mg/dL AO ADM SS Potassium [Moles/Vol] 4.9 mmol/L Invalid Interpretation Code 3.5 - 5.1 mmol/L AO ADM SS Protein [Mass/Vol] 7.6 G/dL Invalid Interpretation Code 6.4 - 8.2 G/dL AO ADM SS Sodium [Moles/Vol] 137 mmol/L Invalid Interpretation Code 136 - 145 mmol/L AO ADM SS Triglyceride [Mass/Vol] 198 mg/dL Invalid Interpretation Code 0 - 150 mg/dL AO ADM SS TSH Qn 1.52 m[IU]/L Invalid Interpretation Code 0.36 - 3.74 mcIU/mL AO ADM SS Urea nitrogen [Mass/Vol] 24 mg/dL Invalid Interpretation Code 7 - 18 mg/dL AO ADM SS Urea nitrogen/Creatinine [Mass ratio] 20 ratio Invalid Interpretation Code 7 - 27 ratio AO ADM SS LABORATORYOrdered By: SYSTEM SYSTEM on 10-18-2022 GFR 76 ml/min/1.73sqm Invalid Interpretation Code AO Chemistry S GFR Non- 62 ml/min/1.73sqm Inval id Interpretation Code AO Chemistry S LABORATORYOrdered By: Nima Ernst on 07-02-2022 HbA1c (Bld) [Mass fraction] 7.4 % Inva lid Interpretation Code 4.3 - 6.4 % AO ADM SS LIPIDon 07-02-2022 Cholesterol [Mass/Vol] 159 mg/dL Normal 0-200 [facility] ([place]) Comment on above: Result Comment: Chol esterol Reference Interval: Less than 200 Desirable 200-239 Borderline high risk 240 and above High risk Performed By: #### C MP, TSH, A1C, GFR #### [address] [address] Cholesterol in HDL [Mass/Vol] 48 mg/dL Normal 40-60 [facility] ([place]) Comment on above: Performed By: #### C MP, TSH, A1C, GFR #### [address] [address] Cholesterol in LDL [Mass/Vol] 71 mg/dL Normal 0-130 [facility] ([place]) Comment on above: Performed By: #### C MP, TSH, A1C, GFR #### [address] [address] Triglyceride [Mass/Vol] 198 mg/dL High 0-150 A [facility] ([place]) Comment on above: Result Comment: Trig lyceride Reference Interval: Less than 150 Normal 150-199 Borderline high risk 200-499 High risk 500 or higher Very high risk Performed By: #### C MP, TSH, A1C, GFR #### [address] [address] OSMOUon 07-02-2022 U Osmolality 608 mOsm/kg Normal 390-1090 [facility] ([place]) Comment on above: Performed By: #### O SMOU #### [facility] [address] [place] [address] TSHon 07-02-2022 TSH Qn 1.52 m[IU]/L Normal 0.36-3.74 [facility] ([place]) Comment on above: Performed By: #### C MP, TSH, A1C, GFR #### [id number] [place], [place] [address] Absolute lymphocyte counton 06-04-2022 Lymphocytes Auto (Unsp spec) [#/Vol] 1.02 10*3/uL 0.83-4.51 [facility] Work Phone: Basophil percentageon 2021 Basophils/100 WBC (Bld) 0.7 % 0-1 [facility] Work Phone: Chloride [Moles/Vol] 103 mmol/L 98-107 [facility] Work Phone: Eosinophils/100 WBC (Bld) 0.7 % 0-5 [facility] Work Phone: Glucose [Mass/Vol] 300 mg/dL 74-106 [facility] Work Phone: Comment on above: Glucose result great er than or equal to 200 mg/dLsuggests DIABETES MELLITUS per A.D.A. criteria. Neutrophils (Bld) [#/Vol] 2.6 10*3/uL 2.0-7.7 [facility] Work Phone: Neutrophils/100 WBC (Bld) 58.6 % 47-70 [facility] Work Phone: Potassium [Moles/Vol] 4.2 mmol/L 3.5-5.1 [facility] Work Phone: Sodium [Moles/Vol] 134 mmol/L 136-145 [facility] Work Phone: WBC (Bld) [#/Vol] 4.4 10*3/uL 4.4-11.0 [facility] Work Phone: Blood erythrocytes count (nu mber/volume)on 06-04-2022 RBC (Bld) [#/Vol] 4.43 10*6/uL 4.6-6.2 [facility] Work Phone: Blood hemoglobin measurement (mass/volume)on 06-04-2022 Hemoglobin (Bld) [Mass/Vol] 12.9 g/dL 13.0-16. 5 [facility] Work Phone: Blood lymphocytes/100 leukoc yteson 06-04-2022 Lymphocytes/100 WBC (Bld) 23.3 % 19-41 [facility] Work Phone: Blood manual differential co mment interpretation (narrative result)on 06-04-2022 Manual differential comment Bandar (Bld) [Interp] SCANNED [facility] Work Phone: Blood monocytes/100 leukocyt eson 06-04-2022 Monocytes/100 WBC (Bld) 15.3 % 0-10 [facility] Work Phone: Blood platelet mean volumeon 06-04-2022 Platelet mean volume (Bld) [Entitic vol] 9.3 fL 6.2-12.0 [facility] Work Phone: Determination of erythrocyte mean corpuscular volume (MCV)on 06-04-2022 MCV (RBC) [Entitic vol] 87.1 fL 80-94 [facility] Work Phone: Glucose Glucometer (BldC) [M ass/Vol]on 06-04-2022 Glucose [Mass/Vol] 153 mg/dL 74-106 [facility] Work Phone: Comment on above: MANAGEMENT OF PATIEN T CARE PER NURSING PROTOCOL Hematocrit Auto (Bld) [Volum e fraction]on 06-04-2022 Hematocrit (Bld) [Volume fraction] 38.6 % 40-54 [facility] Work Phone: Laboratory - Chemistry and C hemistry - challengeon 06-04-2022 CO2 [Moles/Vol] 22.0 mmol/L 21.0-32.0 [facility] Work Phone: Urea nitrogen/Creatinine [Mass ratio] 20.9 mg/mg - [facility] Work Phone: Laboratory - Hematology and Cell countson 06-04-2022 Erythrocyte distribution width (RBC) [Entitic vol] 39.8 fL 35.1-43.9 [facility] Work Phone: Erythrocyte distribution width (RBC) [Ratio] 12.5 % 11.6-14.6 [facility] Work Phone: Immature granulocytes/100 WBC (Bld) 1.400 % 0.0-0.9 [facility] Work Phone: Comment on above: IG% - Immature Granu locytes (promyelocytes, myelocytes and metamyelocytes) > 1% indicates that a LEFT SHIFT is Present. MCH (RBC) [Entitic mass] 29.1 pg 27.0-32.0 [facility] Work Phone: Nucleated RBC/100 WBC (Bld) [Ratio] 0 % 0-5 [facility] Work Phone: MCHC Auto (RBC) [Mass/Vol]on 06-04-2022 MCHC (RBC) [Mass/Vol] 33.4 g/dL 32-36 [facility] Work Phone: No Panel Informationon 06-04 D-Dimer Quantitative (PE/DVT) 1.74 FEU/ug/m 0.27-0.49 [facility] Work Phone: Comment on above: D-Dimer ELEVATED (>0 .49): Additional studies and clinicalassessments are indicated to conclude diagnosis of:Deep Vein Thrombosis (DVT) or Pulmonary Embolism (PE) Estimated Creatinine Clearance Calc 62.88 ml/min [facility] Work Phone: Estimated GFR (MDRD) Amer 73 mL/min >60 [facility] Work Phone: Comment on above: GFR Calc Estimated GFR (MDRD) Non-Af Amer 60 mL/min >60 [facility] Work Phone: Comment on above: Non- GFR Calc Troponin I High Sensitivity 5 pg/mL 3.0-78.0 [facility] Work Phone: Comment on above: Please Note: New Alexandra t Units and Gender Specific Reference Ranges. For more information see Policy Stat Procedure [place] High Sensitivity Troponin (TNIH) and attachments. Platelets bldon 06-04-2022 Platelets (Bld) [#/Vol] 227 10*3/uL 150-450 [facility] Work Phone: Serum or plasma calcium jennifer urement (mass/volume)on 06-04-2022 Calcium [Mass/Vol] 9.4 mg/dL 8.5-10.1 [facility] Work Phone: Serum or plasma creatinine m easurement (mass/volume)on 06-04-2022 Creatinine [Mass/Vol] 1.29 mg/dL 0.70-1.30 [facility] Work Phone: Comment on above: The validity of the calculated GFR & GFRAA in patients over 70 years has not been determined. Clinical correlation is essential. Serum or plasma urea nitroge n measurement (mass/volume)on 06-04-2022 Urea nitrogen [Mass/Vol] 27 mg/dL 7-18 [facility] Work Phone: Thin prep Papanicolaou smear with manual screeningon 06-04-2022 Thin prep Papanicolaou smear with manual screening 9 5-15 [facility] Work Phone: CRURon 04-23-2022 U Creatinine 126.5 mg/dL Normal 39.0-259.0 [facility] ([place]) Comment on above: Performed By: #### AMBREEN WHITESIDE #### [address] [address] #### KUR #### [place] [address] KURon 04-23-2022 Potassium [Moles/Vol] 54.8 mmol/L Normal [facility] ([place]) Comment on above: Performed By: #### AMBREEN WHITESIDE #### [address] [address] #### KUR #### [address] [address] LABORATORYOrdered By: Nima Ernst on 04-23-2022 Creatinine (U) [Mass/Vol] 126.5 mg/dL Invali d Interpretation Code 39.0 - 259.0 mg/dL AO ADM SS Sodium (U) [Moles/Vol] 124 mmol/L Invalid Interpretation Code 20 - 110 mmol/L AO ADM SS LABORATORYOrdered By: Taylro Griffin on 04-23-2022 Osmolality [Osmolality] 294 mosm/kg Invalid Interpretation Code 275 - 300 mOsm/kg AH Manual Chem SS LABORATORYOrdered By: Mónica oliva on 04-23-2022 Potassium [Moles/Vol] 54.8 mmol/L Invalid Interpretation Code AH ADM SS NAURon 04-23-2022 Sodium [Moles/Vol] 124 mmol/L High 20-110 [facility] ([place]) Comment on above: Performed By: #### C AMBREEN MCLEAN #### [place] [id number] #### KUR #### [place] [address] OSMOSon 04-23-2022 Osmolality [Osmolality] 294 mosm/kg Normal 275-300 [facility] ([place] Comment on above: Performed By: #### C MP, TSH, A1C, GFR #### [address] [address] .GFRon 04-02-2022 GFR 85 ml/min/1.73sqm Normal [facility] ([place]) Comment on above: Result Comment: GFR Population mean for , Non- Americans Ages 20-29 = 116 mL/min/1.73 sq.m. Ages 30-39 = 107 mL/min/1.73 sq.m. Ages 40-49 = 99 mL/min/1.73 sq.m. Ages 50-59 = 93 mL/min/1.73 sq.m. Ages 60-69 = 85 mL/min/1.73 sq.m. Ages 70+ = 75 mL/min/1.73 sq.m. Chronic Kidney Disease: Less than 60 mL/min/1.73 square meters End Stage Renal Disease: Less than 15 mL/min/1.73 square meters Performed By: #### C MP, TSH, A1C, GFR #### [address] [address] GFR Non- 70 ml/min/1.73sqm Normal [facility] ([place] Comment on above: Result Comment: GFR Population mean for , Non- Americans Ages 20-29 = 116 mL/min/1.73 sq.m. Ages 30-39 = 107 mL/min/1.73 sq.m. Ages 40-49 = 99 mL/min/1.73 sq.m. Ages 50-59 = 93 mL/min/1.73 sq.m. Ages 60-69 = 85 mL/min/1.73 sq.m. Ages 70+ = 75 mL/min/1.73 sq.m. Chronic Kidney Disease: Less than 60 mL/min/1.73 square meters End Stage Renal Disease: Less than 15 mL/min/1.73 square meters Performed By: #### C MP, TSH, A1C, GFR #### [address] [address] A1Con 04-02-2022 HbA1c (Bld) [Mass fraction] 7.1 % High 4.3-6.4 [facility] ([place] Comment on above: Performed By: #### C MP, TSH, A1C, GFR #### [address] [address] CMPon 04-02-2022 Albumin Level 4.5 G/dL Normal 3.5-5.0 [facility] ([place] Comment on above: Performed By: #### C MP, TSH, A1C, GFR #### [address] [address] Albumin/Globulin [Mass ratio] 1.5 {ratio} Normal 1.1-2.5 [facility] ([place] Comment on above: Performed By: #### C MP, TSH, A1C, GFR #### [address] [address] ALP [Catalytic activity/Vol] 77 U/L Normal 40-135 [facility] ([place] Comment on above: Performed By: #### C MP, TSH, A1C, GFR #### [address] [address] ALT [Catalytic activity/Vol] 22 U/L Normal 16-63 [facility] ([place] Comment on above: Performed By: #### C MP, TSH, A1C, GFR #### [address] [address] AST [Catalytic activity/Vol] 13 U/L Normal 10-40 [facility] ([place] Comment on above: Performed By: #### C MP, TSH, A1C, GFR #### [address] [address] Bili Total 0.4 mg/dL Normal 0.2-1.0 [facility] ([place] Comment on above: Result Comment: Use of this assay is not recommended for patients undergoing treatment with eltrombopag due to the potential for falsely elevated results. Performed By: #### C MP, TSH, A1C, GFR #### [address] [address] BUN/Creatinine Ratio 16 ratio Normal 7-27 [facility] ([place]) Comment on above: Performed By: #### C MP, TSH, A1C, GFR #### [address] [address] Calcium [Mass/Vol] 9.7 mg/dL Normal 8.4-10.2 [facility] ([place] Comment on above: Performed By: #### C MP, TSH, A1C, GFR #### [address] [address] Chloride [Moles/Vol] 103 mmol/L Normal 98-107 [facility] ([place] Comment on above: Performed By: #### C MP, TSH, A1C, GFR #### [address] [address] CO2 [Moles/Vol] 32 mmol/L High 22-29 [facility] ([place] Comment on above: Performed By: #### C MP, TSH, A1C, GFR #### [address] [address] Creatinine [Mass/Vol] 1.08 mg/dL Normal 0.70-1.30 [facility] ([place] Comment on above: Performed By: #### C MP, TSH, A1C, GFR #### [address] [address] Electrolyte Balance 4.0 mEq/L Normal 4.0-15.0 [facility] ([place] Comment on above: Performed By: #### C MP, TSH, A1C, GFR #### [address] [address] Globulin 3.0 G/dL Normal [facility] ([place] Comment on above: Performed By: #### C MP, TSH, A1C, GFR #### [address] [address] Glucose [Mass/Vol] 119 mg/dL High 70-105 [facility] ([place] Comment on above: Performed By: #### C MP, TSH, A1C, GFR #### [address] [address] Potassium [Moles/Vol] 5.3 mmol/L High 3.5-5.1 [facility] ([place] Comment on above: Performed By: #### C MP, TSH, A1C, GFR #### [address] [address] Sodium [Moles/Vol] 139 mmol/L Normal 136-145 [facility] ([place] Comment on above: Performed By: #### C MP, TSH, A1C, GFR #### [address] [address] Total Protein 7.5 G/dL Normal 6.4-8.2 [facility] ([place] Comment on above: Performed By: #### C MP, TSH, A1C, GFR #### [address] [address] Urea nitrogen [Mass/Vol] 17 mg/dL Normal 7-18 [facility] [place] Comment on above: Performed By: #### C MP, TSH, A1C, GFR #### [address] [address] MALBRon 04-02-2022 U Creatinine 110.9 mg/dL Normal 39.0-259.0 [facility] ([place] Comment on above: Performed By: #### M ALBR #### [address] [address] U Microalb 1327 mcg/dL Normal [facility] ([place] Comment on above: Performed By: #### M ALBR #### [address] [address] U Ratio Alb/Cre 12 mcg/mg Normal 0-30 [facility] ([place] Comment on above: Performed By: #### M ALBR #### [address] [address] TSHon 04-02-2022 TSH Qn 1.29 m[IU]/L Normal 0.36-3.74 [facility] ([place] Comment on above: Performed By: #### C MP, TSH, A1C, GFR #### [address] [address] .Auto Diffon 10-04-2021 Basophil, Absolute 0.00 10 3/mcL Normal 0.00-0.19 [facility] ([place] Comment on above: Performed By: #### C MP, TSH, A1C, GFR #### [address] [address] Basophils/100 WBC (Bld) 0.5 % Normal 0.0-2.5 [facility] ([place]) Comment on above: Performed By: #### C MP, TSH, A1C, GFR #### [address] [address] Eosinophil, Absolute 0.10 10 3/mcL Normal 0.00-0.40 A [facility] ([place] Comment on above: Performed By: #### C MP, TSH, A1C, GFR #### [address] [address] Eosinophils/100 WBC (Bld) 1.7 % Normal 0.0-7.0 [facility] ([place] Comment on above: Performed By: #### C MP, TSH, A1C, GFR #### [address] [address] Lymphocyte, Absolute 1.60 10 3/mcL Normal 0.77-3.85 [facility] ([place] Comment on above: Performed By: #### C MP, TSH, A1C, GFR #### [address] [address] Lymphocytes/100 WBC (Bld) 23.0 % Normal 10.0-50.0 [facility] ([place] Comment on above: Performed By: #### C MP, TSH, A1C, GFR #### [address] [address] Monocyte, Absolute 0.90 10 3/mcL Normal 0.15-1.00 [facility] ([place] Comment on above: Performed By: #### C MP, TSH, A1C, GFR #### [address] [address] Monocytes/100 WBC (Bld) 13.3 % High 1.7-13.0 [facility] ([place] Comment on above: Performed By: #### C MP, TSH, A1C, GFR #### [address] [address] Neutrophils/100 WBC (Bld) 61.5 % Normal 37.0-80.0 [facility] ([place] Comment on above: Performed By: #### C MP, TSH, A1C, GFR #### [address] [address] .GFRon 10-04-2021 GFR 90 ml/min/1.73sqm Normal [facility] ([place] Comment on above: Result Comment: GFR Population mean for , Non- Americans Ages 20-29 = 116 mL/min/1.73 sq.m. Ages 30-39 = 107 mL/min/1.73 sq.m. Ages 40-49 = 99 mL/min/1.73 sq.m. Ages 50-59 = 93 mL/min/1.73 sq.m. Ages 60-69 = 85 mL/min/1.73 sq.m. Ages 70+ = 75 mL/min/1.73 sq.m. Chronic Kidney Disease: Less than 60 mL/min/1.73 square meters End Stage Renal Disease: Less than 15 mL/min/1.73 square meters Performed By: #### C MP, TSH, A1C, GFR #### Sarah [address] [address] GFR Non- 74 ml/min/1.73sqm Normal [facility] ([place] Comment on above: Result Comment: GFR Population mean for , Non- Americans Ages 20-29 = 116 mL/min/1.73 sq.m. Ages 30-39 = 107 mL/min/1.73 sq.m. Ages 40-49 = 99 mL/min/1.73 sq.m. Ages 50-59 = 93 mL/min/1.73 sq.m. Ages 60-69 = 85 mL/min/1.73 sq.m. Ages 70+ = 75 mL/min/1.73 sq.m. Chronic Kidney Disease: Less than 60 mL/min/1.73 square meters End Stage Renal Disease: Less than 15 mL/min/1.73 square meters Performed By: #### C MP, TSH, A1C, GFR #### [address] [address] .NEUABSon 10-04-2021 Neutrophil, Absolute 4.20 10 3/mcL Normal 2.85-6.16 A [facility] ([place] Comment on above: Performed By: #### C MP, TSH, A1C, GFR #### Sarah [address] [address] A1Con 10-04-2021 HbA1c (Bld) [Mass fraction] 6.9 % High 4.3-6.4 [facility] ([place] Comment on above: Performed By: #### C MP, TSH, A1C, GFR #### Sarah [address] [address] CBCon 10-04-2021 Erythrocyte distribution width (RBC) [Ratio] 13.2 % Normal 11.5-14.5 [facility] ([place] Comment on above: Performed By: #### C MP, TSH, A1C, GFR #### [address] [address] Hematocrit (Bld) [Volume fraction] 41.7 % Low 42.0-52.0 [facility] ([place] Comment on above: Performed By: #### C MP, TSH, A1C, GFR #### [address] [address] Hgb 14.1 G/dL Normal 14.0-18.0 [facility] ([place] Comment on above: Performed By: #### C MP, TSH, A1C, GFR #### [address] [address] MCH (RBC) [Entitic mass] 29.8 pg Normal 27.0-31.2 [facility] ([place] Comment on above: Performed By: #### C MP, TSH, A1C, GFR #### [address] [address] MCHC 33.7 G/dL Normal 31.8-35.4 [facility] ([place] Comment on above: Performed By: #### C MP, TSH, A1C, GFR #### [address] [address] MCV (RBC) [Entitic vol] 88.4 fL Normal 80.0-94.0 [facility] ([place] Comment on above: Performed By: #### C MP, TSH, A1C, GFR #### [address] [address] Platelet 361 10 3/mcL Normal 130-400 [facility] ([place] Comment on above: Performed By: #### C MP, TSH, A1C, GFR #### [address] [address] Platelet mean volume (Bld) [Entitic vol] 7.5 fL Normal 7.4-10.4 [facility] ([place] Comment on above: Performed By: #### C MP, TSH, A1C, GFR #### [address] [address] RBC 4.72 10 6/mcL Normal 4.04-6.13 [facility] ([place] Comment on above: Performed By: #### C MP, TSH, A1C, GFR #### [address] [address] WBC 6.90 10 3/mcL Normal 4.60-10.80 [facility] ([place] Comment on above: Performed By: #### C MP, TSH, A1C, GFR #### [address] [address] CMPon 10-04-2021 Albumin Level 4.6 G/dL Normal 3.5-5.0 [facility] ([place] Comment on above: Performed By: #### C MP, TSH, A1C, GFR #### [address] [address] Albumin/Globulin [Mass ratio] 1.5 {ratio} Normal 1.1-2.5 [facility] ([place] Comment on above: Performed By: #### C MP, TSH, A1C, GFR #### [address] [address] ALP [Catalytic activity/Vol] 74 U/L Normal 40-135 [facility] ([place] Comment on above: Performed By: #### C MP, TSH, A1C, GFR #### [address] [address] ALT [Catalytic activity/Vol] 27 U/L Normal 16-63 [facility] ([place] Comment on above: Performed By: #### C MP, TSH, A1C, GFR #### [address] [address] AST [Catalytic activity/Vol] 13 U/L Normal 10-40 [facility] ([place] Comment on above: Performed By: #### C MP, TSH, A1C, GFR #### [address] [address] Bili Total 0.4 mg/dL Normal 0.2-1.0 [facility] ([place] Comment on above: Result Comment: Use of this assay is not recommended for patients undergoing treatment with eltrombopag due to the potential for falsely elevated results. Performed By: #### C MP, TSH, A1C, GFR #### [address] [address] BUN/Creatinine Ratio 18 ratio Normal 7-27 [facility] ([place] Comment on above: Performed By: #### C MP, TSH, A1C, GFR #### [address] [address] Calcium [Mass/Vol] 10.0 mg/dL Normal 8.4-10.2 [facility] ([place] Comment on above: Performed By: #### C MP, TSH, A1C, GFR #### [address] [address] Chloride [Moles/Vol] 100 mmol/L Normal 98-107 [facility] ([place] Comment on above: Performed By: #### C MP, TSH, A1C, GFR #### [address] [address] CO2 [Moles/Vol] 27 mmol/L Normal 22-29 [facility] ([place] Comment on above: Performed By: #### C MP, TSH, A1C, GFR #### [address] [address] Creatinine [Mass/Vol] 1.03 mg/dL Normal 0.70-1.30 [facility] ([place] Comment on above: Performed By: #### C MP, TSH, A1C, GFR #### [address] [address] Electrolyte Balance 11.0 mEq/L Normal 4.0-15.0 [facility] ([place] Comment on above: Performed By: #### C MP, TSH, A1C, GFR #### [address] [address] Globulin 3.1 G/dL Normal [facility] ([place] Comment on above: Performed By: #### C MP, TSH, A1C, GFR #### [address] [address] Glucose [Mass/Vol] 135 mg/dL High 70-105 [facility] ([place] Comment on above: Performed By: #### C MP, TSH, A1C, GFR #### [address] [address] Potassium [Moles/Vol] 5.0 mmol/L Normal 3.5-5.1 [facility] ([place] Comment on above: Performed By: #### C MP, TSH, A1C, GFR #### [address] [address] Sodium [Moles/Vol] 138 mmol/L Normal 136-145 [facility] ([place] Comment on above: Performed By: #### C MP, TSH, A1C, GFR #### [address] [address] Total Protein 7.7 G/dL Normal 6.4-8.2 [facility] ([place] Comment on above: Performed By: #### C MP, TSH, A1C, GFR #### [address] [address] Urea nitrogen [Mass/Vol] 19 mg/dL High 7-18 [facility] ([place] Comment on above: Performed By: #### C MP, TSH, A1C, GFR #### [address] [address] LIPIDon 10-04-2021 Cholesterol [Mass/Vol] 180 mg/dL Normal 0-200 [facility] ([place] Comment on above: Result Comment: Chol esterol Reference Interval: Less than 200 Desirable 200-239 Borderline high risk 240 and above High risk Performed By: #### C MP, TSH, A1C, GFR #### [address] [address] Cholesterol in HDL [Mass/Vol] 60 mg/dL Normal 40-60 [facility] ([place] Comment on above: Performed By: #### C MP, TSH, A1C, GFR #### [address] [address] Cholesterol in LDL [Mass/Vol] 86 mg/dL Normal 0-130 [facility] ([place] Comment on above: Performed By: #### C MP, TSH, A1C, GFR #### [address] [address] Triglyceride [Mass/Vol] 170 mg/dL High 0-150 A [facility] ([place] Comment on above: Result Comment: Trig lyceride Reference Interval: Less than 150 Normal 150-199 Borderline high risk 200-499 High risk 500 or higher Very high risk Performed By: #### C MP, TSH, A1C, GFR #### [address] [address] MALBRon 10-04-2021 U Creatinine 287.0 mg/dL High 39.0-259.0 [facility] ([place] Comment on above: Performed By: #### C MP, TSH, A1C, GFR #### [address] [address] U Microalb 2571 mcg/dL Normal [facility] ([place] Comment on above: Performed By: #### C MP, TSH, A1C, GFR #### [address] [address] U Ratio Alb/Cre 9 mcg/mg Normal 0-30 [facility] ([place] Comment on above: Performed By: #### C MP, TSH, A1C, GFR #### [address] [address] VIDHon 10-04-2021 Vit. D 25-Hydroxy 72.5 ng/mL Normal [facility] ([place] Comment on above: Result Comment: Inte rpretive Values Based on Total 25(OH) Vitamin D: Deficient <20 ng/mL Insufficient 20 - <30 ng/mL Sufficient 30-100 ng/mL Performed By: #### C MP, TSH, A1C, GFR #### [address] [address] CMPon 12-20-2020 Albumin [Mass/Vol] 4.5 g/dL Normal 3.2-5.0 [facility] Comment on above: Performed By: #### L 500.44375, L500.04398, L500.90362 #### [facility] [address] [place] [address] Albumin/Globulin [Mass ratio] 1.7 {ratio} Normal 0.8-2.0 [facility] Comment on above: Performed By: #### L 500.89861, L500.15208, L500.20646 #### [facility] [place] [address] ALK PHOS 82 U/L Normal 45-117 [facility] Comment on above: Performed By: #### L 500.84985, L500.79028, L500.15008 #### [facility] [address] [place] [address] ALT [Catalytic activity/Vol] 20 U/L Normal 13-61 [facility] Comment on above: Result Comment: RESU LTS MAY BE FALSELY DEPRESSED AFTER THE ADMINISTRATION OF SULFASALAZINE AND/OR SULFAPYRIDINE. Performed By: #### L 500.12798, L500.96932, L500.70040 #### [facility] [address] [place] [address] Anion gap [Moles/Vol] 6 mmol/L Normal 5-16 [facility] Comment on above: Performed By: #### L 500.25274, L500.57807, L500.51902 #### [facility] [address] [place] [address] BILI TOTAL 0.40 MG/DL Normal 0.2-1.0 [facility] Comment on above: Performed By: #### L 500.47873, L500.17925, L500.83368 #### [facility] [address] [place], [place] [address] Calcium [Mass/Vol] 10.4 mg/dL Normal 8.5-10.5 [facility] Comment on above: Result Comment: NOTE NEW NORMAL RANGE DUE TO REAGENT CHANGE Performed By: #### L 500.15641, L500.29160, L500.52576 #### [facility] [address] [place] [address] Chloride [Moles/Vol] 106 mmol/L Normal 98-107 [facility] Comment on above: Performed By: #### L 500.07722, L500.70937, L500.79040 #### [facility] [address] [place] [address] CO2 [Moles/Vol] 27.0 mmol/L Normal 21-32 [facility] Comment on above: Performed By: #### L 500.48728, L500.09415, L500.46012 #### [facility] [address] [place] [address] Creatinine [Mass/Vol] 0.87 mg/dL Normal 0.5-1.4 [facility] Comment on above: Result Comment: NOTE NEW NORMAL RANGE DUE TO REAGENT CHANGE Patients receiving either N-Acetylcysteine (NAC) or Metamizole prior to venipuncture, may have falsely depressed results. Performed By: #### L 500.14868, L500.51168, L500.81220 #### [facility] [address] [place] [address] Globulin (S) [Mass/Vol] 2.7 g/dL Normal 2.2-4.2 M [facility] Comment on above: Performed By: #### L 500.06148, L500.97017, L500.52048 #### [facility] [address] [place] [address] Glucose [Mass/Vol] 125 mg/dL High 70-100 [facility] Comment on above: Result Comment: 70-1 00- Normal Fasting; 100-125 Impaired Fasting; greater than 126 on more than one result- Diabetes. ADA guidelines. Results may be falsely elevated after the administration of Sulfapyridine. Results may be falsely depressed after the administration of Sulfasalazine. Performed By: #### L 500.41976, L500.46651, L500.15416 #### [facility] [address] [place] [address] Potassium [Moles/Vol] 4.4 mmol/L Normal 3.5-5.1 [facility] Comment on above: Result Comment: Slig ht Hemolysis, Result may be affected. Performed By: #### L 500.27614, L500.60111, L500.77199 #### [facility] [address] [place] [address] Protein [Mass/Vol] 7.2 g/dL Normal 6.0-8.5 [facility] Comment on above: Performed By: #### L 500.47798, L500.76194, L500.97616 #### [facility] [address] [place] [address] SGOT (AST) 20 U/L Normal 8-34 [facility] Comment on above: Result Comment: RESU LTS MAY BE FALSELY DEPRESSED AFTER THE ADMINISTRATION OF SULFASALAZINE AND/OR SULFAPYRIDINE. Performed By: #### L 500.15722, L500.67606, L500.46564 #### [facility] [address] [place] [address] Sodium [Moles/Vol] 139 mmol/L Normal 136-145 [facility] Comment on above: Performed By: #### L 500.97603, L500.76447, L500.56967 #### [facility] [address] [place] [address] Urea nitrogen [Mass/Vol] 26 mg/dL Normal 7-26 [facility] Comment on above: Performed By: #### L 500.68115, L500.27599, L500.24050 #### [facility] [address] [place] [address] Urea nitrogen/Creatinine [Mass ratio] 30 mg/mg High 15-24 [facility] Comment on above: Performed By: #### L 500.84138, L500.78179, L500.35727 #### [facility] [address] [place] [address] GFR ESTon 12-20-2020 IF AMER Greater than 60 Normal [facility] Comment on above: Performed By: #### L 500.63751, L500.67608, L500.38760 #### [facility] [address] [place] [address] IF non-AFR AMER Greater than 60 Normal [facility] Comment on above: Performed By: #### L 500.79344, L500.15315, L500.99085 #### [facility] [address] [place] [address] HGB A1C GLYCOHBon 12-20-2020 HbA1c (Bld) [Mass fraction] 7.1 % High 4.3-6.0 [facility] Comment on above: Performed By: #### L 550.08030 #### [facility] [address] [place], [place] [address] LIPIDon 12-20-2020 Cholesterol [Mass/Vol] 169 MG/dL Normal 0-199 [facility] Comment on above: Performed By: #### L 500.43436, L500.46966, L500.31143 #### [facility] [address] [place], [place] [address] Cholesterol in HDL [Mass/Vol] 47 mg/dL Normal GREATER THAN 40 [facility] Comment on above: Result Comment: Perlita ents receiving Metamizole prior to venipuncture, may have falsely depressed results. Performed By: #### L 500.83693, L500.98399, L500.85539 #### [facility] [address] [place] [address] Cholesterol in LDL [Mass/Vol] 87 mg/dL Normal [facility] Comment on above: Result Comment: ___C HOLESTEROL/HDL RATIO RISK___ CHD RISK = Total CHOL LDL HDL (CHOL/HDL) -- Recommended <200 <130 >40 <3.4 -- Borderline 200-239 130-159 3.4-4.99 -- High >240 >160 >5.0 -- Performed By: #### L 500.25474, L500.41607, L500.72983 #### [facility] [place] [id number] Triglyceride [Mass/Vol] 173 mg/dL High 30-149 M [facility] Comment on above: Result Comment: Perlita ents receiving either N-Acetylcysteine (NAC) or Metamizole prior to venipuncture, may have falsely depressed results. Performed By: #### L 500.58831, L500.13317, L500.23932 #### [facility] [place] [address] [facility] 08-07-2020 Erythrocyte distribution width (RBC) [Ratio] 12.7 % Normal 11.5 - 14.5 [facility] Comment on above: Performed By: #### C BC #### [facility] [address] [place] [address] Hematocrit (Bld) [Volume fraction] 42.6 % Normal 41.0 - 52.0 [facility] Comment on above: Performed By: #### C BC #### [facility] [address] [place] [address] Hemoglobin (Bld) [Mass/Vol] 13.8 g/dL Normal 13.5 - 17.5 [facility] Comment on above: Performed By: #### C BC #### [facility] [address] [place] [address] MCHC (RBC) [Mass/Vol] 32.4 g/dL Normal 32.0 - 36.0 [facility] Comment on above: Performed By: #### C BC #### [facility] [address] [place] [address] MCV (RBC) [Entitic vol] 91 fL Normal 80 - 100 U [facility] Comment on above: Performed By: #### C BC #### [facility] [address] [place] [address] Nucleated RBC/100 WBC (Bld) [Ratio] 0.0 /100 WBC Normal 0.0-0.0 [facility] Comment on above: Performed By: #### C BC #### [facility] [address] [place] [address] Platelets (Bld) [#/Vol] 343 10*3/uL Normal 150 - 450 [facility] Comment on above: Performed By: #### C BC #### [facility] [address] [place] [address] RBC (Bld) [#/Vol] 4.66 x10E12/L Normal 4.50 - 5.90 [facility] Comment on above: Performed By: #### C BC #### [facility] [address] [place] [address] WBC (Bld) [#/Vol] 5.0 10*3/uL Normal 4.4 - 11.3 [facility] Comment on above: Performed By: #### C BC #### [facility] [address] [place] [address] COMPREHENSIVE PANELon 2019 Albumin [Mass/Vol] 4.7 g/dL Normal 3.4 - 5.0 [facility] Comment on above: Performed By: #### C MP #### [facility] [place] [address] [place] [address] ALP [Catalytic activity/Vol] 89 U/L Normal 33 - 120 [facility] Comment on above: Performed By: #### C MP #### [facility] [place] [address] [place] [address] ALT [Catalytic activity/Vol] 17 U/L Normal 10 - 52 [facility] Comment on above: Result Comment: Perlita ents treated with Sulfasalazine may generate falsely decreased results for ALT. Performed By: #### C MP #### [facility] [place] [address] [place] [address] Anion gap [Moles/Vol] 16 mmol/L Normal 10 - 20 [facility] Comment on above: Performed By: #### C MP #### [facility] [place] [address] [place] [address] AST [Catalytic activity/Vol] 17 U/L Normal 9 - 39 [facility] Comment on above: Performed By: #### C MP #### [facility] [place] [address] [place] [address] Bilirubin [Mass/Vol] 0.4 mg/dL Normal 0.0 - 1.2 [facility] Comment on above: Performed By: #### C MP #### [facility] [place] [address] [place] [address] Calcium [Mass/Vol] 9.8 mg/dL Normal 8.6 - 10.6 [facility] Comment on above: Performed By: #### C MP #### [facility] [place] [address] [place] [address] Chloride [Moles/Vol] 104 mmol/L Normal 98 - 107 [facility] Comment on above: Performed By: #### C MP #### [facility] [place] [address] [place] [address] Creatinine [Mass/Vol] 1.26 mg/dL Normal 0.50 - 1.30 [facility] Comment on above: Performed By: #### C MP #### [facility] [place] [address] [place] [address] GFR- AM. 71 mL/min/1.73m2 Normal >60 [facility] Comment on above: Result Comment: CALC ULATIONS OF ESTIMATED GFR ARE PERFORMED USING THE MDRD STUDY EQUATION FOR THE IDMS-TRACEABLE CREATININE METHODS. CLIN CHEM 2007;53:766-72 Performed By: #### C MP #### [facility] [place] [address] [place] [address] GFR-NON AM. 59 mL/min/1.73m2 Abnormal >60 [facility] Comment on above: Performed By: #### C MP #### [facility] [place] [address] [place] [address] Glucose [Mass/Vol] 143 mg/dL High 74 - 99 [facility] Comment on above: Performed By: #### C MP #### [facility] [place] [address] [place] [address] HCO3 (Bld) [Moles/Vol] 25 mmol/L Normal 21 - 32 [facility] Comment on above: Performed By: #### C MP #### [facility] [place] [address] [place] [address] Potassium [Moles/Vol] 5.1 mmol/L Normal 3.5 - 5.3 [facility] Comment on above: Performed By: #### C MP #### [facility] [place] [address] [place] [address] Protein [Mass/Vol] 7.2 g/dL Normal 6.4 - 8.2 [facility] Comment on above: Performed By: #### C MP #### [facility] [address] [place] [address] Sodium [Moles/Vol] 140 mmol/L Normal 136 - 145 [facility] Comment on above: Performed By: #### C MP #### [facility] [address] [place] [address] Urea nitrogen [Mass/Vol] 33 mg/dL High - [facility] Comment on above: Performed By: #### C MP #### [facility] [address] [place] [address] LIPID PANEL (CORONARY RISK 2 )on 08-07-2020 Cholesterol [Mass/Vol] 127 mg/dL Normal 0 - 199 [facility] Comment on above: Result Comment: . AGE DESIRABLE BORDERLINE HIGH HIGH 0-19 Y 0 - 169 170 - 199 >/= 200 20-24 Y 0 - 189 190 - 224 >/= 225 >24 Y 0 - 199 200 - 239 >/= 240 All ranges are based on fasting samples. Specific therapeutic targets will vary based on patient-specific cardiac risk. . Pediatric guidelines reference:Pediatrics 2011, 128(S5). Adult guidelines reference: NCEP ATPIII Guidelines, GENI 2001, 258:2486-97 . Venipuncture immediately after or during the administration of Metamizole may lead to falsely low results. Testing should be performed immediately prior to Metamizole dosing. Performed By: #### L IPID #### [facility] [address] [place] [address] Cholesterol in HDL [Mass/Vol] 39.7 mg/dL Abnormal [facility] Comment on above: Result Comment: . AGE VERY LOW LOW NORMAL HIGH 0-19 Y < 35 < 40 40-45 ---- 20-24 Y ---- < 40 >45 ---- >24 Y ---- < 40 40-60 >60 . Performed By: #### L IPID #### [facility] [address] [place] [address] Cholesterol in LDL [Mass/Vol] 54 mg/dL Normal 0 - 99 [facility] Comment on above: Result Comment: . NEAR BORD AGE DESIRABLE OPTIMAL HIGH HIGH VERY HIGH 0-19 Y 0 - 109 --- 110-129 >/= 130 ---- 20-24 Y 0 - 119 --- 120-159 >/= 160 ---- >24 Y 0 - 99 100-129 130-159 160-189 >/=190 . Performed By: #### L IPID #### [facility] [address] [place] [address] Cholesterol in VLDL [Mass/Vol] 34 mg/dL Normal 0 - 40 [facility] Comment on above: Performed By: #### L IPID #### [facility] [address] [place] [address] Cholesterol.total/Cholester ol in HDL [Mass ratio] 3.2 {ratio} Normal [facility] Comment on above: Result Comment: REF VALUES DESIRABLE < 3.4 HIGH RISK > 5.0 Performed By: #### L IPID #### [facility] [address] [place] [address] Triglyceride [Mass/Vol] 168 mg/dL High 0 - 149 [facility] Comment on above: Result Comment: . AGE DESIRABLE BORDERLINE HIGH HIGH VERY HIGH 0 D-90 D 19 - 174 ---- ---- ---- 91 D- 9 Y 0 - 74 75 - 99 >/= 100 ---- 10-19 Y 0 - 89 90 - 129 >/= 130 ---- 20-24 Y 0 - 114 115 - 149 >/= 150 ---- >24 Y 0 - 149 150 - 199 200- 499 >/= 500 . Venipuncture immediately after or during the administration of Metamizole may lead to falsely low results. Testing should be performed immediately prior to Metamizole dosing. Performed By: #### L IPID #### [facility] [address] [place] [address] MAGNESIUMon 08-07-2020 Magnesium [Mass/Vol] 1.80 mg/dL Normal 1.60 - 2.40 [facility] Comment on above: Performed By: #### M G #### [facility] [address] [place] [address] TACROLIMUSon 08-07-2020 Tacrolimus (Bld) [Mass/Vol] 8.2 ng/mL Normal 2.0 - 15 .0 [facility] Comment on above: Result Comment: NOTE : Result was obtained using a chemiluminescent microparticle immunoassay (CMIA) on the [employer] i system. Optimal therapeutic ranges for immuno- suppressant drugs depend upon an individual patient's current clinical state, type of organ transplant, time post-transplant, co-administration of other immunosuppressants, and other clinical factors. The results of this test should be correlated with additional clinical and laboratory data before changes in treatment regimens are made. Performed By: #### F K506 #### [facility] [address] [place], [place] [id number] CBC W/DIFFon 06-19-2020 BASO ABS 0.10 K/CU MM Normal 0-0.2 [facility] Comment on above: Performed By: #### L 200.98449, L550.33831 #### [facility] [address] [place] [address] Basophils/100 WBC (Bld) 0.7 % Normal 0-2 [facility] Comment on above: Performed By: #### L 200.84461, L550.98852 #### [facility] [address] [place] [address] EOS ABS 0.20 K/CU MM Normal 0-0.5 [facility] Comment on above: Performed By: #### L 200.25033, L550.55835 #### [facility] [address] [place] [address] Eosinophils/100 WBC (Bld) 2.4 % Normal 0-5 [facility] Comment on above: Performed By: #### L 200.19334, L550.97990 #### [facility] [address] [place] [address] Erythrocyte distribution width (RBC) [Ratio] 13.0 % Normal 11-14.5 [facility] Comment on above: Performed By: #### L 200.48889, L550.09089 #### [facility] [address] [place], [place] [address] Hematocrit (Bld) [Volume fraction] 44.1 % Normal 41.0-53.0 [facility] Comment on above: Performed By: #### L 200.50556, L550.65284 #### [facility] [address] [place] [address] Hemoglobin (Bld) [Mass/Vol] 14.4 g/dL Normal 13.5-17. 5 [facility] Comment on above: Performed By: #### L 200.85107, L550.84537 #### [facility] [address] [place] [address] IMMATR GRAN ABS 0.10 K/CU MM Normal Less than 2 [facility] Comment on above: Performed By: #### L 200.47972, L550.06601 #### [facility] [address] [place] [address] IMMATURE GRAN % 0.6 % Normal Less than 2 [facility] Comment on above: Performed By: #### L 200.41961, L550.59279 #### [facility] [address] [place] [address] Lymphocytes (Bld) [#/Vol] 2.00 K/CU MM Normal 0.9-4.4 [facility] Comment on above: Performed By: #### L 200.40626, L550.41457 #### [facility] [address] [place] [address] Lymphocytes/100 WBC (Bld) 24.5 % Normal 20-40 [facility] Comment on above: Performed By: #### L 200.18196, L550.50114 #### [facility] [address] [place] [address] MCHC (RBC) [Mass/Vol] 32.7 g/dL Normal 32.0-36.0 [facility] Comment on above: Performed By: #### L 200.55439, L550.91739 #### [facility] [address] [place] [address] MCV (RBC) [Entitic vol] 92.3 fL Normal 80.0-99.0 [facility] Comment on above: Performed By: #### L 200.21723, L550.29794 #### [facility] [address] [place] [address] MONO ABS 1.10 K/CU MM Normal 0.1-1.1 [facility] Comment on above: Performed By: #### L 200.78218, L550.83252 #### [facility] [address] [place] [address] Monocytes/100 WBC (Bld) 13.2 % High 2-10 [facility] Comment on above: Performed By: #### L 200.06068, L550.18891 #### [facility] [address] [place] [address] NEUTROPHIL ABS 4.70 K/CU MM Normal 2.0-8.3 [facility] Comment on above: Performed By: #### L 200.79654, L550.96751 #### [facility] [address] [place] [address] Neutrophils/100 WBC (Bld) 58.6 % Normal 45-75 [facility] Comment on above: Performed By: #### L 200.32953, L550.89455 #### [facility] [address] [place] [address] Nucleated RBC/100 WBC (Bld) [Ratio] 0.0 % Normal Less than 1 [facility] Comment on above: Performed By: #### L 200.19123, L550.90540 #### [facility] [address] [place], [place] [address] Platelet mean volume (Bld) [Entitic vol] 10.1 fL Normal 9.4-12.4 [facility] Comment on above: Performed By: #### L 200.00837, L550.60769 #### [facility] [address] [place] [address] Platelets (Bld) [#/Vol] 381 K/CU MM Normal 150-450 [facility] Comment on above: Performed By: #### L 200.18274, L550.84245 #### [facility] [address] [place] [address] RBC (Bld) [#/Vol] 4.78 M/CU MM Normal 4.50-6.00 [facility] Comment on above: Performed By: #### L 200.19014, L550.37506 #### [facility] [address] [place] [address] WBC (Bld) [#/Vol] 8.0 K/CUMM Normal 4.5-11.0 [facility] Comment on above: Performed By: #### L 200.35388, L550.13848 #### [facility] [address] [place] [address] CMPon 06-19-2020 Albumin [Mass/Vol] 5.1 g/dL High 3.2-5.0 [facility] Comment on above: Performed By: #### L 500.05285, L500.40485, L500.23905, L500.08248 #### [facility] [address] [place], [place] [address] Albumin/Globulin [Mass ratio] 2.0 {ratio} Normal 0.8-2.0 [facility] Comment on above: Performed By: #### L 500.40337, L500.34188, L500.69366, L500.14771 #### [facility] [address] [place], [place] [address] ALK PHOS 91 U/L Normal 45-117 [facility] Comment on above: Performed By: #### L 500.17975, L500.32963, L500.45923, L500.81853 #### [facility] [place] [address] ALT [Catalytic activity/Vol] 25 U/L Normal 13-61 [facility] Comment on above: Result Comment: RESU LTS MAY BE FALSELY DEPRESSED AFTER THE ADMINISTRATION OF SULFASALAZINE AND/OR SULFAPYRIDINE. Performed By: #### L 500.71793, L500.19907, L500.35966, L500.16684 #### [facility] [address] [place] [address] Anion gap [Moles/Vol] 7 mmol/L Normal 5-16 [facility] Comment on above: Performed By: #### L 500.44055, L500.97327, L500.50827, L500.81685 #### [facility] [address] [place] [address] BILI TOTAL 0.40 MG/DL Normal 0.2-1.0 [facility] Comment on above: Performed By: #### L 500.56995, L500.38826, L500.86975, L500.30671 #### [facility] [address] [place] [address] Calcium [Mass/Vol] 11.2 mg/dL High 8.5-10.5 [facility] Comment on above: Result Comment: NOTE NEW NORMAL RANGE DUE TO REAGENT CHANGE Performed By: #### L 500.14054, L500.76403, L500.76711, L500.51143 #### [facility] [place] [id number] Chloride [Moles/Vol] 105 mmol/L Normal 98-107 [facility] Comment on above: Performed By: #### L 500.67309, L500.31505, L500.72342, L500.16216 #### [facility] [address] [place], [place] [address] CO2 [Moles/Vol] 27.0 mmol/L Normal 21-32 [facility] Comment on above: Performed By: #### L 500.37145, L500.94793, L500.38066, L500.79837 #### [facility] [place] [address] Creatinine [Mass/Vol] 1.08 mg/dL Normal 0.5-1.4 [facility] Comment on above: Result Comment: NOTE NEW NORMAL RANGE DUE TO REAGENT CHANGE Patients receiving either N-Acetylcysteine (NAC) or Metamizole prior to venipuncture, may have falsely depressed results. Performed By: #### L 500.52164, L500.23119, L500.96229, L500.36688 #### [facility] [address] [place] [address] Globulin (S) [Mass/Vol] 2.5 g/dL Normal 2.2-4.2 [facility] Comment on above: Performed By: #### L 500.99457, L500.10804, L500.66087, L500.58746 #### [facility] [address] [place] [address] Glucose [Mass/Vol] 140 mg/dL High 70-100 [facility] Comment on above: Result Comment: 70-1 00- Normal Fasting; 100-125 Impaired Fasting; greater than 126 on more than one result- Diabetes. ADA guidelines. Results may be falsely elevated after the administration of Sulfapyridine. Results may be falsely depressed after the administration of Sulfasalazine. Performed By: #### L 500.97179, L500.00248, L500.92591, L500.35486 #### [facility] [address] [place] [address] Potassium [Moles/Vol] 5.5 mmol/L High 3.5-5.1 [facility] Comment on above: Performed By: #### L 500.26591, L500.70364, L500.59938, L500.42005 #### [facility] [address] [place] [address] Protein [Mass/Vol] 7.6 g/dL Normal 6.0-8.5 [facility] Comment on above: Performed By: #### L 500.22801, L500.53180, L500.31998, L500.36094 #### [facility] [address] [place] [address] SGOT (AST) 20 U/L Normal 8-34 [facility] Comment on above: Result Comment: RESU LTS MAY BE FALSELY DEPRESSED AFTER THE ADMINISTRATION OF SULFASALAZINE AND/OR SULFAPYRIDINE. Performed By: #### L 500.11665, L500.68679, L500.22183, L500.50014 #### [facility] [address] [place] [address] Sodium [Moles/Vol] 139 mmol/L Normal 136-145 [facility] Comment on above: Performed By: #### L 500.02275, L500.75077, L500.20485, L500.82975 #### [facility] [address] [place] [address] Urea nitrogen [Mass/Vol] 35 mg/dL High 7-26 [facility] Comment on above: Performed By: #### L 500.43656, L500.43759, L500.16548, L500.54928 #### [facility] [address] [place], [place] [address] Urea nitrogen/Creatinine [Mass ratio] 33 mg/mg High 15-24 [facility] Comment on above: Performed By: #### L 500.93264, L500.37500, L500.72676, L500.36831 #### [facility] [address] [place] [address] GFR ESTon 06-19-2020 IF AMER Greater than 60 Normal [facility] Comment on above: Performed By: #### L 500.31872, L500.41445, L500.88308, L500.87549 #### [facility] [address] [place], [place] [address] IF non-AFR AMER Greater than 60 Normal [facility] Comment on above: Performed By: #### L 500.36659, L500.51139, L500.44720, L500.42847 #### [facility] [address] [place], [place] [address] [facility] HbA1c (Bld) [Mass fraction] 7.7 % High 4.3-6.0 [facility] Comment on above: Performed By: #### L 200.35927, L550.23066 #### [facility] [address] [place], [place] [address] LIPIDon 06-19-2020 Cholesterol [Mass/Vol] 199 MG/dL Normal 0-199 [facility] Comment on above: Performed By: #### L 500.49764, L500.96062, L500.97959, L500.44884 #### [facility] [address] [place], [place] [address] Cholesterol in HDL [Mass/Vol] 52 mg/dL Normal [place]ATER [place] 40 [facility] Comment on above: Result Comment: Perlita ents receiving Metamizole prior to venipuncture, may have falsely depressed results. Performed By: #### L 500.03974, L500.46237, L500.09326, L500.54982 #### [facility] [address] [place] [address] Cholesterol in LDL [Mass/Vol] 97 mg/dL Normal [facility] Comment on above: Result Comment: ___C HOLESTEROL/HDL RATIO RISK___ CHD RISK = Total CHOL LDL HDL (CHOL/HDL) -- Recommended <200 <130 >40 <3.4 -- Borderline 200-239 130-159 3.4-4.99 -- High >240 >160 >5.0 -- Performed By: #### L 500.68671, L500.21282, L500.87971, L500.43218 #### [facility] [place] [address] Triglyceride [Mass/Vol] 247 mg/dL High 30-149 [facility] Comment on above: Result Comment: Perlita ents receiving either N-Acetylcysteine (NAC) or Metamizole prior to venipuncture, may have falsely depressed results. Performed By: #### L 500.80520, L500.66001, L500.92137, L500.10409 #### [facility] [place] [address] PSA SCREENon 06-19-2020 PSA SCREEN 0.94 NG/ML Normal 0.0-4.0 [facility] Comment on above: Performed By: #### L 500.06229, L500.48173, L500.36666, L500.81271 #### [facility] [address] [place] [address] UA COMPLETEon 06-19-2020 Color (U) Madeleine Normal [facility] Comment on above: Performed By: #### L 200.76008, L550.29084 #### [facility] [address] [place], [place] [address] Glucose (U) [Mass/Vol] Negative Normal NORMAL [facility] Comment on above: Performed By: #### L 200.05897, L550.78048 #### [facility] [address] [place] [address] UA APPEARANCE Hazy Normal CLEAR [facility] Comment on above: Performed By: #### L 200.25948, L550.53857 #### [facility] [address] [place] [address] UA BILIRUBIN Negative Normal NEGATIVE [facility] Comment on above: Performed By: #### L 200.09094, L550.42137 #### [facility] [address] [place] [address] UA BLOOD Negative Normal NEGATIVE [facility] Comment on above: Performed By: #### L 200.40994, L550.80125 #### [facility] [address] [place] [address] UA KETONE Negative Normal NEGATIVE [facility] Comment on above: Performed By: #### L 200.10039, L550.73257 #### [facility] [address] [place] [address] UA LK ESTERASE Negative Normal NEGATIVE [facility] Comment on above: Performed By: #### L 200.57769, L550.70066 #### [facility] [address] [place] [address] UA NITRITE Negative Normal NEGATIVE [facility] Comment on above: Performed By: #### L 200.69509, L550.91082 #### [facility] [address] [place] [address] UA PH 5.0 Normal 5-6 [facility] Comment on above: Performed By: #### L 200.51549, L550.22003 #### [facility] [place] [address] UA PROTEIN Negative Normal NEGATIVE [facility] Comment on above: Performed By: #### L 200.53921, L550.91838 #### [facility] [place] [address] UA SPEC GRAV 1.021 Normal 1.005-1.03 0 [facility] Comment on above: Performed By: #### L 200.56470, L550.57419 #### [facility] [place] [address] UA UROBILINOGEN Negative Normal NORMAL [facility] Comment on above: Performed By: #### L 200.14233, L550.95649 #### [facility] [place] [address] ALLOSCREEN RECIPIENT (POST T X PRA)on 08-13-2018 AB SPECIFICITY CLASS COMMENT Antibody Specificity testing performed by [employer]. Invalid Interpretation Code LAB, [facility] Comment on above: Some of the reagents used for testing in the Clinical Histocompatibility Laboratory have yet to be approved by the FDA. Our certification by CLIA to perform high complexity tests allows us to use these reagents in the context of a stringent QC program, and obviates the need for FDA approval.Testing performed by the [facility] Clinical Histocompatibility Laboratory. [facility] number: [id number]. CLIA number: [id number], Director: Phil Knutson, PhD, D([facility]). ANTIBODY SPECIFICITY INTERPRETATION No DSA detected Invalid Interpretation Code LAB, [facility] CLASS I SPECIFICITIES None Detected Invalid Interpretation Code LAB, [facility] CLASS II SPECIFICITIES DQ:06:03/A*01:03 Invalid Interpretation Code LAB, [facility] HLA Ab (S) 10 % High 0 LAB, [facility] Interpretation and review of laboratory results Abnormal Invalid Interpretation Code LAB, [facility] CBC,PLATELETSon 08-11-2018 Erythrocyte distribution width Auto Ratio (RBC) 12.4 % Invalid Interpretation Code 10.9 - 14.3 % LAB, [facility] Hematocrit Auto Volume Fraction (Bld) 40.9 % Invalid Interpretation Code 39.6 - 48.8 % LAB, [facility] Hemoglobin mass conc (Bld) 14.0 g/dL Inval id Interpretation Code 13.4 - 16.8 g/dL LAB, [facility] MCH Auto Entitic mass (RBC) 30.4 pg Inva lid Interpretation Code 26.1 - 33.3 pg LAB, [facility] MCHC Auto mass conc (RBC) 34.2 g/dL Invali d Interpretation Code 31.9 - 36.5 g/dL LAB, [facility] MCV Auto Entitic volume (RBC) 88.7 fL Invalid Interpretation Code 79 - 94.5 fL [facility] Nucleated RBC/100 WBC Ratio (Bld) 0.0 % Invalid Interpretation Code [facility] Platelet mean volume Auto Entitic volume (Bld) 10.0 fL Invalid Interpretation Code 8.7 - 12.3 fL [facility] Platelets Auto #/vol (Bld) 310 10*3/uL Inval id Interpretation Code 146 - 337 K/uL [facility] RBC Auto #/vol (Bld) 4.61 10*6/uL Invalid Interpretation Code [facility] WBC Auto #/vol (Bld) 7.58 10*3/uL Invalid Interpretation Code 3.73 - 10.1 K/uL [facility] CHEM 6 (LYTES, BUN CREA)on 10-11-2017 Anion gap 3 molar conc 15 mmol/L Invalid Interpretation Code 7 - 17 mmol/L [facility] Chloride molar conc 99 mmol/L Invalid Interpretation Code 98 - 108 mmol/L [facility] CO2 molar conc 29 mmol/L Invalid Interpretation Code 22 - 30 mmol/L [facility] Creatinine mass conc 0.92 mg/dL Invalid Interpretation Code 0.7 - 1.3 mg/dL [facility] Potassium molar conc 4.7 mmol/L Invalid Interpretation Code 3.5 - 5 mmol/L [facility] Sodium molar conc 138 mmol/L Invalid Interpretation Code 133 - 143 mmol/L [facility] Urea nitrogen mass conc 17 mg/dL Invalid Interpretation Code 7 - 22 mg/dL [facility] Urea nitrogen/Creatinine mass ratio 18 mg/mg Invalid Interpretation Code [facility] HEPATIC FUNCTION PANELon Albumin mass conc 4.8 g/dL Invalid Interpretation Code 3.5 - 5 g/dL [facility] ALP enzyme act/vol 75 U/L Invalid Interpretation Code 32 - 126 U/L [facility] ALT enzyme act/vol 21 U/L Invalid Interpretation Code 10 - 52 U/L [facility] AST enzyme act/vol 16 U/L Invalid Interpretation Code 14 - 40 U/L [facility] Bilirubin mass conc 0.5 mg/dL Invalid Interpretation Code <1.5 [facility] Bilirubin.direct mass conc 0.1 mg/dL Inval id Interpretation Code <0.3 [facility] Protein mass conc 7.6 g/dL Invalid Interpretation Code 6.4 - 8.3 g/dL [facility] LIPID PANEL W CALCULATED LDL on 08-11-2018 Cholesterol in HDL mass conc 54 mg/dL Invalid Interpretation Code >40.0 [facility] Comment on above: [<40 mg/dL: Low (Hig h Risk)] [>59 mg/dL: High (Low Risk)] Cholesterol in HDL mass conc 112 mg/dL Invalid Interpretation Code <130 [facility] Cholesterol in LDL mass conc 76 mg/dL Invalid Interpretation Code 0 - 99 mg/dL [facility] Comment on above: [<100 mg/dL: Optimal ] [100-129 mg/dL: Near Optimal] [130-159 mg/dL: Borderline High] [160-189 mg/dL: High] [>189 mg/dL: Very High] Cholesterol mass conc 166 mg/dL Invalid Interpretation Code <200 [facility] Comment on above: [<200 mg/dL: Desirab le] [200-239 mg/dL: Borderline High] [>239 mg/dL: High] Cholesterol.total/Cholester ol in HDL mass ratio 3.1 {ratio} Invalid Interpretation Code <4.5 [facility] Comment on above: [<4.5: Low risk] Interpretation and review of laboratory results Abnormal Invalid Interpretation Code [facility] Triglyceride mass conc 181 mg/dL High <150 [facility] Comment on above: [<150 mg/dL: Desirab le] [150-199 mg/dL: Borderline] [200-499 mg/dL: High] [>500 mg/dL: Very High] MAGNESIUMon 08-11-2018 Magnesium mass conc 1.6 mg/dL Invalid Interpretation Code 1.6 - 2.6 mg/dL [facility] Metabolic Panelon 08-11-2018 GFR/1.73 sq M.predicted MDRD vol rate/area mL/min/{1.73_m2} Invalid Interpretation Code >60 mL/min/1.7 3sqM [facility] TACROLIMUS LEVEL, TROUGH (NM E DRUG LEVEL)on 08-11-2018 Tacrolimus mass conc (Bld) 6.4 ng/mL Inval id Interpretation Code 5 - 15 ng/mL [facility] Comment on above: Method performed is a chemiluminescent microparticle immunoassay on the [employer] i2000. COVID-19 virus antigen assay SARS-CoV-2 (COVID-19) Ag IA.rapid Ql (Resp) [facility] Work Phone: Vital Signs Date Time Vital Sign Value Performing Clinician Facility 03-24-2025 08:15-0400 Body height 177.[address] Violet Dallas MD Work Phone: [facility] 03-24-2025 08:15-0400 Body mass index (BMI) [Ratio] 25 kg/m2 Dr. Violet Dallas MD Work Phone: [facility] 03-24-2025 08:15-0400 Body temperature 98.6 [degF] Dr. Violet Dallas MD Work Phone: [facility] 03-24-2025 08:15-0400 Body weight 79.[address] Violet Dallas MD Work Phone: [facility] 03-24-2025 08:15-0400 Diastolic blood pressure 80 mm[Hg] Dr. Violet Dallas MD Work Phone: [facility] 03-24-2025 08:15-0400 Heart rate 101 /min Dr. Violet Dallas MD Work Phone: [facility] 03-24-2025 08:15-0400 Respiratory rate 16 /min Dr. Violet Dallas MD Work Phone: [facility] 03-24-2025 08:15-0400 SaO2% (BldA) [Mass fraction] 96 % Dr. Violet Dallas MD Work Phone: [facility] 03-24-2025 08:15-0400 Systolic blood pressure 118 mm[Hg] Dr. Violet Dallas MD Work Phone: [facility] 02-11-2025 08:05-0400 Body height 177.[address] Violet Dallas MD Work Phone: [facility] 02-11-2025 08:05-0400 Body mass index (BMI) [Ratio] 25.7 kg/m2 Dr. Violet Dallas MD Work Phone: [facility] 02-11-2025 08:05-0400 Body temperature 98.4 [degF] Dr. Violet Dallas MD Work Phone: [facility] 02-11-2025 08:05-0400 Body weight 81.[address] iVolet Dallas MD Work Phone: [facility] 02-11-2025 08:05-0400 Diastolic blood pressure 68 mm[Hg] Dr. Violet Dallas MD Work Phone: [facility] 02-11-2025 08:05-0400 Heart rate 79 /min Dr. Violet Dallas MD Work Phone: [facility] 02-11-2025 08:05-0400 Respiratory rate 16 /min Dr. Violet Dallas MD Work Phone: [facility] 02-11-2025 08:05-0400 SaO2% (BldA) [Mass fraction] 97 % Dr. Violet Dallas MD Work Phone: [facility] 02-11-2025 08:05-0400 Systolic blood pressure 116 mm[Hg] Dr. Violet Dallas MD Work Phone: [facility] 11-12-2024 08:07-0500 Body mass index (BMI) [Ratio] 27.1 kg/m2 Dr. Violet Dallas MD Work Phone: [facility] 11-12-2024 08:07-0500 Body temperature 96.7 [degF] Dr. Violet Dallas MD Work Phone: [facility] 11-12-2024 08:07-0500 Body weight 85.[address] Violet Dallas MD Work Phone: [facility] 11-12-2024 08:07-0500 Diastolic blood pressure 78 mm[Hg] Dr. Violet Dallas MD Work Phone: [facility] 11-12-2024 08:07-0500 Heart rate 121 /min Dr. Violet Dallas MD Work Phone: [facility] 11-12-2024 08:07-0500 Respiratory rate 16 /min Dr. Violet Dallas MD Work Phone: [facility] 11-12-2024 08:07-0500 SaO2% (BldA) [Mass fraction] 96 % Dr. Violet Dallas MD Work Phone: [facility] 11-12-2024 08:07-0500 Systolic blood pressure 118 mm[Hg] Dr. Violet Dallas MD Work Phone: [facility] 08-03-2024 16:00-0500 Diastolic blood pressure 80 mm[Hg] Christoph Lopez Jr., MD Work Phone: [facility] 08-03-2024 16:00-0500 Respiratory rate 22 /min Christoph Lopez Jr., MD Work Phone: 3(196)427-166864 [place] [address] 08-03-2024 16:00-0500 Systolic blood pressure 122 mm[Hg] Christoph Lopez Jr., MD Work Phone: 4(713)914-425264 [place] [address] 08-03-2024 13:06-0500 Body height 177.8 cm Christoph Lopez Jr., MD Work Phone: 2(981)248-759664 [place] [address] 08-03-2024 13:06-0500 Body mass index (BMI) [Ratio] 26.83 kg/m2 Christoph Lopez Jr., MD Work Phone: 4(897)553-168664 [place] [address] 08-03-2024 13:06-0500 Body temperature 97.59 [degF] Christoph Lopez Jr., MD Work Phone: 3(777)920-354364 [place] [address] 08-03-2024 13:06-0500 Body weight 84.82 kg Christoph Lopez Jr., MD Work Phone: 8(510)395-311864 [place] [address] 08-03-2024 11:05-0500 Body height 177.8 cm Ronn Bonner MD Work Phone: 5(737)371-151364 [place] [address] 08-03-2024 11:05-0500 Body mass index (BMI) [Ratio] 26.75 kg/m2 Ronn Bonner MD Work Phone: 3(939)330-522764 [place] [address] 08-03-2024 11:05-0500 Body temperature 98.01 [degF] Ronn Bonner MD Work Phone: 8(434)317-582964 [place] [address] 08-03-2024 11:05-0500 Body weight 84.55 kg Ronn Bonner MD Work Phone: 9(704)180-879964 [place] [address] 08-03-2024 11:05-0500 Diastolic blood pressure 76 mm[Hg] Ronn Bonner MD Work Phone: 4(470)322-009764 [place] [address] 08-03-2024 11:05-0500 Heart rate 102 /min Christoph Lopez Jr., MD Work Phone: [facility] 08-03-2024 11:05-0500 Respiratory rate 18 /min Ronn Bonner MD Work Phone: [facility] 08-03-2024 11:05-0500 SaO2% (BldA) [Mass fraction] 96 % Christoph Lopez Jr., MD Work Phone: [facility] 08-03-2024 11:05-0500 Systolic blood pressure 128 mm[Hg] Ronn Bonner MD Work Phone: [facility] 08-12-2023 10:57-0500 Body height 177.8 cm Dale TAY Work Phone: [facility] 08-12-2023 10:57-0500 Body mass index (BMI) [Ratio] 26.7 kg/m2 Dale TAY Work Phone: [facility] 08-12-2023 10:57-0500 Body weight 84.4 kg Dale TAY Work Phone: [facility] 08-12-2023 10:57-0500 Diastolic blood pressure 64 mm[Hg] Dale TAY Work Phone: [facility] 08-12-2023 10:57-0500 Systolic blood pressure 134 mm[Hg] Dale TAY Work Phone: [facility] 08-12-2023 10:53-0500 Body height 177.8 cm Abhijit Grace MD Work Phone: [facility] 08-12-2023 10:53-0500 Body mass index (BMI) [Ratio] 26.69 kg/m2 Abhijit Grace MD Work Phone: [facility] 08-12-2023 10:53-0500 Body temperature 98.1 [degF] Abhijit Grace MD Work Phone: [facility] 08-12-2023 10:53-0500 Body weight 84.37 kg Abhijit Grace MD Work Phone: 7(932)327-665124 [address] 08-12-2023 10:53-0500 Diastolic blood pressure 64 mm[Hg] Abhijit Grace MD Work Phone: 0(475)108-536924 [address] 08-12-2023 10:53-0500 Heart rate 94 /min Abhijit Grace MD Work Phone: 9(416)166-716524 [address] 08-12-2023 10:53-0500 Respiratory rate 18 /min Abhijit Grace MD Work Phone: 4(624)740-837424 [address] 08-12-2023 10:53-0500 SaO2% (BldA) [Mass fraction] 96 % Abhijit Grace MD Work Phone: [facility] 08-12-2023 10:53-0500 Systolic blood pressure 134 mm[Hg] Abhijit Grace MD Work Phone: [facility] 08-04-2023 08:10-0500 Body height 177.[address] Violet Dallas Work Phone: [facility] 08-04-2023 08:10-0500 Body mass index (BMI) [Ratio] 27.2 kg/m2 Dr. Violet Dallas Work Phone: [facility] 08-04-2023 08:10-0500 Body temperature 99.6 [degF] Dr. Violet Dallas Work Phone: [facility] 08-04-2023 08:10-0500 Body weight 86.[address] Violet Dallas Work Phone: [facility] 08-04-2023 08:10-0500 Diastolic blood pressure 72 mm[Hg] Dr. Violet Dallas Work Phone: [facility] 08-04-2023 08:10-0500 Heart rate 102 /min Dr. Violet Dallas Work Phone: [facility] 08-04-2023 08:10-0500 Respiratory rate 16 /min Dr. Violet Dallas Work Phone: [facility] 08-04-2023 08:10-0500 SaO2% (BldA) [Mass fraction] 98 % Dr. Violet Dallas Work Phone: [facility] 08-04-2023 08:10-0500 Systolic blood pressure 114 mm[Hg] Dr. Violet Dallas Work Phone: [facility] 04-29-2023 08:45-0400 Body temperature 97.4 [degF] Dr. Leilani Faustin Work Phone: [facility] 04-29-2023 08:45-0400 Diastolic blood pressure 81 mm[Hg] Dr. Leilani Faustni Work Phone: [facility] 04-29-2023 08:45-0400 Heart rate 78 /min Dr. Leilani Faustin Work Phone: [facility] 04-29-2023 08:45-0400 Respiratory rate 16 /min Dr. Leilani Faustin Work Phone: [facility] 04-29-2023 08:45-0400 SaO2% (BldA) [Mass fraction] 95 % Dr. Leilani Faustin Work Phone: [facility] 04-29-2023 08:45-0400 Systolic blood pressure 115 mm[Hg] Dr. Leilani Faustin Work Phone: [facility] 04-29-2023 07:34-0400 Body height 177.[address] Leilani Faustin Work Phone: [facility] 04-29-2023 07:34-0400 Body mass index (BMI) [Ratio] 25.9 kg/m2 Dr. Leilani Faustin Work Phone: [facility] 04-29-2023 07:34-0400 Body weight 82.[address] Leilani Faustin Work Phone: [facility] 03-24-2023 08:54-0400 Body mass index (BMI) [Ratio] 26.3 kg/m2 Dr. Leilani Faustin Work Phone: [facility] 03-24-2023 08:54-0400 Body temperature 97.3 [degF] Dr. Leilani Faustin Work Phone: [facility] 03-24-2023 08:54-0400 Body weight 83.[address] Leilani Faustin Work Phone: [facility] 03-24-2023 08:54-0400 Diastolic blood pressure 78 mm[Hg] Dr. Leilani Faustin Work Phone: [facility] 03-24-2023 08:54-0400 Heart rate 95 /min Dr. Leilani Faustin Work Phone: [facility] 03-24-2023 08:54-0400 Respiratory rate 18 /min Dr. Leilani Faustin Work Phone: [facility] 03-24-2023 08:54-0400 Systolic blood pressure 129 mm[Hg] Dr. Leilani Faustin Work Phone: [facility] 01-27-2023 08:07-0400 Body mass index (BMI) [Ratio] 25.9 kg/m2 Dr. Leilani Faustin Work Phone: [facility] 01-27-2023 08:07-0400 Body temperature 98.2 [degF] Dr. Leilani Faustin Work Phone: [facility] 01-27-2023 08:07-0400 Body weight 82.[address] Leilani Faustin Work Phone: [facility] 01-27-2023 08:07-0400 Diastolic blood pressure 70 mm[Hg] Dr. Leilani Faustin Work Phone: [facility] 01-27-2023 08:07-0400 Heart rate 93 /min Dr. Leilani Faustin Work Phone: [facility] 01-27-2023 08:07-0400 Respiratory rate 14 /min Dr. Leilani Faustin Work Phone: [facility] 01-27-2023 08:07-0400 SaO2% (BldA) [Mass fraction] 98 % Dr. Leilani Faustin Work Phone: [facility] 01-27-2023 08:07-0400 Systolic blood pressure 108 mm[Hg] Dr. Leilani Faustin Work Phone: [facility] 10-21-2022 07:41-0500 Body height 177.[address] Leilani Faustin Work Phone: [facility] 10-21-2022 07:41-0500 Body mass index (BMI) [Ratio] 25.4 kg/m2 Dr. Leilani Faustin Work Phone: [facility] 10-21-2022 07:41-0500 Body temperature 98.1 [degF] Dr. Leilani Faustin Work Phone: [facility] 10-21-2022 07:41-0500 Body weight 80.[address] Leilani Faustin Work Phone: [facility] 10-21-2022 07:41-0500 Diastolic blood pressure 68 mm[Hg] Dr. Leilani Faustin Work Phone: [facility] 10-21-2022 07:41-0500 Heart rate 88 /min Dr. Leilani Faustin Work Phone: [facility] 10-21-2022 07:41-0500 Respiratory rate 14 /min Dr. Leilani Faustin Work Phone: [facility] 10-21-2022 07:41-0500 SaO2% (BldA) [Mass fraction] 98 % Dr. Leilani Faustin Work Phone: [facility] 10-21-2022 07:41-0500 Systolic blood pressure 118 mm[Hg] Dr. Leilani Faustin Work Phone: [facility] 08-13-2022 10:59-0500 Body height 177.8 cm Dee Lama MD Work Phone: [facility] 08-13-2022 10:59-0500 Body mass index (BMI) [Ratio] 25.25 kg/m2 Dee Lama MD Work Phone: [facility] 08-13-2022 10:59-0500 Body weight 79.83 kg Dee Lama MD Work Phone: [facility] 08-13-2022 10:59-0500 Diastolic blood pressure 75 mm[Hg] Dee Lama MD Work Phone: [facility] 08-13-2022 10:59-0500 Systolic blood pressure 117 mm[Hg] Dee Lama MD Work Phone: [facility] 08-13-2022 10:53-0500 Body height 177.8 cm Dale TAY Work Phone: [facility] 08-13-2022 10:53-0500 Body mass index (BMI) [Ratio] 25.34 kg/m2 Dale TAY Work Phone: [facility] 08-13-2022 10:53-0500 Body temperature 97.81 [degF] Dale TAY Work Phone: [facility] 08-13-2022 10:53-0500 Body weight 80.11 kg Dale TAY Work Phone: [facility] 08-13-2022 10:53-0500 Diastolic blood pressure 69 mm[Hg] Dale TAY Work Phone: [facility] 08-13-2022 10:53-0500 Heart rate 96 /min Dale Crewsi [employer] Work Phone: [facility] 08-13-2022 10:53-0500 Respiratory rate 18 /min Dale Crewsi [employer] Work Phone: [facility] 08-13-2022 10:53-0500 SaO2% (BldA) [Mass fraction] 98 % Dale HAWKBS Work Phone: [facility] 08-13-2022 10:53-0500 Systolic blood pressure 108 mm[Hg] Dale TAY Work Phone: [facility] 07-30-2022 08:21-0500 Body temperature 98 [degF] Dr. Leilani Faustin Work Phone: [facility] 07-30-2022 08:21-0500 Body weight 80.[address] Leilani Faustin Work Phone: [facility] 07-30-2022 08:21-0500 Diastolic blood pressure 66 mm[Hg] Dr. Leilani Faustin Work Phone: [facility] 07-30-2022 08:21-0500 Heart rate 100 /min Dr. Leilani Faustin Work Phone: [facility] 07-30-2022 08:21-0500 Respiratory rate 18 /min Dr. Leilani Faustin Work Phone: [facility] 07-30-2022 08:21-0500 SaO2% (BldA) [Mass fraction] 98 % Dr. Leilani Faustin Work Phone: [facility] 07-30-2022 08:21-0500 Systolic blood pressure 118 mm[Hg] Dr. Leilani Faustin Work Phone: [facility] 06-04-2022 17:19-0400 Diastolic blood pressure 92 mm[Hg] [facility] Work Phone: 06-04-2022 17:19-0400 Heart rate 103 /min [facility] Work Phone: 06-04-2022 17:19-0400 Respiratory rate 16 /min [facility] Work Phone: 06-04-2022 17:19-0400 SaO2% (BldA) [Mass fraction] 99 % [facility] Work Phone: 06-04-2022 17:19-0400 Systolic blood pressure 122 mm[Hg] [facility] Work Phone: 06-04-2022 14:14-0400 Body height 177.8 cm [facility] Work Phone: 06-04-2022 14:14-0400 Body mass index (BMI) [Ratio] 26.4 kg/m2 [facility] Work Phone: 06-04-2022 14:14-0400 Body temperature 96.3 [degF] [facility] Work Phone: 06-04-2022 14:14-0400 Body weight 83.6 kg [facility] Work Phone: 08-11-2018 11:18-0500 BMI (Body Mass Index) 28.7 kg/m2 [facility] Work Phone: 08-11-2018 11:18-0500 Body Temperature 98.29 [degF] [facility] Work Phone: 08-11-2018 11:18-0500 BP Diastolic 85 mm[Hg] [facility] Work Phone: 08-11-2018 11:18-0500 BP Systolic 126 mm[Hg] [facility] Work Phone: 08-11-2018 11:18-0500 Height 177.8 cm [facility] Work Phone: 08-11-2018 11:18-0500 Pulse (Heart Rate) 99 /min [facility] Work Phone: 08-11-2018 11:18-0500 Pulse Oximetry 97 % [facility] Work Phone: 08-11-2018 11:18-0500 Respiratory Rate 18 /min [facility] Work Phone: 08-11-2018 11:18-0500 Weight 90.72 kg [facility] Work Phone: Encounters Encounter Date Encounter Type Care Provider Facility Start: 03-24-2025 End: 03-24-[address] Violet Dallas MD -[facility] Work Phone: Start: 03-24-2025 End: 03-24-[address] Violet Dallas MD Work Phone: -[facility] Start: 03-24-2025 End: 03-24-2025 ambulatory Violet Dallas Facility:[facility] Start: 02-11-2025 End: 02-11-2025 Patient encounter procedure Jesus MCGUIRE -[facility] Work Phone: Start: 02-11-2025 End: 02-11-[address] Violet Dallas MD Work Phone: [facility] Work Phone: Start: 01-11-2025 End: 01-11-2025 ambulatory Jesse Perry RN Work Phone: [facility] Comment on above: Primary Care Coordin ator- Other Start: 11-12-2024 End: 11-12-2024 Patient encounter procedure Jesus MCGUIRE -[facility] Work Phone: Start: 11-12-2024 End: 11-12-2024 ambulatory Violet Staples Facility:[facility] Start: 09-10-2024 End: 09-10-2024 Telephone encounter Margi Cory [facility] Work Phone: [facility] Comment on above: Patient Update Start: 08-19-2024 End: 08-19-2024 ambulatory Violet Staples Facility:[facility] Start: 08-19-2024 End: 08-19-2024 ambulatory Violet Staples Facility:[facility] Start: 08-03-2024 ambulatory CHRISTOPH MC JR. Facility:[facility] Start: 08-03-2024 End: 08-03-2024 Office outpatient visit 40 minutes Leo Hurley MD Work Phone: [facility] Comment on above: Heart replaced by tr ansplant (Primary Dx); Encounter for long-term (current) use of medications; Other hyperlipidemia; Aftercare following organ transplant; Essential hypertension Start: 08-03-2024 End: 08-03-2024 ambulatory VIOLET BURT Facility:[facility] Start: 08-03-2024 End: 08-03-2024 Subsequent hospital visit by physician Christoph Lopez MD Work Phone: [facility] Comment on above: Heart replaced by tr ansplant Arrived Start: 07-02-2024 End: 07-02-2024 ambulatory Violet Burt Facility:[facility] Start: 05-28-2024 End: 05-28-2024 ambulatory Violet Staples Facility:[facility] Start: 05-14-2024 End: 05-14-2024 ambulatory Violet Staples Facility:[facility] Start: 04-09-2024 Telephone encounter Lyssa moore [facility] Comment on above: Appointment (Called to verify pcp, no longer sees Dr. Faustin, asked to have his and his 's records faxed to his new pcp, I explained he had to sign a release, he asked for the office fax and said he would go today to get the release paper for he and his . I let Roxie's office know . /) Start: 08-12-2023 End: 08-12-2023 Office outpatient visit 40 minutes Dale TAY Work Phone: [facility] Comment on above: Heart replaced by tr ansplant (Primary Dx); Encounter for long-term (current) use of medications; Other hyperlipidemia; Essential hypertension; Immunosuppression; Hyperlipidemia, mild; High risk medication use Start: 08-12-2023 End: 08-12-2023 Subsequent hospital visit by physician Dale TAY Work Phone: [facility] Comment on above: Arrived Start: 08-04-2023 End: 08-04-[address] Violet Dallas Work Phone: [facility] Work Phone: Start: 08-04-2023 End: 08-04-[address] Violet Dallas Work Phone: [facility] Work Phone: Start: 04-29-2023 Non-patient / Non-visit Dr. Ra noel Faustin Work Phone: [facility] Start: 04-29-2023 End: 04-29-2023 Admission to same day surgery center Dr. Leilani Faustin Work Phone: [facility] Work Phone: Start: 04-29-2023 End: 04-29-[address] Leilani Faustin Work Phone: [facility] Work Phone: Start: 03-24-2023 End: 03-24-[address] Leilani Faustin Work Phone: [facility] Work Phone: Start: 01-27-2023 End: 01-27-[address] Leilani Faustin Work Phone: [facility] Work Phone: Start: 01-07-2023 Patient encounter procedure [facility] Provider [facility] Start: 10-21-2022 End: 10-21-[address] Leilani Faustin Work Phone: [facility] Work Phone: Start: 10-21-2022 End: 10-21-[address] Leilani Faustin Work Phone: [facility] Start: 09-02-2022 End: 09-02-[address] Leilani Faustin Work Phone: [facility] Work Phone: Start: 09-02-2022 End: 09-02-[address] Leilani Faustin Work Phone: [facility] Start: 08-13-2022 End: 08-13-2022 Office outpatient visit 40 minutes Susan Evans MD Work Phone: [facility] Comment on above: Heart replaced by tr ansplant (Primary Dx); Encounter for long-term (current) use of medications; Other hyperlipidemia; Essential hypertension; Encounter for aftercare following heart transplant; Hyperlipidemia, mild; Immunosuppression; High risk medication use Start: 08-13-2022 End: 08-13-2022 Subsequent hospital visit by physician Dee Lama MD Work Phone: Cardiovascular Imaging Lab [facility] Comment on above: Arrived Start: 07-30-2022 End: 07-30-[address] Leilani Faustin Work Phone: [facility] Start: 07-02-2022 End: 07-03-2022 ambulatory LESLIE SILVA MD Facility:B Start: 07-02-2022 End: 07-02-2022 Patient encounter procedure LESLIE SILVA MD [facility] Start: 06-04-2022 End: 06-04-2022 Emergency department patient visit [facility] Start: 04-25-2022 ambulatory Margi Hylton [facility] Work Phone: Family Medicine Comment on above: Allied health, stati n use review (Statin use review) Start: 04-23-2022 End: 04-24-2022 ambulatory LESLIE SILVA MD Facility:B Start: 04-23-2022 End: 04-23-2022 Patient encounter procedure LESLIE SILVA MD [facility] Start: 04-02-2022 End: 04-03-2022 ambulatory LESLIE SILVA MD Facility:B Start: 10-04-2021 End: 10-05-2021 ambulatory LESLIE SILVA MD Facility:B Start: 11-26-2018 End: 11-26-2018 Patient encounter procedure [facility] Start: 08-21-2018 End: 08-21-2018 Patient encounter procedure [facility] Comment on above: Encounter for afterc are following heart transplant; Encounter for long-term (current) use of medications; Other hyperlipidemia; Essential hypertension Start: 08-11-2018 End: 08-11-2018 Office outpatient visit 25 minutes Susan Evans Work Phone: [facility] [place] [facility] Comment on above: Encounter for afterc are following heart transplant (Primary Dx); Other hyperlipidemia; Encounter for long-term (current) use of medications; Essential hypertension; Hypertriglyceridemia; 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; Immunosuppression; 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 Ruben Dallas MD Work Phone: Start: 03-24-[address] An Dallas MD Work Phone: Comment on above: The atypical pANCA p attern has been observed in asignificant percentage of patients with ulcerative colitis,primary sclerosing cholangitis and autoimmune hepatitis. Start: 03-24-2025 Antibody to centrome re measurement Dr. Violet Dallas MD Work Phone: Comment on above: Test not performed Previous reported re sult: TNP AIEdited by: ENEDELIA on 03/25/25:1408 AMENDED REPORT 03/25/25 1408 ANTI-CENT B previously reported as: Test not performed Start: 03-24-2025 Antibody to extracta ble nuclear antigen measurement Dr. Violet Dallas MD Work Phone: Comment on above: Test not performed Previous reported re sult: TNP AIEdited by: ENEDELIA on 03/25/25:1408 AMENDED REPORT 03/25/25 1408 LOVELL Ab previously reported as: Test not performed Start: 03-24-2025 Antibody to DEEPAK-[address] Violet Dallas MD Work Phone: Comment on above: Test not performed Previous reported re sult: TNP AIEdited by: ENEDELIA on 03/25/25:1408 AMENDED REPORT 03/25/25 1408 ANTI-DEEPAK previously reported as: Test not performed Start: 03-24-2025 Antibody to lupus La protein measurement Dr. Violet Dallas MD Work Phone: Start: 03-24-2025 Antibody to SS-A measurement Dr. Violet Dallas MD Work Phone: Start: 03-24-[address] Violet Dallas MD Work Phone: Comment on above: Test not performed Previous reported re sult: TNP AIEdited by: ENEDELIA on 03/25/25:1408 AMENDED REPORT 03/25/251407 ANTICHROMATIN previously reported as: Test not performed Start: 03-24-2025 C>3< complement assay D tabitha Dallas MD Work Phone: Comment on above: Performed at: [place] [id number] Director: Pal Aden PhD, Phone: [phone] Start: 03-24-2025 LIEUTENANT/DEPUTY antibody measurement Dr. Violet Dallas MD Work Phone: Comment on above: Test not performed Previous reported re sult: TNP AIEdited by: ENEDELIA on 03/25/25:1408 AMENDED REPORT 03/25/251407 LIEUTENANT/DEPUTY Ab previously reported as: Test not performed Start: 03-24-2025 Urine microalbumin/creatinine ratio measurement Dr. Violet Dallas MD Work Phone: Start: 03-24-[address] Violet Dallas MD Work Phone: Start: 03-24-2025 Vitamin D, 25-hydrox y measurement Dr. Violet Dallas MD Work Phone: Comment on above: Vitamin D StatusDefi ciency: <20 ng/mL (50nmol/L)Insufficiency: 20-30 ng/mL (50-75 nmol/L)Sufficiency: 30-100 ng/mL (75-250 nmol/L)Toxicity: >100 ng/mL (>250 nmol/L) Start: 08-03-2024 Cath plmt l hrt & ar ts w/njx & angio img s&i Abhijit Grace MD Work Phone: Start: 08-03-2024 Cardiac catheterization Abhijit Grace MD Work Phone: Start: 08-03-2024 Ecg routine ecg w/le ast 12 lds w/i&r Kendra HAWK Work Phone: Start: 08-03-2024 Echo tthrc r-t 2d w/wom-mode compl spec&colr d Abhijit Grace MD Work Phone: Start: 08-03-2024 Lipid 1996 panel - S josefa or Plasma Christoph Lopez Jr., MD Work Phone: Start: 08-12-2023 Echo tthrc r-t 2d w/wom-mode compl spec&colr d Dale TAY Work Phone: Start: 08-12-2023 Lipid 1996 panel - S josefa or Plasma Dale HAWK Work Phone: Start: 04-29-2023 End: 04-29-[address] Leilani Faustin Work Phone: Start: 08-13-2022 Echo tthrc r-t 2d w/wom-mode compl spec&colr d Dee Lama MD Work Phone: Start: 08-13-2022 Lipid 1996 panel - S josefa or Plasma Dee Lama MD Work Phone: Start: 06-04-2022 CT angiography of ch est with contrast Start: 06-04-2022 Plain chest X-ray Start: 08-11-2018 Lipid 1996 panel - S josefa or Plasma [facility] Start: 06-23-2013 H/O: heart recipient Heart rep laced by transplant Dee Lama MD Work Phone: Start: 08-24-2009 Transplantation of heart LESLIE SILVA MD H/O: heart recipient S/P heterot opic heart transplant( Confirmed ) LESLIE SILVA MD H/O: heart recipient Heart repla lisbeth by transplant Susan Evans MD Work Phone: H/O: heart recipient Heart trans plant recipient Dr. Leilani Faustin Work Phone: Comment on above: 08/24/09 H/O: heart recipient Heart repla lisbeth by transplant Dale TAY Work Phone: H/O: heart recipient Heart repla lisbeth by transplant Christoph Lopez MD Work Phone: H/O: heart recipient Heart trans plant recipient Dr. Violet Dallas MD History of operative procedure on knee H/O arthroscopic knee surgery Dr. Leilani Faustin Work Phone: History of repair of musculotendinous cuff of shoulder Hx of repair of right rotator cuff Dr. Leilani Faustin Work Phone: History of repair of musculotendinous cuff of shoulder H/O repair of left rotator cuff Dr. Leilani Faustin Work Phone: Viral antigen assay Plan of Treatment Date Care Activity Detail Author Start: 04-29-2033 Screening for malignant neoplasm of colon [facility] Start: 08-03-2029 Lipid panel LIPID SCREENING [facility] Start: 08-12-2028 Lipid panel LIPID SCREENING [facility] Start: 08-13-2027 Lipid panel LIPID SCREENING [facility] Start: 08-03-2027 Diabetes Screening Diabetes Screening [facility] Start: 12-20-2025 [address] L[address] SCREEN [facility] Start: 08-13-2025 Diabetes Screening Diabetes Screening [facility] Start: 08-02-2025 End: 08-02-2025 Patient encounter procedure Cardiovascular Imaging Lab [facility] Start: 06-19-2025 PROSTATE CANCER SCREENING DISCUSSION PROSTATE CANCER SCREENING DISCUSSION [facility] Start: 06-19-2025 Prostate specific antigen measurement Prostate Cancer Screening Discussion [facility] Start: 03-24-2025 Complement C3 [Mass/volume] in Serum or Plasma [facility] Start: 03-24-2025 Complement C4 [Mass/volume] in Serum or Plasma [facility] Start: 03-24-2025 Cytoplasmic ANCA Screen [facility] Start: 03-24-2025 DNA double strand Ab [Units/volume] in Serum [facility] Start: 03-24-2025 [facility] Start: 03-24-2025 CBC W Auto Differential panel - Blood [facility] Start: 03-24-2025 Comprehensive metabolic 2000 panel - Serum or Plasma [facility] Start: 03-24-2025 Lipid 1996 panel - Serum or Plasma [facility] Start: 03-24-2025 Partial thromboplastin time, activated [facility] Start: 03-24-2025 Prothrombin time [facility] Start: 03-24-2025 Urine microalbumin/creatinine ratio measurement [facility] Start: 03-24-2025 Vitamin B12 measurement [facility] Start: 03-24-2025 Vitamin D, 25-hydroxy measurement [facility] Start: 12-28-2024 Covid-19 Vaccine (6 - Pfizer risk ) Covid-19 Vaccine (6 - Pfizer risk ) [facility] Start: 08-03-2024 End: 07-02-2025 Echocardiography [facility] Comment on above: Expected: 08/03/2024 (Approximate), Expi res: 07/02/2025 Ordered: 08/03/2024 Start: 08-03-2024 End: 08-03-2024 Patient encounter procedure Cardiovascular Imaging [facility] Start: 05-16-2024 Covid-19 Vaccine ( season) Covid-19 Vacc[address] () [facility] Start: 05-16-2024 Influenza vaccination Influenza Vaccine (#1) [facility] Start: 12-21-2023 DIABETES SCREEN DIABETES SCREEN [facility] Start: 08-12-2023 End: 08-12-2023 Patient encounter procedure Cardiovascular Imaging Lab [facility] Start: 08-11-2023 Fasting lipid profile LIPID SCREENING [facility] Work Phone: Start: 05-16-2023 COVID-19 VACCINE ( season) COVID-19 VACCINE ( season) [facility] Start: 05-16-2023 Influenza vaccination INFLUENZA (Season Ended) [facility] Start: 04-29-2023 Colonoscopy flx dx w/collj spec when pfrmd DIAGNOSTIC COLONOSCOPY [facility] Start: 04-29-2023 Patient discharge [facility] Start: 10-21-2022 Patient referral [facility] Work Phone: Start: 09-15-2022 DEPRESSION ASSESSMENT DEPRESSION ASSESSMENT [facility] Start: 07-09-2022 COVID-19 VACCINE (5 - Booster for Pfizer series) COVID-19 VACCINE (5 - Booster for Pfizer series) [facility] Start: 06-04-2022 [facility] Work Phone: Start: 05-16-2022 Influenza vaccination INFLUENZA (#1) [facility] Start: 2022 RSV Vaccine (1 - 1-dose 60+ series) RSV Vaccine (1 - 1-dose 60+ series) [facility] Start: 2022 RSV Vaccine (1 - Risk 60-74 years 1-dose series) RSV Vaccine (1 - Risk 60-74 years 1-dose series) [facility] Start: 05-24-2021 COVID-19 VACCINE (2 - Pfizer risk series) COVID-19 VACCINE (2 - Pfizer risk series) [facility] Start: 08-03-2019 End: 08-03-2019 Ambulatory [facility] Start: 05-16-2018 Influenza vaccination INFLUENZA VACCINE (#1) [facility] Work Phone: Start: 2017 Prostate specific antigen measurement PROSTATE CANCER SCREENING DISCUSSION [facility] Start: 03-23-2015 Protein mass conc COLON CANCER SCREENING DISCUSSION [facility] Work Phone: Start: 03-23-2015 Screening for malignant neoplasm of colon COLORECTAL CANCER SCREENING DISCUSSION [facility] Start: 11-04-2013 Prostate specific antigen measurement PROSTATE CANCER SCREENING DISCUSSION [facility] Start: 2012 Zoster vaccine hzv live for subcutaneous use ZOSTER (SHINGLES) VACCINE (1 of 2) [facility] Start: 2007 COLOGUARD (FIT-DNA) COLOGUARD (FIT-DNA) [facility] Start: [address] [facility] Start: 2007 COLORECTAL CANCER SCREENING COLORECTAL CANCER SCREENING [facility] Start: [address] [facility] Start: 2007 FECAL OCCULT BLOOD FECAL OCCULT BLOOD [facility] Start: 2007 Screening for malignant neoplasm of colon [facility] Start: [address] [facility] Start: 1981 Pneumococcal Vaccine: 50+ (1 of 2 - PCV) Pneumococcal Vaccine: 50+ (1 of 2 - PCV) [facility] Start: 1981 SHINGRIX VACCINE (1 of 2) SHINGRIX VACCINE (1 of 2) [facility] Start: 1981 Third diphtheria, tetanus and acellular pertussis (DTaP) vaccination TDAP (ADULT) [facility] Start: [address] [facility] Start: 1981 Zoster vaccine hzv live for subcutaneous use ZOSTER (SHINGLES) VACCINE (1 of 2) [facility] Start: 1980 Anxiety Screening Anxiety Screening [facility] Start: 1980 Depression Screening Depression Screening [facility] Start: 1980 HEPATITIS C SCREENING HEPATITIS C SCREENING [facility] Start: 1980 Hepatitis C screening Hepatitis C Screening [facility] Start: 1980 HIV SCREENING HIV SCREENING [facility] Start: 1980 HIV screening HIV Screening [facility] Start: 1980 Tetanus vaccination TETANUS [facility] Work Phone: Start: 1974 Adult depression screening assessment DEPRESSION SCREENING [facility] Start: 1968 PNEUMOCOCCAL (1 - PCV) PNEUMOCOCCAL (1 - PCV) [facility] Start: 1968 Pneumococcal vaccination Pneumococcal Vaccine (1 of 2 - PCV) [facility] Start: 1968 PNEUMOCOCCAL VACCINE SERIES (1 - PCV) PNEUMOCOCCAL VACCINE SERIES (1 - PCV) [facility] Start: 1968 PNEUMOCOCCAL VACCINE SERIES (1 of 2 - PCV) PNEUMOCOCCAL VACCINE SERIES (1 of 2 - PCV) [facility] Start: 1962 Tetanus vaccination TETANUS [facility] Alanine aminotransfe rase [Enzymatic activity/volume] in Serum or Plasma [facility] Albumin [Mass/volume ] in Serum or Plasma [facility] Alkaline phosphatase [Enzymatic activity/volume] in Serum or Plasma [facility] Anion gap in Serum o r Plasma [facility] Antibody to lupus La protein measurement [facility] Antibody to SS-A measurement [facility] Bilirubin, total measurement [facility] BUN/Creatinine ratio [facility] Calcium [Mass/volume ] in Serum or Plasma [facility] Carbon dioxide, tota l [Moles/volume] in Central venous blood [facility] Cardiac catheterizat ion study INVASIVE CARDIOVASCULAR PROCEDURE Cardiac Cath Routine 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 08/03/2024 1:58 PM EST [facility] Cholesterol [Mass/volume] in Serum or Plasma [facility] Cholesterol in HDL [Mass/volume] in Serum or Plasma [facility] Colonoscopy [facility] Creatinine [Mass/vol ume] in Serum or Plasma [facility] Creatinine [Mass/vol ume] in Urine collected for unspecified duration [facility] Echocardiography ECHOCARDIOGRAM Echocardiography Routine 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 Ordered: 08/13/2022 [facility] Comment on above: Ordered: 08/13/2022 Echocardiography ECHOCARDIOGRAM Echocardiography Routine 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 Ordered: 08/12/2023 [facility] Comment on above: Ordered: 08/12/2023 Erythrocyte mean corpuscular volume determination [facility] Glucose [Mass/volume ] in Serum or Plasma [facility] Hematocrit [Volume Fraction] of Blood [facility] Hemoglobin [Mass/vol ume] in Blood [facility] INR in Blood by Coagulation assay [facility] Leukocytes [#/volume ] in Blood [facility] Low density lipoprot ein cholesterol measurement [facility] Mean corpuscular hemoglobin concentration determination [facility] Mean corpuscular hemoglobin determination [facility] Measurement of renal function [facility] Microalbumin [Mass/volume] in Urine [facility] Neutrophil count [facility] Neutrophil cytoplasm ic Ab.classic [Units/volume] in Serum [facility] Neutrophil percent differential count [facility] Nuclear Ab [Presence ] in Serum [facility] P-ANCA measurement [facility] Patient Education ED Dyspnea [facility] Work Phone: Patient referral [facility] Work Phone: Platelets [#/volume] in Blood [facility] Potassium measurement [facility] Red blood cell count [facility] Red cell distributio n width determination [facility] Serum chloride measurement [facility] Sodium measurement [facility] Tacrolimus [Mass/vol ume] in Blood [facility] Work Phone: Total cholesterol:HD L ratio measurement [facility] Total protein measurement [facility] Transthoracic echocardiography [facility] Work Phone: Comment on above: Ordered: 08/03/2018 Ordered: 08/11/2018 Triglycerides measurement [facility] Urea nitrogen [Mass/volume] in Serum or Plasma [facility] VLDL cholesterol measurement [facility] Immunizations Immunization Date Immunization Notes Care Provider [facility] 06-29-2024 Pfizer Covid-19 (Comirnaty) Dr. Violet Dallas MD Work Phone: [facility] 06-29-2024 Seasonal, quadrivalent, recombinant, injectable influenza vaccine, preservative free Dr. Violet Dallas MD Work Phone: [facility] 06-27-2023 Seasonal, quadrivalent, recombinant, injectable influenza vaccine, preservative free Dr. Violet Dallas Work Phone: [facility] 06-27-2023 influenza virus vaccine, unspecified formulation Margi Motager [facility] Work Phone: [facility] 07-30-2022 influenza, injectabl e, quadrivalent, preservative free Dr. Violet Dallas Work Phone: [facility] 07-30-2022 influenza, seasonal, injectable Dr. Leilani Faustin Work Phone: [facility] 05-14-2022 Covid (Pfizer) Dr. Leilani warren Work Phone: [facility] 07-01-2021 influenza, injectabl e, quadrivalent, preservative free Dr. Violet Dallas Work Phone: [facility] 07-01-2021 influenza, seasonal, injectable Dr. Leilani Faustin Work Phone: [facility] 07-01-2021 Seasonal, quadrivalent, recombinant, injectable influenza vaccine, preservative free Dr. Violet Dallas Work Phone: [facility] 05-03-2021 Covid (Pfizer) Dr. Leilani warren Work Phone: [facility] 12-27-2020 Covid (Pfizer) Dr. Leilani warren Work Phone: [facility] 12-07-2020 Covid (Pfizer) Dr. Leilani warren Work Phone: [facility] 06-19-2020 influenza, injectabl e, quadrivalent, preservative free Ccf Provider [facility] 06-19-2020 influenza virus vaccine, unspecified formulation Lyssa Higuera [facility] 05-28-2019 Influenza, injectabl e, Madin Zoey Canine Kidney, preservative free, quadrivalent [facility]cf Provider [facility] 06-26-2018 Influenza, injectabl e, Madin Zoey Canine Kidney, preservative free, quadrivalent Dr. Leilani Faustin Work Phone: [facility] 07-01-2017 influenza, injectabl e, quadrivalent, preservative free Ccf Provider [facility] 07-06-2014 influenza, seasonal, injectable; Translations: [INFLUENZA VACCINE, TRIVALENT] [facility] 07-06-2014 influenza virus vaccine, unspecified formulation [facility] Transplant [facility]opsy [facility] Work Phone: 07-12-2009 novel [id number], preservative-free, injectable Dr. Leilani Faustin Work Phone: [facility] 06-14-2009 influenza, injectabl e, quadrivalent, preservative free Dr. Violet Dallas Work Phone: [facility] 06-14-2009 influenza, seasonal, injectable Dr. Leilani Faustin Work Phone: [facility] 07-21-2007 influenza, injectabl e, quadrivalent, preservative free Dr. Violet Dallas Work Phone: [facility] 07-21-2007 influenza, seasonal, injectable Dr. Lielani Faustin Work Phone: [facility] Payers Date Payer Category Payer Medicare [id number] 2024 Self-pay [id number] 2021 Private Health Insurance [id number] 2018 Unknown LEXI ELLIOTT O PPO POS xxxxxxxxxxxx 2018-Present [id number] 2015 Blue [employer] Blue Shield BLUE CARD PPO OOS [id number] 2015 Unknown ANTHEM BLUE CARD PPO OOS [id number] 2015-Present [phone] [address] [place] [address] PPO [id number] 2005 Medicare MEDICARE MEDICAR E A AND B xxxxxxxxxxx 2005-Present [place], [place] xxxxxxxxxxx [id number] 2005 Medicare [id number] 1962 Unknown [id number] .627 1962 Unknown [id number] .627 1962 Unknown [id number] .627 1962 Unknown [id number] .627 1962 Unknown [id number] .594 1962 Unknown [id number] .594 1962 Unknown [id number] .594 1962 Unknown [id number] [id number] .594 Medicare MEDICARE PART A B [id number] Unknown ANTHEM [id number] Unknown [id number] .462 Unknown [id number] [id number] .462 Unknown [id number] .462 Unknown [id number] .462 Unknown [id number] [id number] .462 Unknown [id number] .462 Unknown [id number] .462 Unknown [id number] .462 Unknown [id number] .462 Social History Date Type Detail Facility Start: 10-03-2016 End: 11-21-2023 Tobacco smoking status NHIS Never smoker [facility] End: 02-28-2000 History of tobacco use Snuff User [facility] Work Phone: Start: 1960 Sex Assigned At Not on file [facility] Work Phone: Start: 06-13-2020 Tobacco smoking status Ex-smoker (fi nding) [facility] Sex Assigned At Sex [facility] Start: 03-26-2016 End: 08-23-2021 Alcohol intake Current non-drinker of alcohol (finding) [facility] Start: 06-04-2022 End: 07-31-2023 Tobacco smoking status ILIS Unknown if ever smoked [facility] Start: 07-11-2020 Non-smoker [facility] Start: 1960 Sex Assigned At Male [facility] Start: 09-29-2013 Tobacco use and exposure Former smokeless tobacco user [facility] Start: 08-23-2021 History of Social function [facility] Start: 08-23-2021 Tobacco use panel [facility] Gender identity Identifies as ma gerry gender (finding) [facility] Start: 07-28-2024 Sexual orientation Heterosexual (christian roblse) [facility] Medical Equipment Procedure Code Equipment Code Equipment Origin al Text Equipment Identifier Dates Arthroscopy, shoulder, with rotator cuff repair SUTURE,2 FIBERLINK FDA Start: 10-14-2018 Arthroscopy, shoulder, with rotator cuff repair SWIVELOCK,4.75 DOUBLE LOCK FDA Start: 10-14-2018 Arthroscopy, shoulder, with rotator cuff repair FIBERTAPE FDA Start: 07-21-2020 Arthroscopy, shoulder, with rotator cuff repair FIBERTAPE [id number] FDA Start: 07-21-2020 Arthroscopy, shoulder, with rotator cuff repair SWIVELOCK,4.75 DOUBLE LOCK FDA Start: 07-21-2020 Arthroscopy, shoulder, with rotator cuff repair SUTURE,2 FIBERLINK FDA Start: 10-14-2018 Arthroscopy, shoulder, with rotator cuff repair SWIVELOCK,4.75 DOUBLE LOCK FDA Start: 10-14-2018 Arthroscopy, shoulder, with rotator cuff repair FIBERTAPE FDA Start: 07-21-2020 Arthroscopy, shoulder, with rotator cuff repair FIBERTAPE [id number] FDA Start: 07-21-2020 Arthroscopy, shoulder, with rotator cuff repair SWIVELOCK,4.75 DOUBLE LOCK FDA Start: 07-21-2020 Arthroscopy, shoulder, with rotator cuff repair SUTURE,2 FIBERLINK FDA Start: 10-14-2018 Arthroscopy, shoulder, with rotator cuff repair SWIVELOCK,4.75 DOUBLE LOCK FDA Start: 10-14-2018 Arthroscopy, shoulder, with rotator cuff repair FIBERTAPE FDA Start: 07-21-2020 Arthroscopy, shoulder, with rotator cuff repair FIBERTAPE [id number] FDA Start: 07-21-2020 Arthroscopy, shoulder, with rotator cuff repair SWIVELOCK,4.75 DOUBLE LOCK FDA Start: 07-21-2020 Arthroscopy, shoulder, with rotator cuff repair SUTURE,2 FIBERLINK FDA Start: 10-14-2018 Arthroscopy, shoulder, with rotator cuff repair SWIVELOCK,4.75 DOUBLE LOCK FDA Start: 10-14-2018 Arthroscopy, shoulder, with rotator cuff repair FIBERTAPE FDA Start: 07-21-2020 Arthroscopy, shoulder, with rotator cuff repair FIBERTAPE [id number] FDA Start: 07-21-2020 Arthroscopy, shoulder, with rotator cuff repair SWIVELOCK,4.75 DOUBLE LOCK FDA Start: 07-21-2020 Arthroscopy, shoulder, with rotator cuff repair SUTURE,2 FIBERLINK FDA Start: 10-14-2018 Arthroscopy, shoulder, with rotator cuff repair SWIVELOCK,4.75 DOUBLE LOCK FDA Start: 10-14-2018 Arthroscopy, shoulder, with rotator cuff repair FIBERTAPE FDA Start: 07-21-2020 Arthroscopy, shoulder, with rotator cuff repair FIBERTAPE [id number] FDA Start: 07-21-2020 Arthroscopy, shoulder, with rotator cuff repair SWIVELOCK,4.75 DOUBLE LOCK FDA Start: 07-21-2020 Arthroscopy, shoulder, with rotator cuff repair SUTURE,2 FIBERLINK FDA Start: 10-14-2018 Arthroscopy, shoulder, with rotator cuff repair SWIVELOCK,4.75 DOUBLE LOCK FDA Start: 10-14-2018 Arthroscopy, shoulder, with rotator cuff repair FIBERTAPE FDA Start: 07-21-2020 Arthroscopy, shoulder, with rotator cuff repair FIBERTAPE [id number] FDA Start: 07-21-2020 Arthroscopy, shoulder, with rotator cuff repair SWIVELOCK,4.75 DOUBLE LOCK FDA Start: 07-21-2020 Arthroscopy, shoulder, with rotator cuff repair SUTURE,2 FIBERLINK FDA Start: 10-14-2018 Arthroscopy, shoulder, with rotator cuff repair SWIVELOCK,4.75 DOUBLE LOCK FDA Start: 10-14-2018 Arthroscopy, shoulder, with rotator cuff repair FIBERTAPE FDA Start: 07-21-2020 Arthroscopy, shoulder, with rotator cuff repair FIBERTAPE [id number] FDA Start: 07-21-2020 Arthroscopy, shoulder, with rotator cuff repair SWIVELOCK,4.75 DOUBLE LOCK FDA Start: 07-21-2020 Arthroscopy, shoulder, with rotator cuff repair SUTURE,2 FIBERLINK FDA Start: 10-14-2018 Arthroscopy, shoulder, with rotator cuff repair SWIVELOCK,4.75 DOUBLE LOCK FDA Start: 10-14-2018 Arthroscopy, shoulder, with rotator cuff repair FIBERTAPE FDA Start: 07-21-2020 Arthroscopy, shoulder, with rotator cuff repair FIBERTAPE [id number] FDA Start: 07-21-2020 Arthroscopy, shoulder, with rotator cuff repair SWIVELOCK,4.75 DOUBLE LOCK FDA Start: 07-21-2020 Goals Date Patient Goal Desired Activity /State Mental Status Date Assessment Result Facility 04-29-2023 Cognitive function Voice/Name [facility] Work Phone: Clinical Notes 04-25-2022 to 02-11-2025 Note Date & Type Note Facility 02-11-2025 Evaluation note Diagnosis Onset Date Resolution Trochanteric bursitis, left hip acute February 11, 2025 7:57am Essential hypertension acute 2024 7:57am GERD (gastroesophageal reflux disease) acute March 24, 2025 7:57am Heart transplant recipient acute March 24, 2025 7:57am Mixed hyperlipidemia acute March 24, 2025 7:57am Type 2 diabetes mellitus acute March 24, 2025 7:57am Chronic left hip pain noneactive Mar 7:57am Erectile dysfunction noneactive March 24, 2025 7:57am Vitamin deficiency noneactive March 152024 7:57am [facility] Work Phone: 1(805) 165-316505-30-2025 Evaluation note* Diagnosis Onset Date Resolution Status Admit Date Trochanteric bursitis, left hip inactive February 11, 2025 7 :57am Essential hypertension acute 2024 7:57am GERD (gastroesophageal reflu x disease) acute March 24, 2025 7:57am Heart transplant recipient acute March 24, 2025 7:57am Type 2 diabetes mellitus acute March 24, 2025 7:57am Screening for depression noneactive March 24, 2025 7:57am Chronic left hip pain noneactive Mar 7:57am Erectile dysfunction noneactive March 24, 2025 7:57am Petechial rash noneactive March 24, 2025 7:57am Vitamin deficiency noneactive March 152024 7:57am [facility] Work Phone: 1(312) 164-257605-30-[address] [facility] Internal Medicine [address] [place] [address] [place] [address] OFFICE VISIT Date of Service: 02/11/25 MR#: [id number] Acct: [id number] Name: LY GAGE Rep #: [id number] : 1960 Provider: SHAYLA Gastelum Age/Sex: 64/M [place] [facility] [place] [facility] Status: Signed Intake Vital Signs 11/12/24 08:07 02/11/25 08:05 Height 5 ft 10 in 5 ft 10 in Weight: 189 lb 179 lb BMI 27.1 25.7 BP 118/78 116/68 Blood Pressure Location Lt brachial Lt brachial Position Sitting Sitting Respiration 16 16 Pulse 121 H 79 Pulse Source Monitor Monitor Temp 96.7 F L 98.4 F Temp Source Temporal Temporal Pulse Oximetry (%) 96 97 Oxygen Delivery Method room air room air Intake Visit Reasons: 3 M FU 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 by: Self Is patient in pain?: No Allergies No Known Allergies Allergy (Verified 02/11/25 07:59) Medications ?Medication ?Instructions ?Recorded ?Confirmed ?Type aspirin 81 mg chewable tablet 81 mg PO DAILY 03/29/16 02/11/25 History calcium carbonate 500 mg PO BID 03/29/1602/11 History ergocalciferol (vitamin D2) 1,250 5,000 unit PO QHS 02/11/25 History mcg (50,000 unit) capsule (Vitamin D2) multivitamin (Daily Multiple 1 ea PO QHS 03/29/1601/15 History tablet) mycophenolate mofetil 500 mg tablet 750 mg PO BID 03/1502/11/25 History omeprazole 20 mg capsule,delayed 20 mg PO DAILY 02/11/25 History release rosuvastatin 5 mg tablet (Crestor) 2.5 mg PO QODAY 02/11/25 History coenzyme Q10 100 mg capsule 200 mg PO QHS 10/12/18 History (CoQ-10) Cyanocobalamin (Vitamin B-12) 500 mcg PO DAILY 0 02/11/25 History [Vitamin B-12] ascorbic acid (vitamin C) 500 mg 500 mg PO DAILY@0800 07/11/20 02/11/25 History tablet glucosamine HCl 500 mg tablet 1,000 mg PO DAILY 02/11/25 History amlodipine 5 mg tablet 10 mg PO DAILY 07/30/2201/15 History lisinopril 10 mg tablet 10 mg PO DAILY 07/30/2201/15 History magnesium 200 mg tablet 400 mg PO QHS 07/30/2202/11 History vitamin B complex (B 1 tab PO DAILY 07/30/2201/15 History Complex-Vitamin B12 tablet) hydrocortisone 1 % lotion 1 applic topical BID PRN itc tere 08/04/23 02/11/25 Rx (Cortisone (hydrocortisone)) #120 mL tacrolimus 1 mg capsule, 2 mg PO BID 08/04/23 5 History immediate-release sildenafil 25 mg tablet 25 mg PO DAILY PRN sexual ac tivity 02/12/24 02/11/25 Rx #30 tabs pregabalin 200 mg capsule 200 mg PO QHS 05/14/2402/11 History sildenafil 50 mg tablet 50 mg PO QDAY PRN sexual act ivity 05/21/24 02/11/25 Rx #20 tabs ezetimibe 10 mg tablet 10 mg PO QDAY 08/19/2402/11 History glimepiride 4 mg tablet 4 mg PO BID #180 tabs 02/11/25 Rx azithromycin 250 mg tablet See Rx Instructions PO .COM PLEX #6 11/12/24 02/11/25 Rx tabs metformin 1,000 mg tablet 2,000 mg (2 x 1,000 mg) PO Q HS 01/04/25 02/11/25 Rx #180 tabs semaglutide 2 mg/dose (8 mg/3 mL) 2 mg (0.75 mL) subcu t QWEEK 4 02/02/25 02/11/25 Rx subcutaneous pen injector weeks #3 mL Have you fallen in the past year?: No PFSH Medical History Shingles rash Blood disorder High cholesterol Non-smoker Positive colorectal cancer screening using Cologuard test Heart transplant recipient Hx of heart valve insufficiency Wears glasses History of pneumonia Hx of heart failure Hx of essential hypertension History of heart disease Hx of blood clots History of atrial fibrillation Hx of chronic arthritis Hypertension Diabetes Surgical History H/O right heart catheterization S/P tonsillectomy S/P skin and subcutaneous tissue surgery Heart transplant status Hx of repair of right rotator cuff H/O repair of left rotator cuff Hx of cardiac catheterization H/O arthroscopic knee surgery Family History Brother Asthma Mother Blood clot in vein Social History household members: spouse current occupational status: employed and retired 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 Patient has had chronic hip pain for quite some time now. He has tried multiple conservative management options including icing/heating as well as Tylenol. He states that none of these things have really helped. He has discomfort with most activities. Pains are still localized on the outside of the lateral part of the hip. Patient has not noticed any swelling, redness, or other changes. Patient did have previous x-ray of the hip. ROS Const Constitutional: No body ache, excessive sweating, fatigue, fever(s), frequent falls, headache(s), snoring, weakness, weight change, sleep problems or change in appetite Eyes Eyes: No blurry vision, change in vision, eye pain or Light sensitivity ENT ENT: No abnormal hearing, ear or mastoid pain, tinnitus, nasal congestion, headache(s), neck pain or sore throat Resp Respiratory: No cough, shortness of breath, snoring or wheezing Cardio Cardiology: No chest pain at rest, chest pain with exertion, excessive sweating,shortness of breath, dyspnea on exertion, lightheadedness, orthopnea or palpitations Gastro GI: No abdominal pain, change in bowel habits, constipation, cramping, diarrhea,nausea/dyspepsia orvomiting Genitourinary Male: No burning urination, painful urination, urinary incontinence, urinary frequency or blood in urine Musc Musculoskeletal: No abnormal gait, joint pain, back pain, limited range of motion, neck pain, numbness, stiffness, tingling or Arthritis Skin Skin: No dry skin, redness, lesions, itchy eyes, rash or wounds Neuro Neurology: No abnormal gait, abnormal hearing, abnormal speech, dizziness, weakness, frequent falls, headache(s), memory loss, numbness or tingling Psych Psychiatric: No anxiety, No change in appetite, No depression, No memory loss and No Thoughts of harming yourself/Others Endo Endocrine: No cold intolerance, excessive sweating, fatigue, flushing, heat intolerance, increased thirst/drinking, increased hunger or weight change Aller/Imm Allergy/Immunologic: No itchy eyes, seasonal allergy symptoms, hives or wheezing Rafael/Lymp Hematologic/Lymphatic: No easy bleeding, easy bruising or enlarged lymph nodes Exam Const General: cooperative, healthy appearing, comfortable and no acute distress Nutritional Appearance: average body habitus Orientation: alert, awake and oriented x3 Musc Other: No acute or gross abnormalities on inspection of the left hip. Patient has no localized swelling ofthe hip. He has no erythema, ecchymosis bruising, or any skin changes to the hip. Patient has very evident localized reproducible tenderness on palpation of the greater trochanteric bursa region. Negative C sign and no indications of intra-articular pathology. Patient soft compartmentsof the lower extremity. Neuro General: patient alert, patient awake and patient oriented x3 Office Procedures Ortho Injections Injections Yes Greater Trochanteric Bursa Injection Left Is this a patient provided medication?: No Office Meds Kenalog 40 mg/mL suspension for injection Performing Provider: SHAYLA Warren Performing Location: [facility] Administered by: SHAYLA Warren on 02/11/25 08:41 Dose Route Admin Location Dispensed Lot Number Expiration Date NDC Senior Php Developer 60 mg intrabursal BIM 1.5 mL [id number] 12/14/25 1899-0139-57 [facility] [place] [facility] Comments: 6cc of 0.25% bupivocaine 1.5cc of 40mg/1ml kenalog Results POC A1C POC A1C 7.7 % Last Edit by Yaquelin Rodriguez on 02/11/25 08:11 Coding Level of Care Code Attention Natacha Diagnoses Trochanteric bursitis, left hip M70.62 CPT Codes bank accountant.greater () Comment CPT?93569?injection/aspiration into a major joint/bursa Assessment and Plan Assessment and Plan (1) Trochanteric bursitis, left hip: Status: Acute Plan: Patient presents the office today for chronic left hip pain and to have an injection which is something we have discussed in the past. Patient again has tried multiple conservative methods to reduce this and has not had any success. He has discomfort with activities and especially at night. Patientis unable tolie on that side. Again physical exam today shows no abnormalities on inspection. No indications of intra-articular pathology/involvement. Again he has very evident localized tenderness directly over the greater trochanteric bursa. At this time we did discuss anatomy physiology as well as pathophysiology of trochanteric bursitis. After discussion patient would like to proceed and gaveverbal consent to proceed with injection. Patient was then placed in a right lateral decubitus position. Area was initially cleansed with alcohol swab. Landmarks were identified and the point of maximal tenderness over the greater trochanteric bursa was identified and marked. Area was then cleansedwith chlorhexidine prep sticks x 3. Alcohol swab used 1 more time and then topical ethyl chloride used to topically anesthetize the area. Injection was then given under normal sterile fashion inserting the needle down to the greater trochanter and then prepping the area with contents of the syringe. Patient tolerated this without any discomfort. No complications were observed. I would like patient to ice this a couple times a day and can use some Tylenol if he needs it. Discussed that the steroid can take a few days to even a week or [address] in. We also did discuss that he will see some elevations in his sugar. Following the injection patient already had improvement in the overall tenderness on palpation and walking out of the officepatient states the pain was not there anymore. He is to notify with any questions or concerns. Monitor the area for any redness, swelling, discharge, warmth, increased pain, or any other signs or symptoms. This note was generated with [employer]ud dictation software. It may contain incorrectwords, spelling, and punctuation that were not noted in checking the note beforesigning. Orders: Orders POC A1C Today E11.65 - Type 2 diabetes mellitus with hyperglycemia Kenalog Injection Today M70.62 - Trochanteric bursitis, left hip Medications: New Kenalog (triamcinolone acetonide) 60 mg (1.5 mL) intrabursal ONCE PRN 1.5 mL 0RFpain (scale score 4-6) NS M70.62 - Trochanteric bursitis, left hip Clinical Quality Measures Falls Risk Screening/Assistive Devices Have you fallen in the past year?: No 02/11/25 0843 PA PA> Date _ Jesus Martinezignkelsi Signature: Date (if applicable) CC: ~ [facility] [id number] Progress note Author Jesus Barakat [facility] Note Date/Time February 11, 2025 8:43a m [facility] [address] [place] [address] [place] [address] OFFICE VISIT Date of Service: 02/11/25 MR#: [id number] Acct: [id number] Name: LY GAGE Rep #: [id number] : 1960 Provider: SHAYLA Gastelum Age/Sex: 64/M [place] [facility] [place] Status: Signed Intake Vital Signs 11/12/24 08:07 02/11/25 08:05 Height 5 ft 10 in 5 ft 10 in Weight: 189 lb 179 lb BMI 27.1 25.7 BP 118/78 116/68 Blood Pressure Location Lt brachial Lt brachial Position Sitting Sitting Respiration 16 16 Pulse 121 H 79 Pulse Source Monitor Monitor Temp 96.7 F L 98.4 F Temp Source Temporal Temporal Pulse Oximetry (%) 96 97 Oxygen Delivery Method room air room air Intake Visit Reasons: 3 M FU 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 Accompanied by: Self Is patient in pain?: No Allergies No Known Allergies Allergy (Verified 02/11/25 07:59) Medications ?Medication ?Instructions ?Recorded ?Confirmed ?Type aspirin 81 mg chewable tablet 81 mg PO DAILY 03/29/16 02/11/25 History calcium carbonate 500 mg PO BID 03/29/1602/11 History ergocalciferol (vitamin D2) 1,250 5,000 unit PO QHS 02/11/25 History mcg (50,000 unit) capsule (Vitamin D2) multivitamin (Daily Multiple 1 ea PO QHS 03/29/16 05 0 History tablet) mycophenolate mofetil 500 mg tablet 750 mg PO BID 03/1502/11/25 History omeprazole 20 mg capsule,delayed 20 mg PO DAILY 02/11/25 History release rosuvastatin 5 mg tablet (Crestor) 2.5 mg PO QODAY 02/11/25 History coenzyme Q10 100 mg capsule 200 mg PO QHS 10/12/18 History (CoQ-10) Cyanocobalamin (Vitamin B-12) 500 mcg PO DAILY 0 02/11/25 History [Vitamin B-12] ascorbic acid (vitamin C) 500 mg 500 mg PO DAILY@0800 07/11/20 02/11/25 History tablet glucosamine HCl 500 mg tablet 1,000 mg PO DAILY 02/11/25 History amlodipine 5 mg tablet 10 mg PO DAILY 07/30/2201/15 History lisinopril 10 mg tablet 10 mg PO DAILY 07/30/2201/15 History magnesium 200 mg tablet 400 mg PO QHS 07/30/2202/11 History vitamin B complex (B 1 tab PO DAILY 07/30/2201/15 History Complex-Vitamin B12 tablet) hydrocortisone 1 % lotion 1 applic topical BID PRN itc tere 08/04/23 02/11/25 Rx (Cortisone (hydrocortisone)) #120 mL tacrolimus 1 mg capsule, 2 mg PO BID 08/04/23 5 History immediate-release sildenafil 25 mg tablet 25 mg PO DAILY PRN sexual ac tivity 02/12/24 02/11/25 Rx #30 tabs pregabalin 200 mg capsule 200 mg PO QHS 05/14/2402/11 History sildenafil 50 mg tablet 50 mg PO QDAY PRN sexual act ivity 05/21/24 02/11/25 Rx #20 tabs ezetimibe 10 mg tablet 10 mg PO QDAY 08/19/2402/11 History glimepiride 4 mg tablet 4 mg PO BID #180 tabs 02/11/25 Rx azithromycin 250 mg tablet See Rx Instructions PO .COM PLEX #6 11/12/24 02/11/25 Rx tabs metformin 1,000 mg tablet 2,000 mg (2 x 1,000 mg) PO Q HS 01/04/25 02/11/25 Rx #180 tabs semaglutide 2 mg/dose (8 mg/3 mL) 2 mg (0.75 mL) subcu t QWEEK 4 02/02/25 02/11/25 Rx subcutaneous pen injector weeks #3 mL Have you fallen in the past year?: No PFSH Medical History Shingles rash Blood disorder High cholesterol Non-smoker Positive colorectal cancer screening using Cologuard test Heart transplant recipient Hx of heart valve insufficiency Wears glasses History of pneumonia Hx of heart failure Hx of essential hypertension History of heart disease Hx of blood clots History of atrial fibrillation Hx of chronic arthritis Hypertension Diabetes Surgical History H/O right heart catheterization S/P tonsillectomy S/P skin and subcutaneous tissue surgery Heart transplant status Hx of repair of right rotator cuff H/O repair of left rotator cuff Hx of cardiac catheterization H/O arthroscopic knee surgery Family History Brother Asthma Mother Blood clot in vein Social History household members: spouse current occupational status: employed and retired 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 Patient has had chronic hip pain for quite some time now. He has tried multiple conservative management options including icing/heating as well as Tylenol. He states that none of these things have really helped. He has discomfort with most activities. Pains are still localized on the outside of the lateral part of the hip. Patient has not noticed any swelling, redness, or other changes. Patient did have previous x-ray of the hip. ROS Const Constitutional: No body ache, excessive sweating, fatigue, fever(s), frequent falls, headache(s), snoring, weakness, weight change, sleep problems or change in appetite Eyes Eyes: No blurry vision, change in vision, eye pain or Light sensitivity ENT ENT: No abnormal hearing, ear or mastoid pain, tinnitus, nasal congestion, headache(s), neck pain or sore throat Resp Respiratory: No cough, shortness of breath, snoring or wheezing Cardio Cardiology: No chest pain at rest, chest pain with exertion, excessive sweating,shortness of breath, dyspnea on exertion, lightheadedness, orthopnea or palpitations Gastro GI: No abdominal pain, change in bowel habits, constipation, cramping, diarrhea,nausea/dyspepsia or vomiting Genitourinary Male: No burning urination, painful urination, urinary incontinence, urinary frequency or blood in urine Musc Musculoskeletal: No abnormal gait, joint pain, back pain, limited range of motion, neck pain, numbness, stiffness, tingling or Arthritis Skin Skin: No dry skin, redness, lesions, itchy eyes, rash or wounds Neuro Neurology: No abnormal gait, abnormal hearing, abnormal speech, dizziness, weakness, frequent falls, headache(s), memory loss, numbness or tingling Psych Psychiatric: No anxiety, No change in appetite, No depression, No memory loss and No Thoughts of harming yourself/Others Endo Endocrine: No cold intolerance, excessive sweating, fatigue, flushing, heat intolerance, increased thirst/drinking, increased hunger or weight change Aller/Imm Allergy/Immunologic: No itchy eyes, seasonal allergy symptoms, hives or wheezing Rafael/Lymp Hematologic/Lymphatic: No easy bleeding, easy bruising or enlarged lymph nodes Exam Const General: cooperative, healthy appearing, comfortable and no acute distress Nutritional Appearance: average body habitus Orientation: alert, awake and oriented x3 Musc Other: No acute or gross abnormalities on inspection of the left hip. Patient has no localized swelling of the hip. He has no erythema, ecchymosis bruising, or any skin changes to the hip. Patient has very evident localized reproducible tenderness on palpation of the greater trochanteric bursa region. Negative C sign and no indications of intra-articular pathology. Patient soft compartmentsof the lower extremity. Neuro General: patient alert, patient awake and patient oriented x3 Office Procedures Ortho Injections Injections Yes Greater Trochanteric Bursa Injection Left Is this a patient provided medication?: No Office Meds Kenalog 40 mg/mL suspension for injection Performing Provider: SHAYLA Warren Performing Location: [facility] Administered by: SHAYLA Warren on 02/11/25 08:41 Dose Route Admin Location Dispensed Lot Number Expiration Date NDC Senior Php Developer 60 mg intrabursal BIM 1.5 mL [id number] 12/14/25 1009-7988-86 [facility] [place] [facility] Comments: 6cc of 0.25% bupivocaine 1.5cc of 40mg/1ml kenalog Results POC A1C POC A1C 7.7 % Last Edit by Yaquelin Rodriguez on 02/11/25 08:11 Coding Level of Care Code Attention Natacha Diagnoses Trochanteric bursitis, left hip M70.62 CPT Codes bank accountant.greater () Comment CPT??injection/aspiration into a major joint/bursa Assessment and Plan Assessment and Plan (1) Trochanteric bursitis, left hip: Status: Acute Plan: Patient presents the office today for chronic left hip pain and to have an injection which is something we have discussed in the past. Patient again has tried multiple conservative methods to reduce this and has not had any success. He has discomfort with activities and especially at night. Patient is unable tolie on that side. Again physical exam today shows no abnormalities on inspection. No indications of intra-articular pathology/involvement. Again he has very evident localized tenderness directly over the greater trochanteric bursa. At this time we did discuss anatomy physiology as well as pathophysiology of trochanteric bursitis. After discussion patient would like to proceed and gave verbal consent to proceed with injection. Patient was then placed in a right lateral decubitus position. Area was initially cleansed with alcohol swab. Landmarks were identified and the point of maximal tenderness over the greater trochanteric bursa was identified and marked. Area was then cleansed with chlorhexidine prep sticks x 3. Alcohol swab used 1 more time and then topical ethyl chloride used to topically anesthetize the area. Injection was then given under normal sterile fashion inserting the needle down to the greater trochanter and then prepping the area with contents of the syringe. Patient tolerated this without any discomfort. No complications were observed. I would like patient to ice this a couple times a day and can use some Tylenol if he needs it. Discussed that the steroid can take a few days to even a week or [address] in. We also did discuss that he will see some elevations in his sugar. Following the injection patient already had improvement in the overall tenderness on palpation and walking out of the officepatient states the pain was not there anymore. He is to notify with any questions or concerns. Monitor the area for any redness, swelling, discharge, warmth, increased pain, or any other signs or symptoms. This note was generated with App[employer]ud dictation software. It may contain incorrectwords, spelling, and punctuation that were not noted in checking the note beforesigning. Orders: Orders POC A1C Today E11.65 - Type 2 diabetes mellitus with hyperglycemia Kenalog Injection Today M70.62 - Trochanteric bursitis, left hip Medications: New Kenalog (triamcinolone acetonide) 60 mg (1.5 mL) intrabursal ONCE PRN 1.5 mL 0RFpain (scale score 4-6) NS M70.62 - Trochanteric bursitis, left hip Clinical Quality Measures Falls Risk Screening/Assistive Devices Have you fallen in the past year?: No 02/11/25 0843 <Electronically signed by Jesus MCGUIRE> Date _ Jesus MCGUIRE Cosigner Signature: Date (if applicable) CC: ~ [facility] Work Phone: [phone] NoteHNO ID: [id number] Author: JESSE PERRY RN Service: ? Author Type: Registered Nurse Type: Progress Notes Filed: 01/11/2025 11:48 Note Text: Value Based Care Coordination Chart Review Provider Action / FYI: Upon review of patient chart, the patient is excluded from Chronic Disease Management Patient is not a candidate for CDM at this time and placed in the following status: Deferred- OON PCP Action taken: No action needed . Jesse Perry RN January 11, 2025 11:47 [facility]04-29-2025 History of Present illness Narrative* Jesse Perry RN - 01/11/2025 11:47 AM EDT Value Based Care Coordination Chart Review Provider Action / FYI: Upon review of patient chart, the patient is excluded from Chronic Disease Management Patient is not a candidate for CDM at this time and placed in the following status: Deferred- OON PCP Action taken: No action needed . Jesse Perry RN January 11, 2025 11:47 AM documented in [facility] NotePatient Outreach ([facility]) LY GAGE ([id number]) 1960 Date Time Provider Department 01/11/25 [facility] [place] your visit today, we recorded the following information about you: Jesse Perry RN 01/11/2025 11:48 AM Signed Value Based Care Coordination Chart Review Provider Action / FYI: Upon review of patient chart, the patient is excluded from Chronic Disease Management Patient is not a candidate for CDM at this time and placed in the following status: Deferred- OON PCP Action taken: No action needed . 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 - MYCOPHENOLATE MOFETIL (CELLCEPT ORAL) Take 750 mg by mouth. - omeprazole (PRILOSEC) 20 mg capsule Take 20 mg by mouth once daily. - Magnesium Hydroxide 400 mg (170 mg) chew Take by mouth. - Cholecalciferol, Vitamin D3, (VITAMIN D-3) 5,000 unit tab Take 5,000 Units by mouth once daily. - PREDNISONE ORAL Take by mouth. - rosuvastatin (CRESTOR) 5 mg ORAL tablet Take 2.5 mg by mouth once daily. - clotrimazole 10 mg MUCOUS MEM mohamud Use 10 mg as instructed five times daily. - GLUCOSAMINE HCL/GLUC SAMUEL (GLUCOSAMINE COMPLEX ORAL) Take by mouth. - lisinopril(ZESTRIL 10 MG TAB) one and half tab daily - tacrolimus anhydrous(PROGRAF 5 MG CAP) Take one(1) tablet daily. - amlodipine besylate(NORVASC 10 MG TAB) Take one(1) tablet daily. - ASPIRIN 81 MG CHEWABLE TAB Take one(1) tablet daily. - CALCIUM 500 MG TAB Take one(1) tablet two(2) times daily. - docusate sodium(COLACE 100 MG CAP) Take one(1) tablet daily. - ferrous sulfate(FERATAB 300 MG (60 MG IRON) TAB) Take one(1) tablet three times daily. - multivitamins(DAILY VITAMIN TAB) Take one(1) tablet daily. - sitagliptin phosphate(JANUVIA 100 MG TAB) Take one(1) tablet daily. Problem List As Of Date 01/11/2025 Noted Resolved Abscess of Anal and Rectal Regions [K61.2] 11/11/2009 Encounter Status:Closed by JESSE PERRY on 01/11/25[facility]02-28-2025 Evaluation note* Diagnosis Onset Date Resolution Status Admit Date Acute upper respiratory infection acute November 12 7:58am Diabetes acute November 12, 2024 7:58am Essential hypertension acute Fe bruary 2024 7:58am GERD (gastroesophageal reflu x disease) acute November 12 7:58am Trochanteric bursitis, left hip acute November 12 7:58am Trochanteric bursitis, left hip acute February 11, 2025 7 :57am [facility] Work Phone: 1(324) 211-710812-27-2024 Telephone encounter Note* Telephone Encounter - Maria G Dumas MA - 09/10/2024 2:21 PM EST POPULATION HEALTH NAVIGATION OUTREACH Action/FYI Medication Adherence Discuss/Due for: Attribution Please assist the patient with contacting their insurance so they may be attributed to the correct health care team. Outcome: 1st attempt - Left Message 2nd attempt - No MyChart Reason for Outreach Med Adherence Patient Contacted: Unable or unnecessary to reach patient: Left message Navigation Signature: Maria G Dumas MA September 10, 2024 2:[address] [facility]12-[facility] Miscellaneous Notes* Telephone Encounter - Maria G Dumas MA - 09/10/2024 2:21 PM EST POPULATION HEALTH NAVIGATION OUTREACH Action/FYI Medication Adherence Discuss/Due for: Attribution Please assist the patient with contacting their insurance so they may be attributed to the correct health care team. Outcome: 1st attempt - Left Message 2nd attempt - No MyChart Reason for Outreach Med Adherence Patient Contacted: Unable or unnecessary to reach patient: Left message Navigation Signature: Maria G Dumas MA September 10, 2024 2:21 PM * Telephone Encounter - Margi Ray RPh - 09/10/2024 11:47 AM EST Patient chart reviewed as part of population health initiative focused on statin use in patients with diabetes (DM) or cardiovascular disease (CVD). It appears patient is not currently connected to care at [facility] for Primary Care, Cardiology, or Endocrinology (primary prescribers for statins). Please assist the patient with contacting their insurance so they may be attributed to the correct health care team. Thank you for your time. Margi Ray RPh documented in this encounterSt. [facility]12-[facility]24 Telephone encounter Note * Telephone Encounter - aMrgi Ray RPh - 09/10/2024 11:47 AM EST Patient chart reviewed as part of [facility] health initiative focused on statin use in patients with diabetes (DM) or cardiovascular disease (CVD). It appears patient is not currently connected to care at [facility] for Primary Care, Cardiology, or Endocrinology (primary prescribers for statins). Please assist the patient with contacting their insurance so they may be attributed to the correct health care team. Thank you for your time. Margi Ray RPh [facility]11-19-2024 Miscellaneous Notes* Nursing Notes - Barb Webb RN - 08/03/2024 4:30 PM EST Discharged ambulatory with . Denies questions or concerns. * Brief Op Note - Golden Rodriguez DO - 08/03/2024 2:02 PM EST Preliminary Report - Brief Cardiac Catheterization Procedure Note Ly Gage ([id number]) Pre Procedural Diagnosis 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 [Z94.1] Post Procedural Diagnosis 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 [Z94.1] Procedure Performed Left heart catheterization and Coronary angiogram Access Site/Hemostasis Right radial, artery, TR Compression Band Findings Left Ventricular End Diastolic Pressure: Normal Left Ventricular Ejection Fraction: Not assessed Preliminary Results of Angiography No CAD Percutaneous Coronary Intervention No Intervention Intraprocedure Anticoagulation Heparin Post-procedure Anticoagulation If anticoagulation is indicated per primary team, may restart 4 hours after hemostasis has been achieved Estimated Blood Loss Minimal Complications None Admission Does patient need to be admitted: No Surgeon Surgeons and Role: * Leilani Velásquez MD - Primary * Golden Rodriguez DO - Fellow Procedural Staff Flute Teacher: Sorin Salas RN; Thuy Piña RN Documenter: Kira Barrett RN Full report to follow Golden Rodriguez DO August 03, 2024 2:02 PM * Nursing Notes - Kiko Alvarez RN - 08/03/2024 1:14 PM EST Pt arrives to room 26 in [facility] for C. ECG completed. IV started in L arm. Labs drawn and sent. Pt prep completed. Valuables given to spouse. Clothes secured in room. Questions about procedure answered. Family brought to bedside. Bed in low position, side rail up x2 and call light given to pt. Tele monitor shows ST. * Nursing Notes - Pollo Barber RN - 06/03/2024 12:10 PM EDT PREPARING FOR YOUR POST HEART TRANSPLANT LEFT HEART CATH PROCEDURE Your catheterization is scheduled on 08/03/24 at: [facility] at the [facility] located at [address] [place] [address]. You are to arrive at [facility] on the 1st floor at 10:00 FOR YOUR ECHO THEN GO TO YOUR CLINIC VISIT FOLLOWED BY THE PERFECT BINDER OPERATOR You may use casino accountant parking ($10) or park in the [facility] just past the [place] ($3). There is a walkway from the 2nd floor of the garage into the [facility]. You are to have nothing to eat after AFTER MIDNIGHT You may drink WATER ONLY up to 2 hrs before the procedure. +++++++++++++++++++++++++++++++++++++++++++++++++++++++++++++++++ YOU ARE NOT TO TAKE ANY OF YOUR USUAL ORAL MEDICATIONS ON THE AM OF THE PROCEDURE CONTINUE TO HOLD YOUR METFORMIN FOR 2 DAYS AFTER THE CATH. RESUME IT ON 08/06 +++++++++++++++++++++++++++++++++++++++++++++++++++++++++++++++++ PLEASE BRING A COMPLETE AND ACCURATE LIST OF ALL THE MEDICATIONS THAT YOU TAKE ON A REGULAR BASIS. BRING AN OVERNIGHT BAG JUST IN CASE YOU HAVE TO SPEND THE NIGHT. JUST ESSENTIALS YOU WOULD NEED FORBED. YOU ARE HAVING A LEFT HEART CATH - Expect to be at the hospital 6 - 8 hrs for the analytical laboratory technician portion of the day. ++++++++++++++++++++++++++++++++++++++++++++++++++++++++++++++++++ IF YOU REQUIRE CPAP, bring it with you. ++++++++++++++++++++++++++++++++++++++++++++++++++++++++++++++++++ If you have a contrast dye or iodine allergy or if you are on Coumadin or any other major blood thinners like Eliquis, Xarelto, Pradaxa and it was NOT addressed during scheduling, please call NOW to notify the lab ([phone]). You may receive sedation during your procedure and will not be permitted to drive yourself home. You will not be allowed to drive for 24-48 hrs. You will need a friend or family member to accompany you home (a taxi or bus is not acceptable). Failure to have a responsible person on discharge will result in cancellation of your procedure. HOSPITAL POLICY SAYS THAT YOU ARE PERMITTED TWO (2) VISITORS WITH YOU. ALTHOUGH, THE PREP AND RECOVERY AREA WHERE YOU WILL BE, ONLY ALLOWS 1 VISITOR AT A TIME WITH YOU IN THE ROOM BEFORE AND AFTER THE PROCEDURE. Labs: YOUR LABS WILL HAVE BEEN DRAWN DURING YOUR TRANSPLANT CLINIC VISIT YOU MAY BE TOLD BY ANOTHER DEPARTMENT THAT YOU WILL RECEIVE A REMINDER CALL THE DAY BEFORE YOUR PROCEDURE, BUT YOU WILL NOT RECEIVE A REMINDER CALL. IF YOU HAVE ANY QUESTIONS REGARDING THE PROCEDURE CALL US AT : [phone] THANK YOU, POLLO DARBY Intermediate Card Tender Scheduling The above instructions were given to patient verbally over the phone AND VIA MY CHART documented in this encounterU [facility] Note* Nursing Notes - Barb Webb RN - 08/03/2024 4:30 PM EST Discharged ambulatory with . Denies questions or concerns. [facility]11-19-2024 Surgery Postoperative evaluation and management note* Brief Op Note - Golden Rodriguez DO - 08/03/2024 2:02 PM EST Preliminary Report - Brief Cardiac Catheterization Procedure Note Ly Gage ([id number]) Pre Procedural Diagnosis 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 [Z94.1] Post Procedural Diagnosis 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 [Z94.1] Procedure Performed Left heart catheterization and Coronary angiogram Access Site/Hemostasis Right radial, artery, TR Compression Band Findings Left Ventricular End Diastolic Pressure: Normal Left Ventricular Ejection Fraction: Not assessed Preliminary Results of Angiography No CAD Percutaneous Coronary Intervention No Intervention Intraprocedure Anticoagulation Heparin Post-procedure Anticoagulation If anticoagulation is indicated per primary team, may restart 4 hours after hemostasis has been achieved Estimated Blood Loss Minimal Complications None Admission Does patient need to be admitted: No Surgeon Surgeons and Role: * Leilani Velásquez MD - Primary * Golden Rodriguez DO - Fellow Procedural Staff Flute Teacher: Sorin Salas RN; Thuy Piña RN Documenter: Kira Barrett RN Full report to follow Golden Rodriguez DO August 03, 2024 2:02 PM [facility] Work Phone: [phone]) 104-432311-19-2024 Nurse Note* Nursing Notes - Kiko Alvarez RN - 08/03/2024 1:14 PM EST Pt arrives to room 26 in [facility] for [facility]. ECG completed. IV started in L arm. Labs drawn and sent. Pt prep completed. Valuables given to spouse. Clothes secured in room. Questions about procedure answered. Family brought to bedside. Bed in low position, side rail up x2 and call light given to pt. Tele monitor shows ST. [facility]11-19-2024 History and physical note* Arleth Nova DO - 08/03/2024 11:28 AM EST PRE-CATH H&P UPDATE Patient seen and examined by me on day of procedure. Agree with H&P as documented by Dr. Bonner on 08/03/2024, there are no significant updates or changes. Ly Gage is a 64 y.o. male with PMHx of heart transplant in 2008, HTN, DM, HLD who presents for follow up left heart catheterization po st-transplant. Verbal consent obtained, written consent will be obtained at the time of the procedure. Sedation assessment completed. Will proceed with the left cardiac catheterization with coronary angiography. Additionally: Patient is not on anticoagulation Patient is not on a P2Y12 Patient has a documented history of bleeding - NO Hemoglobin is at expected norm Creatinine is at above expected norm The patient is not undergoing active cancer treatment Last stress 07/2018: DOBUTAMINE STRESS ECHO REPORT Overall: Normal dobutamine stress echo. No evidence of inducible ischemia. Stress ECG portion of the exam: Resting ECG: sinus tachycardia With peak infusion, He denied chest pain. There were no diagnostic ST changes to indicate ischemia. Imaging portion of the exam: Resting echo images show normal segmental wall motion and global systolic function with an ejectionfraction of 65-70%. With peak infusion, there was appropriate augmentation in ejection fraction to >70%. No regional wall motion abnormalities seen. Last echo 07/2023: S/p cardiac transplant Left ventricular size is normal. Abnormal septal motion with otherwise normal regional wall motion and global systolic function. Ejection fraction 64% Left atrium measures normal in size Right ventricle is normal in size and function. Right atrium measures normal in size Valve structures are consistent with age. No valve dysfunction Further study details described below Last Cath 08/2021: Impression No epicardial coronary artery disease Recommendations: Aggressive risk factor modification and surveillance for CAD. Per transplant team Access: Right radial access. Coronary angiography: The left main is a moderate caliber vessel with no angiographic disease noted The left anterior descending (LAD) is a moderate caliber vessel. It gives off 3 diagonal branches with no angiographic disease The left circumflex (LCx) is a moderate sized vessel with no angiographic disease. It gives off twoobtuse marginal branches The right coronary artery is a moderate caliber vessel with no angiographic disease noted Right dominant coronary arterial circulation. Left heart catheterization: The LVEDP is normal at 5 mmHg. There is no gradient on LV-Ao pullback. Allergies, Laboratory Studies: is allergic to statins [statins] and tape [*tape]. Lab Results Component Value Date CREATSERUM 0.97 08/12/2023 CREATURINE 77.27 07/22/2008 CREATURINE 1.28 07/22/2008 Lab Results Component Value Date INR 1.1 03/30/2016 PTT 31 03/30/2016 Lab Results Component Value Date WBC 7.74 08/12/2023 HGB 14.0 08/12/2023 HCT 41.9 08/12/2023 PLATELET 358 (H) 08/12/2023 MCV 87.8 08/12/2023 Arleth Nova DO Fellow, Cardiovascular Medicine [facility] Work Phone: [phone]) 305-279911-19-2024 History and physical note* Arleth Nova DO - 08/03/2024 11:28 AM EST PRE-CATH H&P UPDATE Patient seen and examined by me on day of procedure. Agree with H&P as documented by Dr. Bonner on 08/03/2024, there are no significant updates or changes. Ly Gage is a 64 y.o. male with PMHx of heart transplant in 2008, HTN, DM, HLD who presents for follow up left heart catheterization po st-transplant. Verbal consent obtained, written consent will be obtained at the time of the procedure. Sedation assessment completed. Will proceed with the left cardiac catheterization with coronary angiography. Additionally: Patient is not on anticoagulation Patient is not on a P2Y12 Patient has a documented history of bleeding - NO Hemoglobin is at expected norm Creatinine is at above expected norm The patient is not undergoing active cancer treatment Last stress 07/2018: DOBUTAMINE STRESS ECHO REPORT Overall: Normal dobutamine stress echo. No evidence of inducible ischemia. Stress ECG portion of the exam: Resting ECG: sinus tachycardia With peak infusion, He denied chest pain. There were no diagnostic ST changes to indicate ischemia. Imaging portion of the exam: Resting echo images show normal segmental wall motion and global systolic function with an ejectionfraction of 65-70%. With peak infusion, there was appropriate augmentation in ejection fraction to >70%. No regional wall motion abnormalities seen. Last echo 07/2023: S/p cardiac transplant Left ventricular size is normal. Abnormal septal motion with otherwise normal regional wall motion and global systolic function. Ejection fraction 64% Left atrium measures normal in size Right ventricle is normal in size and function. Right atrium measures normal in size Valve structures are consistent with age. No valve dysfunction Further study details described below Last Cath 08/2021: Impression No epicardial coronary artery disease Recommendations: Aggressive risk factor modification and surveillance for CAD. Per transplant team Access: Right radial access. Coronary angiography: The left main is a moderate caliber vessel with no angiographic disease noted The left anterior descending (LAD) is a moderate caliber vessel. It gives off 3 diagonal branches with no angiographic disease The left circumflex (LCx) is a moderate sized vessel with no angiographic disease. It gives off twoobtuse marginal branches The right coronary artery is a moderate caliber vessel with no angiographic disease noted Right dominant coronary arterial circulation. Left heart catheterization: The LVEDP is normal at 5 mmHg. There is no gradient on LV-Ao pullback. Allergies, Laboratory Studies: is allergic to statins [statins] and tape [*tape]. Lab Results Component Value Date CREATSERUM 0.97 08/12/2023 CREATURINE 77.27 07/22/2008 CREATURINE 1.28 07/22/2008 Lab Results Component Value Date INR 1.1 03/30/2016 PTT 31 03/30/2016 Lab Results Component Value Date WBC 7.74 08/12/2023 HGB 14.0 08/12/2023 HCT 41.9 08/12/2023 PLATELET 358 (H) 08/12/2023 MCV 87.8 08/12/2023 Arleth Nova, Fellow, Cardiovascular Medicine [facility] documented in this encounterOSU [facility] History of Present illness Narrative* Ronn Bonner MD - 08/03/2024 11:00 AM EST Images from the original note were not included. [facility] Progress Note: Subjective: Ly Gage is a 64 y.o. male with a history of OHT who presents with the followin year post transplant visit. Denies cardiovascular complaints. Denies SOB, fevers, chills, palpitations. Recovering from shingles. Planning vaccines. Left hip pain along with other generalized aches/pains. Transplant Info: DOT: 08/24/2009 (Heart) Alloscreen: 08/03/19: 10%, no DSA CMV Donor: POS CMV Recipient: NEG Home Vital Signs: Home BP: not checking Home HR: not checking Home BS range: average 150s *follows with PCP Immunosuppression: [place]: 10/16 Last taken: 9:30 pm last night MMF: 750 mg BID Fasting: Yes Outpatient Medications Prior to Visit Medication Sig Dispense Refill amLODIPine 5 MG tablet Take 1 tablet by mouth daily. 90 tablet 3 ascorbic acid 500 MG tablet Take 1 tablet by mouth daily. 30 tablet aspirin 81 MG PO TABS take 1 Tab by mouth daily. 90 Tab 3 calcium-vitamin D 500-200 MG-UNIT PO TABS take 1 Tab by mouth 2 times daily. 60 Tab 11 Coenzyme Q10 (COQ10) 200 MG Cap Take by mouth daily. cyanocobalamin 500 MCG tablet Take 1 tablet by mouth 2 times daily. gliMEPIride 4 MG Tab tablet Take 1 tablet by mouth 2 times daily. Cdovogidefs-Ikposovwz-Vvg C-Mn (Glucosamine-Chondroitin) capsule Take 1 capsule by mouth daily. 0 Lisinopril 10 MG tablet Take 1 tablet by mouth daily. 90 tablet 3 magnesium oxide 400 MG Tab Take 1 tablet by mouth at bedtime. 90 tablet 3 metformin 1000 MG Tab tablet Take 2 tablets by mouth every evening at 6 PM. Multiple Vitamins-Minerals (CENTRUM) PO TABS take 1 Tab by mouth daily. 90 Tab 3 Mycophenolate mofetil (CELLCEPT) 250 MG capsule Take 1 capsule by mouth 2 times daily. 180 capsule 3 Mycophenolate mofetil (CELLCEPT) 500 MG tablet Take 1 tablet by mouth 2 times daily. 180 tablet 3 omepraz[address] capsule Take 1 capsule by mouth daily. 90 capsule 3 Rosuvastatin 5 MG tablet Take half tablet (2.5 mg) daily at bedtime 45 tablet 3 Tacrolimus (PROGRAF) 1 MG capsule Take 2 capsules in AM. Take 1 capsule in PM. 270 capsule 3 No facility-administered medications prior to visit. REVIEW OF SYSTEMS A complete review of systems was performed and positive for symptoms mentioned in the history of present illness. The remainder of system review was negative. Objective: Vitals: 08/03/24 1105 BP: 128/76 Pulse: 102 Resp: 18 Temp: 98 F (36.7 C) SpO2: 96% Wt Readings from Last 3 Encounters: 08/03/24 84.6 kg (186 lb 6.4 oz) 08/03/24 84.4 kg (186 lb 1.1 oz) 08/12/23 84.4 kg (186 lb 1.1 oz) Body mass index is 26.75 kg/m . Chief Complaint Patient presents with Follow-up HPI: accounting coordinator note reviewed. He is doing well. No CV complaints. He denies dyspnea atrest, with exertion, orthopnea, PND, palpitations, lightheadedness, dizziness, presyncope, syncope,chest pain or edema. ROS: Pertinent items are noted in the HPI, all other systems were queried and are negative. Physical exam: General: Appears stated age in no acute distress. Able to ambulate without assist. Obese. Neck: Supple. Cardiac: Regular rate and rhythm. No MM, rubs or gallops. No JVD. No bruits. Lungs: CTA aj Abdomen: Normal bowel sounds [...] dysfunction, RVSP 24 mmHg, no valvular disease, LVEDD 4.3 cm. E. 08/28 :LVEF 50%, mild-mod RV dysfunction, no valvular disease F. 09/30: LVEF 50%, nomral RV function by TAPSE, no valvular disease, RVSP 21 mmHg. G. 08/31: LVEF 60-65%, mild RV dilation with normal function, no valvular disease, RVSP 19 mmHg. H. 08/03 LVEF 65%, normal RV function I. 08/2021 - LVEF 55-60%. RVSP 22 J. 08/13/22 - LVEF 56%, low normal RV systolic function Ischemic evaluation A. 08/24: No evidence of [...] with prox 10-20% stenosis, LVEDP 7 mmHg G. LHC 09/04 - normal coronaries. No CAV Database: Lab Results Component Value Date SODIUM 138 08/03/2024 POTASSIUM 5.0 08/03/2024 CHLORIDE 100 08/03/2024 CO2 28 08/03/2024 BUN 26 (H) 08/03/2024 CREATSERUM 0.90 08/03/2024 Lab Results Component Value Date WBC 7.19 08/03/2024 HGB 14.4 08/03/2024 HCT 43.9 08/03/2024 PLATELET 307 08/03/2024 MCV 88.3 08/03/2024 Lab Results Component Value Date ALT 18 08/03/2024 AST 17 08/03/2024 ALKPHOS 70 08/03/2024 BILITOTAL 0.4 08/03/2024 BILIDIRECT 0.1 08/03/2024 Lab Results Component Value Date CHOLESTEROL 207 (H) 08/03/2024 TRIG 162 (H) 08/03/2024 HDL 51 08/03/2024 LDLCALC 124 (H) 08/03/2024 Lab Results Component Value Date/Time TACROLIMUS 6.1 08/03/2024 11:49 AM TACROLIMUS 5.5 08/12/2023 11:46 AM TACROLIMUS 9.4 08/13/2022 09:30 AM TACROLIMUS 8.1 08/22/2021 11:23 AM TACROLIMUS 6.6 08/03/2019 09:52 AM TACROLIMUS 6.4 08/11/2018 09:30 AM TACROLIMUS 4.4 (L) 08/13/2017 10:16 AM TACROLIMUS 6.0 09/17/2016 11:57 AM TACROLIMUS 5.5 09/19/2015 08:48 AM TACROLIMUS 4.8 (L) 08/30/2014 10:21 AM Synopsis SmartLink Latest Ref Rng & Units Most Recent Value Past ~4 years 08/03/2024 11:49 08/12/2023 11:46 08/13/2022 09:30 08/22/2021 11:23 cPRA & Specificities CPRA 0 % 0 08/03/2024 0 10 0 10 ANTIBODY SPECIFICITY INTERPRETATION No DSA detected 08/03/2024 No DSA detected No DSA detected No DSA detected No DSA detected CLASS I SPECIFICITIES None Detected 08/03/2024 None Detected None Detected None Detected None Detected CLASS II SPECIFICITIES None Detected 08/03/2024 None Detected DQ6/DQA1*01:03 None Detected DQ6/DQA1*01:03 Assessment and Plan: 64 y.o. y.o. male S/P OHT 08/24/09 for non-ischemic cardiomyopathy for follow-up clinic visit 1. Immunosuppresion therapy (transplant 08/2009) / Post-transplant care: - Doing well from CV stand point. No active CV complaints - Last Alloscreen (08/03/24): No DSA: no prior DSA - Last Echocardiogram (08/03/24): Normal LV and RV size and function, mild TR - Last LHC (08/03/24): No CAD/CAV - DSE in 09/30 with junctional tachycardia at low dose dobut 10 mcg/kg/min followed by possible ectopic atrial tachycardia. Avoiding further DSE - Immunosuppression: Continue tacrolimus 2 mg qAM and 1 mg qPM (trough level today 6.1, goal 6-8); Continue MMF 750 mg BID - Supplemental treatment: Remains on ASA, calcium-vitamin D, MgOx (400 mg every day), PPI - Off all anti-infective prophylaxis. 2. Hypertension: - Continue current medications (amlodipine 5 mg po every day and lisinopril 10 mg po every day ) 3. Diabetes Mellitus, pre and post-transplant: - Managed by PCP; currently on glimepiride, metformin, semaglutide 4. Hyperlipidemia: Intolerant of multiple statins previously; tolerating rosuvastatin 2.5 mg daily.Will inquire if agreeable to adding ezetimibe 10 mg daily. Lab Results Component Value Date CHOLESTEROL 207 (H) 08/03/2024 TRIG 162 (H) 08/03/2024 HDL 51 08/03/2024 LDLCALC 124 (H) 08/03/2024 5. Preventive Care - Per PCP Return to clinic in one year (CV and echo) The total amount of smxq-ch-vyba time spent with the patient was 40 minutes- at least 50% of that time was spent reviewing records, lab results, counseling, and coordination of care. Ronn Bonner MD Advanced Heart Failure and Cardiac Transplant Program [facility] [place] * Trice Moon RN - 08/03/2024 11:00 AM EST [facility] Progress Note: Subjective: Ly Gage is a 64 y.o. male with a history of OHT who presents with the followin year post transplant visit. Denies cardiovascular complaints. Denies SOB, fevers, chills, palpitations. Recovering from shingles. Planning vaccines. Left hip pain along with other generalized aches/pains. Transplant Info: DOT: 08/24/2009 (Heart) Alloscreen: 08/03/19: 10%, no DSA CMV Donor: POS CMV Recipient: NEG Home Vital Signs: Home BP: not checking Home HR: not checking Home BS range: average 150s *follows with PCP Immunosuppression: [place]: 10/16 Last taken: 9:30 pm last night MMF: 750 mg BID Fasting: Yes Outpatient Medications Prior to Visit Medication Sig Dispense Refill amLODIPine 5 MG tablet Take 1 tablet by mouth daily. 90 tablet 3 ascorbic acid 500 MG tablet Take 1 tablet by mouth daily. 30 tablet aspirin 81 MG PO TABS take 1 Tab by mouth daily. 90 Tab 3 calcium-vitamin D 500-200 MG-UNIT PO TABS take 1 Tab by mouth 2 times daily. 60 Tab 11 Coenzyme Q10 (COQ10) 200 MG Cap Take by mouth daily. cyanocobalamin 500 MCG tablet Take 1 tablet by mouth 2 times daily. gliMEPIride 4 MG Tab tablet Take 1 tablet by mouth 2 times daily. Xtsuaukyreq-Ocfwffziv-Usg C-Mn (Glucosamine-Chondroitin) capsule Take 1 capsule by mouth daily. 0 Lisinopril 10 MG tablet Take 1 tablet by mouth daily. 90 tablet 3 magnesium oxide 400 MG Tab Take 1 tablet by mouth at bedtime. 90 tablet 3 metformin 1000 MG Tab tablet Take 2 tablets by mouth every evening at 6 PM. Multiple Vitamins-Minerals (CENTRUM) PO TABS take 1 Tab by mouth daily. 90 Tab 3 Mycophenolate mofetil (CELLCEPT) 250 MG capsule Take 1 capsule by mouth 2 times daily. 180 capsule 3 Mycophenolate mofetil (CELLCEPT) 500 MG tablet Take 1 tablet by mouth 2 times daily. 180 tablet [address] omepraz[address] capsule Take 1 capsule by mouth daily. 90 capsule 3 Rosuvastatin 5 MG tablet Take half tablet (2.5 mg) daily at bedtime 45 tablet 3 Tacrolimus (PROGRAF) 1 MG capsule Take 2 capsules in AM. Take 1 capsule in PM. 270 capsule 3 No facility-administered medications prior to visit. REVIEW OF SYSTEMS A complete review of systems was performed and positive for symptoms mentioned in the history of present illness. The remainder of system review was negative. Objective: Vitals: 08/03/24 1105 BP: 128/76 Pulse: 102 Resp: 18 Temp: 98 F (36.7 C) SpO2: 96% Wt Readings from Last 3 Encounters: 08/03/24 84.6 kg (186 lb 6.4 oz) 08/03/24 84.4 kg (186 lb 1.1 oz) 08/12/23 84.4 kg (186 lb 1.1 oz) [facility] Nurse Note* Nursing Notes - Pollo Barber RN - 06/03/2024 12:10 PM EDT PREPARING FOR YOUR POST HEART TRANSPLANT LEFT HEART CATH PROCEDURE Your catheterization is scheduled on 08/03/24 at: The [facility] at the [facility] located at [address] [place] [address]. You are to arrive at [place] registration on the 1st floor at 10:00 FOR YOUR ECHO THEN GO TO YOUR CLINIC VISIT FOLLOWED BY THE PERFECT BINDER OPERATOR You may use casino accountant parking ($10) or park in the [facility] just past the [place] ($3). There is a walkway from the 2nd floor of the garage into the [place] Lobby. You are to have nothing to eat after AFTER MIDNIGHT You may drink WATER ONLY up to 2 hrs before the procedure. +++++++++++++++++++++++++++++++++++++++++++++++++++++++++++++++++ YOU ARE NOT TO TAKE ANY OF YOUR USUAL ORAL MEDICATIONS ON THE AM OF THE PROCEDURE CONTINUE TO HOLD YOUR METFORMIN FOR 2 DAYS AFTER THE CATH. RESUME IT ON 08/06 +++++++++++++++++++++++++++++++++++++++++++++++++++++++++++++++++ PLEASE BRING A COMPLETE AND ACCURATE LIST OF ALL THE MEDICATIONS THAT YOU TAKE ON A REGULAR BASIS. BRING AN OVERNIGHT BAG JUST IN CASE YOU HAVE TO SPEND THE NIGHT. JUST ESSENTIALS YOU WOULD NEED FORBED. YOU ARE HAVING A LEFT HEART CATH - Expect to be at the hospital 6 - 8 hrs for the analytical laboratory technician portion of the day. ++++++++++++++++++++++++++++++++++++++++++++++++++++++++++++++++++ IF YOU REQUIRE CPAP, bring it with you. ++++++++++++++++++++++++++++++++++++++++++++++++++++++++++++++++++ If you have a contrast dye or iodine allergy or if you are on Coumadin or any other major blood thinners like Eliquis, Xarelto, Pradaxa and it was NOT addressed during scheduling, please call NOW to notify the lab ([phone]). You may receive sedation during your procedure and will not be permitted to drive yourself home. You will not be allowed to drive for 24-48 hrs. You will need a friend or family member to accompany you home (a taxi or bus is not acceptable). Failure to have a responsible person on discharge will result in cancellation of your procedure. HOSPITAL POLICY SAYS THAT YOU ARE PERMITTED TWO (2) VISITORS WITH YOU. ALTHOUGH, THE PREP AND RECOVERY AREA WHERE YOU WILL BE, ONLY ALLOWS 1 VISITOR AT A TIME WITH YOU IN THE ROOM BEFORE AND AFTER THE PROCEDURE. Labs: YOUR LABS WILL HAVE BEEN DRAWN DURING YOUR TRANSPLANT CLINIC VISIT YOU MAY BE TOLD BY ANOTHER DEPARTMENT THAT YOU WILL RECEIVE A REMINDER CALL THE DAY BEFORE YOUR PROCEDURE, BUT YOU WILL NOT RECEIVE A REMINDER CALL. IF YOU HAVE ANY QUESTIONS REGARDING THE PROCEDURE CALL US AT : [phone] THANK YOU, POLLO DARBY Intermediate Card Tender Scheduling The above instructions were given to patient verbally over the phone AND VIA MY CHART [facility]07-26-2024 Telephone encounter Note* Telephone Encounter - Lyssa Higuera - 04/09/2024 9:02 AM EDT ANNUAL MEDICARE WELLNESS VISIT OUTREACH Outreach attempt to contact patient and schedule Medicare wellness. Patient identified by name and date of : NO Outreach outcome: Made contact: Spoke to: Patient This is Lyssa Higuera calling from [facility]. No associated primary care provider noticed that you're due for your Medicare wellness visit. They asked me to call and assist you with scheduling an appointment with your primary care office. Can I set that up for you? Follow up needed:No If the patient asks what a Medicare Wellness visit is: The Medicare wellness visit isn't an exam. It is a great way to get up-to-date with your provider'scare team. The purpose of the Annual Wellness Visit under Medicare is to paint a picture of your current stateof health and to create a baseline for future care. Any additional test or labs that may be required as a result of the findings of your annual wellness visit would be billed separately by your doctor and would fall under a different benefit than yourannual wellness visit. Medicare also covers a number of other preventative services at no cost such as preventative cancerscreenings, bone density measurement, and flu shots. Your visit may include: A review of your medical and family history. A review of your current providers and prescriptions. Height, weight, blood pressure, and other routine measurements. Personalized health advice. A list of risk factors and treatment options for you. A screening schedule (like a checklist) for appropriate preventive services. Lyssa Higuera April 09, 2024 9:[address] [facility]07-26-2024 Miscellaneous Notes* Telephone Encounter - [place], Lyssa - 04/09/2024 9:02 AM EDT ANNUAL MEDICARE WELLNESS VISIT OUTREACH Outreach attempt to contact patient and schedule Medicare wellness. Patient identified by name and date of : NO Outreach outcome: Made contact: Spoke to: Patient This is Lyssa Davida calling from [facility]. No associated primary care provider noticed that you're due for your Medicare wellness visit. They asked me to call and assist you with scheduling an appointment with your primary care office. Can I set that up for you? Follow up needed:No If the patient asks what a Medicare Wellness visit is: The Medicare wellness visit isn't an exam. It is a great way to get up-to-date with your provider'scare team. The purpose of the Annual Wellness Visit under Medicare is to paint a picture of your current stateof health and to create a baseline for future care. Any additional test or labs that may be required as a result of the findings of your annual wellness visit would be billed separately by your doctor and would fall under a different benefit than yourannual wellness visit. Medicare also covers a number of other preventative services at no cost such as preventative cancerscreenings, bone density measurement, and flu shots. Your visit may include: A review of your medical and family history. A review of your current providers and prescriptions. Height, weight, blood pressure, and other routine measurements. Personalized health advice. A list of risk factors and treatment options for you. A screening schedule (like a checklist) for appropriate preventive services. Lyssa Higuera April 09, 2024 9:02 AM [facility] History of Present illness Narrative* Trice Moon RN - 08/12/2023 11:00 AM EST [facility] Progress Note: Subjective: Ly Gage is a 63 y.o. male with a history of OHT who presents with the followin year post transplant visit. Denies cardiovascular complaints. Denies SOB, fevers, chills, palpitations. Transplant Info: DOT: 08/24/2009 (Heart) Alloscreen: 08/03/19: 10%, no DSA CMV Donor: POS CMV Recipient: NEG Home Vital Signs: Home BP: not checking: at other physician visits: 110s systolic Home HR: not checking Home FBS: Home PPBS: not checking *follows with PCP Immunosuppression: [place]: 10/16 Last taken: 10pm last night MMF: 750mg BID Fasting: Yes Outpatient Medications Prior to Visit Medication Sig Dispense Refill amLODIPine 5 MG tablet Take 1 tablet by mouth daily. 90 tablet 3 ascorbic acid 500 MG tablet Take 1 tablet by mouth daily. 30 tablet aspirin 81 MG PO TABS take 1 Tab by mouth daily. 90 Tab 3 calcium-vitamin D 500-200 MG-UNIT PO TABS take 1 Tab by mouth 2 times daily. 60 Tab 11 Coenzyme Q10 (COQ10) 200 MG Cap Take by mouth daily. cyanocobalamin 500 MCG tablet Take 1 tablet by mouth daily. gliMEPIride 4 MG Tab tablet Take 2 mg by mouth daily every morning. Xeowtfivsam-Jwkuothkk-Sur C-Mn (Glucosamine-Chondroitin) capsule Take 1 capsule by mouth daily. 0 Lisinopril 10 MG tablet Take 1 tablet by mouth daily. 90 tablet 3 magnesium oxide 400 MG Tab Take 1 tablet by mouth at bedtime. 90 tablet 3 metformin 1000 MG Tab tablet Take 2,000 mg by mouth every evening at 6 PM. Multiple Vitamins-Minerals (CENTRUM) PO TABS take 1 Tab by mouth daily. 90 Tab 3 Mycophenolate mofetil (CELLCEPT) 250 MG capsule Take 1 capsule by mouth 2 times daily. 180 capsule 3 Mycophenolate mofetil (CELLCEPT) 500 MG tablet Take 1 tablet by mouth 2 times daily. 180 tablet 3 nateglinide 120 MG tablet Take 120 mg by mouth daily. omeprazole [address] capsule Take 1 capsule by mouth daily. 90 capsule 3 Rosuvastatin 5 MG tablet Take half tablet (2.5 mg) daily at bedtime 45 tablet 3 Tacrolimus (PROGRAF) 1 MG capsule Take 2 capsules in AM. Take 1 capsule in PM. 270 capsule 3 Tirzepatide (Mounjaro) 2.5 MG/0.5ML Solution Pen-injector Inject under the skin once a week. No facility-administered medications prior to visit. REVIEW OF SYSTEMS A complete review of systems was performed and positive for symptoms mentioned in the history of present illness. The remainder of system review was negative. Objective: Vitals: 08/12/23 1053 BP: 134/64 Pulse: 94 Resp: 18 Temp: 98.1 F (36.7 C) SpO2: 96% Wt Readings from Last 3 Encounters: 08/12/23 84.4 kg (186 lb) 08/13/22 79.8 kg (176 lb) 08/13/22 80.1 kg (176 lb 9.6 oz) * Abhijit Grace MD - 08/12/2023 11:00 AM EST [facility] Progress Note: Subjective: Ly Gage is a 63 y.o. male with a history of OHT who presents with the followin year post transplant visit. Denies cardiovascular complaints. Denies SOB, fevers, chills, palpitations. Transplant Info: DOT: 08/24/2009 (Heart) Alloscreen: 08/03/19: 10%, no DSA CMV Donor: POS CMV Recipient: NEG Home Vital Signs: Home BP: not checking: at other physician visits: 110s systolic Home HR: not checking Home FBS: Home PPBS: not checking *follows with PCP Immunosuppression: [place]: 10/16 Last taken: 10pm last night MMF: 750mg BID Fasting: Yes Outpatient Medications Prior to Visit Medication Sig Dispense Refill amLODIPine 5 MG tablet Take 1 tablet by mouth daily. 90 tablet 3 ascorbic acid 500 MG tablet Take 1 tablet by mouth daily. 30 tablet aspirin 81 MG PO TABS take 1 Tab by mouth daily. 90 Tab 3 calcium-vitamin D 500-200 MG-UNIT PO TABS take 1 Tab by mouth 2 times daily. 60 Tab 11 Coenzyme Q10 (COQ10) 200 MG Cap Take by mouth daily. cyanocobalamin 500 MCG tablet Take 1 tablet by mouth daily. gliMEPIride 4 MG Tab tablet Take 2 mg by mouth daily every morning. Oxhdpapxmru-Sgfdteyns-Wve C-Mn (Glucosamine-Chondroitin) capsule Take 1 capsule by mouth daily. 0 Lisinopril 10 MG tablet Take 1 tablet by mouth daily. 90 tablet 3 magnesium oxide 400 MG Tab Take 1 tablet by mouth at bedtime. 90 tablet 3 metformin 1000 MG Tab tablet Take 2,000 mg by mouth every evening at 6 PM. Multiple Vitamins-Minerals (CENTRUM) PO TABS take 1 Tab by mouth daily. 90 Tab 3 Mycophenolate mofetil (CELLCEPT) 250 MG capsule Take 1 capsule by mouth 2 times daily. 180 capsule 3 Mycophenolate mofetil (CELLCEPT) 500 MG tablet Take 1 tablet by mouth 2 times daily. 180 tablet 3 nateglinide 120 MG tablet Take 120 mg by mouth daily. omeprazole [address] capsule Take 1 capsule by mouth daily. 90 capsule 3 Rosuvastatin 5 MG tablet Take half tablet (2.5 mg) daily at bedtime 45 tablet 3 Tacrolimus (PROGRAF) 1 MG capsule Take 2 capsules in AM. Take 1 capsule in PM. 270 capsule 3 Tirzepatide (Mounjaro) 2.5 MG/0.5ML Solution Pen-injector Inject under the skin once a week. No facility-administered medications prior to visit. REVIEW OF SYSTEMS A complete review of systems was performed and positive for symptoms mentioned in the history of present illness. The remainder of system review was negative. Objective: Vitals: 08/12/23 1053 BP: 134/64 Pulse: 94 Resp: 18 Temp: 98.1 F (36.7 C) SpO2: 96% Wt Readings from Last 3 Encounters: 08/12/23 84.4 kg (186 lb) 08/13/22 79.8 kg (176 lb) 08/13/22 80.1 kg (176 lb 9.6 oz) Body mass index is 26.69 kg/m . Chief Complaint Patient presents with Follow-up HPI: He is doing well. No CV complaints. He denies dyspnea at rest, with exertion, orthopnea, PND, palpitations, lightheadedness, dizziness, presyncope, syncope, chest pain or edema. ROS: Pertinent items are noted in the HPI, all other systems were queried and are negative. Physical exam -- General: Appears stated age in no acute distress. Able to ambulate without assist. Obese. Neck: Supple. Cardiac: Regular rate and rhythm. No MM, rubs or gallops. No JVD. No bruits. Lungs: CTA aj Abdomen: Normal bowel sounds [...] dysfunction, RVSP 24 mmHg, no valvular disease, LVEDD 4.3 cm. E. 08/28 :LVEF 50%, mild-mod RV dysfunction, no valvular disease F. 09/30: LVEF 50%, nomral RV function by TAPSE, no valvular disease, RVSP 21 mmHg. G. 08/31: LVEF 60-65%, mild RV dilation with normal function, no valvular disease, RVSP 19 mmHg. H. 08/03 LVEF 65%, normal RV function I. 08/2021 - LVEF 55-60%. RVSP 22 J. 08/13/22 - LVEF 56%, low normal RV systolic function Ischemic evaluation A. 08/24: No evidence of [...] with prox 10-20% stenosis, LVEDP 7 mmHg G. LHC 09/04 - normal coronaries. No CAV Database: Lab Results Component Value Date SODIUM 139 08/12/2023 POTASSIUM 4.9 08/12/2023 CHLORIDE 100 08/12/2023 CO2 32 (H) 08/12/2023 BUN 25 08/12/2023 CREATSERUM 0.97 08/12/2023 Lab Results Component Value Date WBC 7.74 08/12/2023 HGB 14.0 08/12/2023 HCT 41.9 08/12/2023 PLATELET 358 (H) 08/12/2023 MCV 87.8 08/12/2023 Lab Results Component Value Date ALT 16 08/12/2023 AST 15 08/12/2023 ALKPHOS 82 08/12/2023 BILITOTAL 0.6 08/12/2023 BILIDIRECT 0.1 08/11/2018 Lab Results Component Value Date CHOLESTEROL 196 08/12/2023 TRIG 274 (H) 08/12/2023 HDL 51 08/12/2023 LDLCALC 90 08/12/2023 Lab Results Component Value Date/Time TACROLIMUS 5.5 08/12/2023 11:46 AM TACROLIMUS 9.4 08/13/2022 09:30 AM TACROLIMUS 8.1 08/22/2021 11:23 AM TACROLIMUS 6.6 08/03/2019 09:52 AM TACROLIMUS 6.4 08/11/2018 09:30 AM TACROLIMUS 4.4 (L) 08/13/2017 10:16 AM TACROLIMUS 6.0 09/17/2016 11:57 AM TACROLIMUS 5.5 09/19/2015 08:48 AM TACROLIMUS 4.8 (L) 08/30/2014 10:21 AM Assessment and Plan: 63 y.o. y.o. male S/P OHT 08/24/09 for non-ischemic cardiomyopathy for follow-up clinic visit 1. Immunosuppresion therapy (transplant 08/23, CMV D+/R-) / Post-transplant care: - doing well from CV stand point. No active CV complaints -t acro level goal 6-8; level today is 5.5. Remains on 2/1 mg bid. No change in dose - on MMF 750 BID - Cr normal (0.9) and potassium 4.9 today. -Supplements: on asa, calcium, vitamin D, Off all anti-infective prophylaxis. - Echo this visit 08/12/2023 normal LV/RV. LVEF 64&No valvular abnormalities -DSA: none - C 09/04 no coronary artery disease. Note: DSE in 09/30 with junctional tachycardia at low dose dobut 10 mcg/kg/min followed by possible ectopic atrial tachycardia. We have not scheduled DSE this year for this reason. 2. Hypertension: Well controlled. Continue current medications ( amlodipine 5 mg po every day and lisinopril 10 mg po every day ) 3. Diabetes Mellitus, pre and post-transplant: Managed by PCP 4. Hyperlipidemia: Lab Results Component Value Date CHOLESTEROL 196 08/12/2023 TRIG 274 (H) 08/12/2023 HDL 51 08/12/2023 LDLCALC 90 08/12/2023 - Several problems with myalgias. - intolerance to multiple statins in the past. - [place] 3 fish oil - not tolerated due to GI discomfort. - no longer on tricor - continue regular monitoring -Crestor 2.5 mg qd 5. Neuropathy / Foot pain: - skin biopsy unremarkable - gabapentin was not helpful - Following with neurology. -not discussed today 6. Preventive Care - up to date. Return to clinic in one year (CV/LHC and echo) The total amount of lyxc-pe-kfad time spent with the patient was 40 minutes- at least 50% of that time was spent reviewing records, lab results, counseling, and coordination of care. Abhijit Grace MD Advanced Heart Failure and Cardiac Transplant Program [facility] [place] documented in this encounterOS[facility] History of Present illness Narrative* Trice Moon RN - 08/13/2022 11:00 AM EST [facility] Progress Note: Subjective: Ly Gage is a 62 y.o. male with a history of OHT who presents with the followin year post transplant visit. Denies cardiovascular complaints. DM handled by endo with recent adjustments in meds. Appetite good. Denies n/v. Diarrhea with change in DM meds. Denies SOB, fevers, chills, palpitations. Transplant Info: DOT: 08/24/2009 (Heart) Alloscreen: 08/03/19: 10%, no DSA CMV Donor: POS CMV Recipient: NEG Home Vital Signs: Home BP: not checking Home HR: not checking Home FBS: Home PPBS: not checking *follows with local endocrinology (Leslie Silva) Immunosuppression: [place]: 2mg BID Last taken: 10pm last night MMF: 750mg BID Fasting: Yes Outpatient Medications Prior to Visit Medication Sig Dispense Refill amLODIPine 5 MG tablet Take 1 tablet by mouth daily. 90 tablet 3 ascorbic acid 500 MG tablet Take 1 tablet by mouth daily. 30 tablet aspirin 81 MG PO TABS take 1 Tab by mouth daily. 90 Tab 3 calcium-vitamin D 500-200 MG-UNIT PO TABS take 1 Tab by mouth 2 times daily. 60 Tab 11 Cholecalciferol 2000 UNITS Cap take 1 capsule by mouth daily.. (Patient not taking: Reported on 08/14/2020) 90 capsule 3 Coenzyme Q10 (COQ10) 200 MG Cap Take by mouth daily. cyanocobalamin 500 MCG tablet Take 1 tablet by mouth daily. gliMEPIride 4 MG Tab tablet Take 4 mg by mouth daily every morning. Aqgzlmkmhrm-Mihwwlsnt-Lyn C-Mn (Glucosamine-Chondroitin) capsule Take 1 capsule by mouth daily. 0 lisinopril 10 MG tablet Take 1 tablet by mouth daily. In AM 90 tablet 3 magnesium oxide 400 MG Tab Take 1 tablet by mouth at bedtime. 90 tablet 3 metformin 1000 MG Tab tablet Take 2,000 mg by mouth every evening at 6 PM. Multiple Vitamins-Minerals (CENTRUM) PO TABS take 1 Tab by mouth daily. 90 Tab 3 mycophenolate mofetil (CELLCEPT) 250 MG capsule Take 1 capsule by mouth 2 times daily. 180 capsule 3 mycophenolate mofetil (CELLCEPT) 500 MG tablet Take 1 tablet by mouth 2 times daily. 180 tablet 3 omeprazole [address] capsule Take 1 capsule by mouth daily. 90 capsule 3 rosuvastatin 5 MG tablet Take half tablet (2.5 mg) daily at bedtime 45 tablet 3 Semaglutide,0.25 or 0.5MG/DOS, (Ozempic, 0.25 or 0.5 MG/DOSE,) 2 MG/1.5ML Solution Pen-injector Inject 0.5 mg under the skin once a week. tacrolimus (PROGRAF) 1 MG capsule Take 2 capsules by mouth 2 times daily. 360 capsule 3 No facility-administered medications prior to visit. REVIEW OF SYSTEMS A complete review of systems was performed and positive for symptoms mentioned in the history of present illness. The remainder of system review was negative. Objective: Vitals: 08/13/22 1053 BP: 108/69 Pulse: 96 Resp: 18 Temp: 97.8 F (36.6 C) Wt Readings from Last 3 Encounters: 08/13/22 80.1 kg (176 lb 9.6 oz) 08/13/22 79.8 kg (176 lb) 08/23/21 83 kg (183 lb) * MAGGI Reina - 08/13/2022 11:00 AM EST [facility] Progress Note: Subjective: Ly Gage is a 62 y.o. male with a history of OHT who presents with the followin year post transplant visit. Denies cardiovascular complaints. DM handled by endo with recent adjustments in meds. Appetite good. Denies n/v. Diarrhea with change in DM meds. Denies SOB, fevers, chills, palpitations. Transplant Info: DOT: 08/24/2009 (Heart) Alloscreen: 08/03/19: 10%, no DSA CMV Donor: POS CMV Recipient: NEG Home Vital Signs: Home BP: not checking Home HR: not checking Home FBS: Home PPBS: not checking *follows with local endocrinology (Leslie Silva) Immunosuppression: Tacro: 2mg BID Last taken: 10pm last night MMF: 750mg BID Fasting: Yes Outpatient Medications Prior to Visit Medication Sig Dispense Refill amLODIPine 5 MG tablet Take 1 tablet by mouth daily. 90 tablet 3 ascorbic acid 500 MG tablet Take 1 tablet by mouth daily. 30 tablet aspirin 81 MG PO TABS take 1 Tab by mouth daily. 90 Tab 3 calcium-vitamin D 500-200 MG-UNIT PO TABS take 1 Tab by mouth 2 times daily. 60 Tab 11 Cholecalciferol 2000 UNITS Cap take 1 capsule by mouth daily.. (Patient not taking: Reported on 08/14/2020) 90 capsule 3 Coenzyme Q10 (COQ10) 200 MG Cap Take by mouth daily. cyanocobalamin 500 MCG tablet Take 1 tablet by mouth daily. gliMEPIride 4 MG Tab tablet Take 4 mg by mouth daily every morning. Qclsthqmxdr-Yosxmqrog-Qzl C-Mn (Glucosamine-Chondroitin) capsule Take 1 capsule by mouth daily. 0 lisinopril 10 MG tablet Take 1 tablet by mouth daily. In AM 90 tablet 3 magnesium oxide 400 MG Tab Take 1 tablet by mouth at bedtime. 90 tablet 3 metformin 1000 MG Tab tablet Take 2,000 mg by mouth every evening at 6 PM. Multiple Vitamins-Minerals (CENTRUM) PO TABS take 1 Tab by mouth daily. 90 Tab 3 mycophenolate mofetil (CELLCEPT) 250 MG capsule Take 1 capsule by mouth 2 times daily. 180 capsule 3 mycophenolate mofetil (CELLCEPT) 500 MG tablet Take 1 tablet by mouth 2 times daily. 180 tablet 3 omeprazole [address] capsule Take 1 capsule by mouth daily. 90 capsule 3 rosuvastatin 5 MG tablet Take half tablet (2.5 mg) daily at bedtime 45 tablet 3 Semaglutide,0.25 or 0.5MG/DOS, (Ozempic, 0.25 or 0.5 MG/DOSE,) 2 MG/1.5ML Solution Pen-injector Inject 0.5 mg under the skin once a week. tacrolimus (PROGRAF) 1 MG capsule Take 2 capsules by mouth 2 times daily. 360 capsule 3 No facility-administered medications prior to visit. REVIEW OF SYSTEMS A complete review of systems was performed and positive for symptoms mentioned in the history of present illness. The remainder of system review was negative. Objective: Vitals: 08/13/22 1053 BP: 108/69 Pulse: 96 Resp: 18 Temp: 97.8 F (36.6 C) Wt Readings from Last 3 Encounters: 08/13/22 80.1 kg (176 lb 9.6 oz) 08/13/22 79.8 kg (176 lb) 08/23/21 83 kg (183 lb) Body mass index is 25.34 kg/m . Chief Complaint Patient presents with Follow-up HPI: He is doing well. No CV complaints. He denies dyspnea at rest, with exertion, orthopnea, PND, palpitations, lightheadedness, dizziness, presyncope, syncope, chest pain or edema. ROS: Pertinent items are noted in the HPI, all other systems were queried and are negative. Physical exam -- General: Appears stated age in no acute distress. Able to ambulate without assist. Obese. Neck: Supple. Cardiac: Regular rate and rhythm. No MM, rubs or gallops. No JVD. No bruits. Lungs: CTA aj Abdomen: Normal bowel sounds [...] 1A, negative C3d/C4d. 08/24: 0, 02/23: 0, 12: 0 ALLOMAP: 02/22: 23 (w/biopsy 1A). 07/25: 30 11: 33 06/04/11: 33 08/25: 35 08/26: 34 7: 28 08/27: 29 02/26: 36 Echo A. [...] dysfunction, RVSP 24 mmHg, no valvular disease, LVEDD 4.3 cm. E. 08/28 :LVEF 50%, mild-mod RV dysfunction, no valvular disease F. 09/30: LVEF 50%, nomral RV function by TAPSE, no valvular disease, RVSP 21 mmHg. G. 08/31: LVEF 60-65%, mild RV dilation with normal function, no valvular disease, RVSP 19 mmHg. H. 08/03 LVEF 65%, normal RV function I. 08/2021 - LVEF 55-60%. RVSP 22 J. 08/13/22 - LVEF 56%, low normal RV systolic function Ischemic evaluation A. 08/24: No evidence of [...] with prox 10-20% stenosis, LVEDP 7 mmHg G. LHC 09/04 - normal coronaries. No CAV Database: Lab Results Component Value Date SODIUM 139 08/13/2022 POTASSIUM 5.2 (H) 08/13/2022 CHLORIDE 103 08/13/2022 CO2 27 08/13/2022 BUN 27 (H) 08/13/2022 CREATSERUM 1.04 08/13/2022 Lab Results Component Value Date WBC 5.81 08/13/2022 HGB 13.0 (L) 08/13/2022 HCT 39.5 (L) 08/13/2022 PLATELET 286 08/13/2022 MCV 89.6 08/13/2022 Lab Results Component Value Date ALT 15 08/13/2022 AST 15 08/13/2022 ALKPHOS 58 08/13/2022 BILITOTAL 0.5 08/13/2022 BILIDIRECT 0.1 08/11/2018 Lab Results Component Value Date CHOLESTEROL 147 08/13/2022 TRIG 240 (H) 08/13/2022 HDL 49 08/13/2022 LDLCALC 50 08/13/2022 Lab Results Component Value Date/Time TACROLIMUS 9.4 08/13/2022 09:30 AM TACROLIMUS 8.1 08/22/2021 11:23 AM TACROLIMUS 6.6 08/03/2019 09:52 AM TACROLIMUS 6.4 08/11/2018 09:30 AM TACROLIMUS 4.4 (L) 08/13/2017 10:16 AM TACROLIMUS 6.0 09/17/2016 11:57 AM TACROLIMUS 5.5 09/19/2015 08:48 AM TACROLIMUS 4.8 (L) 08/30/2014 10:21 AM Assessment and Plan: 62 y.o. y.o. male S/P OHT 08/24/09 for non-ischemic cardiomyopathy for follow-up clinic visit 1. Immunosuppresion therapy (transplant 08/23, CMV D+/R-) / Post-transplant care: - tacro level goal 6-8; level today 9.4. Remains on 2 mg bid. Decrease tacrolimus to 1.5 mg BID. Check level in 1 week. Continue cellcept 750 mg BID. - Failed pred taper twice due to polyarthralgia (01/22, 02/22 and 08/24). Off prednisone since Apr 2011 (slower taper). - Cr normal (1.04) and potassium 5.2 today. -Supplements: on asa, calcium, vitamin D, Off all anti-infective prophylaxis. - Echo this visit normal. - [facility] 09/04 no coronary artery disease. Note: DSE in 09/30 with junctional tachycardia at low dose dobut 10 mcg/kg/min followed by possible ectopic atrial tachycardia. We have not scheduled DSE this year for this reason. DSE in 09/30 with junctional tachycardia at low dose dobut 10 mcg/kg/min followed by possible ectopic atrial tachycardia. We have not scheduled DSE this year for this reason. 2. Hypertension: Well controlled. Continue current medications 3. Diabetes Mellitus, pre and post-transplant: Managed by PCP 4. Hyperlipidemia: Lab Results Component Value Date CHOLESTEROL 147 08/13/2022 TRIG 240 (H) 08/13/2022 HDL 49 08/13/2022 LDLCALC 50 08/13/2022 - Several problems with myalgias. - intolerance to multiple statins in the past. - [place] 3 fish oil - not tolerated due to GI discomfort. - no longer on tricor - continue regular monitoring -Crestor 2.5 mfg qd 5. Neuropathy / Foot pain: - skin biopsy unremarkable - gabapentin was not helpful - Following with neurology. -not discussed today 6. Preventive Care - up to date. Return to clinic in one year. The total amount of expf-ia-dseh time spent with the patient was 40 minutes- at least 50% of that time was spent reviewing records, lab results, counseling, and coordination of care. MAGGI Reina Advanced [facility] Failure [facility] Cardiac Transplant [facility] [place] [facility] History of Present illness Narrative* María Saleh - 04/25/2022 1:20 PM EDT Pt chart reviewed as part of population health initiative focused on statin use in patients with diabetes (DM). Ly Gage is identified through data from [employer] (insurer) as a potential candidate for statintherapy with no prescriptions claims processed for a statin medication in this calendar year. Chart Review The following case components were reviewed for current or historic statin use: Confirmed diabetes and or CVD: yes Current/Active med list includes a statin: yes IF YES, Last order date and quantity: 03/26/16 Last pharmacy fill date: Of note, patient has 2 preferred pharmacies list on file, Per [facility] pharmacy phone call: staff reports patient has never filled statin with them. I called [facility] pharmacy, however phone number is out of service, and online its listed as permanently closed. IF NO, reason identified (contraindication, intolerance, exclusion, etc.): NA Per the 2018 AHA/ACC guidelines the patient qualifies for a statin medication therapy due to PMH ofDM and the patient's age is between 40-75 yo. Patient's current medication list he's taking half a tablet of rosuvastatin 5 mg; however the most recent order was on 03/26/16. I would recommended the patient re-start statin therapy to prevent ASCVD complication, of note the patient has a hx of heart transplant. Patient has previously taken rosuvastatin, however I would recommend starting pravastatin 40 mg once daily, since this statin is not metabolized via the FSF815 pathway and has less drug-drug interactions. Per [employer], rosuvastatin has 3 drug-drug interactions with the patient's current m edication regimen, 2 with calcium and magnesium antiacids, which the antacids may decrease the serum concentration of rosuvastatin. ALLERGIES Allergen Reactions Tape - Saran [Other] PAST MEDICAL HISTORY Diagnosis Date Diabetes ([facility]) Heart transplant status ([facility]) Cholesterol, Total (MG/dL) Date Value 12/20/2020 169 HDL Cholesterol (MG/DL) Date Value 12/20/2020 47 LDL Cholesterol (MG/DL) Date Value 12/20/2020 87 Triglyceride (MG/DL) Date Value 12/20/2020 173 No reason identified, Patient contacted: No answer, Left voicemail Called patient on 04/25/22, attempted to contact patient to confirm pharmacy and check fill history, but unable to reach patient. Outcome of review: Pending outreach María Saleh * Margi Hylton [facility] - 04/25/2022 1:20 PM EDT Preceptor Addendum: Reviewed case with pharmacy services director and agree with findings above. Unable to reach patient to confirm pharmacy/fill history. Not MyChart active. Margi Hylton PharmD, BCACP Primary Care Pharmacist [facility] Future Appointments Appointment Date:07/09/2022 09:00:00 AM Scheduled Provider:LESLIE SILVA MD Location:[facility] Appointment Type:[facility] Future Scheduled Tests Laboratory* Osmolality Urine 07/12/22 * Thyroid Stimulating Hormone 07/12/22 * A1C Hemoglobin 07/12/22 * Free T3 07/12/22 * Lipid Profile 07/12/22 * Complete Metabolic Panel 07/12/22 [facility] Evaluation + Plan note Future Appointments Appointment Date:07/09/2022 09:00:00 AM Scheduled Provider:LESLIE SILVA MD Location:[facility] Appointment Type:ENDO [facility] Evalufmfri noteNo assessment information available [facility] Work Phone: Evaluation note* Diagnosis 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- Primary Encounter for long-term (current) use of medications Encounter for long-term (current) use of other medications Other hyperlipidemia Essential hypertension Unspecified essential hypertension Encounter for aftercare following heart transplant Aftercare following organ transplant Hyperlipidemia, mild Other and unspecified hyperlipidemia Immunosuppression Unspecified disorder of immune mechanism High risk medication use Encounter for long-term (current) use of other medications [facility] Diagnosis Onset Date Resolution Status Essential hypertension acute GERD (gastroesophageal reflux disease) acute Heart transplant recipient a cute Type 2 diabetes mellitus acu te Screening for colon cancer n oneactive Immunization due noneactive Acute URI noneactive Establishing care with new doctor, encounter for noneactive [facility] Work Phone: Evaluation note* Diagnosis Onset Date Resolution Status Essential hypertension acute GERD (gastroesophageal reflux disease) acute Heart transplant recipient a cute Type 2 diabetes mellitus acu te Screening for colon cancer n oneactive Immunization due noneactive Acute URI noneactive Establishing care with new doctor, encounter for noneactive Essential hypertension acute GERD (gastroesophageal reflux disease) acute Heart transplant recipient a cute Type 2 diabetes mellitus acu te Screening for colon cancer n oneactive Erectile dysfunction noneact danny [facility] Work Phone: Evaluation note* Diagnosis Onset Date Resolution Status Essential hypertension acute GERD (gastroesophageal reflux disease) acute Heart transplant recipient a cute Type 2 diabetes mellitus acu te Erectile dysfunction noneact danny Positive colorectal cancer s creening using Cologuard test acute [facility] Work Phone: Evaluation note* Diagnosis Onset Date Resolution Status Essential hypertension acute GERD (gastroesophageal reflux disease) acute Heart transplant recipient a cute Type 2 diabetes mellitus acu te Finger deformity noneactive Erectile dysfunction noneact danny Irritation of right ear none active [facility] Work Phone: Evaluation note* Diagnosis 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- Primary Encounter for long-term (current) use of medications Encounter for long-term (current) use of other medications Other hyperlipidemia Essential hypertension Unspecified essential hypertension Immunosuppression Unspecified disorder of immune mechanism Hyperlipidemia, mild Other and unspecified hyperlipidemia High risk medication use Encounter for long-term (current) use of other medications [facility] Diagnosis 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 [facility] Diagnosis 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- Primary Encounter for long-term (current) use of medications Encounter for long-term (current) use of other medications Other hyperlipidemia Aftercare following organ transplant Essential hypertension Unspecified essential hypertension [facility] Author Zev Fortune [facility] April 29, 2023 7:59am Note Date/Time April 29, 2023 7: 59am [facility] Medical Records Department [address] [place] [address] History & Physical Exam 04/29/23 0758 MR#: [id number] Acct: [id number] Name: LY GAGE Rep #:[id number] : 1960 62 From: Zev altman MD PCP: Dr. Violet Dallas MD Status:[facility] Location: [facility] History and Physical Date of Admission: 04/29/23 Intake Vital Signs 01/28/2308:07 03/24/2308:54 Height 5 ft 10 in 5 ft 10 in Weight: 181 lb 183 lb 8 oz BMI 25.9 26.3 BP 108/70 129/78 H Blood Pressure Location Lt brachial Rt brachial Position Sitting Sitting Respiration 14 18 Pulse 93 95 Pulse Source Monitor Monitor Temp 98.2 F 97.3 F L Temp Source Temporal Pulse Oximetry (%) 98 Oxygen Delivery Method room air Intake Visit Reasons: POSITIVE COLOGUARD Chief Complaint: positive cologuard Allergies Latex, Natural Rubber Adverse Reaction (Intermediate, Verified 01/27/23 08:04) RASH Medications aspirin 81 mg chewable tablet 81 mg PO DAILY 03/29/16 [History Confirmed 03/24/23] calcium carbonate 600 mg calcium (1,500 mg) tablet 500 mg PO BID 03/29/16 [History Confirmed 03/24/23] ergocalciferol (vitamin D2) 1,250 mcg (50,000 unit) capsule (Vitamin D2) 5,000 unit PO QHS 03/29/16 [History Confirmed 03/24/23] multivitamin (Daily Multiple tablet) 1 ea PO QHS 03/29/16 [History Confirmed 03/24/23] mycophenolate mofetil 500 mg tablet 750 mg PO BID 03/29/16 [History Confirmed 03/24/23] omeprazole 20 mg capsule,delayed release 20 mg PO DAILY 03/29/16 [History Confirmed 03/24/23] rosuvastatin 5 mg tablet (Crestor) 2.5 mg PO QODAY 03/29/16 [History Confirmed 03/24/23] tacrolimus 1 mg capsule, immediate-release 2 mg PO BID 03/29/16 [History Confirmed 03/24/23] coenzyme Q10 100 mg capsule (CoQ-10) 200 mg PO QHS 10/12/18 [History Confirmed 03/24/23] Cyanocobalamin (Vitamin B-12) [Vitamin B-12] 500 mcg PO DAILY 07/11/20 [History Confirmed 03/24/23] ascorbic acid (vitamin C) 500 mg tablet 500 mg PO DAILY@0800 07/11/20 [History Confirmed 03/24/23] glucosamine HCl 500 mg tablet 1,000 mg PO DAILY 07/11/20 [History Confirmed 03/24/23] amlodipine 5 mg tablet 5 mg PO DAILY 07/30/22 [History Confirmed 03/24/23] lisinopril 10 mg tablet 10 mg PO DAILY 07/30/22 [History Confirmed 03/24/23] magnesium 200 mg tablet 400 mg PO QHS 07/30/22 [History Confirmed 03/24/23] vitamin B complex (B Complex-Vitamin B12 tablet) 1 tab PO DAILY 07/30/22 [History Confirmed 01/27/23] metformin 1,000 mg tablet 2,000 mg (2 x 1,000 mg) PO QHS #180 tabs 01/27/23 [Rx Confirmed 03/24/23] sildenafil 25 mg tablet 25 mg PO DAILY PRN sexual activity #30 tabs 01/27/23 [Rx Confirmed 01/27/23] glimepiride 4 mg tablet 4 mg PO DAILY #90 tabs 02/20/23 [Rx Confirmed 03/24/23] PFSH Medical History (Updated 03/24/23 @ 09:12 by Alee Smith) Diabetes Heart transplant recipient History of atrial fibrillation History of heart disease History of pneumonia Hx of blood clots Hx of chronic arthritis Hx of essential hypertension Hx of heart failure Hx of heart valve insufficiency Hx of melanoma of skin Hypertension Positive colorectal cancer screening using Cologuard test Wears glasses Surgical History H/O arthroscopic knee surgery H/O repair of left rotator cuff Heart transplant status Hx of cardiac catheterization Hx of repair of right rotator cuff S/P skin and subcutaneous tissue surgery S/P tonsillectomy Family History Brother AsthmaMother Blood clot in vein Social History household members: spouse current occupational status: employed and retired 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 His last colonoscopywas in 2012. Patient does not report any abdominal pain or gross blood in the stool. He has had a heart transplant in the past. ROS General General: Yes fatigue; No weight change, appetite, colon cancer, breast cancer or weakness HEENT HEENT: No difficulty swallowing, eye injury, eye surgery, swollen glands or hoarseness Endo Endocrine: Yes diabetes mellitus; No thyroid disease, thyroid cancer, Hair loss, heat intolerance or cold intolerance Skin Skin: No rash or changing moles Breast Breast: No left breast lump, right breast lump, nipple discharge, breast pain, abnormal mammogram, abnormal US or breast enlargement Musc Musculoskeletal: Yes arthritis; No back problems, rheumatoid arthritis, gout or joint pain Cardio Cardiovascular: No murmur, pacemaker, heart disease, atrial fibrillation, high blood pressure, heart attack, heart stent, palpitations, shortness of breat withexertion or chest pain Psych Psychiatric: No depression, anxiety or hearing voices Resp Respiratory: No shortness of breath, No sleep apnea, No cough, No COPD, No asthma, No emphysema and No wheezing Gastro Gastrointestinal: No abdominal pain, No nausea or vomiting, Yes diarrhea, No constipation, No blood in stool, No acid reflux, No hemorrhoids, No ulcers, No gallbladder problem and No black,tarry stools Rafael Hematologic: No blood thinners, No blood disorders, No bleeding, No anemia and No blood clots Neuro Neurologic: No system reviewed and no additional complaints, except as documented, No as per HPI, No abnormal gait, No abnormal hearing, No abnormal movements, No abnormal speech, No behavioral changes, No burning sensations, No confusion, No convulsions, No disequilibrium, No dizziness, No localized weakness, No frequent falls, No headache(s), No lack of coordination, No loss ofvision, No memory loss, No numbness, No other visual disturbances, No radicular pain, No restless legs, No sensory deficit, No syncope, No tingling, No tremor(s), No weakness and No other Exam Const General: cooperative Orientation: alert and oriented x3 HENMT Head: normal to inspection Neck Neck: normal visual inspection and full ROM Chest Chest palpation & inspection: normal inspection of the chest Resp Effort & Inspection: normal respiratory effort Auscultation: clear to auscultation bilaterally Cardio Rate: regular rate Rhythm: regular rhythm GI Inspection: non-distended Palpation: soft and nontender Skin General: no rashes or lesions noted Neuro General: patient alert and patient oriented x3 Extrem General: full ROM Psych Appearance: grossly normal Mental Status: mental status grossly normal Assessment and Plan Assessment and Plan (1) Positive colorectal cancer screening using Cologuard test: Status: Acute Plan: I explained endoscopy in detail to the patient. I explained the risks includingbut not limited to stroke or heart attack with anesthesia, perforation of the GItract, bleeding, infection. I explained that any of these could necessitate further emergency surgery. The patient understands and all questions were answered sufficiently. The patient wishes to proceed with procedure. Zev Fortune MD Pager: [facility] [address] [place] [address], [address] [place] [address] Office: I have examined the patient and the H&P has been reviewed. There are no clinicalchanges since date of exam. 04/29/23 0759 <Electronically signed by Zev Fortune MD> Cosigner Signature (if applicable): CC: Dr. Violet Dallas MD; Dr. Zev Fortune MD~ Signed [facility] Work Phone: Hospital course Narrative No data available for this section [facility] Hospital Discharge instructions No data available for this section [facility] Hospital Discharge instructionsAmbulatory Orders* General Surgery Location: None Selected * Podiatry Location: None Selected [facility] Work Phone: Progress note No data available for this section [facility] Reason for referral (narrative)No reason for [facility]: Reason for visit Narrative* Auth/Cert Specialty Diagnoses / Procedures Referred By Contac t Referred To Contact Diagnoses 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 [Z94.1] Procedures NM CATH PLMT L HRT & ARTS W/NJX & ANGIO IMG S&I CORONARY ANGIOGRAM WITH LEFT HEART CATH [facility] [address] [place] [id number] [facility] [address] [place] [id number] Referral ID Status Reason Start Date Expiration Date Visits Re quested Visits Authorized [id number] 1 1 [facility] Reason for Referral Status Reason Specialty Diagnoses / Procedures Referred By Contact Referred To Contact New Request Diagnoses Encounter for aftercare following heart transplant Procedures ECHOCARDIOGRAM Giana Bradshaw MD [address] [place] [phone] Status Reason Specialty Diagnoses / Procedures Referred By Contact Referred To Contact Pending Review Diagnoses Encounter for aftercare following heart transplant Procedures ECHOCARDIOGRAM Giana Bradshaw MD [address] [place] [phone] Specialty Diagnoses / Procedures Referred By Contac t Referred To Contact Diagnoses 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 Procedures ECHOCARDIOGRAM NM ECHO HEART XTHORACIC,COMPLETE W DOPPLER Dale Grullon MBBS [address] [place] [address] Referral ID Status Reason Start Date Expiration Date V isits Requested Visits Authorized [id number] Auth Not Needed 08/13/2022 09/07/2023 1 1 Specialty Diagnoses / Procedures Referred By Contac t Referred To Contact Diagnoses 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 Procedures ECHOCARDIOGRAM NM ECHO HEART XTHORACIC,COMPLETE W DOPPLER Abhijit Grace MD [address] [place] [phone] Referral ID Status Reason Start Date Expiration Date V isits Requested Visits Authorized [id number] Auth Not Needed 08/12/2023 09/05/2024 1 1 Specialty Diagnoses / Procedures Referred By Contac t Referred To Contact Procedures ECG Leilani Velásquez MD [address] [place] [phone] Referral ID Status Reason Start Date Expiration Date V isits Requested Visits Authorized [id number] New Request 08/03/2024 08/28/2025 1 1 Specialty Diagnoses / Procedures Referred By Contac t Referred To Contact Diagnoses 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 Procedures ECHOCARDIOGRAM NM ECHO TTHRC R-T 2D W/WOM-MODE COMPL SPEC&[place] [address] [place] [address] Referral ID Status Reason Start Date Expiration Date V isits Requested Visits Authorized [id number] Authorized 08/03/2024 08/28/2025 1 1 Specialty Diagnoses / Procedures Referred By Contac t Referred To Contact Diagnoses 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 Encounter for long-term (current) use of medications Other hyperlipidemia Procedures ECHOCARDIOGRAM NM ECHO TTHRC R-T 2D W/WOM-MODE COMPL SPEC&[place] [address] [place] [address] Referral ID Status Reason Start Date Expiration Date V isits Requested Visits Authorized [id number] Authorized 08/03/2024 08/28/2025 1 1 History of Present Illness * Giana Bradshaw MD - 08/11/2018 11:30 AM EST Formatting of this note may be different from the original. [facility] Progress Not Subjective: Ly Gage is a 58 y.o. male with a history of OHT who presents with the followin year post tx evaluation Denies current complaints. Continues to have achiness, related to statins. Possible rotator cuff tear. Waiting to see ortho. Denies abdominal complaints. Denies cardiovascular complaints. Continues with some feet neuropathy. Home Vital Signs Home BP: Not checking Home HR: Not checking Last dose of CNI: 10:45pm last night Pertinent cardiac & admission history. Refer to updated history tab for comprehensive data. 1. OHT 08/23 2. Recent Admissions: None Immunosuppression: Prograf 2mg BID Cellcept 750mg BID Outpatient Encounter Prescriptions as of 08/11/2018 Medication Sig Dispense Refill amLODIPine 10 MG Tab tablet Take 1 tablet by mouth daily. 90 tablet 3 aspirin 81 MG PO TABS take 1 Tab by mouth daily. (Patient taking differently: take 81 mg by mouth at bedtime.. ) 90 Tab 3 calcium-vitamin D 500-200 MG-UNIT PO TABS take 1 Tab by mouth 2 times daily. 60 Tab 11 Cholecalciferol 2000 UNITS Cap take 1 capsule by mouth daily.. 90 capsule 3 Coenzyme Q10 (COQ10) 200 MG Cap Take by mouth daily. lisinopril 10 MG Tab tablet Take 1.5 tablets by mouth 2 times daily. 270 tablet 3 magnesium oxide 400 MG PO TABS take 1 Tab by mouth daily. (Patient taking differently: take 400 mg by mouth at bedtime.. ) 90 Tab 3 metformin 1000 MG Tab tablet Take 1,000 mg by mouth every evening at 6 PM. Multiple Vitamins-Minerals (CENTRUM) PO TABS take 1 Tab by mouth daily. 90 Tab 3 mycophenolate mofetil (generic) 250 MG Cap capsule Take 1 capsule by mouth 2 times daily. 180 capsule 3 mycophenolate mofetil (generic) 500 MG Tab tablet Take 1 tablet by mouth 2 times daily. 180 tablet 3 omepraz[address] capsule Take 1 capsule by mouth daily. 90 capsule 3 rosuvastatin (CRESTOR) 5 MG Tab take 1 tablet by mouth daily.. 90 tablet 3 SitaGLIPtin-MetFORMIN HCl (JANUMET XR) 100-1000 MG Tab SR 24 HR Take 1 tablet by mouth daily every morning. 60 tablet 1 tacrolimus (generic) 1 MG Cap capsule Take 2 capsules by mouth 2 times daily. 360 capsule 3 docusate 100 MG Cap take 1 Cap by mouth 2 times daily. (Patient not taking: Reported on 08/11/2018 ) 60 Cap 11 [] Perflutren Lipid Microsphere (DEFINITY) SUSP 10 mL No facility-administered encounter medications on file as of 08/11/2018. REVIEW OF SYSTEMS A complete review of systems was performed and positive for symptoms mentioned in the history of present illness. The remainder of system review was negative. Objective: Blood pressure 126/85, pulse 99, temperature 98.3 F (36.8 C), temperature source Oral, resp. rate 18, height 1.778 m (5' 10), weight 90.7 kg (200 lb), SpO2 97 %. Wt Readings from Last 3 Encounters: 08/11/18 90.7 kg (200 lb) 08/11/18 93.9 kg (207 lb) 08/13/17 93.9 kg (207 lb) Body mass index is 28.7 kg/m . Chief Complaint Patient presents with Heart Recipient Follow-up Physical exam -- General: [...] dysfunction, RVSP 24 mmHg, no valvular disease, LVEDD 4.3 cm. E. 08/28 :LVEF 50%, mild-mod RV [...] Failed pred taper twice due to polyarthralgia (10, 02/22 and 08/24). Off prednisone since Apr [...] to multiple statins in the past. - [place] 3 fish oil - not tolerated due [...] to clinic in one year. Annual with [facility] in 07/2019 Thank you for allowing me to participate in the care of this pleasant patient. Please do not hesitate to contact me if there are any further questions. Total face to face time 40 minutes. Sincerely, Giana Bradshaw MD Advanced [facility] Failure [facility] Cardiac Transplant Program [facility] [place] * Trice Moon RN - 08/11/2018 11:30 AM EST Formatting of this note may be different from the original. [facility] Progress Not Subjective: Ly Gage is a 58 y.o. male with a history of OHT who presents with the followin year post tx evaluation Denies current complaints. Continues to have achiness, related to statins. Possible rotator cuff tear. Waiting to see ortho. Denies abdominal complaints. Denies cardiovascular complaints. Continues with some feet neuropathy. Home Vital Signs Home BP: Not checking Home HR: Not checking Last dose of CNI: 10:45pm last night Pertinent cardiac & admission history. Refer to updated history tab for comprehensive data. 1. OHT 08/23 2. Recent Admissions: None Immunosuppression: Prograf 2mg BID Cellcept 750mg BID Outpatient Encounter Prescriptions as of 08/11/2018 Medication Sig Dispense Refill amLODIPine 10 MG Tab tablet Take 1 tablet by mouth daily. 90 tablet 3 aspirin 81 MG PO TABS take 1 Tab by mouth daily. (Patient taking differently: take 81 mg by mouth at bedtime.. ) 90 Tab 3 calcium-vitamin D 500-200 MG-UNIT PO TABS take 1 Tab by mouth 2 times daily. 60 Tab 11 Cholecalciferol 2000 UNITS Cap take 1 capsule by mouth daily.. 90 capsule 3 Coenzyme Q10 (COQ10) 200 MG Cap Take by mouth daily. lisinopril 10 MG Tab tablet Take 1.5 tablets by mouth 2 times daily. 270 tablet 3 magnesium oxide 400 MG PO TABS take 1 Tab by mouth daily. (Patient taking differently: take 400 mg by mouth at bedtime.. ) 90 Tab 3 metformin 1000 MG Tab tablet Take 1,000 mg by mouth every evening at 6 PM. Multiple Vitamins-Minerals (CENTRUM) PO TABS take 1 Tab by mouth daily. 90 Tab 3 mycophenolate mofetil (generic) 250 MG Cap capsule Take 1 capsule by mouth 2 times daily. 180 capsule 3 mycophenolate mofetil (generic) 500 MG Tab tablet Take 1 tablet by mouth 2 times daily. 180 tablet 3 omeprazole [address] capsule Take 1 capsule by mouth daily. 90 capsule 3 rosuvastatin (CRESTOR) 5 MG Tab take 1 tablet by mouth daily.. 90 tablet 3 SitaGLIPtin-MetFORMIN HCl (JANUMET XR) 100-1000 MG Tab SR 24 HR Take 1 tablet by mouth daily every morning. 60 tablet 1 tacrolimus (generic) 1 MG Cap capsule Take 2 capsules by mouth 2 times daily. 360 capsule 3 docusate 100 MG Cap take 1 Cap by mouth 2 times daily. (Patient not taking: Reported on 08/11/2018 ) 60 Cap 11 [] Perflutren Lipid Microsphere (DEFINITY) SUSP 10 mL No facility-administered encounter medications on file as of 08/11/2018. REVIEW OF SYSTEMS A complete review of systems was performed and positive for symptoms mentioned in the history of present illness. The remainder of system review was negative. Objective: Blood pressure 126/85, pulse 99, temperature 98.3 F (36.8 C), temperature source Oral, resp. rate 18, height 1.778 m (5' 10), weight 90.7 kg (200 lb), SpO2 97 %. Wt Readings from Last 3 Encounters: 08/11/18 90.7 kg (200 lb) 08/11/18 93.9 kg (207 lb) 08/13/17 93.9 kg (207 lb) in this encounter Assessments Diagnosis Encounter for aftercare foll owing heart transplant - Primary Aftercare following organ transplant Other hyperlipidemia Encounter for long-term (cur rent) use of medications Encounter for long-term (current) use of other medications Essential hypertension Unspecified essential hypertension Hypertriglyceridemia Pure hyperglyceridemia 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 Immunosuppression Unspecified disorder of immune mechanism Diabetes mellitus due to und erlying condition with hyperosmolarity without coma, without long-term current use of insulin Myalgia Mylagia and myositis, unspecified Encounter for long-term (cur rent) use of high-risk medication Diagnosis Encounter for aftercare foll owing heart transplant Aftercare following organ transplant Encounter for long-term (cur rent) use of medications Encounter for long-term (current) use of other medications Other hyperlipidemia Essential hypertension Unspecified essential hypertension Advance Directives No Advanced Directives Records FoundLatest Code Status on File Code Status Date Activated Date Inactivated Comments Full Code-Unverified 08/31/2014 1:01 PM 08/31/2014 6:0 5 PM Full Code 07/29/2014 7:06 AM 07/29/2014 3:55 PM Advance Directive Response Recorded Date/ Time Living Will No June 04, 2022 2:25pm Power of Candy Spreader No May 2:25pm Latest Code Status on File Code Status Date Activated Date Inactivated Comments Full Code 08/23/2021 8:39 AM Code Status History Code Status Date Activated Date Inactivated Comments Full Code 08/26/2019 11:04 AM 08/23/2021 8:39 AM Full Code-Unverified 08/31/2014 1:01 PM 08/31/2014 6:0 5 PM Full Code 07/29/2014 7:06 AM 07/29/2014 3:55 PM Advance Directive Response Recorded Date/ Time Living Will No June 04, 2022 1:25pm Power of Candy Spreader No May 1:25pm Advance Directive Response Recorded Date/ Time Name of Medical Power of Candy Spreader JUAN GAGE April 24, 2023 12:09pm Living Will Yes April 24 12:09pm Power of Candy Spreader Yes April 24, 2 023 12:09pm Advance Directive Response Recorded Date/ Time Name of Medical Power of Candy Spreader JUAN GAGE April 24, 2023 11:09am Living Will Yes April 24 11:09am Power of Candy Spreader Yes April 24, 2 023 11:09am Date Activated Date Inactivated Comments 08/03/2024 2:05 PM Date Activated Date Inactivated Comments 08/23/2021 8:39 AM 08/03/2024 2:05 PM Date Activated Date Inactivated Comments 08/26/2019 11:04 AM 08/23/2021 8:39 AM Date Activated Date Inactivated Comments 08/31/2014 1:01 PM 08/31/2014 6:05 PM Date Activated Date Inactivated Comments 07/29/2014 7:06 AM 07/29/2014 3:55 PM Advance Directive Response Recorded Date/ Time Living Will Yes April 24 12:09pm Do you have a Healthcare Power of Candy Spreader? 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, PPW HE RE DIABETES CONCERNS Reason for Visit Essential hypertensi on GERD (gastroesophageal reflux disease) Heart transplant recipient Type 2 diabetes mellitus Screening for colon cancer Immunization due Acute URI Establishing care with new doctor, encounter for Essential hypertension GERD (gastroesophageal reflux disease) Heart transplant recipient Type 2 diabetes mellitus Screening for colon cancer Erectile dysfunction Chief Complaint 6 M FU POSITIVE COLOGUARD Reason for Visit Essential hypertensi on GERD (gastroesophageal reflux disease) Heart transplant recipient Type 2 diabetes mellitus Erectile dysfunction Positive colorectal cancer screening using Cologuard test Chief Complaint 6 M FU Reason for Visit Essential hypertensi on GERD (gastroesophageal reflux disease) Heart transplant recipient Type 2 diabetes mellitus Finger deformity Erectile dysfunction Irritation of right ear Chief Complaint Admit Date 6 M FU November 12, 2024 7:58am 3 M FU February 11, 2025 7:57a m Reason for Visit Admit Date Acute upper respiratory infection Februa 2024 7:58am Diabetes November 12, 2024 7:58am Essential hypertension November 12 7:58am GERD (gastroesophageal reflux disease) F ebruary 2024 7:58am Trochanteric bursitis, left hip November 12, 2024 7:58am Trochanteric bursitis, left hip January 7:57am Chief Complaint Admit Date 3 M FU February 11, 2025 7:57a m 6 M FU March 24, 2025 7:57 am Reason for Visit Admit Date Trochanteric bursitis, left hip January 7:57am Essential hypertension March 24, 2025 7 :57am GERD (gastroesophageal reflux disease) J dickson 2024 7:57am Heart transplant recipient March 24 7:57am Mixed hyperlipidemia March 24, 2025 7:5 7am Type 2 diabetes mellitus March 24, 2025 7:57am Chronic left hip pain March 24, 2025 7: 57am Erectile dysfunction March 24, 2025 7:5 7am Vitamin deficiency March 24, 2025 7:57 am Reason for Visit Admit Date Trochanteric bursitis, left hip January 7:57am Essential hypertension March 24, 2025 7 :57am GERD (gastroesophageal reflux disease) J 2024 7:57am Heart transplant recipient March 24 7:57am Type 2 diabetes mellitus March 24, 2025 7:57am Screening for depression March 24, 2025 7:57am Chronic left hip pain March 24, 2025 7: 57am Erectile dysfunction March 24, 2025 7:5 7am Petechial rash March 24, 2025 7:57 am Vitamin deficiency March 24, 2025 7:57 am Additional Source Comments Reason for Visit (unrecogniz ed section and content) Reason Comments Heart Recipient Follow-up Reason Comments Medication Refill Reason Onset Date Comments Allied health, statin use review 04/25/2022 Statin use review Specialty Diagnoses / Procedures Referred By Contac t Referred To Contact Diagnoses 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 Procedures ECHOCARDIOGRAM NM ECHO HEART XTHORACIC,COMPLETE W Dee Luke MD [address] [place] [address] Referral ID Status Reason Start Date Expiration Date Visits Re quested Visits Authorized [id number] Closed 07/25/2022 09/16/2022 1 1 Reason Comments Follow-up Specialty Diagnoses / Procedures Referred By Contac t Referred To Contact Diagnoses 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 Faustin, asked to have his and his 's records faxed to his new pcp, I explained he had to sign a release, he asked for the office fax and said he would go today to get the release paper for he and his . I let Roxie's office know . 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 01/11/2025 (unrecognized sect ion and content) No Status Records FoundNo Status Records FoundNo Status Records FoundNo Status Records FoundNo Status Records FoundNo Status Records Found INFORMATION SOURCE (unrecogn ized section and content) DATE CREATED AUTHOR 08/07/2020 [facility] DATE CREATED AUTHOR AUTHOR'S ORGANIZ ATION 12/27/2020 [facility] Adilene Fernández DATE CREATED AUTHOR AUTHOR'S ORGANIZ ATION 07/07/2022 [facility] DATE CREATED AUTHOR AUTHOR'S ORGANIZ ATION 08/13/[address] [facility] DATE CREATED AUTHOR AUTHOR'S ORGANIZ ATION 01/12/2025 [facility] DATE CREATED AUTHOR AUTHOR'S ORGANIZ ATION 04/04/2025 [facility] Care Team (unrecognized sect ion and content) Care Team Personnel Name: LEILANI FAUSTIN MD Member Role: Primary Care Physician Address: Address: [address] [place] [address]- Care Team Related Persons Name: JUAN GAGE Care Team Personnel Name: LEILANI FAUSTIN MD Member Role: Primary Care Physician Address: Address: [address] [place] [address] Care Team Related Persons Name: JUAN GAGE Source Comments (unrecognize d section and content) In the event this informatio n is protected by the Federal Confidentiality of Alcohol and Drug Abuse Patient Records regulations: The Federal rules restrict any use of the information to criminally investigate or prosecute any alcohol or drug abuse patient.[facility] the event this information is protected by the Federal Confidentiality of Alcohol and Drug Abuse Patient Records regulations: The Federal rules restrict any use of the information to criminally investigate or prosecute any alcohol or drug abuse patient.[facility] the event this information is protected by the Federal Confidentiality of Alcohol and Drug Abuse Patient Records regulations: The Federal rules restrict any use of the information to criminally investigate or prosecute any alcohol or drug abuse patient.[facility] the event this information is protected by the Federal Confidentiality of Alcohol and Drug Abuse Patient Records regulations: The Federal rules restrict any use of the information to criminally investigate or prosecute any alcohol or drug abuse patient.[facility] the event this information is protected by the Federal Confidentiality of Alcohol and Drug Abuse Patient Records regulations: The Federal rules restrict any use of the information to criminally investigate or prosecute any alcohol or drug abuse patient.[facility] Care Teams (unrecognized sec tion and content) Street Sprinkler Relationship Specialty Start Date End Date Pcp, No PCP - General 03/30/22 10/15/22 Street Sprinkler Relationship Specialty Start Date End Date Transplant, Coordinator [address] [place] [phone] PCP - Plating Technician 08/24/09 Violet Dallas MD [address] [place] [id number] PCP - General Internal Medicine 08/13/22 Alee Hodgson, WILNER 08/22/10 Trice Moon RN 08/22/10 Street Sprinkler Relationship Specialty Start Date End Date Transplant, Coordinator [address] [place] [phone] PCP - Plating Technician 08/24/09 Violet Dallas MD [address] [place] [phone] PCP - General Internal Medicine 08/13/22 Alee Hodgson, RN 08/22/10 Trice Moon, RN 08/22/10 Team Status: Active Member Role Status Dates Dr. Leilani Faustin MD Family Provider Active Dr. Violet Dallas MD Primary Care Provider Active Team Status: Inactive Member Role Status Dates Dr. Leilani Faustin MD Primary Care Provider, Referrin g Provider Active Dr. Violet Dallas MD Attending Provider Active Team Status: Inactive Member Role Status Dates Dr. Violet Dallas MD Primary Care Pro vider, Attending Provider, Referring Provider Active Team Status: Inactive Member Role Status Dates Dr. Violet Dallas MD Primary Care Provider Active HARINI HANNA Attending Provider Active Team Status: Inactive Member Role Status Dates Dr. Leilani Faustin MD Referring Provider Active Dr. Violet Dallas MD Primary Care Provider, Attendi ng Provider Active Team Status: Inactive Member Role Status Dates Dr. Violet Dallas MD Primary Care Provider, Referri ng Provider Active Dr. Zev Fortune MD Attending Provider Active Team Status: Active Member Role Status Dates Dr. Violet Dallas MD Primary Care Provider, Referri ng Provider Active Dr. Zev Fortune MD Attending Provider, Other Provider Active Street Sprinkler Relationship Specialty Start Date End Date Transplant, Coordinator [address] [place] [phone] PCP - Plating Technician 08/24/09 Violet Dallas MD PCP - General Internal Medicine 08/13/22 Alee Hodgson, RN 08/22/10 Trice Moon, WILNER 08/22/10 Street Sprinkler Relationship Specialty Start Date End Date Transplant, Coordinator [address] [facility] [place] [phone] PCP - Plating Technician 08/24/09 Violet Dallas MD PCP - General Internal Medicine 08/13/22 Alee Hodgson, WILNER 08/22/10 Trice Moon RN 08/22/10 Street Sprinkler Relationship Specialty Start Date End Date Violet Dallas MD [address] [address] PCP - General Internal Medicine 07/16/22 Leslie Silva MD [address] [address] Endocrinology 01/27/23 Street Sprinkler Relationship Specialty Start Date End Date Transplant, Coordinator [address] [place] [phone] PCP - Plating Technician 08/24/09 Violet Dallas MD PCP - General Internal Medicine 08/13/22 Alee Hodgson, WILNER 08/22/10 Trice Moon, WILNER 08/22/10 Street Sprinkler Relationship Specialty Start Date End Date Transplant, Coordinator [address] [place] [phone] PCP - Plating Technician 08/24/09 Violet Dallas MD PCP - General Internal Medicine 08/13/22 Alee Hodgson, WILNER 08/22/10 Trice Moon RN 08/22/10 Street Sprinkler Relationship Specialty Start Date End Date Transplant, Coordinator [address] [place] [phone] PCP - Plating Technician 08/24/09 Violet Dallas MD PCP - General Internal Medicine 08/13/22 Alee Hodgson, WILNER 08/22/10 Trice Moon, WILNER 08/22/10 Street Sprinkler Relationship Specialty [place] [address] [place] [address] PCP - General Internal Medicine 07/16/22 Leslie Silva MD [address] [place] [address] Endocrinology 01/27/23 Street Sprinkler Relationship Specialty Start Date End Date Violet Dallas MD [address] [place] [id number] PCP - General Internal Medicine 07/16/22 Leslie Silva MD [address] [place] [phone] Endocrinology 01/27/23 Team Status: Inactive Member Role Status Dates Dr. Violet Dallas MD Primary Care Provider Active Start: November 12, 2024 End: November 12, 2024 Dr. Violet Dallas MD Referring Provider Active Start: November 12, 2024 End: November 12, 2024 Jesus Barakat PA, PA Attending Provider Active St art: November 12, 2024 End: November 12, 2024 Team Status: Inactive Member Role Status Dates Dr. Violet Dallas MD Primary Care Provider Active Start: February 11, 2025 End: February 11, 2025 Dr. Violet Dallas MD Referring Provider Active Start: February 11, 2025 End: February 11, 2025 SHAYLA Warren Attending Provider Active St art: February 11, 2025 End: February 11, 2025 Team Status: Active Member Role/Relationship Status Dates Dr. Violet Dallas MD Primary Care Provider Active Team Status: Inactive Member Role/Relationship Status Dates Dr. Violet Dallas MD Primary Care Provider Active Start: February 11, 2025 End: February 11, 2025 Dr. Violet Dallas MD Referring Provider Active Start: February 11, 2025 End: February 11, 2025 SHAYLA Warren Attending Provider Active St art: February 11, 2025 End: February 11, 2025 Team Status: Inactive Member Role/Relationship Status Dates Dr. Violet Dallas MD Primary Care Provider Active Start: March 24, 2025 End: March 24, 2025 Dr. Violet Dallas MD Attending Provider Active Start: March 24, 2025 End: March 24, 2025 Dr. Violet Dallas MD Referring Provider Active Start: March 24, 2025 End: March 24, 2025 Team Status: Active Member Role/Relationship Status Dates Dr. Violet Dallas MD Primary Care Provider Active Start: March 24, 2025 Dr. Violet Dallas MD Attending Provider Active Start: March 24, 2025 Team Status: Inactive Member Role/Relationship Status Dates Dr. Violet Dallas MD Primary Care Provider Active Start: March 24, 2025 End: March 24, 2025 Dr. Violet Dallas MD Attending Provider Active Start: March 24, 2025 End: March 24, 2025 Goals (unrecognized section and content) Goals may be documented in a n alternate section Scheduled Active and Recently Administ ered Medications (unrecognized section and content) Medication Order 08/01/2024 08/02/2024 08/03/2024 aspirin chewable tablet 324 mg (COMPLETED) 324 mg, Oral, ONCE, 1 dose, On Fri08/03/24 at 1215, Patient to receive at least 30 minutes prior to procedure. Instruct patient to chew and not swallow., Pre-op/Pre-Proc 1302 (Given - Provid er: Kiko Alvarez RN) Continuous Medication Order 08/01/2024 08/02/2024 08/03/2024 Sodium chloride 0.9% IV solution 3 mL/kg/hr 73 kg [place] weight (219 mL/hr), Intravenous, CONTINUOUS, Starting on Fri08/03/24 at 1415, Until Fri08/03/24 at 1714, Administer for Post Intermediate Card Tender Hydration to Prevent Acute Kidney Injury. , Post-op/Post-Proc 1415 (Canceled Entry - Provider: System Discharge - Comment: Automatically canceled at discontinue of medication order) PRN Medication Order 08/01/2024 08/02/2024 08/03/2024 fentaNYL (SUBLIMAZE) injection (CANCELED) Administer over 2 Minutes, NEEDED, Starting on Fri08/03/24 at 1328, Until Fri08/03/24 at 1403, Intra-op/Intra-Proc 1328 (Given - Provid er: Sorin Salas RN) Heparin injection (CANCELED) NEEDED, Starting on Fri08/03/24 at 1341, Until Fri08/03/24 at 1402, Intra-op/Intra-Proc 1341 (Given - Provid er: Thuy Piña RN) iodixanol (VISIPAQUE) injection 320 mg/mL for [facility] IR (CANCELED) NEEDED, Starting on Fri08/03/24 at 1355, Until Fri08/03/24 at 1402, Intra-op/Intra-Proc 1355 (Given - Provid er: Leilani Velásquez MD - Comment: ic) Lidocaine 2 % injection (CANCELED) NEEDED, Starting on Fri08/03/24 at 1334, Until Fri08/03/24 at 1403, Intra-op/Intra-Proc 1334 (Given - Provid er: Golden Rodriguez DO - Comment: right radial) midazolam (VERSED) injection (CANCELED) NEEDED, Starting on Fri08/03/24 at 1328, Until Fri08/03/24 at 1403, Intra-op/Intra-Proc 1328 (Given - Provid er: Sorin Salas RN) nitroGLYCERIN in D5W 200mcg/5mL syringe SOLN (CANCELED) NEEDED, Starting on Fri08/03/24 at 1336, Until Fri08/03/24 at 1402, Intra-op/Intra-Proc 1336 (Given - Provid er: Golden Rodriguez, DO - Comment: ia) verapamil (ISOPTIN) injection (CANCELED) NEEDED, Starting on Fri08/03/24 at 1336, Until Fri08/03/24 at 1402, Intra-op/Intra-Proc 1336 (Given - Provid er: Golden Rodriugez, DO - Comment: ia) FOR RECORDS PERTAINING TO PATIENTS WHO ARE OR HAVE BEEN ENROLLED IN A CHEMICAL DEPENDENCY/SUBSTANCEABUSE PROGRAM, SOME INFORMATION MAY BE OMITTED. This clinical summary was aggregated from multiple sources. Caution should be exercised in using it in the provision of clinical care. This summary normalizes information from multiple sources, and as a consequence, information in this document may materially change the coding, format and clinical context of patient data. In addition, data may be omitted in some cases. CLINICAL DECISIONS SHOULD BE BASED ON THE PRIMARY CLINICAL RECORDS. [facility]. provides no warranty or guarantee of the accuracy or completeness of information in this document.
[2025-05-21] MEDS: fentaNYL 100 MCG/2 ML Ampul 50 MCG IV (14:33)
[2025-05-21] MEDS: Lidocaine 1% (20 ml mdv) 20 ML Vial INFILT (14:35)
[2025-05-21] MEDS: Cefazolin 2 GM in 0.9% Normal Saline (100mL Bag) 100 ML IV (14:36)
[2025-05-21 15:02] VITALS: BP 126/85; PULSE 105
[2025-05-21 16:00] VITALS: BP 123/80; PULSE 106
--- NOTE | 2025-05-21 16:37 | CM.ED ---
Social Work Date of referral: 05/21/25 Reason for referral: No Advanced Care Directives (ACD's) on file. Referred by: Social Work Identification Patient provided consent for social work visit. Fitter Mechanic requested a copy of patient's ACD's at which point, patient stated he does not have any. Fitter Mechanic provided education and patient's requested more information on how to schedule appointment with [facility] to complete which addiction social worker provided written information on. Patient and his expressed satisfaction. Maria G Lozano, LACTATION SPECIALIST, HIGHWAY ADMINISTRATIVE ENGINEER
[2025-05-21 17:00] VITALS: BP 124/80
[2025-05-21 17:03] VITALS: BP 124/80; PULSE 103; RESP 16; TEMP 36.8; O2SAT 98
== END 2025-05-21 17:25 | disposition short-term general hospital (02) ==
PROVIDERS: Emergency Provider Student in an Organized Health Care Education/Training Program; PCP Internal Medicine; Visit Provider Student in an Organized Health Care Education/Training Program
DX: S62.601B Fracture of unspecified phalanx of left index finger, initial encounter for open fracture (principal); Z94.1 Heart transplant status; I11.0 Hypertensive heart disease with heart failure; I50.9 Heart failure, unspecified; I48.91 Unspecified atrial fibrillation; E78.00 Pure hypercholesterolemia, unspecified; W26.8XXA Contact with other sharp object(s), not elsewhere classified, initial encounter; Z79.82 Long term (current) use of aspirin; Z79.899 Other long term (current) drug therapy; S62.603B Fracture of unspecified phalanx of left middle finger, initial encounter for open fracture; Z23 Encounter for immunization
CPT/HCPCS: 73130; 90715; 96365; 96375; 99284; A4216